=== PATIENT | male | born 1940 | race Caucasian/White ===

== ENCOUNTER 2018-11-29 15:19 | Emergency (ER) | payer MEDICARE, OTHER ==
--- NOTE | 2018-11-29 15:25 | EDM.PDOC ---
ED HPI GENERAL MEDICAL PROBLEM - General Chief Complaint: Upper Extremity Injury/Pain Stated Complaint: SICK Time Seen by Provider: 11/29/18 15:24 Source of Information: Reports: Patient History Limitations: Reports: No Limitations - History of Present Illness INITIAL COMMENTS - FREE TEXT/NARRATIVE: HISTORY AND PHYSICAL: History of present illness: Patient is a 78-year-old male presenting to the emergency room for left hand pain from [facility]. Patient states he got his left hand entangled in a horse yesterday. He does have a history of altered mental status. [facility] is not sure how he injured his hand. Patient states it is extremely painful and when asked to rate his pain on a scale of zero to ten, he states it is "ban-ass fast". Review of systems: As per history of present illness and below otherwise all systems reviewed and negative. Past medical history: As per history of present illness and as reviewed below otherwise noncontributory. Surgical history: As per history of present illness and as reviewed below otherwise noncontributory. Social history: See social history for further information Family history: As per history of present illness and as reviewed below otherwise noncontributory. Physical exam: General: Patient is a well-nourished and well-developed 78-year-old male. Alert and oriented to person and place, although he his pleasantly confused during conversation. Nontoxic in appearance and in no acute distress dressed. Vital signs have been reviewed by me. HEENT: Atraumatic, normocephalic, pupils equal and reactive bilaterally, negative for conjunctival pallor or scleral icterus, mucous membranes moist, TMs normal bilaterally, throat clear, neck supple, nontender, trachea midline. No drooling or trismus noted. No meningeal signs. No hot potato voice noted. Lungs: Clear to auscultation, breath sounds equal bilaterally, chest nontender. Heart: S1S2, regular rate and rhythm without overt murmur Abdomen: Soft, nondistended, nontender. Negative for masses or hepatosplenomegaly. Negative for costovertebral tenderness. Pelvis: Stable nontender. Skin: Bruising at the base of the fifth, fourth and third digit with slight warmth and erythema. Intact, warm, dry. No lesions or rashes noted. Extremities: Left wrist tender to palpation on the anterior and posterior sides , tender to palpation on the MIP joints and metatarsal bones of the 3rd, 4th and 5th digit. Otherwise moves all extremities per self without difficulty or deficits, negative for cords or calf pain. Neurovascular unremarkable. Neuro: Awake, alert, oriented. Cranial nerves II through XII unremarkable. Cerebellum unremarkable. Motor and sensory unremarkable throughout. Exam nonfocal. Notes: Lab work is unremarkable with the exception of an elevated uric acid. X-rays show soft tissue swelling but no acute bony abnormalities are noted. As he is very tender with palpation we will put him in a cockup wrist splint for comfort. Supportive care measures were reviewed and discussed. Voices understanding and is agreeable to plan of care. Denies any further questions or concerns at this time. Diagnostics: Left hand/wrist x ray, CBC, CMP, Lactic Acid, Uric Acid Therapeutics: Wrist Splint Prescription: Prednisone Colchicine Indomethacine Impression: Gout Left Hand Pain Plan: 1. Rest, ice and elevate the extremity. Wear the splint for comfort over the next 3-5 days. 2. Tylenol as needed for pain management. 3. Please follow up with your primary care provider as we discussed. Return to the ED as needed and as discussed. Definitive disposition and diagnosis as appropriate pending reevaluation and review of above. Left Hand Pain Score (Numeric/FACES): 8 - Related Data Allergies Allergy/AdvReac Type Severity Reaction Status Date / Time Penicillins Allergy Nausea Verified 11/29/18 15:33 Home Meds: Home Meds Acetaminophen [Acetaminophen ER] 650 mg PO TID 09/02/16 [History] Bisacodyl 10 mg RECTAL DAILY PRN 09/02/16 [History] Acetaminophen [Tylenol] 650 mg PO Q6H PRN 09/06/16 [History] Methyl Salicylate/Menthol [Icy Hot] 1 applic TOP Q8H PRN 09/06/16 [History] Cetirizine [ZyrTEC] 1 tab PO BID 09/01/18 [History] Loperamide [Imodium] 1 cap PO ASDIRECTED PRN 09/01/18 [History] Sulfamethoxazole/Trimethoprim [Bactrim Ds Tablet] 1 tab PO BID 09/01/18 [History ] Past Medical History HEENT History: Reports: None Cardiovascular History: Reports: High Cholesterol, Hypertension, Other (See Below) Other Cardiovascular History: Edema Respiratory History: Reports: Pneumonia, Recurrent Gastrointestinal History: Reports: None Genitourinary History: Reports: Acute Renal Failure, Chronic Renal Insuffiency, Retention, Urinary Other Genitourinary History: CKD, urinary retention Musculoskeletal History: Reports: Gout, Osteoarthritis, Other (See Below) Other Musculoskeletal History: Muscle weakness, traumatic ischemia of muscle, frequent falls, joint pain Neurological History: Reports: Other (See Below) Other Neuro History: altered mental status according to radha chart, syncope Psychiatric History: Reports: Dementia Endocrine/Metabolic History: Reports: Obesity/BMI 30+ Hematologic History: Reports: None Immunologic History: Reports: None Oncologic (Cancer) History: Reports: None Dermatologic History: Reports: Cellulitis - Infectious Disease History Infectious Disease History: Reports: None - Past Surgical History Head Surgeries/Procedures: Reports: None HEENT Surgical History: Reports: None Cardiovascular Surgical History: Reports: None Respiratory Surgical History: Reports: None GI Surgical History: Reports: Appendectomy Male Surgical History: Reports: None Endocrine Surgical History: Reports: None Neurological Surgical History: Reports: None Musculoskeletal Surgical History: Reports: None Oncologic Surgical History: Reports: None Social & Family History - Family History Family Medical History: Unobtainable Neurological: Reports: Dementia - Caffeine Use Caffeine Use: Reports: None Other Caffeine Use: Unknown Review of Systems - Review of Systems Review Of Systems: ROS reveals no pertinent complaints other than HPI. ED EXAM, GENERAL - Physical Exam Exam: See Below (See dictation) Course - Vital Signs Last Recorded V/S: Last Vital Signs Temp 98.1 F 11/29/18 15:35 Pulse 114 H 11/29/18 15:35 Resp 18 11/29/18 15:35 BP 130/94 H 11/29/18 15:35 Pulse Ox 97 11/29/18 15:35 - Orders/Labs/Meds Labs: Laboratory Tests 11/29/18 11/29/18 11/29/18 Range/Units 16:18 16:18 16:18 WBC 10.26 (4.0-11.0) K/uL RBC 4.42 L (4.50-5.90) M/uL Hgb 13.3 (13.0-17.0) g/dL Hct 41.2 (38.0-50.0) % MCV 93.2 (80.0-98.0) fL MCH 30.1 (27.0-32.0) pg MCHC 32.3 (31.0-37.0) g/dL RDW Std Deviation 47.8 (28.0-62.0) fl RDW Coeff of Joseph 14 (11.0-15.0) % Plt Count 237 (150-400) K/uL MPV 9.80 (7.40-12.00) fL Neut % (Auto) 73.0 (48.0-80.0) % Lymph % (Auto) 15.5 L (16.0-40.0) % Weld % (Auto) 9.2 (0.0-15.0) % Eos % (Auto) 2.0 (0.0-7.0) % Baso % (Auto) 0.3 (0.0-1.5) % Neut # (Auto) 7.5 H (1.4-5.7) K/uL Lymph # (Auto) 1.6 (0.6-2.4) K/uL Weld # (Auto) 0.9 H (0.0-0.8) K/uL Eos # (Auto) 0.2 (0.0-0.7) K/uL Baso # (Auto) 0.0 (0.0-0.1) K/uL Nucleated RBC % 0.0 /100WBC Nucleated RBCs # 0 K/uL Lactate 2.0 (0.20-2.00) mmol/L Sodium 139 (136-148) mmol/L Potassium 4.6 (3.5-5.1) mmol/L Chloride 100 (98-107) mmol/L Carbon Dioxide 27.4 (21.0-32.0) mmol/L BUN 20 H (7.0-18.0) mg/dL Creatinine 1.1 (0.8-1.3) mg/dL Est Cr Clr Drug Dosing 53.55 mL/min Estimated GFR (MDRD) > 60.0 ml/min Glucose 104 (74-106) mg/dL Uric Acid 8.3 H (2.6-7.2) mg/dL Calcium 9.1 (8.5-10.1) mg/dL Total Bilirubin 0.4 (0.2-1.0) mg/dL AST 30 (15-37) IU/L ALT 18 (14-63) IU/L Alkaline Phosphatase 59 (46-116) U/L Total Protein 7.8 (6.4-8.2) g/dL Albumin 3.1 L (3.4-5.0) g/dL Globulin 4.7 H (2.6-4.0) g/dL Albumin/Globulin Ratio 0.7 L (0.9-1.6) Departure - Departure Time of Disposition: 17:26 Disposition: Home, Self-Care 01 Clinical Impression: Left hand pain Gout Qualifiers: Gout site: hand Gout etiology: unspecified cause Chronicity: acute Laterality: left Qualified Code(s): M10.9 - Gout, unspecified - Discharge Information Instructions: Gout Referrals: Awais Goss MD [Primary Care Provider] - Forms: ED Department Discharge Additional Instructions: The following information is given to patients seen in the emergency department who are being discharged to home. This information is to outline your options for follow-up care. We provide all patients seen in our emergency department with a follow-up referral. The need for follow-up, as well as the timing and circumstances, are variable depending upon the specifics of your emergency department visit. If you don't have a primary care physician on staff, we will provide you with a referral. We always advise you to contact your personal physician following an emergency department visit to inform them of the circumstance of the visit and for follow-up with them and/or the need for any referrals to a consulting specialist. The emergency department will also refer you to a specialist when appropriate. This referral assures that you have the opportunity for follow-up care with a specialist. All of these measure are taken in an effort to provide you with optimal care, which includes your follow-up. Under all circumstances we always encourage you to contact your private physician who remains a resource for coordinating your care. When calling for follow-up care, please make the office aware that this follow-up is from your recent emergency room visit. If for any reason you are refused follow-up, please contact the [facility] Emergency Department at and asked to speak to the emergency department charge nurse. [facility] [address] [place] [id number] [facility] [address] [place] [address] 1. Rest, ice and elevate the extremity. Wear the splint for comfort over the next 3-5 days. 2. Tylenol as needed for pain management. Take the GOUT medications as directed 3. Please follow up with your primary care provider as we discussed. Return to the ED as needed and as discussed.
[2018-11-29 15:38] VITALS: BP 130/94; PULSE 114
[2018-11-29 16:51] LABS: BLOOD UREA NITROGEN,BUN 20 mg/dL (7.0-18.0); CARBON DIOXIDE,CO2 27.4 mmol/L (21.0-32.0); CHLORIDE,CL 100 mmol/L (98-107); GLUCOSE RANDOM 104 mg/dL (74-106); POTASSIUM,K 4.6 mmol/L (3.5-5.1); SODIUM,NA 139 mmol/L (136-148)
--- NOTE | 2018-11-29 16:56 | CR ---
Left hand: Three views of the left hand were obtained. Comparison: Prior left hand study of 06/07/16. Findings within the wrist are seen which are stable from previous exam and described on wrist exam. Joint spaces are fairly well-preserved within the hand. No acute fracture, dislocation or other bony abnormality is seen. Soft tissue swelling is identified. Impression: Soft tissue swelling. No acute bony abnormality is seen on left hand exam. Diagnostic code #2 MTDD
--- NOTE | 2018-11-29 16:56 | CR ---
Left wrist: Three views left wrist were obtained. Comparison: Prior left wrist exam of 06/07/16. Old fracture is noted within the proximal pole of the navicular bone. Joint space narrowing is noted between the distal radius and navicular bone. Navicular bone shows distal sclerosis. No additional fracture or other bony abnormality is seen. Impression: 1. Old proximal pole navicular fracture. Degenerative change between the radius and navicular bone. Sclerotic change within the distal navicular bone. 2. Nothing acute is appreciated. Diagnostic code #3 MTDD
== END 2018-11-29 17:45 | disposition home or self-care (01) ==
LOC: MW.ED 15:19
DX: M10.042 Idiopathic gout, left hand (principal); I12.9 Hypertensive chronic kidney disease with stage 1 through stage 4 chronic kidney disease, or unspecified chronic kidney disease; N18.9 Chronic kidney disease, unspecified; E66.9 Obesity, unspecified; Z68.41 Body mass index [BMI] 40.0-44.9, adult; Z88.0 Allergy status to penicillin
CPT/HCPCS: 36415; 73110-26-LT; 73110-LT; 73130-26-LT; 73130-LT; 80053; 83605; 84550; 85025; 99283-25

== ENCOUNTER 2020-09-16 10:10 | Inpatient (IN) | payer MEDICARE, OTHER ==
[2020-09-16] MEDS ORDERED: Sodium Chloride 0.9% 1,000 ML IV ONE ×3 (10:13→13:24)
[2020-09-16] MEDS ORDERED: Meropenem 1 GM in Sodium Chloride 0.9% 100 ML IV ONE (10:16)
--- NOTE | 2020-09-16 10:16 | PCM.EKG ---
#1 Interpretation EKG Date: 09/16/20 Time: 10:13 Rhythm: Other (sinus tachycardia) Rate (Beats/Min): 153 [place]: Normal P-Wave: Present QRS: Normal ST-T: Normal QT: Normal EKG Interpretation Comments: sinus tachycardia rate of 153; machine read as SVT; more likely hidden P-waves 2/2 rate. Patient is septic from likely UTI source so will treat sepsis and reassess rate and rhythm
[2020-09-16] MEDS ORDERED: Meropenem Premix 1 GM in Premix Bag 1 BAG IV SCH (11:00)
[2020-09-16 11:12] LABS: BLOOD UREA NITROGEN,BUN 112 mg/dL (7.0-18.0); CARBON DIOXIDE,CO2 26.5 mmol/L (21.0-32.0); CHLORIDE,CL 122 mmol/L (98-107); GLUCOSE RANDOM 139 mg/dL (74-106); LIPASE 71 U/L (73-393); POTASSIUM,K 3.9 mmol/L (3.5-5.1)
--- NOTE | 2020-09-16 11:20 | EDM.PDOC ---
ED HPI GENERAL MEDICAL PROBLEM - General Chief Complaint: Possible Sepsis Stated Complaint: LETHARGY Time Seen by Provider: 09/16/20 10:12 Source of Information: Reports: Patient History Limitations: Reports: No Limitations - History of Present Illness INITIAL COMMENTS - FREE TEXT/NARRATIVE: HISTORY AND PHYSICAL: History of present illness: Patient is an 80-year-old male who presents emergency room today via EMS from [facility] for concern of possible sepsis. Patient has a known urinary tract infection and has been on Bactrim over the past several weeks. However, was switched to Rocephin 2 days ago and states that he is continuing to decline despite this. Per report from nursing staff at [facility], he has been clammy with his most recent vital check at [facility] with a blood pressure of 100/60, heart rate of 153, respiratory rate of 20, 96% on room air and afebrile. Per nursing staff, he does have some increased swelling of his left wrist and they are concerned about fracture although unknown injury. Per nursing staff, 2 weeks ago patient was a pivot transfer with to assist but over the course of the past 2 weeks, he has been steadily declining and is now a José Miguel lift. Nursing staff states he does have chronic pain in his left knee with extension and does have dementia and is confused at baseline but alert and "tell stories "per baseline. Per nursing staff, patient is not able to explain much of his symptoms and this is due to his dementia. Patient is a DNR/DNI code 3. Nursing staff has noticed decreased oral intake over the past several weeks. Review of systems: As per history of present illness and below otherwise all systems reviewed and negative. Past medical history: As per history of present illness and as reviewed below otherwise noncontributory. Surgical history: As per history of present illness and as reviewed below otherwise noncontributory. Social history: See social history for further information Family history: As per history of present illness and as reviewed below otherwise noncontributory. Physical exam: General: Patient is alert, and in no acute distress. Patient does not answer questions appropriately but does have dementia per baseline. Patient laying comfortably on exam table. Patient is tachycardic 150 on exam, otherwise vitally stable and reviewed by me. HEENT: Atraumatic, normocephalic, pupils equal and reactive bilaterally, negative for conjunctival pallor or scleral icterus, mucous membranes dry, TMs normal bilaterally, throat clear, neck supple, nontender, trachea midline. No drooling or trismus noted. No meningeal signs. No hot potato voice noted. Lungs: Clear to auscultation, breath sounds equal bilaterally, chest nontender. Heart: S1S2, regular rate and rhythm without overt murmur Abdomen: Soft, nondistended, nontender. Negative for masses or hepatosplenomegaly. Negative for costovertebral tenderness. Pelvis: Stable nontender. Genitourinary: Deferred. Rectal: Deferred. Skin: Intact, warm, dry. No lesions or rashes noted. Extremities: There is some bruising noted over the left dorsal wrist with pain to palpation of the wrist. Radial pulses grossly intact of the left upper extremity with capillary refill less than 2 seconds. All compartments are soft in the left upper extremity. Patient does have pain with range of motion of the left knee and prefers it to be held in flexed position and does have pain with extension. Per nursing staff at [facility], this is chronic in nature. Otherwise, atraumatic, negative for cords or calf pain. Neurovascular unremarkable. Neuro: Awake, alert, unable to answer questions appropriately/limited due to dementia. Cranial nerves II through XII unremarkable. Cerebellum unremarkable. Motor and sensory unremarkable throughout. Exam nonfocal. Notes: Patient is an 80-year-old male who presents emergency room today via EMS from [facility] at the halfway for concern of possible sepsis due to known urinary tract infection. Upon arrival to the ED, patient is noted to be tachycardic 150s on exam, otherwise vitally stable. Patient does have some swelling noted to his left wrist and does have pain with extension of his left knee, and mucous membranes are dry. Otherwise, remainder of physical exam unremarkable. Will perform lab work, obtain blood cultures and lactate, provide a 20 cc/kg bolus and initiate antibiotics due to concern for sepsis. At this time, unable to get ahold of his family after multiple attempts by ourselves as well nursing staff at [facility]. See Dr. Douglas's dictation for specific EKG interpretation. However, sinus tachycardia with a rate of 153 without signs of STEMI or acute changes. CBC noted to have an elevation of white blood cell count of 14.3 with a left shift with absolute segs neutrophils at 9.3 and band at 1.7. Remainder of mild derangements of CBC unremarkable. CMP noted for a severe hypernatremia at 164, hyperchloremia at 122, acute kidney injury/failure with a creatinine of 3.6 and BUN of 112. Lactic acid elevated at 2.2. Troponin negative. Other mild derangements of CMP unremarkable. Urinalysis shows too numerous to count white blood cells with 4-8 red blood cells positive leukocyte Estrace with 2+ bacteria and 100 protein. Interpretation: Acute cystitis. Covid negative. Blood cultures pending. Head CT shows no acute findings or significant changes from prior exam. Left wrist x-ray shows no acute injury. No significant changes from prior. Chest x-ray shows no acute cardiopulmonary abnormality. (10L free water deficit with severe hypernatremia) Following 1 L saline bolus, patient's heart rate normalizes to 90 bpm. Repeat EKG obtained and unchanged from prior. Patient has now received a total of 3 L normal saline and throughout stay in ED has variability heart rate from 80-150 which is not consistent. Patient does have a drop in blood pressure to 125/85. I did call and speak to the hospitalist on-call, Dr. Kwok, who would like patient to have a central line for presumed septic shock given acute kidney failure with blood pressure drop and known source of infection/tachycardia. And excepting to admit patient to the ICU. There was a delay in being able to get a hold of patient's family from nursing staff at [facility] as well as nursing staff here. We were finally able to get a hold of patient's daughter Keke Carrasco who is patients medical POA and thoroughly discussed patient's care. Keke is unable to be here in the emergency room and any other family members are not able to be here as they are all down in [place] currently in live there. Keke would like us to do all life saving ability up to point of chest compressions / intubation and agreeable to central line / antibiotics / admission to ICU for septic shock. Patient discharged to the ICU to Dr. Kellogg in stable condition. Diagnostics: EKG, CBC, CMP, UA urinalysis with urine culture, chest x-ray, troponin, lactate, blood cultures x2, left wrist x-ray, COVID Therapeutics: Normal saline, meropenem, vancomycin Impression: Septic shock secondary to urinary tract infection Hypernatremia, severe Hyperchloremia Acute renal failure secondary to septic shock Dehydration Plan: Admit to ICU to Dr. Kwok Definitive disposition and diagnosis as appropriate pending reevaluation and review of above. - Related Data Allergies Allergy/AdvReac Type Severity Reaction Status Date / Time Penicillins Allergy Nausea Verified 11/29/18 15:33 Home Meds: Home Meds Acetaminophen [Tylenol] 650 mg PO Q6H PRN 09/06/16 [History] Methyl Salicylate/Menthol [Icy Hot] 1 applic TOP Q8H PRN 09/06/16 [History] Cetirizine [ZyrTEC] 1 tab PO BID 09/01/18 [History] Acetaminophen with Codeine [Acetaminophen-Cod #3] 1 each PO TID 09/16/20 [History] Carbamide Peroxide [Debrox] 15 ml OT ASDIRECTED 09/16/20 [History] Furosemide [Lasix] 80 mg PO DAILY 09/16/20 [History] cefTRIAXone Sodium [Ceftriaxone] 1 gram IM DAILY 09/16/20 [History] Past Medical History HEENT History: Reports: None Cardiovascular History: Reports: High Cholesterol, Hypertension, Other (See Below) Other Cardiovascular History: Edema Respiratory History: Reports: Pneumonia, Recurrent Gastrointestinal History: Reports: None Genitourinary History: Reports: Acute Renal Failure, Chronic Renal Insuffiency, Retention, Urinary Other Genitourinary History: CKD, urinary retention Musculoskeletal History: Reports: Gout, Osteoarthritis, Other (See Below) Other Musculoskeletal History: Muscle weakness, traumatic ischemia of muscle, frequent falls, joint pain Neurological History: Reports: Other (See Below) Other Neuro History: altered mental status according to radha chart, syncope Psychiatric History: Reports: Dementia Endocrine/Metabolic History: Reports: Obesity/BMI 30+ Hematologic History: Reports: None Immunologic History: Reports: None Oncologic (Cancer) History: Reports: None Dermatologic History: Reports: Cellulitis - Infectious Disease History Infectious Disease History: Reports: None - Past Surgical History Head Surgeries/Procedures: Reports: None HEENT Surgical History: Reports: None Cardiovascular Surgical History: Reports: None Respiratory Surgical History: Reports: None GI Surgical History: Reports: Appendectomy Male Surgical History: Reports: None Endocrine Surgical History: Reports: None Neurological Surgical History: Reports: None Musculoskeletal Surgical History: Reports: None Oncologic Surgical History: Reports: None Social & Family History - Family History Family Medical History: Unobtainable Neurological: Reports: Dementia - Caffeine Use Caffeine Use: Reports: None Other Caffeine Use: Unknown ED ROS GENERAL - Review of Systems Review Of Systems: Comprehensive ROS is negative, except as noted in HPI. ED EXAM, GENERAL - Physical Exam Exam: See Below (see dictation) ED CENTRAL LINE INSERTION - Central Line Insertion Central Line Indication: IV access, hemodynamic monitoring, medication administration Site: femoral (R) Prep: CDC/MBT Guidelines, Sterile Drapes, Chlorhexidine Lumen: triple Gauge: 7Fr Local Anesthesia - Lidocaine (Xylocaine): 1% Plain Local Anesthetic Volume: 5cc Ultrasound guided: Yes Guidewire and dilator removed intact: Yes Micropuncture kit used: No Complications: No Secured with suture: Yes Post placement confirmation: all ports aspirated, all ports flushed Dressing applied: by provider, chlorhexidine disc used Central line comment: Central line insertion by myself and directly observed and supervised directly by Dr. Brian Da Silva Course - Vital Signs Last Recorded V/S: Last Vital Signs Temp 99.7 F 09/16/20 15:21 Pulse 93 09/16/20 15:21 Resp 20 09/16/20 15:21 BP 136/55 L 09/16/20 15:21 Pulse Ox 97 09/16/20 15:21 - Orders/Labs/Meds Orders: Active Orders 24 hr Category Date Time Status Admission Status [Patient Status] [ADT] Stat ADT 09/16/20 13:32 Active BASIC METABOLIC PANEL,BMP [CHEM] Stat Lab 09/16/20 16:39 Received CULTURE BLOOD [BC] Stat Lab 09/16/20 10:25 Received CULTURE BLOOD [BC] Stat Lab 09/16/20 13:00 Received CULTURE URINE [MREF] Stat Lab 09/16/20 10:35 Received Blood Culture x2 Reflex Set [OM.PC] Stat Oth 09/16/20 10:15 Ordered Medication Orders Acetaminophen (Acetaminophen 650 Mg Supp) 650 mg RECTAL Q4H PRN PRN Reason: Pain (mild 1-3) Albuterol/Ipratropium (Albuterol/Ipratropium 3.0-0.5 Mg/3 Ml Neb Soln) 3 ml NEB Q4HRRT PRN PRN Reason: Shortness of Breath Pantoprazole Sodium 40 mg/ (Sodium Chloride) 10 mls @ 200 mls/hr IV Q24H NIMO Meropenem/Sodium Chloride 1 gm (/ Premix) 50 mls @ 100 mls/hr IV Q12H NIMO Sodium Chloride (Normal Saline) 1,000 mls @ 125 mls/hr IV Q8H NIMO Ondansetron HCl (Ondansetron 4 Mg/2 Ml Sdv) 4 mg IVPUSH Q4H PRN PRN Reason: Nausea Sodium Chloride (Sodium Chloride 0.9% 10 Ml Syringe) 10 ml FLUSH ASDIRECTED PRN PRN Reason: Keep Vein Open Sodium Chloride (Sodium Chloride 0.9% 2.5 Ml Syringe) 2.5 ml FLUSH ASDIRECTED PRN PRN Reason: Keep Vein Open Vancomycin HCl (Pharmacy To Dose - Vancomycin) 1 dose .XX ASDIRECTED NIMO Labs: Laboratory Tests 09/16/20 09/16/20 09/16/20 Range/Units 10:25 10:25 10:25 WBC 14.36 H (4.0-11.0) K/uL RBC 4.87 (4.50-5.90) M/uL Hgb 13.6 (13.0-17.0) g/dL Hct 44.2 (38.0-50.0) % MCV 90.8 (80.0-98.0) fL MCH 27.9 (27.0-32.0) pg MCHC 30.8 L (31.0-37.0) g/dL RDW Std Deviation 56.0 (28.0-62.0) fl RDW Coeff of Joseph 17 H (11.0-15.0) % Plt Count 415 H (150-400) K/uL MPV 10.20 (7.40-12.00) fL Add Manual Diff YES Neutrophils % (Manual) 65 (48.0-80.0) % Band Neutrophils % 5 % Lymphocytes % (Manual) 26 (16.0-40.0) % Monocytes % (Manual) 2 (0.0-15.0) % Eosinophils % (Manual) 1 (0.0-7.0) % Basophils % (Manual) 1 (0.0-1.5) % Nucleated RBC % 0.0 /100WBC Absolute Seg Neuts 9.3 H (1.4-5.7) Band Neutrophils # 0.7 Lymphocytes # (Manual) 3.7 H (0.6-2.4) Monocytes # (Manual) 0.3 (0.0-0.8) Eosinophils # (Manual) 0.1 (0.0-0.7) Basophils # (Manual) 0.1 (0.0-0.1) Nucleated RBCs # 0 K/uL Sodium 164 H* (136-148) mmol/L Potassium 3.9 (3.5-5.1) mmol/L Chloride 122 H (98-107) mmol/L Carbon Dioxide 26.5 (21.0-32.0) mmol/L BUN 112 H (7.0-18.0) mg/dL Creatinine 3.6 H (0.8-1.3) mg/dL Est Cr Clr Drug Dosing 16.90 mL/min Estimated GFR (MDRD) 16.4 ml/min Glucose 139 H (74-106) mg/dL Lactic Acid 2.2 H* (0.4-2.0) mmol/L Calcium 9.9 (8.5-10.1) mg/dL Total Bilirubin 0.3 (0.2-1.0) mg/dL AST 86 H (15-37) IU/L ALT 58 (14-63) IU/L Alkaline Phosphatase 64 (46-116) U/L Troponin I < 0.050 (0.000-0.056) ng/mL Total Protein 8.7 H (6.4-8.2) g/dL Albumin 2.4 L (3.4-5.0) g/dL Globulin 6.3 H (2.6-4.0) g/dL Albumin/Globulin Ratio 0.4 L (0.9-1.6) Lipase 71 L (73-393) U/L Urine Color Urine Appearance Urine pH (5.0-8.0) Ur Specific [place] (1.001-1.035) Urine Protein (NEGATIVE) mg/dL Urine Glucose (UA) (NEGATIVE) mg/dL Urine Ketones (NEGATIVE) mg/dL Urine Occult Blood (NEGATIVE) Urine Nitrite (NEGATIVE) Urine Bilirubin (NEGATIVE) Urine Urobilinogen (<2.0) EU/dL Ur Leukocyte Esterase (NEGATIVE) Urine RBC (0-2/HPF) Urine WBC (0-5/HPF) Ur Epithelial Cells (NONE-FEW) Amorphous Sediment (NEGATIVE) Urine Bacteria (NEGATIVE) Urine Mucus (NONE-MOD) SARS-CoV-2 RNA (SALAS) (NEGATIVE) 09/16/20 09/16/20 Range/Units 10:35 10:50 WBC (4.0-11.0) K/uL RBC (4.50-5.90) M/uL Hgb (13.0-17.0) g/dL Hct (38.0-50.0) % MCV (80.0-98.0) fL MCH (27.0-32.0) pg MCHC (31.0-37.0) g/dL RDW Std Deviation (28.0-62.0) fl RDW Coeff of Joseph (11.0-15.0) % Plt Count (150-400) K/uL MPV (7.40-12.00) fL Add Manual Diff Neutrophils % (Manual) (48.0-80.0) % Band Neutrophils % % Lymphocytes % (Manual) (16.0-40.0) % Monocytes % (Manual) (0.0-15.0) % Eosinophils % (Manual) (0.0-7.0) % Basophils % (Manual) (0.0-1.5) % Nucleated RBC % /100WBC Absolute Seg Neuts (1.4-5.7) Band Neutrophils # Lymphocytes # (Manual) (0.6-2.4) Monocytes # (Manual) (0.0-0.8) Eosinophils # (Manual) (0.0-0.7) Basophils # (Manual) (0.0-0.1) Nucleated RBCs # K/uL Sodium (136-148) mmol/L Potassium (3.5-5.1) mmol/L Chloride (98-107) mmol/L Carbon Dioxide (21.0-32.0) mmol/L BUN (7.0-18.0) mg/dL Creatinine (0.8-1.3) mg/dL Est Cr Clr Drug Dosing mL/min Estimated GFR (MDRD) ml/min Glucose (74-106) mg/dL Lactic Acid (0.4-2.0) mmol/L Calcium (8.5-10.1) mg/dL Total Bilirubin (0.2-1.0) mg/dL AST (15-37) IU/L ALT (14-63) IU/L Alkaline Phosphatase (46-116) U/L Troponin I (0.000-0.056) ng/mL Total Protein (6.4-8.2) g/dL Albumin (3.4-5.0) g/dL Globulin (2.6-4.0) g/dL Albumin/Globulin Ratio (0.9-1.6) Lipase (73-393) U/L Urine Color YELLOW Urine Appearance CLOUDY Urine pH 6.0 (5.0-8.0) Ur Specific [place] 1.025 (1.001-1.035) Urine Protein 100 H (NEGATIVE) mg/dL Urine Glucose (UA) NEGATIVE (NEGATIVE) mg/dL Urine Ketones NEGATIVE (NEGATIVE) mg/dL Urine Occult Blood LARGE H (NEGATIVE) Urine Nitrite NEGATIVE (NEGATIVE) Urine Bilirubin NEGATIVE (NEGATIVE) Urine Urobilinogen 0.2 (<2.0) EU/dL Ur Leukocyte Esterase LARGE H (NEGATIVE) Urine RBC 4-8 (0-2/HPF) Urine WBC TO NUMEROUS TO COUNT H (0-5/HPF) Ur Epithelial Cells NOT SEEN (NONE-FEW) Amorphous Sediment FEW (NEGATIVE) Urine Bacteria 2+ H (NEGATIVE) Urine Mucus FEW (NONE-MOD) SARS-CoV-2 RNA (SALAS) NEGATIVE (NEGATIVE) Meds: Medications Generic Name Dose Route Start Last Admin Trade Name Freq PRN Reason Stop Dose Admin Acetaminophen 650 mg 09/16/20 15:24 Acetaminophen 650 Mg Supp RECTAL Q4H PRN Pain (mild 1-3) Albuterol/Ipratropium 3 ml 09/16/20 17:09 Albuterol/Ipratropium 3.0-0.5 Mg/3 Ml Neb Soln NEB Q4HRRT PRN Shortness of Breath Pantoprazole Sodium 40 mg/ 10 mls @ 200 mls/hr 09/16/20 15:30 Sodium Chloride IV Q24H NIMO Meropenem/Sodium Chloride 1 gm 50 mls @ 100 mls/hr 09/16/20 22:00 / Premix IV Q12H NIMO Sodium Chloride 1,000 mls @ 125 mls/hr 09/16/20 16:30 Normal Saline IV Q8H NIMO Ondansetron HCl 4 mg 09/16/20 15:24 Ondansetron 4 Mg/2 Ml Sdv IVPUSH Q4H PRN Nausea Sodium Chloride 10 ml 07/22/21 15:24 Sodium Chloride 0.9% 10 Ml Syringe FLUSH ASDIRECTED PRN Keep Vein Open Sodium Chloride 2.5 ml 09/16/20 15:24 Sodium Chloride 0.9% 2.5 Ml Syringe FLUSH ASDIRECTED PRN Keep Vein Open Vancomycin HCl 1 dose 09/16/20 15:45 Pharmacy To Dose - Vancomycin .XX ASDIRECTED NIMO Discontinued Medications Generic Name Dose Route Start Last Admin Trade Name Leny PRN Reason Stop Dose Admin Acetaminophen/Codeine Phosphate 1 tab 09/16/20 15:21 Acetaminophen/Codeine 300-30 Mg Tab PO 09/16/20 15:22 ONETIME ONE Fentanyl 25 mcg 09/16/20 15:51 09/16/20 15:55 Fentanyl 50 Mcg/Ml Sdv IVPUSH 09/16/20 15:52 25 mcg ONETIME ONE Administration Sodium Chloride 1,000 mls @ 999 mls/hr 09/16/20 10:13 09/16/20 10:20 Normal Saline IV 09/16/20 11:13 999 mls/hr BOLUS ONE Administration Meropenem 1 gm/ Sodium 100 mls @ 200 mls/hr 09/16/20 10:16 09/16/20 11:09 Chloride IV 09/16/20 10:45 Not Given ONETIME ONE Meropenem/Sodium Chloride 1 gm 50 mls @ 100 mls/hr 09/16/20 11:00 09/16/20 11:09 / Premix IV 100 mls/hr ONETIME NIMO Administration Sodium Chloride 1,000 mls @ 999 mls/hr 09/16/20 10:55 09/16/20 11:09 Normal Saline IV 09/16/20 11:55 999 mls/hr STAT ONE Administration Vancomycin HCl 1.5 gm/ Premix 300 mls @ 199.188 mls/hr 09/16/20 11:30 09/16/20 11:33 IV 09/16/20 13:00 199.188 mls/hr ONETIME ONE Administration Sodium Chloride 1,000 mls @ 999 mls/hr 09/16/20 13:24 09/16/20 13:34 Normal Saline IV 09/16/20 14:24 999 mls/hr STAT ONE Administration Departure - Departure Time of Disposition: 17:42 Disposition: Admitted As Inpatient 66 Clinical Impression: Septic shock, Hypernatremia, Hyperchloremia, Dehydration Acute renal failure Qualifiers: Acute renal failure type: unspecified Qualified Code(s): N17.9 - Acute kidney failure, unspecified Urinary tract infection Qualifiers: Urinary tract infection type: acute cystitis Hematuria presence: with hematuria Qualified Code(s): N30.01 - Acute cystitis with hematuria - Discharge Information Sepsis Event Note (ED) - Evaluation Sepsis Screening Result: No Definite Risk - Focused Exam Vital Signs: Vital Signs Temp Pulse Resp BP Pulse Ox 09/16/20 13:48 88 125/85 96 09/16/20 13:32 143 H 133/85 97 09/16/20 13:17 91 159/93 H 91 L 09/16/20 13:11 88 141/89 H 09/16/20 12:56 89 139/73 09/16/20 12:41 153 H 131/93 H 97 09/16/20 12:25 142 H 130/97 H 94 L 09/16/20 11:57 145 H 159/92 H 96 09/16/20 11:41 147 H 145/84 H 98 09/16/20 11:22 148 H 20 145/98 H 98 09/16/20 11:15 156 H 98 09/16/20 10:51 146 H 20 101/75 96 09/16/20 10:36 151 H 20 111/79 94 L 09/16/20 10:18 154 H 20 137/78 93 L 09/16/20 10:16 155 H 93 L 09/16/20 10:13 98.8 F 154 H 18 98 09/16/20 10:11 98.8 F 153 H 20 137/78 96 - My Orders Last 24 Hours: My Active Orders 09/16/20 10:15 Blood Culture x2 Reflex Set [OM.PC] Stat 09/16/20 10:25 CULTURE BLOOD [BC] Stat 09/16/20 10:35 CULTURE URINE [MREF] Stat 09/16/20 13:00 CULTURE BLOOD [BC] Stat 09/16/20 13:32 Admission Status [Patient Status] [ADT] Stat - Assessment/Plan Last 24 Hours: My Active Orders 09/16/20 10:15 Blood Culture x2 Reflex Set [OM.PC] Stat 09/16/20 10:25 CULTURE BLOOD [BC] Stat 09/16/20 10:35 CULTURE URINE [MREF] Stat 09/16/20 13:00 CULTURE BLOOD [BC] Stat 09/16/20 13:32 Admission Status [Patient Status] [ADT] Stat
[2020-09-16 11:27] LABS: SODIUM,NA 164 mmol/L (136-148)
[2020-09-16] MEDS ORDERED: VANCOmycin 1.5 GM/300 ML 1.5 GM in Premix Bag 1 BAG IV ONE (11:30)
--- NOTE | 2020-09-16 11:39 | CR ---
HISTORY: Sepsis. TECHNIQUE: Portable frontal view the chest. COMPARISON: Chest x-ray 09/01/2018. FINDINGS: Patient`s head obscures small portions of the lung apices. No airspace consolidation. No pleural effusion or pneumothorax. Pulmonary vasculature and cardiomediastinal silhouette are within normal limits. Metallic surgical anchors in the left humeral head. IMPRESSION: No acute cardiopulmonary abnormality. Dictated by Agustin Bosch MD @ 09/16/2020 11:37:[address] Agustin Bosch @ Sep 16 2020 11:37AM
--- NOTE | 2020-09-16 11:49 | CR ---
Indication: Injury and pain Technique: Left wrist 3 views Comparison: November 29, 2018 Findings: Bones: Alignment within normal limits. No acute fracture or suspicious bone lesion. Chronic nonunited fracture of the scaphoid does not appear significantly changed. Joint spaces: Stable arthritic changes in the radiocarpal joint. Soft tissues: Unremarkable. Impression: No sign of acute injury. No significant changes from the prior exam. Dictated by Adeel Mccall MD @ 09/16/2020 11:47:[address] Adeel Mccall @ Sep 16 2020 11:47AM
--- NOTE | 2020-09-16 13:00 | PCM.EKG ---
#1 Interpretation EKG Date: 09/16/20 Time: 12:38 Rhythm: Other (sinus tach) Rate (Beats/Min): 153 Golden: Normal QRS: Normal ST-T: Normal QT: Normal EKG Interpretation Comments: sinus tach at 153
--- NOTE | 2020-09-16 13:09 | CT ---
INDICATION: Altered mental status TECHNIQUE: Head CT without contrast. COMPARISON: September 01, 2018 FINDINGS: CSF spaces: Within normal limits for age. Brain parenchyma and extra-axial spaces: There are nonspecific low attenuation white matter changes consistent with chronic microvascular disease. No sign of mass, hemorrhage, or midline shift. Skull base and calvarium: The visualized paranasal sinuses and mastoid air cells demonstrate no acute or significant findings. The visualized orbits are grossly unremarkable. No skull fractures. IMPRESSION: No acute findings and no significant changes from the prior exam. No specific finding to explain altered mental status. Please note that all CT scans at this facility use dose modulation, iterative reconstruction, and/or weight-based dosing when appropriate to reduce radiation dose to as low as reasonably achievable. Dictated by Adeel Mccall MD @ 09/16/2020 1:08:[address] Adeel Mccall @ Sep 16 2020 1:08PM
[2020-09-16] MEDS ORDERED: Acetaminophen/Codeine 300-30 MG Tab PO ONE (15:21)
[2020-09-16] MEDS ORDERED: Sodium Chloride 0.9% 10 ML Syringe FLUSH PRN (15:24)
[2020-09-16] MEDS ORDERED: Ondansetron 4 MG/2 ML SDV IVPUSH PRN (15:24)
[2020-09-16] MEDS ORDERED: Sodium Chloride 0.9% 2.5 ML Syringe FLUSH PRN (15:24)
[2020-09-16] MEDS ORDERED: Pantoprazole 40 MG Vial IV SCH (15:30)
[2020-09-16] MEDS ORDERED: fentaNYL 50 MCG/ML SDV IVPUSH ONE (15:51)
--- NOTE | 2020-09-16 16:18 | PCM.HP.2 ---
H&P History of Present Illness - General Date of Service: 09/16/20 Admit Problem/Dx: Admission Diagnosis/Problem Admission Diagnosis/Problem Sepsis Source of Information: Shelter Records History Limitations: Reports: Altered Mental Status - History of Present Illness Initial Comments - Free Text/Narative: This 80-year-old male with past medical history of HLD, HTN, urinary retention with chronic renal insufficiency CKD and dementia admitted to the ER today from [facility] for concerns of possible sepsis. Patient has a known UTI and has been on Bactrim over the past several weeks. He was switched to Rocephin 2 days ago and despite this he is continuing to have a decline. Patient is mildly alert in the ER but very poor historian. Much of report was obtained from [facility] staff. Staff reports that over 2 weeks ago he has had increasing lethargy where he was at once a pivot transfer and now he is steadily declining and needing a José Miguel lift. Patient is a DNR/DNI noted on [place] paperwork. Patient poor historian. Unable to gain information from interview. In the ER leukocytosis noted at 14,000 hemoglobin 13.6 hematocrit 44.2. Platelet count 415,000. Bandemia noted at 5. Sodium elevated at 164 potassium 3.9 chloride 122 BUN 112 creatinine 3.6. Glucose 139 lactic acid elevated at 2.2. Troponin negative UA significant for +2 bacteria WBC too numerous to count large leukocyte esterase negative nitrites Covid swab negative. Head CT obtained due to altered mental status reveals no acute findings or significant changes from previous exams. Wrist x-ray negative chest x-ray negative for any acute cardiopulmonary process. EKG sinus tachycardia heart rate 150s no ST-T wave changes. In the ER patient treated with broad-spectrum antibiotics of meropenem and vancomycin along with 3 L IV fluid. Blood cultures obtained as well as urine culture. Patient will be admitted with severe sepsis secondary to complicated UTI. - Related Data Allergies/Adverse Reactions: Allergies Allergy/AdvReac Type Severity Reaction Status Date / Time Penicillins Allergy Nausea Verified 11/29/18 15:33 Home Medications: Home Meds Acetaminophen [Tylenol] 650 mg PO Q6H PRN 09/06/16 [History] Methyl Salicylate/Menthol [Icy Hot] 1 applic TOP Q8H PRN 09/06/16 [History] Cetirizine [ZyrTEC] 1 tab PO BID 09/01/18 [History] Acetaminophen with Codeine [Acetaminophen-Cod #3] 1 each PO TID 09/16/20 [History] Carbamide Peroxide [Debrox] 15 ml OT ASDIRECTED 09/16/20 [History] Furosemide [Lasix] 80 mg PO DAILY 09/16/20 [History] cefTRIAXone Sodium [Ceftriaxone] 1 gram IM DAILY 09/16/20 [History] Past Medical History HEENT History: Reports: None Cardiovascular History: Reports: High Cholesterol, Hypertension, Other (See Below) Other Cardiovascular History: Edema Respiratory History: Reports: Pneumonia, Recurrent Gastrointestinal History: Reports: None Genitourinary History: Reports: Acute Renal Failure, Chronic Renal Insuffiency, Retention, Urinary Other Genitourinary History: CKD, urinary retention Musculoskeletal History: Reports: Gout, Osteoarthritis, Other (See Below) Other Musculoskeletal History: Muscle weakness, traumatic ischemia of muscle, frequent falls, joint pain Neurological History: Reports: Other (See Below) Other Neuro History: altered mental status according to radha chart, syncope Psychiatric History: Reports: Dementia Endocrine/Metabolic History: Reports: Obesity/BMI 30+ Hematologic History: Reports: None Immunologic History: Reports: None Oncologic (Cancer) History: Reports: None Dermatologic History: Reports: Cellulitis - Infectious Disease History Infectious Disease History: Reports: None - Past Surgical History Head Surgeries/Procedures: Reports: None HEENT Surgical History: Reports: None Cardiovascular Surgical History: Reports: None Respiratory Surgical History: Reports: None GI Surgical History: Reports: Appendectomy Male Surgical History: Reports: None Endocrine Surgical History: Reports: None Neurological Surgical History: Reports: None Musculoskeletal Surgical History: Reports: None Oncologic Surgical History: Reports: None Social & Family History - Family History Family Medical History: Unobtainable Neurological: Reports: Dementia - Tobacco Use Tobacco Use Status *Q: Unknown Ever Used Tobacco Second Hand Smoke Exposure: No - Caffeine Use Caffeine Use: Reports: None Other Caffeine Use: Unknown - Recreational Drug Use Recreational Drug Use: No H&P Review of Systems - Review of Systems: Review Of Systems: Unable To Obtain Reason Not Obtained: Alert but very minimal conversation or ability to provide history Exam - Exam Exam: See Below - Vital Signs Vital Signs: Last Vital Signs Temp 99.7 F 09/16/20 15:21 Pulse 93 09/16/20 15:21 Resp 20 09/16/20 15:21 BP 136/55 L 09/16/20 15:21 Pulse Ox 97 09/16/20 15:21 Weight: 99.4 kg - Exam Quality Assessment: Supplemental Oxygen General: Alert, Cooperative HEENT: Pupils Equal, Pupils Reactive. No: Mucosa Moist & [place] (Dry) Lungs: Normal Respiratory Effort, Decreased Breath Sounds (Bibasilar) Cardiovascular: Regular Rhythm, Tachycardia. No: Systolic Murmur GI/Abdominal Exam: Normal Bowel Sounds, Soft, No Distention, Tender (Right upper quadrant tenderness upon palpation) Extremities: Normal Inspection, Normal Range of Motion, Non-Tender, No Pedal Edema, Normal Capillary Refill Skin: Warm, Moist Neuro Extensive - Mental Status: Disorientation to Place, Disorientation to Time Neuro Extensive - Motor, Sensory, Reflexes: Other (Does not follow commands appropriately) - Patient Data Lab Results Last 24 hrs: Laboratory Results - last 24 hr 09/16/20 09/16/20 09/16/20 Range/Units 10:25 10:25 10:25 WBC 14.36 H (4.0-11.0) K/uL RBC 4.87 (4.50-5.90) M/uL Hgb 13.6 (13.0-17.0) g/dL Hct 44.2 (38.0-50.0) % MCV 90.8 (80.0-98.0) fL MCH 27.9 (27.0-32.0) pg MCHC 30.8 L (31.0-37.0) g/dL RDW Std Deviation 56.0 (28.0-62.0) fl RDW Coeff of Joseph 17 H (11.0-15.0) % Plt Count 415 H (150-400) K/uL MPV 10.20 (7.40-12.00) fL Add Manual Diff YES Neutrophils % (Manual) 65 (48.0-80.0) % Band Neutrophils % 5 % Lymphocytes % (Manual) 26 (16.0-40.0) % Monocytes % (Manual) 2 (0.0-15.0) % Eosinophils % (Manual) 1 (0.0-7.0) % Basophils % (Manual) 1 (0.0-1.5) % Nucleated RBC % 0.0 /100WBC Absolute Seg Neuts 9.3 H (1.4-5.7) Band Neutrophils # 0.7 Lymphocytes # (Manual) 3.7 H (0.6-2.4) Monocytes # (Manual) 0.3 (0.0-0.8) Eosinophils # (Manual) 0.1 (0.0-0.7) Basophils # (Manual) 0.1 (0.0-0.1) Nucleated RBCs # 0 K/uL Sodium 164 H* (136-148) mmol/L Potassium 3.9 (3.5-5.1) mmol/L Chloride 122 H (98-107) mmol/L Carbon Dioxide 26.5 (21.0-32.0) mmol/L BUN 112 H (7.0-18.0) mg/dL Creatinine 3.6 H (0.8-1.3) mg/dL Est Cr Clr Drug Dosing 16.90 mL/min Estimated GFR (MDRD) 16.4 ml/min Glucose 139 H (74-106) mg/dL Lactic Acid 2.2 H* (0.4-2.0) mmol/L Calcium 9.9 (8.5-10.1) mg/dL Total Bilirubin 0.3 (0.2-1.0) mg/dL AST 86 H (15-37) IU/L ALT 58 (14-63) IU/L Alkaline Phosphatase 64 (46-116) U/L Troponin I < 0.050 (0.000-0.056) ng/mL Total Protein 8.7 H (6.4-8.2) g/dL Albumin 2.4 L (3.4-5.0) g/dL Globulin 6.3 H (2.6-4.0) g/dL Albumin/Globulin Ratio 0.4 L (0.9-1.6) Lipase 71 L (73-393) U/L Urine Color Urine Appearance Urine pH (5.0-8.0) Ur Specific [place] (1.001-1.035) Urine Protein (NEGATIVE) mg/dL Urine Glucose (UA) (NEGATIVE) mg/dL Urine Ketones (NEGATIVE) mg/dL Urine Occult Blood (NEGATIVE) Urine Nitrite (NEGATIVE) Urine Bilirubin (NEGATIVE) Urine Urobilinogen (<2.0) EU/dL Ur Leukocyte Esterase (NEGATIVE) Urine RBC (0-2/HPF) Urine WBC (0-5/HPF) Ur Epithelial Cells (NONE-FEW) Amorphous Sediment (NEGATIVE) Urine Bacteria (NEGATIVE) Urine Mucus (NONE-MOD) SARS-CoV-2 RNA (SALAS) (NEGATIVE) 09/16/20 09/16/20 Range/Units 10:35 10:50 WBC (4.0-11.0) K/uL RBC (4.50-5.90) M/uL Hgb (13.0-17.0) g/dL Hct (38.0-50.0) % MCV (80.0-98.0) fL MCH (27.0-32.0) pg MCHC (31.0-37.0) g/dL RDW Std Deviation (28.0-62.0) fl RDW Coeff of Joseph (11.0-15.0) % Plt Count (150-400) K/uL MPV (7.40-12.00) fL Add Manual Diff Neutrophils % (Manual) (48.0-80.0) % Band Neutrophils % % Lymphocytes % (Manual) (16.0-40.0) % Monocytes % (Manual) (0.0-15.0) % Eosinophils % (Manual) (0.0-7.0) % Basophils % (Manual) (0.0-1.5) % Nucleated RBC % /100WBC Absolute Seg Neuts (1.4-5.7) Band Neutrophils # Lymphocytes # (Manual) (0.6-2.4) Monocytes # (Manual) (0.0-0.8) Eosinophils # (Manual) (0.0-0.7) Basophils # (Manual) (0.0-0.1) Nucleated RBCs # K/uL Sodium (136-148) mmol/L Potassium (3.5-5.1) mmol/L Chloride (98-107) mmol/L Carbon Dioxide (21.0-32.0) mmol/L BUN (7.0-18.0) mg/dL Creatinine (0.8-1.3) mg/dL Est Cr Clr Drug Dosing mL/min Estimated GFR (MDRD) ml/min Glucose (74-106) mg/dL Lactic Acid (0.4-2.0) mmol/L Calcium (8.5-10.1) mg/dL Total Bilirubin (0.2-1.0) mg/dL AST (15-37) IU/L ALT (14-63) IU/L Alkaline Phosphatase (46-116) U/L Troponin I (0.000-0.056) ng/mL Total Protein (6.4-8.2) g/dL Albumin (3.4-5.0) g/dL Globulin (2.6-4.0) g/dL Albumin/Globulin Ratio (0.9-1.6) Lipase (73-393) U/L Urine Color YELLOW Urine Appearance CLOUDY Urine pH 6.0 (5.0-8.0) Ur Specific [place] 1.025 (1.001-1.035) Urine Protein 100 H (NEGATIVE) mg/dL Urine Glucose (UA) NEGATIVE (NEGATIVE) mg/dL Urine Ketones NEGATIVE (NEGATIVE) mg/dL Urine Occult Blood LARGE H (NEGATIVE) Urine Nitrite NEGATIVE (NEGATIVE) Urine Bilirubin NEGATIVE (NEGATIVE) Urine Urobilinogen 0.2 (<2.0) EU/dL Ur Leukocyte Esterase LARGE H (NEGATIVE) Urine RBC 4-8 (0-2/HPF) Urine WBC TO NUMEROUS TO COUNT H (0-5/HPF) Ur Epithelial Cells NOT SEEN (NONE-FEW) Amorphous Sediment FEW (NEGATIVE) Urine Bacteria 2+ H (NEGATIVE) Urine Mucus FEW (NONE-MOD) SARS-CoV-2 RNA (SALAS) NEGATIVE (NEGATIVE) Result Diagrams: 09/16/20 10:25 09/16/20 10:25 Sepsis Event Note - Evaluation Sepsis Screening Result: No Definite Risk Current Stage of Sepsis: Severe Sepsis Possible Source of Sepsis: Genitourinary - Focused Exam Sepsis Event Note Statement: Focused Sepsis Exam Completed Vital Signs: Vital Signs Temp Pulse Resp BP Pulse Ox 09/16/20 15:21 99.7 F 93 20 136/55 L 97 09/16/20 11:22 148 H 20 145/98 H 98 09/16/20 11:15 156 H 98 09/16/20 10:51 146 H 20 101/75 96 09/16/20 10:36 151 H 20 111/79 94 L 09/16/20 10:18 154 H 20 137/78 93 L 09/16/20 10:16 155 H 93 L 09/16/20 10:13 98.8 F 154 H 18 98 09/16/20 10:11 98.8 F 153 H 20 137/78 96 Capillary Refill, Detail: Less than/Equal to (</=) 2 Seconds Pulse Description: 2+ Normal Skin Exam (Focused Sepsis): Pale, Diaphoretic - Problem List (1) Severe sepsis SNOMED Code(s): 84956527 ICD Code: A41.9 - SEPSIS, UNSPECIFIED ORGANISM; R65.20 - SEVERE SEPSIS WITHOUT SEPTIC SHOCK Status: Acute Current Visit: Yes (2) Complicated UTI (urinary tract infection) SNOMED Code(s): 33570829 ICD Code: N39.0 - URINARY TRACT INFECTION, SITE NOT SPECIFIED Status: Acute Current Visit: Yes (3) Acute kidney injury superimposed on CKD SNOMED Code(s): 08106260 ICD Code: N17.9 - ACUTE KIDNEY FAILURE, UNSPECIFIED; N18.9 - CHRONIC KIDNEY DISEASE, UNSPECIFIED Status: Acute Current Visit: Yes (4) Lactic acidosis SNOMED Code(s): 87091608 ICD Code: E87.2 - ACIDOSIS Status: Acute Current Visit: Yes (5) Dementia SNOMED Code(s): 52778435 ICD Code: F03.90 - UNSPECIFIED DEMENTIA WITHOUT BEHAVIORAL DISTURBANCE Status: Acute Current Visit: Yes (6) Hypertension SNOMED Code(s): 51216917 ICD Code: I10 - ESSENTIAL (PRIMARY) HYPERTENSION Status: Acute Current Visit: Yes (7) Hyperlipidemia SNOMED Code(s): 93865494 ICD Code: E78.5 - HYPERLIPIDEMIA, UNSPECIFIED Status: Acute Current Visit: Yes (8) Altered mental status SNOMED Code(s): 368416849 ICD Code: R41.82 - ALTERED MENTAL STATUS, UNSPECIFIED Status: Acute Current Visit: No (9) Leukocytosis SNOMED Code(s): 818905603, 577989089 ICD Code: D72.829 - ELEVATED WHITE BLOOD CELL COUNT, UNSPECIFIED Status: Acute Current Visit: No (10) Urinary retention SNOMED Code(s): 752587992 ICD Code: R33.9 - RETENTION OF URINE, UNSPECIFIED Status: Chronic Current Visit: Yes Problem List Initiated/Reviewed/Updated: Yes Orders Last 24hrs: Active Orders 24 hr Category Date Time Status Admission Status [Patient Status] [ADT] Stat ADT 09/16/20 13:32 Active Height and Weight [RC] DAILY Care 09/16/20 15:24 Active Intake and Output Strict [RC] Q12H Care 09/16/20 15:27 Active Oxygen Therapy [RC] PRN Care 09/16/20 15:24 Active VTE/DVT Education [RC] PER UNIT ROUTINE Care 09/16/20 15:24 Active Vital Signs [RC] Q1HR Care 09/16/20 15:24 Active BASIC METABOLIC PANEL,BMP [CHEM] Stat Lab 09/16/20 14:29 Ordered CBC WITH AUTO DIFF [HEME] AM Lab 09/17/20 05:11 Ordered CULTURE BLOOD [BC] Stat Lab 09/16/20 10:25 Received CULTURE BLOOD [BC] Stat Lab 09/16/20 13:00 Received CULTURE URINE [MREF] Stat Lab 09/16/20 10:35 Received LACTIC ACID [CHEM] Routine Lab 09/16/20 15:18 Ordered MAGNESIUM [CHEM] AM Lab 09/17/20 05:11 Ordered Acetaminophen [Tylenol] Med 09/16/20 15:24 Active 650 mg RECTAL Q4H PRN Meropenem Premix [Meropenem in NS 1 GM/50 ML] 1 gm Med 09/16/20 22:00 Active Premix Bag 1 bag IV Q12H Ondansetron [Zofran] Med 09/16/20 15:24 Active 4 mg IVPUSH Q4H PRN Pantoprazole [ProTONIX IV] 40 mg Med 09/16/20 15:30 Active Sodium Chloride 0.9% [Normal Saline] 10 ml IV Q24H Pharmacy to Dose - Vancomycin Med 09/16/20 15:45 Pending 1 dose .XX ASDIRECTED Sodium Chloride 0.9% [Saline Flush] Med 09/16/20 15:24 Active 10 ml FLUSH ASDIRECTED PRN Sodium Chloride 0.9% [Saline Flush] Med 09/16/20 15:24 Active 2.5 ml FLUSH ASDIRECTED PRN Blood Culture x2 Reflex Set [OM.PC] Stat Oth 09/16/20 10:15 Ordered Saline Lock Insert [OM.PC] Routine Oth 09/16/20 15:24 Ordered Resuscitation Status Routine Resus Stat 09/16/20 15:24 Ordered Medication Orders Acetaminophen (Acetaminophen 650 Mg Supp) 650 mg RECTAL Q4H PRN PRN Reason: Pain (mild 1-3) Pantoprazole Sodium 40 mg/ (Sodium Chloride) 10 mls @ 200 mls/hr IV Q24H NIMO Meropenem/Sodium Chloride 1 gm (/ Premix) 50 mls @ 100 mls/hr IV Q12H NIMO Ondansetron HCl (Ondansetron 4 Mg/2 Ml Sdv) 4 mg IVPUSH Q4H PRN PRN Reason: Nausea Sodium Chloride (Sodium Chloride 0.9% 10 Ml Syringe) 10 ml FLUSH ASDIRECTED PRN PRN Reason: Keep Vein Open Sodium Chloride (Sodium Chloride 0.9% 2.5 Ml Syringe) 2.5 ml FLUSH ASDIRECTED PRN PRN Reason: Keep Vein Open Vancomycin HCl (Pharmacy To Dose - Vancomycin) 1 dose .XX ASDIRECTED [facility] Assessment/Plan Comment:: This 80-year-old male admitted with severe sepsis secondary to complicated UTI with FRAN and hypernatremia 1. Severe sepsis and complicated UTI -Continue broad-spectrum antibiotics especially since recently on Rocephin and Bactrim. Consider possible MDR organism - Continue meropenem and vancomycin renally dosed -Blood cultures and urine culture pending Repeat lactic acid -Discussed prognosis at length with daughter Keke, at this time she is unsure aggressive treatment her and her brother would request. She would like to discuss this with her brother. She is unsure at this time if she would want pressors and/or transfer. She was again counseled on poor prognosis with severe sepsis and complicated UTI with significant electrolyte abnormalities. She will call back with any changes in requests or level of treatment. For now she agrees with treatment as laid out with fluids and IV antibiotics. She agrees that if his heart were to stop or he were to have trouble breathing and need intubation that these would not be performed due to his standing DNR/DNI. 2. Hypernatremia Water deficit 10 L, given 4 L in the ER - Repeat BMP every 4 hours -Normal saline 125 now until repeat BMP resulted. 3. FRAN on CKD -Unsure of baseline creatinine/BUN -Continue Gao catheter -Strict I's and O's -Avoid nephrotoxic medications -Continue IV fluids as above. 4. Abdominal pain -Noted on assessment will obtain CT abdomen pelvis VTE prophylaxis: SCDs, hematuria noted post Gao placement will monitor and start pharmacologic therapy. GI prophylaxis: Protonix CODE STATUS: DNR/DNI Dispo: pending improvement. treatment plan discussed at length with Dr Kwok, She will follow repeat pending BMP - Mortality Measure Prognosis:: Poor
[2020-09-16] MEDS ORDERED: Sodium Chloride 0.9% 1,000 ML IV SCH (16:30)
[2020-09-16] MEDS ORDERED: Albuterol/Ipratropium 3.0-0.5 MG/3 ML Neb Soln NEB PRN (17:09)
[2020-09-16 17:26] LABS: CARBON DIOXIDE,CO2 26.1 mmol/L (21.0-32.0); POTASSIUM,K 3.9 mmol/L (3.5-5.1)
[2020-09-16] MEDS: Pantoprazole 40 MG in Sodium Chloride 0.9% 10 ML IV SCH (17:55)
[2020-09-16] MEDS ORDERED: Dextrose 5% in Water 1,000 ML IV SCH (18:00)
[2020-09-16] MEDS ORDERED: Dextrose 5% in Water 1,000 ML IV ONE (18:05)
--- NOTE | 2020-09-16 18:10 | CT ---
INDICATION: Right upper quadrant pain. COMPARISON: None. TECHNIQUE: Noncontrast images. FINDINGS: Strandy atelectasis in the dependent lower lobes. Some ground-glass may be minor pulmonary edema. Mildly prominent paraesophageal inferior retroperitoneal and inferior right hilar lymph nodes. Coronary artery atherosclerosis. Circumferential fullness at the distal esophagus. There is some very subtle suggestion of mineralization at the right mucosal margin (image 36 series 201). A splenule ventral from normal spleen. No adrenal nodule. Contracted gallbladder has some subtly peripherally mineralized gallstones. Hydronephrosis in both kidneys with hydroureter extending to the urinary bladder which is decompressed with Gao catheter. No radiopaque filling defects in the bladder, ureters or the renal pelves bilaterally. Mild perinephric stranding bilaterally. No solid renal mass. No significant cysts. Atherosclerosis of the non aneurysmal aorta. Diverticula of the sigmoid colon without inflammation. No dilatation or inflammation of large or small bowel. Normal infra cecal appendix. No retroperitoneal or mesenteric and no pelvic or inguinal pathologic adenopathy. No blastic or lytic bone lesion and no fracture. Right groin central venous catheter tip external iliac upper margin. IMPRESSION: 1. Bilateral hydronephrosis and hydroureter extending urinary bladder likely related to high outlet obstruction or potentially cystitis. Correlate with laboratory and physical exam findings. 2. Circumferential thickening distal esophagus. This may be neoplasm more Farfan`s esophagitis. Endoscopy recommended for characterization. Posterior inferior retroperitoneal paraesophageal upper Rebecca normal-size lymph nodes. Please note that all CT scans at this facility use dose modulation, iterative reconstruction, and/or weight-based dosing when appropriate to reduce radiation dose to as low as reasonably achievable. Dictated by Johan Diaz MD @ 09/16/2020 6:09:[address] Johan Diaz @ Sep 16 2020 6:09PM
--- NOTE | 2020-09-16 19:20 | PN ---
CRISTOPHER Physician - Brief Progress [id number]/22/2021 19:06[facility] Viktoria Fournier, KANWAL - ALYCIAN (ALIA) - MWN KEESHA NOELGaryDate of Service 09/16/2020 19:06HPI/Events of Note HPI: 80 yo M with PMHx significant for urinary retention presents from his senior living with worsening lethargy and confusion. intermediate staff reports pt was being treated for UTI for a coup le weeks with Bactrim. He was switched to Rocephin a couple days ago. His condition worsened, so he w as sent to ER, where pt was found to have a WBC count of 14 and positive UA. Also noteworthy was a se rum Na of 164. Pt was bolused 3L of 0.9% NS, after which his serum Na red to 165. Hospitalist had st arted D5W gtt at 125 ml/hr, and after seeing Na increase, bolused 1L of D5W. Information was obtained from H&P and discussion with bedside RN, since pt is a very poor historian at present. Nurse states pt is very confused and combative, so it is unlikely they'll be able to convince him to drink water o r allow NG tube insertion for free water administration. I recommended to bedside RN that D5W gtt @ 5 0-100 ml/hr would be sufficient, as long as pt is having lytes checked q4-6 hours. Cultures were draw n in ER and Meropenem was started empirically.OBJECTIVE:VS: 36.6C, 104/56, 85, 20 95% (3L NC)Gen: Sle eping comfortably, appears well nourished, NADHeart: NSR with normal HR seen on bedside telemetry mon itorLungs: Breathing comfortably on NC with normal hvw4Tcuky: Sleeping comfortably at presentASSESSME NT:UTI - complicatedSevere sepsis without septic shockLactic acidosisAcute dehydrationHypernatremiaAK IMetabolic encephalopathyPLAN:Meropenem per bedside teamMonitor cultures, temps, WBCSerial lactate un til <2.0S/P total 4L bolused since admission (3L 0.9% NS, 1L D5W)Continue IV hydration. Ok to use D5W gtt at 50-100 ml/hr, as long as lytes are being checked q4-6 hours. Alternatively, pt may be given a fluid with more tonicity, such as D5W/LR or D5W/0.9% NS at similar rates, just to aid with intravasc ular volume depletion. Will defer choice of IV fluids and rate of administration to hospitalist at be dside but we are happy to provide input and guidance.Electrolytes q4-6 hoursDo not decrease serum Na by more than 8-10 within 24 hours. If this happens, stop D5W and any other hypotonic solutions and co nsider administering 0.9% NS.Avoid nephrotoxic agentsMonitor BUN, Cr, UOPCT head on presentation was negative for acute abnormalitiesSerial neuro checksInterventions [id number] disturbance - evalua tion and management, Acute renal failure - evaluation and management, Change in mental status - evalu ation and management, Electrolyte abnormality - evaluation and management, Infection - evaluation and management, Sepsis - evaluation and managementElectronically Signed by: Simon Garcia MD 09/16/2020 19:20
[2020-09-16 21:22] LABS: POTASSIUM,K 3.4 mmol/L (3.5-5.1)
[2020-09-16] MEDS: Meropenem Premix 1 GM in Premix Bag 1 BAG IV SCH (22:12)
[2020-09-16] MEDS ORDERED: Dextrose 5%-Lactated Ringers 1,000 ML IV SCH (22:30)
--- NOTE | 2020-09-16 23:24 | PCM.SN.2 ---
- Free Text/Narrative Note: Spoke to patient's daughter in great detail, updated patient's clinical status. She is okay with patient needing pressors if necessary and continuing broad- spectrum antibiotics and other measures that are being provided right now. Currently patient's blood pressure is holding up okay after fluid resuscitation and would not be requiring pressors. she is also aware and in agreement with patient's DNR/DNI status. Informed her that it will take next 24 to 48 hours to assess patient's clinical response and prognosis. If patient does not respond well than goals of care talk would be initiated. Family appreciated update and is in agreement with the current treatment plan and would like to be updated about patient's clinical status tomorrow.
[2020-09-17 01:26] LABS: CARBON DIOXIDE,CO2 25.3 mmol/L (21.0-32.0); POTASSIUM,K 3.5 mmol/L (3.5-5.1)
[2020-09-17 06:01] LABS: CARBON DIOXIDE,CO2 27.5 mmol/L (21.0-32.0); POTASSIUM,K 3.3 mmol/L (3.5-5.1)
--- NOTE | 2020-09-17 08:18 | PCM.PN ---
- General Info Date of Service: 09/17/20 Admission Dx/Problem (Free Text): Admission Diagnosis/Problem Admission Diagnosis/Problem Sepsis Subjective Update: Alert today, has shouting episodes and reports pain when touched all over. Functional Status: Reports: Pain Controlled, Tolerating Diet (tolerating water) - Review of Systems Pulmonary: Reports: No Symptoms. Denies: Shortness of Breath Cardiovascular: Reports: No Symptoms. Denies: Chest Pain Gastrointestinal: Reports: Abdominal Pain Neurological: Reports: No Symptoms Psychiatric: Reports: No Symptoms - Patient Data Vitals - Most Recent: Last Vital Signs Temp 97.4 F 09/17/20 04:00 Pulse 93 09/16/20 15:21 Resp 22 H 09/17/20 07:00 BP 109/55 L 09/17/20 07:00 Pulse Ox 92 L 09/17/20 07:00 Weight - Most Recent: 102.5 kg I&O - Last 24 Hours: Intake & Output 09/16/20 09/17/20 09/17/20 22:59 06:59 14:59 Intake Total 4612 2049 Output Total 1100 600 Balance 3512 1449 Lab Results Last 24 Hours: Laboratory Results - last 24 hr 09/16/20 09/16/20 09/16/20 Range/Units 10:25 10:25 10:25 WBC 14.36 H (4.0-11.0) K/uL RBC 4.87 (4.50-5.90) M/uL Hgb 13.6 (13.0-17.0) g/dL Hct 44.2 (38.0-50.0) % MCV 90.8 (80.0-98.0) fL MCH 27.9 (27.0-32.0) pg MCHC 30.8 L (31.0-37.0) g/dL RDW Std Deviation 56.0 (28.0-62.0) fl RDW Coeff of Joseph 17 H (11.0-15.0) % Plt Count 415 H (150-400) K/uL MPV 10.20 (7.40-12.00) fL Add Manual Diff YES Neutrophils % (Manual) 65 (48.0-80.0) % Band Neutrophils % 5 % Lymphocytes % (Manual) 26 (16.0-40.0) % Monocytes % (Manual) 2 (0.0-15.0) % Eosinophils % (Manual) 1 (0.0-7.0) % Basophils % (Manual) 1 (0.0-1.5) % Nucleated RBC % 0.0 /100WBC Absolute Seg Neuts 9.3 H (1.4-5.7) Band Neutrophils # 0.7 Lymphocytes # (Manual) 3.7 H (0.6-2.4) Monocytes # (Manual) 0.3 (0.0-0.8) Eosinophils # (Manual) 0.1 (0.0-0.7) Basophils # (Manual) 0.1 (0.0-0.1) Nucleated RBCs # 0 K/uL Sodium 164 H* (136-148) mmol/L Potassium 3.9 (3.5-5.1) mmol/L Chloride 122 H (98-107) mmol/L Carbon Dioxide 26.5 (21.0-32.0) mmol/L BUN 112 H (7.0-18.0) mg/dL Creatinine 3.6 H (0.8-1.3) mg/dL Est Cr Clr Drug Dosing 16.90 mL/min Estimated GFR (MDRD) 16.4 ml/min Glucose 139 H (74-106) mg/dL Lactic Acid 2.2 H* (0.4-2.0) mmol/L Calcium 9.9 (8.5-10.1) mg/dL Magnesium (1.8-2.4) mg/dL Total Bilirubin 0.3 (0.2-1.0) mg/dL AST 86 H (15-37) IU/L ALT 58 (14-63) IU/L Alkaline Phosphatase 64 (46-116) U/L Troponin I < 0.050 (0.000-0.056) ng/mL Total Protein 8.7 H (6.4-8.2) g/dL Albumin 2.4 L (3.4-5.0) g/dL Globulin 6.3 H (2.6-4.0) g/dL Albumin/Globulin Ratio 0.4 L (0.9-1.6) Lipase 71 L (73-393) U/L Urine Color Urine Appearance Urine pH (5.0-8.0) Ur Specific [place] (1.001-1.035) Urine Protein (NEGATIVE) mg/dL Urine Glucose (UA) (NEGATIVE) mg/dL Urine Ketones (NEGATIVE) mg/dL Urine Occult Blood (NEGATIVE) Urine Nitrite (NEGATIVE) Urine Bilirubin (NEGATIVE) Urine Urobilinogen (<2.0) EU/dL Ur Leukocyte Esterase (NEGATIVE) Urine RBC (0-2/HPF) Urine WBC (0-5/HPF) Ur Epithelial Cells (NONE-FEW) Amorphous Sediment (NEGATIVE) Urine Bacteria (NEGATIVE) Urine Mucus (NONE-MOD) Ur Random Creatinine mg/dL Ur Random Sodium (40.0-220.0) mmol/L Ur Random Potassium mmol/L Ur Random Chloride mmol/L SARS-CoV-2 RNA (SALAS) (NEGATIVE) 09/16/20 09/16/20 09/16/20 Range/Units 10:35 10:50 16:39 WBC (4.0-11.0) K/uL RBC (4.50-5.90) M/uL Hgb (13.0-17.0) g/dL Hct (38.0-50.0) % MCV (80.0-98.0) fL MCH (27.0-32.0) pg MCHC (31.0-37.0) g/dL RDW Std Deviation (28.0-62.0) fl RDW Coeff of Joseph (11.0-15.0) % Plt Count (150-400) K/uL MPV (7.40-12.00) fL Add Manual Diff Neutrophils % (Manual) (48.0-80.0) % Band Neutrophils % % Lymphocytes % (Manual) (16.0-40.0) % Monocytes % (Manual) (0.0-15.0) % Eosinophils % (Manual) (0.0-7.0) % Basophils % (Manual) (0.0-1.5) % Nucleated RBC % /100WBC Absolute Seg Neuts (1.4-5.7) Band Neutrophils # Lymphocytes # (Manual) (0.6-2.4) Monocytes # (Manual) (0.0-0.8) Eosinophils # (Manual) (0.0-0.7) Basophils # (Manual) (0.0-0.1) Nucleated RBCs # K/uL Sodium 165 H* (136-148) mmol/L Potassium 3.9 (3.5-5.1) mmol/L Chloride 125 H (98-107) mmol/L Carbon Dioxide 26.1 (21.0-32.0) mmol/L BUN 108 H (7.0-18.0) mg/dL Creatinine 3.5 H (0.8-1.3) mg/dL Est Cr Clr Drug Dosing 17.38 mL/min Estimated GFR (MDRD) 16.9 ml/min Glucose 134 H (74-106) mg/dL Lactic Acid (0.4-2.0) mmol/L Calcium 8.8 (8.5-10.1) mg/dL Magnesium (1.8-2.4) mg/dL Total Bilirubin (0.2-1.0) mg/dL AST (15-37) IU/L ALT (14-63) IU/L Alkaline Phosphatase (46-116) U/L Troponin I (0.000-0.056) ng/mL Total Protein (6.4-8.2) g/dL Albumin (3.4-5.0) g/dL Globulin (2.6-4.0) g/dL Albumin/Globulin Ratio (0.9-1.6) Lipase (73-393) U/L Urine Color YELLOW Urine Appearance CLOUDY Urine pH 6.0 (5.0-8.0) Ur Specific [place] 1.025 (1.001-1.035) Urine Protein 100 H (NEGATIVE) mg/dL Urine Glucose (UA) NEGATIVE (NEGATIVE) mg/dL Urine Ketones NEGATIVE (NEGATIVE) mg/dL Urine Occult Blood LARGE H (NEGATIVE) Urine Nitrite NEGATIVE (NEGATIVE) Urine Bilirubin NEGATIVE (NEGATIVE) Urine Urobilinogen 0.2 (<2.0) EU/dL Ur Leukocyte Esterase LARGE H (NEGATIVE) Urine RBC 4-8 (0-2/HPF) Urine WBC TO NUMEROUS TO COUNT H (0-5/HPF) Ur Epithelial Cells NOT SEEN (NONE-FEW) Amorphous Sediment FEW (NEGATIVE) Urine Bacteria 2+ H (NEGATIVE) Urine Mucus FEW (NONE-MOD) Ur Random Creatinine mg/dL Ur Random Sodium (40.0-220.0) mmol/L Ur Random Potassium mmol/L Ur Random Chloride mmol/L SARS-CoV-2 RNA (SALAS) NEGATIVE (NEGATIVE) 09/16/20 09/16/20 09/17/20 Range/Units 16:39 21:01 01:00 WBC (4.0-11.0) K/uL RBC (4.50-5.90) M/uL Hgb (13.0-17.0) g/dL Hct (38.0-50.0) % MCV (80.0-98.0) fL MCH (27.0-32.0) pg MCHC (31.0-37.0) g/dL RDW Std Deviation (28.0-62.0) fl RDW Coeff of Joseph (11.0-15.0) % Plt Count (150-400) K/uL MPV (7.40-12.00) fL Add Manual Diff Neutrophils % (Manual) (48.0-80.0) % Band Neutrophils % % Lymphocytes % (Manual) (16.0-40.0) % Monocytes % (Manual) (0.0-15.0) % Eosinophils % (Manual) (0.0-7.0) % Basophils % (Manual) (0.0-1.5) % Nucleated RBC % /100WBC Absolute Seg Neuts (1.4-5.7) Band Neutrophils # Lymphocytes # (Manual) (0.6-2.4) Monocytes # (Manual) (0.0-0.8) Eosinophils # (Manual) (0.0-0.7) Basophils # (Manual) (0.0-0.1) Nucleated RBCs # K/uL Sodium 159 H (136-148) mmol/L Potassium 3.4 L (3.5-5.1) mmol/L Chloride 121 H (98-107) mmol/L Carbon Dioxide 27.0 (21.0-32.0) mmol/L BUN 102 H (7.0-18.0) mg/dL Creatinine 3.5 H (0.8-1.3) mg/dL Est Cr Clr Drug Dosing 17.38 mL/min Estimated GFR (MDRD) 16.9 ml/min Glucose 202 H (74-106) mg/dL Lactic Acid 1.5 (0.4-2.0) mmol/L Calcium 8.4 L (8.5-10.1) mg/dL Magnesium (1.8-2.4) mg/dL Total Bilirubin (0.2-1.0) mg/dL AST (15-37) IU/L ALT (14-63) IU/L Alkaline Phosphatase (46-116) U/L Troponin I (0.000-0.056) ng/mL Total Protein (6.4-8.2) g/dL Albumin (3.4-5.0) g/dL Globulin (2.6-4.0) g/dL Albumin/Globulin Ratio (0.9-1.6) Lipase (73-393) U/L Urine Color Urine Appearance Urine pH (5.0-8.0) Ur Specific [place] (1.001-1.035) Urine Protein (NEGATIVE) mg/dL Urine Glucose (UA) (NEGATIVE) mg/dL Urine Ketones (NEGATIVE) mg/dL Urine Occult Blood (NEGATIVE) Urine Nitrite (NEGATIVE) Urine Bilirubin (NEGATIVE) Urine Urobilinogen (<2.0) EU/dL Ur Leukocyte Esterase (NEGATIVE) Urine RBC (0-2/HPF) Urine WBC (0-5/HPF) Ur Epithelial Cells (NONE-FEW) Amorphous Sediment (NEGATIVE) Urine Bacteria (NEGATIVE) Urine Mucus (NONE-MOD) Ur Random Creatinine 61.0 mg/dL Ur Random Sodium 35.0 L (40.0-220.0) mmol/L Ur Random Potassium 34.7 mmol/L Ur Random Chloride 47 mmol/L SARS-CoV-2 RNA ([facility]ALAS) (NEGATIVE) 09/17/20 09/17/20 09/17/20 Range/Units 01:05 04:50 04:50 WBC 12.73 H (4.0-11.0) K/uL RBC 3.83 L (4.50-5.90) M/uL Hgb 10.6 L (13.0-17.0) g/dL Hct 35.2 L (38.0-50.0) % MCV 91.9 (80.0-98.0) fL MCH 27.7 (27.0-32.0) pg MCHC 30.1 L (31.0-37.0) g/dL RDW Std Deviation 58.4 (28.0-62.0) fl RDW Coeff of Joseph 17 H (11.0-15.0) % Plt Count 316 (150-400) K/uL MPV 9.80 (7.40-12.00) fL Add Manual Diff YES Neutrophils % (Manual) 77 (48.0-80.0) % Band Neutrophils % % Lymphocytes % (Manual) 14 L (16.0-40.0) % Monocytes % (Manual) 5 (0.0-15.0) % Eosinophils % (Manual) 2 (0.0-7.0) % Basophils % (Manual) 2 H (0.0-1.5) % Nucleated RBC % 0.0 /100WBC Absolute Seg Neuts 9.8 H (1.4-5.7) Band Neutrophils # Lymphocytes # (Manual) 1.8 (0.6-2.4) Monocytes # (Manual) 0.6 (0.0-0.8) Eosinophils # (Manual) 0.3 (0.0-0.7) Basophils # (Manual) 0.3 H (0.0-0.1) Nucleated RBCs # 0 K/uL Sodium 158 H (136-148) mmol/L Potassium 3.5 (3.5-5.1) mmol/L Chloride 119 H (98-107) mmol/L Carbon Dioxide 25.3 (21.0-32.0) mmol/L BUN 95 H (7.0-18.0) mg/dL Creatinine 3.3 H (0.8-1.3) mg/dL Est Cr Clr Drug Dosing 18.43 mL/min Estimated GFR (MDRD) 18.1 ml/min Glucose 189 H (74-106) mg/dL Lactic Acid (0.4-2.0) mmol/L Calcium 8.5 (8.5-10.1) mg/dL Magnesium 2.2 (1.8-2.4) mg/dL Total Bilirubin (0.2-1.0) mg/dL AST (15-37) IU/L ALT (14-63) IU/L Alkaline Phosphatase (46-116) U/L Troponin I (0.000-0.056) ng/mL Total Protein (6.4-8.2) g/dL Albumin (3.4-5.0) g/dL Globulin (2.6-4.0) g/dL Albumin/Globulin Ratio (0.9-1.6) Lipase (73-393) U/L Urine Color Urine Appearance Urine pH (5.0-8.0) Ur Specific [place] (1.001-1.035) Urine Protein (NEGATIVE) mg/dL Urine Glucose (UA) (NEGATIVE) mg/dL Urine Ketones (NEGATIVE) mg/dL Urine Occult Blood (NEGATIVE) Urine Nitrite (NEGATIVE) Urine Bilirubin (NEGATIVE) Urine Urobilinogen (<2.0) EU/dL Ur Leukocyte Esterase (NEGATIVE) Urine RBC (0-2/HPF) Urine WBC (0-5/HPF) Ur Epithelial Cells (NONE-FEW) Amorphous Sediment (NEGATIVE) Urine Bacteria (NEGATIVE) Urine Mucus (NONE-MOD) Ur Random Creatinine mg/dL Ur Random Sodium (40.0-220.0) mmol/L Ur Random Potassium mmol/L Ur Random Chloride mmol/L SARS-CoV-2 RNA ([facility]ALAS) (NEGATIVE) 09/17/20 Range/Units 04:50 WBC (4.0-11.0) K/uL RBC (4.50-5.90) M/uL Hgb (13.0-17.0) g/dL Hct (38.0-50.0) % MCV (80.0-98.0) fL MCH (27.0-32.0) pg MCHC (31.0-37.0) g/dL RDW Std Deviation (28.0-62.0) fl RDW Coeff of Joseph (11.0-15.0) % Plt Count (150-400) K/uL MPV (7.40-12.00) fL Add Manual Diff Neutrophils % (Manual) (48.0-80.0) % Band Neutrophils % % Lymphocytes % (Manual) (16.0-40.0) % Monocytes % (Manual) (0.0-15.0) % Eosinophils % (Manual) (0.0-7.0) % Basophils % (Manual) (0.0-1.5) % Nucleated RBC % /100WBC Absolute Seg Neuts (1.4-5.7) Band Neutrophils # Lymphocytes # (Manual) (0.6-2.4) Monocytes # (Manual) (0.0-0.8) Eosinophils # (Manual) (0.0-0.7) Basophils # (Manual) (0.0-0.1) Nucleated RBCs # K/uL Sodium 156 H (136-148) mmol/L Potassium 3.3 L (3.5-5.1) mmol/L Chloride 118 H (98-107) mmol/L Carbon Dioxide 27.5 (21.0-32.0) mmol/L BUN 90 H (7.0-18.0) mg/dL Creatinine 3.4 H (0.8-1.3) mg/dL Est Cr Clr Drug Dosing 17.89 mL/min Estimated GFR (MDRD) 17.5 ml/min Glucose 115 H (74-106) mg/dL Lactic Acid (0.4-2.0) mmol/L Calcium 8.5 (8.5-10.1) mg/dL Magnesium (1.8-2.4) mg/dL Total Bilirubin (0.2-1.0) mg/dL AST (15-37) IU/L ALT (14-63) IU/L Alkaline Phosphatase (46-116) U/L Troponin I (0.000-0.056) ng/mL Total Protein (6.4-8.2) g/dL Albumin (3.4-5.0) g/dL Globulin (2.6-4.0) g/dL Albumin/Globulin Ratio (0.9-1.6) Lipase (73-393) U/L Urine Color Urine Appearance Urine pH (5.0-8.0) Ur Specific [place] (1.001-1.035) Urine Protein (NEGATIVE) mg/dL Urine Glucose (UA) (NEGATIVE) mg/dL Urine Ketones (NEGATIVE) mg/dL Urine Occult Blood (NEGATIVE) Urine Nitrite (NEGATIVE) Urine Bilirubin (NEGATIVE) Urine Urobilinogen (<2.0) EU/dL Ur Leukocyte Esterase (NEGATIVE) Urine RBC (0-2/HPF) Urine WBC (0-5/HPF) Ur Epithelial Cells (NONE-FEW) Amorphous Sediment (NEGATIVE) Urine Bacteria (NEGATIVE) Urine Mucus (NONE-MOD) Ur Random Creatinine mg/dL Ur Random Sodium (40.0-220.0) mmol/L Ur Random Potassium mmol/L Ur Random Chloride mmol/L SARS-CoV-2 RNA (SALAS) (NEGATIVE) Med Orders - Current: Current Medications Acetaminophen (Acetaminophen 650 Mg Supp) 650 mg RECTAL Q4H PRN PRN Reason: Pain (mild 1-3) Acetaminophen (Acetaminophen 325 Mg Tab) 650 mg PO Q6H PRN PRN Reason: Pain Albuterol/Ipratropium (Albuterol/Ipratropium 3.0-0.5 Mg/3 Ml Neb Soln) 3 ml NEB Q4HRRT PRN PRN Reason: Shortness of Breath Pantoprazole Sodium 40 mg/ (Sodium Chloride) 10 mls @ 200 mls/hr IV Q24H [facility] Last Admin: 09/16/20 17:55 Dose: 200 mls/hr Documented by: Meropenem/Sodium Chloride 1 gm (/ Premix) 50 mls @ 100 mls/hr IV Q12H [facility] Last Admin: 09/16/20 22:12 Dose: 100 mls/hr Documented by: Dextrose/Lactated Ringer's (Dextrose 5%-Lactated Ringers) 1,000 mls @ 50 mls/hr IV ASDIRECTED [facility] Last Admin: 09/16/20 22:19 Dose: 50 mls/hr Documented by: Ondansetron HCl (Ondansetron 4 Mg/2 Ml Sdv) 4 mg IVPUSH Q4H PRN PRN Reason: Nausea Sodium Chloride (Sodium Chloride 0.9% 10 Ml Syringe) 10 ml FLUSH ASDIRECTED PRN PRN Reason: Keep Vein Open Sodium Chloride (Sodium Chloride 0.9% 2.5 Ml Syringe) 2.5 ml FLUSH ASDIRECTED PRN PRN Reason: Keep Vein Open Vancomycin HCl (Pharmacy To Dose - Vancomycin) 1 dose .XX ASDIRECTED [facility] Discontinued Medications Acetaminophen/Codeine Phosphate (Acetaminophen/Codeine 300-30 Mg Tab) 1 tab PO ONETIME ONE Stop: 09/16/20 15:22 Last Admin: 09/16/20 15:22 Dose: Not Given Documented by: Fentanyl (Fentanyl 50 Mcg/Ml Sdv) 25 mcg IVPUSH ONETIME ONE Stop: 09/16/20 15:52 Last Admin: 09/16/20 15:55 Dose: 25 mcg Documented by: Sodium Chloride (Normal Saline) 1,000 mls @ 999 mls/hr IV BOLUS ONE Stop: 09/16/20 11:13 Last Admin: 09/16/20 10:20 Dose: 999 mls/hr Documented by: Meropenem 1 gm/ Sodium (Chloride) 100 mls @ 200 mls/hr IV ONETIME ONE Stop: 09/16/20 10:45 Last Admin: 09/16/20 11:09 Dose: Not Given Documented by: Meropenem/Sodium Chloride 1 gm (/ Premix) 50 mls @ 100 mls/hr IV ONETIME [facility] Last Admin: 09/16/20 11:09 Dose: 100 mls/hr Documented by: Sodium Chloride (Normal Saline) 1,000 mls @ 999 mls/hr IV STAT ONE Stop: 09/16/20 11:55 Last Admin: 09/16/20 11:09 Dose: 999 mls/hr Documented by: Vancomycin HCl 1.5 gm/ Premix 300 mls @ 199.188 mls/hr IV ONETIME ONE Stop: 09/16/20 13:00 Last Admin: 09/16/20 11:33 Dose: 199.188 mls/hr Documented by: Sodium Chloride (Normal Saline) 1,000 mls @ 999 mls/hr IV STAT ONE Stop: 09/16/20 14:24 Last Admin: 09/16/20 13:34 Dose: 999 mls/hr Documented by: Sodium Chloride (Normal Saline) 1,000 mls @ 125 mls/hr IV Q8H [facility] Last Admin: 09/16/20 18:43 Dose: Not Given Documented by: Dextrose/Water (Dextrose 5% In Water) 1,000 mls @ 200 mls/hr IV ASDIRECTED [facility] Last Infusion: 09/16/20 19:36 Dose: 75 mls/hr Documented by: Dextrose/Water (Dextrose 5% In Water) 1,000 mls @ 999 mls/hr IV ONETIME ONE Stop: 09/16/20 19:05 Last Admin: 09/16/20 19:17 Dose: 999 mls/hr Documented by: - Exam Quality Assessment: Supplemental Oxygen, Central Line/PICC (R femoral line), Urine Catheter (pink tinged urine) Central Line Total Time: 0Days 9Hours Urinary Catheter Total Time: 0Days 17Hours General: Alert, Oriented, Cooperative, No Acute Distress Lungs: Clear to Auscultation, Normal Respiratory Effort Cardiovascular: Regular Rate, Regular Rhythm GI/Abdominal Exam: Normal Bowel Sounds, Soft, No Distention, Tender Extremities: Normal Inspection, Normal Range of Motion, Non-Tender, No Pedal Edema Neurological: No New Focal Deficit Psy/Mental Status: Alert, Normal Affect, Normal Mood - Patient Data Lab Results Last 24 hrs: Laboratory Results - last 24 hr 09/16/20 09/16/20 09/16/20 Range/Units 10:25 10:25 10:25 WBC 14.36 H (4.0-11.0) K/uL RBC 4.87 (4.50-5.90) M/uL Hgb 13.6 (13.0-17.0) g/dL Hct 44.2 (38.0-50.0) % MCV 90.8 (80.0-98.0) fL MCH 27.9 (27.0-32.0) pg MCHC 30.8 L (31.0-37.0) g/dL RDW Std Deviation 56.0 (28.0-62.0) fl RDW Coeff of Joseph 17 H (11.0-15.0) % Plt Count 415 H (150-400) K/uL MPV 10.20 (7.40-12.00) fL Add Manual Diff YES Neutrophils % (Manual) 65 (48.0-80.0) % Band Neutrophils % 5 % Lymphocytes % (Manual) 26 (16.0-40.0) % Monocytes % (Manual) 2 (0.0-15.0) % Eosinophils % (Manual) 1 (0.0-7.0) % Basophils % (Manual) 1 (0.0-1.5) % Nucleated RBC % 0.0 /100WBC Absolute Seg Neuts 9.3 H (1.4-5.7) Band Neutrophils # 0.7 Lymphocytes # (Manual) 3.7 H (0.6-2.4) Monocytes # (Manual) 0.3 (0.0-0.8) Eosinophils # (Manual) 0.1 (0.0-0.7) Basophils # (Manual) 0.1 (0.0-0.1) Nucleated RBCs # 0 K/uL Sodium 164 H* (136-148) mmol/L Potassium 3.9 (3.5-5.1) mmol/L Chloride 122 H (98-107) mmol/L Carbon Dioxide 26.5 (21.0-32.0) mmol/L BUN 112 H (7.0-18.0) mg/dL Creatinine 3.6 H (0.8-1.3) mg/dL Est Cr Clr Drug Dosing 16.90 mL/min Estimated GFR (MDRD) 16.4 ml/min Glucose 139 H (74-106) mg/dL Lactic Acid 2.2 H* (0.4-2.0) mmol/L Calcium 9.9 (8.5-10.1) mg/dL Magnesium (1.8-2.4) mg/dL Total Bilirubin 0.3 (0.2-1.0) mg/dL AST 86 H (15-37) IU/L ALT 58 (14-63) IU/L Alkaline Phosphatase 64 (46-116) U/L Troponin I < 0.050 (0.000-0.056) ng/mL Total Protein 8.7 H (6.4-8.2) g/dL Albumin 2.4 L (3.4-5.0) g/dL Globulin 6.3 H (2.6-4.0) g/dL Albumin/Globulin Ratio 0.4 L (0.9-1.6) Lipase 71 L (73-393) U/L Urine Color Urine Appearance Urine pH (5.0-8.0) Ur Specific [place] (1.001-1.035) Urine Protein (NEGATIVE) mg/dL Urine Glucose (UA) (NEGATIVE) mg/dL Urine Ketones (NEGATIVE) mg/dL Urine Occult Blood (NEGATIVE) Urine Nitrite (NEGATIVE) Urine Bilirubin (NEGATIVE) Urine Urobilinogen (<2.0) EU/dL Ur Leukocyte Esterase (NEGATIVE) Urine RBC (0-2/HPF) Urine WBC (0-5/HPF) Ur Epithelial Cells (NONE-FEW) Amorphous Sediment (NEGATIVE) Urine Bacteria (NEGATIVE) Urine Mucus (NONE-MOD) Ur Random Creatinine mg/dL Ur Random Sodium (40.0-220.0) mmol/L Ur Random Potassium mmol/L Ur Random Chloride mmol/L SARS-CoV-2 RNA ([facility]) (NEGATIVE) 09/16/20 09/16/20 09/16/20 Range/Units 10:35 10:50 16:39 WBC (4.0-11.0) K/uL RBC (4.50-5.90) M/uL Hgb (13.0-17.0) g/dL Hct (38.0-50.0) % MCV (80.0-98.0) fL MCH (27.0-32.0) pg MCHC (31.0-37.0) g/dL RDW Std Deviation (28.0-62.0) fl RDW Coeff of Joseph (11.0-15.0) % Plt Count (150-400) K/uL MPV (7.40-12.00) fL Add Manual Diff Neutrophils % (Manual) (48.0-80.0) % Band Neutrophils % % Lymphocytes % (Manual) (16.0-40.0) % Monocytes % (Manual) (0.0-15.0) % Eosinophils % (Manual) (0.0-7.0) % Basophils % (Manual) (0.0-1.5) % Nucleated RBC % /100WBC Absolute Seg Neuts (1.4-5.7) Band Neutrophils # Lymphocytes # (Manual) (0.6-2.4) Monocytes # (Manual) (0.0-0.8) Eosinophils # (Manual) (0.0-0.7) Basophils # (Manual) (0.0-0.1) Nucleated RBCs # K/uL Sodium 165 H* (136-148) mmol/L Potassium 3.9 (3.5-5.1) mmol/L Chloride 125 H (98-107) mmol/L Carbon Dioxide 26.1 (21.0-32.0) mmol/L BUN 108 H (7.0-18.0) mg/dL Creatinine 3.5 H (0.8-1.3) mg/dL Est Cr Clr Drug Dosing 17.38 mL/min Estimated GFR (MDRD) 16.9 ml/min Glucose 134 H (74-106) mg/dL Lactic Acid (0.4-2.0) mmol/L Calcium 8.8 (8.5-10.1) mg/dL Magnesium (1.8-2.4) mg/dL Total Bilirubin (0.2-1.0) mg/dL AST (15-37) IU/L ALT (14-63) IU/L Alkaline Phosphatase (46-116) U/L Troponin I (0.000-0.056) ng/mL Total Protein (6.4-8.2) g/dL Albumin (3.4-5.0) g/dL Globulin (2.6-4.0) g/dL Albumin/Globulin Ratio (0.9-1.6) Lipase (73-393) U/L Urine Color YELLOW Urine Appearance CLOUDY Urine pH 6.0 (5.0-8.0) Ur Specific [place] 1.025 (1.001-1.035) Urine Protein 100 H (NEGATIVE) mg/dL Urine Glucose (UA) NEGATIVE (NEGATIVE) mg/dL Urine Ketones NEGATIVE (NEGATIVE) mg/dL Urine Occult Blood LARGE H (NEGATIVE) Urine Nitrite NEGATIVE (NEGATIVE) Urine Bilirubin NEGATIVE (NEGATIVE) Urine Urobilinogen 0.2 (<2.0) EU/dL Ur Leukocyte Esterase LARGE H (NEGATIVE) Urine RBC 4-8 (0-2/HPF) Urine WBC TO NUMEROUS TO COUNT H (0-5/HPF) Ur Epithelial Cells NOT SEEN (NONE-FEW) Amorphous Sediment FEW (NEGATIVE) Urine Bacteria 2+ H (NEGATIVE) Urine Mucus FEW (NONE-MOD) Ur Random Creatinine mg/dL Ur Random Sodium (40.0-220.0) mmol/L Ur Random Potassium mmol/L Ur Random Chloride mmol/L SARS-CoV-2 RNA ([facility]) NEGATIVE (NEGATIVE) 09/16/20 09/16/20 09/17/20 Range/Units 16:39 21:01 01:00 WBC (4.0-11.0) K/uL RBC (4.50-5.90) M/uL Hgb (13.0-17.0) g/dL Hct (38.0-50.0) % MCV (80.0-98.0) fL MCH (27.0-32.0) pg MCHC (31.0-37.0) g/dL RDW Std Deviation (28.0-62.0) fl RDW Coeff of Joseph (11.0-15.0) % Plt Count (150-400) K/uL MPV (7.40-12.00) fL Add Manual Diff Neutrophils % (Manual) (48.0-80.0) % Band Neutrophils % % Lymphocytes % (Manual) (16.0-40.0) % Monocytes % (Manual) (0.0-15.0) % Eosinophils % (Manual) (0.0-7.0) % Basophils % (Manual) (0.0-1.5) % Nucleated RBC % /100WBC Absolute Seg Neuts (1.4-5.7) Band Neutrophils # Lymphocytes # (Manual) (0.6-2.4) Monocytes # (Manual) (0.0-0.8) Eosinophils # (Manual) (0.0-0.7) Basophils # (Manual) (0.0-0.1) Nucleated RBCs # K/uL Sodium 159 H (136-148) mmol/L Potassium 3.4 L (3.5-5.1) mmol/L Chloride 121 H (98-107) mmol/L Carbon Dioxide 27.0 (21.0-32.0) mmol/L BUN 102 H (7.0-18.0) mg/dL Creatinine 3.5 H (0.8-1.3) mg/dL Est Cr Clr Drug Dosing 17.38 mL/min Estimated GFR (MDRD) 16.9 ml/min Glucose 202 H (74-106) mg/dL Lactic Acid 1.5 (0.4-2.0) mmol/L Calcium 8.4 L (8.5-10.1) mg/dL Magnesium (1.8-2.4) mg/dL Total Bilirubin (0.2-1.0) mg/dL AST (15-37) IU/L ALT (14-63) IU/L Alkaline Phosphatase (46-116) U/L Troponin I (0.000-0.056) ng/mL Total Protein (6.4-8.2) g/dL Albumin (3.4-5.0) g/dL Globulin (2.6-4.0) g/dL Albumin/Globulin Ratio (0.9-1.6) Lipase (73-393) U/L Urine Color Urine Appearance Urine pH (5.0-8.0) Ur Specific [place] (1.001-1.035) Urine Protein (NEGATIVE) mg/dL Urine Glucose (UA) (NEGATIVE) mg/dL Urine Ketones (NEGATIVE) mg/dL Urine Occult Blood (NEGATIVE) Urine Nitrite (NEGATIVE) Urine Bilirubin (NEGATIVE) Urine Urobilinogen (<2.0) EU/dL Ur Leukocyte Esterase (NEGATIVE) Urine RBC (0-2/HPF) Urine WBC (0-5/HPF) Ur Epithelial Cells (NONE-FEW) Amorphous Sediment (NEGATIVE) Urine Bacteria (NEGATIVE) Urine Mucus (NONE-MOD) Ur Random Creatinine 61.0 mg/dL Ur Random Sodium 35.0 L (40.0-220.0) mmol/L Ur Random Potassium 34.7 mmol/L Ur Random Chloride 47 mmol/L SARS-CoV-2 RNA ([facility]) (NEGATIVE) 09/17/20 09/17/20 09/17/20 Range/Units 01:05 04:50 04:50 WBC 12.73 H (4.0-11.0) K/uL RBC 3.83 L (4.50-5.90) M/uL Hgb 10.6 L (13.0-17.0) g/dL Hct 35.2 L (38.0-50.0) % MCV 91.9 (80.0-98.0) fL MCH 27.7 (27.0-32.0) pg MCHC 30.1 L (31.0-37.0) g/dL RDW Std Deviation 58.4 (28.0-62.0) fl RDW Coeff of Joseph 17 H (11.0-15.0) % Plt Count 316 (150-400) K/uL MPV 9.80 (7.40-12.00) fL Add Manual Diff YES Neutrophils % (Manual) 77 (48.0-80.0) % Band Neutrophils % % Lymphocytes % (Manual) 14 L (16.0-40.0) % Monocytes % (Manual) 5 (0.0-15.0) % Eosinophils % (Manual) 2 (0.0-7.0) % Basophils % (Manual) 2 H (0.0-1.5) % Nucleated RBC % 0.0 /100WBC Absolute Seg Neuts 9.8 H (1.4-5.7) Band Neutrophils # Lymphocytes # (Manual) 1.8 (0.6-2.4) Monocytes # (Manual) 0.6 (0.0-0.8) Eosinophils # (Manual) 0.3 (0.0-0.7) Basophils # (Manual) 0.3 H (0.0-0.1) Nucleated RBCs # 0 K/uL Sodium 158 H (136-148) mmol/L Potassium 3.5 (3.5-5.1) mmol/L Chloride 119 H (98-107) mmol/L Carbon Dioxide 25.3 (21.0-32.0) mmol/L BUN 95 H (7.0-18.0) mg/dL Creatinine 3.3 H (0.8-1.3) mg/dL Est Cr Clr Drug Dosing 18.43 mL/min Estimated GFR (MDRD) 18.1 ml/min Glucose 189 H (74-106) mg/dL Lactic Acid (0.4-2.0) mmol/L Calcium 8.5 (8.5-10.1) mg/dL Magnesium 2.2 (1.8-2.4) mg/dL Total Bilirubin (0.2-1.0) mg/dL AST (15-37) IU/L ALT (14-63) IU/L Alkaline Phosphatase (46-116) U/L Troponin I (0.000-0.056) ng/mL Total Protein (6.4-8.2) g/dL Albumin (3.4-5.0) g/dL Globulin (2.6-4.0) g/dL Albumin/Globulin Ratio (0.9-1.6) Lipase (73-393) U/L Urine Color Urine Appearance Urine pH (5.0-8.0) Ur Specific [place] (1.001-1.035) Urine Protein (NEGATIVE) mg/dL Urine Glucose (UA) (NEGATIVE) mg/dL Urine Ketones (NEGATIVE) mg/dL Urine Occult Blood (NEGATIVE) Urine Nitrite (NEGATIVE) Urine Bilirubin (NEGATIVE) Urine Urobilinogen (<2.0) EU/dL Ur Leukocyte Esterase (NEGATIVE) Urine RBC (0-2/HPF) Urine WBC (0-5/HPF) Ur Epithelial Cells (NONE-FEW) Amorphous Sediment (NEGATIVE) Urine Bacteria (NEGATIVE) Urine Mucus (NONE-MOD) Ur Random Creatinine mg/dL Ur Random Sodium (40.0-220.0) mmol/L Ur Random Potassium mmol/L Ur Random Chloride mmol/L SARS-CoV-2 RNA ([facility]AS) (NEGATIVE) 09/17/20 Range/Units 04:50 WBC (4.0-11.0) K/uL RBC (4.50-5.90) M/uL Hgb (13.0-17.0) g/dL Hct (38.0-50.0) % MCV (80.0-98.0) fL MCH (27.0-32.0) pg MCHC (31.0-37.0) g/dL RDW Std Deviation (28.0-62.0) fl RDW Coeff of Joseph (11.0-15.0) % Plt Count (150-400) K/uL MPV (7.40-12.00) fL Add Manual Diff Neutrophils % (Manual) (48.0-80.0) % Band Neutrophils % % Lymphocytes % (Manual) (16.0-40.0) % Monocytes % (Manual) (0.0-15.0) % Eosinophils % (Manual) (0.0-7.0) % Basophils % (Manual) (0.0-1.5) % Nucleated RBC % /100WBC Absolute Seg Neuts (1.4-5.7) Band Neutrophils # Lymphocytes # (Manual) (0.6-2.4) Monocytes # (Manual) (0.0-0.8) Eosinophils # (Manual) (0.0-0.7) Basophils # (Manual) (0.0-0.1) Nucleated RBCs # K/uL Sodium 156 H (136-148) mmol/L Potassium 3.3 L (3.5-5.1) mmol/L Chloride 118 H (98-107) mmol/L Carbon Dioxide 27.5 (21.0-32.0) mmol/L BUN 90 H (7.0-18.0) mg/dL Creatinine 3.4 H (0.8-1.3) mg/dL Est Cr Clr Drug Dosing 17.89 mL/min Estimated GFR (MDRD) 17.5 ml/min Glucose 115 H (74-106) mg/dL Lactic Acid (0.4-2.0) mmol/L Calcium 8.5 (8.5-10.1) mg/dL Magnesium (1.8-2.4) mg/dL Total Bilirubin (0.2-1.0) mg/dL AST (15-37) IU/L ALT (14-63) IU/L Alkaline Phosphatase (46-116) U/L Troponin I (0.000-0.056) ng/mL Total Protein (6.4-8.2) g/dL Albumin (3.4-5.0) g/dL Globulin (2.6-4.0) g/dL Albumin/Globulin Ratio (0.9-1.6) Lipase (73-393) U/L Urine Color Urine Appearance Urine pH (5.0-8.0) Ur Specific [place] (1.001-1.035) Urine Protein (NEGATIVE) mg/dL Urine Glucose (UA) (NEGATIVE) mg/dL Urine Ketones (NEGATIVE) mg/dL Urine Occult Blood (NEGATIVE) Urine Nitrite (NEGATIVE) Urine Bilirubin (NEGATIVE) Urine Urobilinogen (<2.0) EU/dL Ur Leukocyte Esterase (NEGATIVE) Urine RBC (0-2/HPF) Urine WBC (0-5/HPF) Ur Epithelial Cells (NONE-FEW) Amorphous Sediment (NEGATIVE) Urine Bacteria (NEGATIVE) Urine Mucus (NONE-MOD) Ur Random Creatinine mg/dL Ur Random Sodium (40.0-220.0) mmol/L Ur Random Potassium mmol/L Ur Random Chloride mmol/L SARS-CoV-2 RNA (SALAS) (NEGATIVE) Result Diagrams: 09/17/20 04:50 09/17/20 09:10 Sepsis Event Note - Evaluation Sepsis Screening Result: No Definite Risk - Focused Exam Vital Signs: Vital Signs Temp Resp BP Pulse Ox 09/17/20 07:00 22 H 109/55 L 92 L 09/17/20 06:00 18 116/61 93 L 09/17/20 05:00 16 112/57 L 95 09/17/20 04:00 97.4 F 21 H 112/61 93 L 09/17/20 03:00 19 94/57 L 94 L 09/17/20 02:00 20 100/53 L 93 L 09/17/20 01:00 20 98/57 L 93 L 09/17/20 00:00 97 F 20 98/68 94 L 09/16/20 23:00 20 97/56 L 98 09/16/20 22:00 19 99/53 L 95 09/16/20 21:00 20 103/55 L 95 - Problem List & Annotations (1) Severe sepsis SNOMED Code(s): 75159248 Code(s): A41.9 - SEPSIS, UNSPECIFIED ORGANISM; R65.20 - SEVERE SEPSIS WITHOUT SEPTIC SHOCK Status: Acute Current Visit: Yes (2) Complicated UTI (urinary tract infection) SNOMED Code(s): 77401895 Code(s): N39.0 - URINARY TRACT INFECTION, SITE NOT SPECIFIED Status: Acute Current Visit: Yes (3) Acute kidney injury superimposed on CKD SNOMED Code(s): 97542533 Code(s): N17.9 - ACUTE KIDNEY FAILURE, UNSPECIFIED; N18.9 - CHRONIC KIDNEY DISEASE, UNSPECIFIED Status: Acute Current Visit: Yes (4) Lactic acidosis SNOMED Code(s): 04332990 Code(s): E87.2 - ACIDOSIS Status: Acute Current Visit: Yes (5) Dementia SNOMED Code(s): 00368436 Code(s): F03.90 - UNSPECIFIED DEMENTIA WITHOUT BEHAVIORAL DISTURBANCE Status: Acute Current Visit: Yes (6) Hypertension SNOMED Code(s): 12002679 Code(s): I10 - ESSENTIAL (PRIMARY) HYPERTENSION Status: Acute Current Visit: Yes (7) Hyperlipidemia SNOMED Code(s): 14288834 Code(s): E78.5 - HYPERLIPIDEMIA, UNSPECIFIED Status: Acute Current Visit: Yes (8) Altered mental status SNOMED Code(s): 194990975 Code(s): R41.82 - ALTERED MENTAL STATUS, UNSPECIFIED Status: Acute Current Visit: No (9) Leukocytosis SNOMED Code(s): 768420202, 388084157 Code(s): D72.829 - ELEVATED WHITE BLOOD CELL COUNT, UNSPECIFIED Status: Acute Current Visit: No (10) Urinary retention SNOMED Code(s): 469078058 Code(s): R33.9 - RETENTION OF URINE, UNSPECIFIED Status: Chronic Current Visit: Yes (11) Obstructive uropathy SNOMED Code(s): 9890712 Code(s): N13.9 - OBSTRUCTIVE AND REFLUX UROPATHY, UNSPECIFIED Status: Acute Current Visit: Yes - Problem List Review Problem List Initiated/Reviewed/Updated: Yes - My Orders Last 24 Hours: My Active Orders 09/16/20 15:24 Oxygen Therapy [RC] PRN VTE/DVT Education [RC] PER UNIT ROUTINE Vital Signs [RC] Q1HR Acetaminophen [Tylenol] 650 mg RECTAL Q4H PRN Ondansetron [Zofran] 4 mg IVPUSH Q4H PRN Sodium Chloride 0.9% [Saline Flush] 10 ml FLUSH ASDIRECTED PRN Sodium Chloride 0.9% [Saline Flush] 2.5 ml FLUSH ASDIRECTED PRN Saline Lock Insert [OM.PC] Routine Resuscitation Status Routine 09/16/20 15:27 Intake and Output Strict [RC] Q12H 09/16/20 15:30 Pantoprazole [ProTONIX IV] 40 mg Sodium Chloride 0.9% [Normal Saline] 10 ml IV Q24H 09/16/20 15:45 Pharmacy to Dose - Vancomycin 1 dose .XX ASDIRECTED 09/16/20 16:35 Urinary Catheter Assessment [RC] Q4H 09/16/20 17:11 Central Line Assessment [RC] Q4H Central Venous Pressure Monitoring [Monitor Central Venous Pressure] [OM.PC] Routine 09/16/20 22:00 Meropenem Premix [Meropenem in NS 1 GM/50 ML] 1 gm Premix Bag 1 bag IV Q12H 09/17/20 09:00 BASIC METABOLIC PANEL,BMP [CHEM] Q4H 09/17/20 13:00 BASIC METABOLIC PANEL,BMP [CHEM] Q4H - Plan Plan:: This 80-year-old male admitted with severe sepsis secondary to complicated UTI with FRAN and hypernatremia 1. Severe sepsis and complicated UTI with pyelonephritis and obstructive uro karen - Continue meropenem and vancomycin renally dosed -Blood cultures and urine culture pending Repeat lactic acid improved with IV fluid resuscitation. - Hemodynamically stable. 2. Hypernatremia Improved slowly. - Continue D5LR at 50 ml/hr - Repeat BMP every 4 hours 3. FRAN on CKD -Slowly improved. -Continue Nunez catheter, will need urology follow up and to be discharged with nunez in place -Strict I's and O's -Avoid nephrotoxic medications -Continue IV fluids as above. 4. Abdominal pain -Obstructive uropathy with bilateral hydronephrosis and pyelonephritis. VTE prophylaxis: SCDs, hematuria noted post Nunez placement will monitor and start pharmacologic therapy. GI prophylaxis: Protonix CODE STATUS: DNR/DNI Dispo: pending improvement. Keke, daughter [phone]
[2020-09-17 09:38] LABS: CARBON DIOXIDE,CO2 27.3 mmol/L (21.0-32.0); POTASSIUM,K 3.4 mmol/L (3.5-5.1)
[2020-09-17] MEDS: Meropenem Premix 1 GM in Premix Bag 1 BAG IV SCH ×2 (10:30→21:40)
[2020-09-17 14:01] LABS: CARBON DIOXIDE,CO2 25.4 mmol/L (21.0-32.0); POTASSIUM,K 3.4 mmol/L (3.5-5.1)
[2020-09-17] MEDS: Pantoprazole 40 MG in Sodium Chloride 0.9% 10 ML IV SCH (15:10)
[2020-09-17 16:08] VITALS: PULSE 81
[2020-09-17] MEDS ORDERED: VANCOmycin 1.5 GM/300 ML 1.5 GM in Premix Bag 1 BAG IV ONE (17:00)
[2020-09-17 18:10] LABS: CARBON DIOXIDE,CO2 26.2 mmol/L (21.0-32.0); POTASSIUM,K 3.5 mmol/L (3.5-5.1)
[2020-09-17 21:16] LABS: CARBON DIOXIDE,CO2 25.3 mmol/L (21.0-32.0); POTASSIUM,K 3.8 mmol/L (3.5-5.1)
[2020-09-18 01:28] LABS: CARBON DIOXIDE,CO2 25.9 mmol/L (21.0-32.0); POTASSIUM,K 3.7 mmol/L (3.5-5.1)
[2020-09-18] MEDS: Dextrose 5% in Water 1,000 ML IV SCH ×2 (01:49→12:21)
[2020-09-18] MEDS ORDERED: Sodium Chloride 0.9% 500 ML IV ONE (03:52)
[2020-09-18] MEDS: Acetaminophen 650 MG Supp RECTAL PRN ×2 (04:12→22:38)
[2020-09-18 05:30] LABS: CARBON DIOXIDE,CO2 23.3 mmol/L (21.0-32.0); POTASSIUM,K 3.4 mmol/L (3.5-5.1)
[2020-09-18] MEDS: Meropenem Premix 1 GM in Premix Bag 1 BAG IV SCH ×2 (09:12→21:24)
[2020-09-18] MEDS: Acetaminophen 325 MG Tab PO PRN ×2 (09:54→23:00)
[2020-09-18] MEDS: Heparin Sodium 5,000 Units/ML Vial SUBCUT SCH ×2 (10:45→17:31)
--- NOTE | 2020-09-18 12:38 | PCM.PN ---
- General Info Date of Service: 09/18/20 Admission Dx/Problem (Free Text): Admission Diagnosis/Problem Admission Diagnosis/Problem Sepsis Subjective Update: Alert today, resting comfortably, no acute distress, no meaningful conversation which reportedly is his baseline, patient overnight had an episode of tachycardia received IV normal saline, patient was started on D5 water overnight. D5 water LR has been held Functional Status: Reports: Pain Controlled, Tolerating Diet, Urinating. Denies: Ambulating - Review of Systems Systems Review Comment:: Unable to obtain due to patient's baseline mental status, - Patient Data Vitals - Most Recent: Last Vital Signs Temp 36.3 C 09/18/20 08:00 Pulse 81 09/17/20 16:00 Resp 21 H 09/18/20 11:00 BP 102/46 L 09/18/20 11:00 Pulse Ox 93 L 09/18/20 11:00 Weight - Most Recent: 102.7 kg I&O - Last 24 Hours: Intake & Output 09/17/20 09/18/20 09/18/20 22:59 06:59 14:59 Intake Total 1110 410 Output Total 700 900 Balance 410 -490 Lab Results Last 24 Hours: Laboratory Results - last 24 hr 09/17/20 09/17/20 09/17/20 Range/Units 13:23 14:55 17:20 WBC (4.0-11.0) K/uL RBC (4.50-5.90) M/uL Hgb (13.0-17.0) g/dL Hct (38.0-50.0) % MCV (80.0-98.0) fL MCH (27.0-32.0) pg MCHC (31.0-37.0) g/dL RDW Std Deviation (28.0-62.0) fl RDW Coeff of Joseph (11.0-15.0) % Plt Count (150-400) K/uL MPV (7.40-12.00) fL Neut % (Auto) (48.0-80.0) % Lymph % (Auto) (16.0-40.0) % Boyle % (Auto) (0.0-15.0) % Eos % (Auto) (0.0-7.0) % Baso % (Auto) (0.0-1.5) % Neut # (Auto) (1.4-5.7) K/uL Lymph # (Auto) (0.6-2.4) K/uL Boyle # (Auto) (0.0-0.8) K/uL Eos # (Auto) (0.0-0.7) K/uL Baso # (Auto) (0.0-0.1) K/uL Nucleated RBC % /100WBC Nucleated RBCs # K/uL ABG pH (7.35-7.45) ABG pCO2 (35-45) mmHG ABG pO2 (80-105) mmHG ABG HCO3 (22-26) mEq/L ABG Total CO2 (23-27) mmol/L ABG Base Excess (-2.0-3.0) Sodium 157 H 158 H (136-148) mmol/L Potassium 3.4 L 3.5 (3.5-5.1) mmol/L Chloride 119 H 120 H (98-107) mmol/L Carbon Dioxide 25.4 26.2 (21.0-32.0) mmol/L BUN 94 H 97 H (7.0-18.0) mg/dL Creatinine 3.4 H 3.6 H (0.8-1.3) mg/dL Est Cr Clr Drug Dosing 17.89 16.90 mL/min Estimated GFR (MDRD) 17.5 16.4 ml/min Glucose 129 H 130 H (74-106) mg/dL Lactic Acid (0.4-2.0) mmol/L Calcium 8.4 L 8.4 L (8.5-10.1) mg/dL Vancomycin Trough 14.8 H (5.0-10.0) ug/mL 09/17/20 09/18/20 09/18/20 Range/Units 21:04 01:10 04:10 WBC (4.0-11.0) K/uL RBC (4.50-5.90) M/uL Hgb (13.0-17.0) g/dL Hct (38.0-50.0) % MCV (80.0-98.0) fL MCH (27.0-32.0) pg MCHC (31.0-37.0) g/dL RDW Std Deviation (28.0-62.0) fl RDW Coeff of Joseph (11.0-15.0) % Plt Count (150-400) K/uL MPV (7.40-12.00) fL Neut % (Auto) (48.0-80.0) % Lymph % (Auto) (16.0-40.0) % Boyle % (Auto) (0.0-15.0) % Eos % (Auto) (0.0-7.0) % Baso % (Auto) (0.0-1.5) % Neut # (Auto) (1.4-5.7) K/uL Lymph # (Auto) (0.6-2.4) K/uL Boyle # (Auto) (0.0-0.8) K/uL Eos # (Auto) (0.0-0.7) K/uL Baso # (Auto) (0.0-0.1) K/uL Nucleated RBC % /100WBC Nucleated RBCs # K/uL ABG pH 7.47 H (7.35-7.45) ABG pCO2 31 L (35-45) mmHG ABG pO2 66 L (80-105) mmHG ABG HCO3 22 (22-26) mEq/L ABG Total CO2 20.8 L (23-27) mmol/L ABG Base Excess -0.8 (-2.0-3.0) Sodium 157 H 159 H (136-148) mmol/L Potassium 3.8 3.7 (3.5-5.1) mmol/L Chloride 120 H 121 H (98-107) mmol/L Carbon Dioxide 25.3 25.9 (21.0-32.0) mmol/L BUN 95 H 94 H (7.0-18.0) mg/dL Creatinine 3.5 H 3.5 H (0.8-1.3) mg/dL Est Cr Clr Drug Dosing 17.38 17.38 mL/min Estimated GFR (MDRD) 16.9 16.9 ml/min Glucose 126 H 128 H (74-106) mg/dL Lactic Acid (0.4-2.0) mmol/L Calcium 8.6 8.5 (8.5-10.1) mg/dL Vancomycin Trough (5.0-10.0) ug/mL 09/18/20 09/18/20 09/18/20 Range/Units 04:10 05:15 05:15 WBC 12.09 H (4.0-11.0) K/uL RBC 3.75 L (4.50-5.90) M/uL Hgb 10.4 L (13.0-17.0) g/dL Hct 34.1 L (38.0-50.0) % MCV 90.9 (80.0-98.0) fL MCH 27.7 (27.0-32.0) pg MCHC 30.5 L (31.0-37.0) g/dL RDW Std Deviation 56.9 (28.0-62.0) fl RDW Coeff of Joseph 17 H (11.0-15.0) % Plt Count 261 (150-400) K/uL MPV 9.80 (7.40-12.00) fL Neut % (Auto) 76.3 (48.0-80.0) % Lymph % (Auto) 14.8 L (16.0-40.0) % Boyle % (Auto) 5.7 (0.0-15.0) % Eos % (Auto) 2.9 (0.0-7.0) % Baso % (Auto) 0.3 (0.0-1.5) % Neut # (Auto) 9.2 H (1.4-5.7) K/uL Lymph # (Auto) 1.8 (0.6-2.4) K/uL Boyle # (Auto) 0.7 (0.0-0.8) K/uL Eos # (Auto) 0.4 (0.0-0.7) K/uL Baso # (Auto) 0.0 (0.0-0.1) K/uL Nucleated RBC % 0.0 /100WBC Nucleated RBCs # 0 K/uL ABG pH (7.35-7.45) ABG pCO2 (35-45) mmHG ABG pO2 (80-105) mmHG ABG HCO3 (22-26) mEq/L ABG Total CO2 (23-27) mmol/L ABG Base Excess (-2.0-3.0) Sodium 159 H (136-148) mmol/L Potassium 3.4 L (3.5-5.1) mmol/L Chloride 120 H (98-107) mmol/L Carbon Dioxide 23.3 (21.0-32.0) mmol/L BUN 86 H (7.0-18.0) mg/dL Creatinine 3.2 H (0.8-1.3) mg/dL Est Cr Clr Drug Dosing 19.01 mL/min Estimated GFR (MDRD) 18.8 ml/min Glucose 143 H (74-106) mg/dL Lactic Acid 1.3 (0.4-2.0) mmol/L Calcium 8.2 L (8.5-10.1) mg/dL Vancomycin Trough (5.0-10.0) ug/mL Eduardo Results Last 24 Hours: Microbiology 09/16/20 10:25 Aerobic Blood Culture - Preliminary Blood - Venous - Iv Start NO GROWTH AFTER 2 DAYS Anaerobic Blood Culture - Preliminary NO GROWTH AFTER 2 DAYS 09/16/20 10:35 Urine Culture - Preliminary Urine Gram Negative Rods Enterococcus Species 09/16/20 13:00 Aerobic Blood Culture - Preliminary Blood - Venous - Lab Draw NO GROWTH AFTER 1 DAY Anaerobic Blood Culture - Preliminary NO GROWTH AFTER 1 DAY Med Orders - Current: Current Medications Acetaminophen (Acetaminophen 650 Mg Supp) 650 mg RECTAL Q4H PRN PRN Reason: Pain (mild 1-3) Last Admin: 09/18/20 04:12 Dose: 650 mg Documented by: Acetaminophen (Acetaminophen 325 Mg Tab) 650 mg PO Q6H PRN PRN Reason: Pain Last Admin: 09/18/20 09:54 Dose: 650 mg Documented by: Albuterol/Ipratropium (Albuterol/Ipratropium 3.0-0.5 Mg/3 Ml Neb Soln) 3 ml NEB Q4HRRT PRN PRN Reason: Shortness of Breath Heparin Sodium (Porcine) (Heparin Sodium 5,000 Units/Ml Vial) 5,000 units SUBCUT Q8H NIMO Last Admin: 09/18/20 10:45 Dose: 5,000 units Documented by: Pantoprazole Sodium 40 mg/ (Sodium Chloride) 10 mls @ 200 mls/hr IV Q24H [facility] Last Admin: 09/17/20 15:10 Dose: 200 mls/hr Documented by: Meropenem/Sodium Chloride 1 gm (/ Premix) 50 mls @ 100 mls/hr IV Q12H [facility] Last Admin: 09/18/20 09:12 Dose: 100 mls/hr Documented by: Dextrose/Lactated Ringer's (Dextrose 5%-Lactated Ringers) 1,000 mls @ 50 mls/hr IV ASDIRECTED [facility] Last Admin: 09/16/20 22:19 Dose: 50 mls/hr Documented by: Dextrose/Water (Dextrose 5% In Water) 1,000 mls @ 100 mls/hr IV ASDIRECTED [facility] Last Admin: 09/18/20 12:21 Dose: 100 mls/hr Documented by: Ondansetron HCl (Ondansetron 4 Mg/2 Ml Sdv) 4 mg IVPUSH Q4H PRN PRN Reason: Nausea Sodium Chloride (Sodium Chloride 0.9% 10 Ml Syringe) 10 ml FLUSH ASDIRECTED PRN PRN Reason: Keep Vein Open Sodium Chloride (Sodium Chloride 0.9% 2.5 Ml Syringe) 2.5 ml FLUSH ASDIRECTED PRN PRN Reason: Keep Vein Open Vancomycin HCl (Pharmacy To Dose - Vancomycin) 1 dose .XX ASDIRECTED [facility] Discontinued Medications Acetaminophen/Codeine Phosphate (Acetaminophen/Codeine 300-30 Mg Tab) 1 tab PO ONETIME ONE Stop: 09/16/20 15:22 Last Admin: 09/16/20 15:22 Dose: Not Given Documented by: Fentanyl (Fentanyl 50 Mcg/Ml Sdv) 25 mcg IVPUSH ONETIME ONE Stop: 09/16/20 15:52 Last Admin: 09/16/20 15:55 Dose: 25 mcg Documented by: Sodium Chloride (Normal Saline) 1,000 mls @ 999 mls/hr IV BOLUS ONE Stop: 09/16/20 11:13 Last Admin: 09/16/20 10:20 Dose: 999 mls/hr Documented by: Meropenem 1 gm/ Sodium (Chloride) 100 mls @ 200 mls/hr IV ONETIME ONE Stop: 09/16/20 10:45 Last Admin: 09/16/20 11:09 Dose: Not Given Documented by: Meropenem/Sodium Chloride 1 gm (/ Premix) 50 mls @ 100 mls/hr IV ONETIME [facility] Last Admin: 09/16/20 11:09 Dose: 100 mls/hr Documented by: Sodium Chloride (Normal Saline) 1,000 mls @ 999 mls/hr IV STAT ONE Stop: 09/16/20 11:55 Last Admin: 09/16/20 11:09 Dose: 999 mls/hr Documented by: Vancomycin HCl 1.5 gm/ Premix 300 mls @ 199.188 mls/hr IV ONETIME ONE Stop: 09/16/20 13:00 Last Admin: 09/16/20 11:33 Dose: 199.188 mls/hr Documented by: Sodium Chloride (Normal Saline) 1,000 mls @ 999 mls/hr IV STAT ONE Stop: 09/16/20 14:24 Last Admin: 09/16/20 13:34 Dose: 999 mls/hr Documented by: Sodium Chloride (Normal Saline) 1,000 mls @ 125 mls/hr IV Q8H [facility] Last Admin: 09/16/20 18:43 Dose: Not Given Documented by: Dextrose/Water (Dextrose 5% In Water) 1,000 mls @ 200 mls/hr IV ASDIRECTED [facility] Last Infusion: 09/16/20 19:36 Dose: 75 mls/hr Documented by: Dextrose/Water (Dextrose 5% In Water) 1,000 mls @ 999 mls/hr IV ONETIME ONE Stop: 09/16/20 19:05 Last Admin: 09/16/20 19:17 Dose: 999 mls/hr Documented by: Vancomycin HCl 1.5 gm/ Premix 300 mls @ 199.188 mls/hr IV ONETIME ONE Stop: 09/17/20 18:30 Last Admin: 09/17/20 17:20 Dose: 199.188 mls/hr Documented by: Sodium Chloride (Normal Saline) 500 mls @ 999 mls/hr IV .Bolus ONE Stop: 09/18/20 04:22 Last Admin: 09/18/20 04:00 Dose: 999 mls/hr Documented by: - Exam Quality Assessment: Supplemental Oxygen Central Line Total Time: 1Days 20Hours Urinary Catheter Total Time: 0Days 10Hours General: Alert, No Acute Distress. No: Oriented Neck: Supple Lungs: Clear to Auscultation, Normal Respiratory Effort Cardiovascular: Regular Rate, Regular Rhythm GI/Abdominal Exam: Normal Bowel Sounds, Soft, Non-Tender. No: Hepatomegaly, Splenomegaly Extremities: Normal Inspection, Normal Range of Motion Skin: Rash, Ecchymosis Neurological: No New Focal Deficit - Patient Data Lab Results Last 24 hrs: Laboratory Results - last 24 hr 09/17/20 09/17/20 09/17/20 Range/Units 13:23 14:55 17:20 WBC (4.0-11.0) K/uL RBC (4.50-5.90) M/uL Hgb (13.0-17.0) g/dL Hct (38.0-50.0) % MCV (80.0-98.0) fL MCH (27.0-32.0) pg MCHC (31.0-37.0) g/dL RDW Std Deviation (28.0-62.0) fl RDW Coeff of Joseph (11.0-15.0) % Plt Count (150-400) K/uL MPV (7.40-12.00) fL Neut % (Auto) (48.0-80.0) % Lymph % (Auto) (16.0-40.0) % Boyle % (Auto) (0.0-15.0) % Eos % (Auto) (0.0-7.0) % Baso % (Auto) (0.0-1.5) % Neut # (Auto) (1.4-5.7) K/uL Lymph # (Auto) (0.6-2.4) K/uL Boyle # (Auto) (0.0-0.8) K/uL Eos # (Auto) (0.0-0.7) K/uL Baso # (Auto) (0.0-0.1) K/uL Nucleated RBC % /100WBC Nucleated RBCs # K/uL ABG pH (7.35-7.45) ABG pCO2 (35-45) mmHG ABG pO2 (80-105) mmHG ABG HCO3 (22-26) mEq/L ABG Total CO2 (23-27) mmol/L ABG Base Excess (-2.0-3.0) Sodium 157 H 158 H (136-148) mmol/L Potassium 3.4 L 3.5 (3.5-5.1) mmol/L Chloride 119 H 120 H (98-107) mmol/L Carbon Dioxide 25.4 26.2 (21.0-32.0) mmol/L BUN 94 H 97 H (7.0-18.0) mg/dL Creatinine 3.4 H 3.6 H (0.8-1.3) mg/dL Est Cr Clr Drug Dosing 17.89 16.90 mL/min Estimated GFR (MDRD) 17.5 16.4 ml/min Glucose 129 H 130 H (74-106) mg/dL Lactic Acid (0.4-2.0) mmol/L Calcium 8.4 L 8.4 L (8.5-10.1) mg/dL Vancomycin Trough 14.8 H (5.0-10.0) ug/mL 09/17/20 09/18/20 09/18/20 Range/Units 21:04 01:10 04:10 WBC (4.0-11.0) K/uL RBC (4.50-5.90) M/uL Hgb (13.0-17.0) g/dL Hct (38.0-50.0) % MCV (80.0-98.0) fL MCH (27.0-32.0) pg MCHC (31.0-37.0) g/dL RDW Std Deviation (28.0-62.0) fl RDW Coeff of Joseph (11.0-15.0) % Plt Count (150-400) K/uL MPV (7.40-12.00) fL Neut % (Auto) (48.0-80.0) % Lymph % (Auto) (16.0-40.0) % Boyle % (Auto) (0.0-15.0) % Eos % (Auto) (0.0-7.0) % Baso % (Auto) (0.0-1.5) % Neut # (Auto) (1.4-5.7) K/uL Lymph # (Auto) (0.6-2.4) K/uL Boyle # (Auto) (0.0-0.8) K/uL Eos # (Auto) (0.0-0.7) K/uL Baso # (Auto) (0.0-0.1) K/uL Nucleated RBC % /100WBC Nucleated RBCs # K/uL ABG pH 7.47 H (7.35-7.45) ABG pCO2 31 L (35-45) mmHG ABG pO2 66 L (80-105) mmHG ABG HCO3 22 (22-26) mEq/L ABG Total CO2 20.8 L (23-27) mmol/L ABG Base Excess -0.8 (-2.0-3.0) Sodium 157 H 159 H (136-148) mmol/L Potassium 3.8 3.7 (3.5-5.1) mmol/L Chloride 120 H 121 H (98-107) mmol/L Carbon Dioxide 25.3 25.9 (21.0-32.0) mmol/L BUN 95 H 94 H (7.0-18.0) mg/dL Creatinine 3.5 H 3.5 H (0.8-1.3) mg/dL Est Cr Clr Drug Dosing 17.38 17.38 mL/min Estimated GFR (MDRD) 16.9 16.9 ml/min Glucose 126 H 128 H (74-106) mg/dL Lactic Acid (0.4-2.0) mmol/L Calcium 8.6 8.5 (8.5-10.1) mg/dL Vancomycin Trough (5.0-10.0) ug/mL 09/18/20 09/18/20 09/18/20 Range/Units 04:10 05:15 05:15 WBC 12.09 H (4.0-11.0) K/uL RBC 3.75 L (4.50-5.90) M/uL Hgb 10.4 L (13.0-17.0) g/dL Hct 34.1 L (38.0-50.0) % MCV 90.9 (80.0-98.0) fL MCH 27.7 (27.0-32.0) pg MCHC 30.5 L (31.0-37.0) g/dL RDW Std Deviation 56.9 (28.0-62.0) fl RDW Coeff of Joseph 17 H (11.0-15.0) % Plt Count 261 (150-400) K/uL MPV 9.80 (7.40-12.00) fL Neut % (Auto) 76.3 (48.0-80.0) % Lymph % (Auto) 14.8 L (16.0-40.0) % Boyle % (Auto) 5.7 (0.0-15.0) % Eos % (Auto) 2.9 (0.0-7.0) % Baso % (Auto) 0.3 (0.0-1.5) % Neut # (Auto) 9.2 H (1.4-5.7) K/uL Lymph # (Auto) 1.8 (0.6-2.4) K/uL Boyle # (Auto) 0.7 (0.0-0.8) K/uL Eos # (Auto) 0.4 (0.0-0.7) K/uL Baso # (Auto) 0.0 (0.0-0.1) K/uL Nucleated RBC % 0.0 /100WBC Nucleated RBCs # 0 K/uL ABG pH (7.35-7.45) ABG pCO2 (35-45) mmHG ABG pO2 (80-105) mmHG ABG HCO3 (22-26) mEq/L ABG Total CO2 (23-27) mmol/L ABG Base Excess (-2.0-3.0) Sodium 159 H (136-148) mmol/L Potassium 3.4 L (3.5-5.1) mmol/L Chloride 120 H (98-107) mmol/L Carbon Dioxide 23.3 (21.0-32.0) mmol/L BUN 86 H (7.0-18.0) mg/dL Creatinine 3.2 H (0.8-1.3) mg/dL Est Cr Clr Drug Dosing 19.01 mL/min Estimated GFR (MDRD) 18.8 ml/min Glucose 143 H (74-106) mg/dL Lactic Acid 1.3 (0.4-2.0) mmol/L Calcium 8.2 L (8.5-10.1) mg/dL Vancomycin Trough (5.0-10.0) ug/mL Result Diagrams: 09/18/20 05:15 09/18/20 05:15 Eduardo Results Last 24 hrs: Microbiology 09/16/20 10:25 Aerobic Blood Culture - Preliminary Blood - Venous - Iv Start NO GROWTH AFTER 2 DAYS Anaerobic Blood Culture - Preliminary NO GROWTH AFTER 2 DAYS 09/16/20 10:35 Urine Culture - Preliminary Urine Gram Negative Rods Enterococcus Species 09/16/20 13:00 Aerobic Blood Culture - Preliminary Blood - Venous - Lab Draw NO GROWTH AFTER 1 DAY Anaerobic Blood Culture - Preliminary NO GROWTH AFTER 1 DAY Sepsis Event Note - Evaluation Sepsis Screening Result: Severe Sepsis Risk - Focused Exam Vital Signs: Vital Signs Temp Temp Temp Resp BP BP Pulse Ox 07/24/21 11:00 21 H 102/46 L 93 L 09/18/20 10:00 15 126/54 L 94 L 09/18/20 09:00 27 H 123/54 L 91 L 09/18/20 08:00 36.3 C 36.3 C 21 H 113/52 L 113/52 L 92 L 09/18/20 07:00 37.1 C 19 99/41 L 92 L 09/18/20 06:00 19 105/47 L 94 L 09/18/20 05:00 25 H 100/43 L 92 L 09/18/20 04:00 38.0 C 37.3 C 28 H 108/45 L 94 L 09/18/20 03:00 19 105/46 L 92 L 09/18/20 02:00 28 H 108/52 L 94 L 09/18/20 01:00 15 109/55 L 97 Pulse Ox 09/18/20 11:00 09/18/20 10:00 09/18/20 09:00 92 L 09/18/20 08:00 09/18/20 07:00 09/18/20 06:00 09/18/20 05:00 09/18/20 04:00 09/18/20 03:00 09/18/20 02:00 09/18/20 01:00 - Problem List & Annotations (1) Acute kidney injury superimposed on CKD SNOMED Code(s): 53301344 Code(s): N17.9 - ACUTE KIDNEY FAILURE, UNSPECIFIED; N18.9 - CHRONIC KIDNEY DISEASE, UNSPECIFIED Status: Acute Current Visit: Yes (2) Complicated UTI (urinary tract infection) SNOMED Code(s): 90456174 Code(s): N39.0 - URINARY TRACT INFECTION, SITE NOT SPECIFIED Status: Acute Current Visit: Yes (3) Hyperlipidemia SNOMED Code(s): 53482366 Code(s): E78.5 - HYPERLIPIDEMIA, UNSPECIFIED Status: Acute Current Visit: Yes (4) Hypernatremia SNOMED Code(s): 435057000 Code(s): E87.0 - HYPEROSMOLALITY AND HYPERNATREMIA Status: Acute Current Visit: Yes (5) Hypertension SNOMED Code(s): 09674546 Code(s): I10 - ESSENTIAL (PRIMARY) HYPERTENSION Status: Acute Current Visit: Yes (6) Obstructive uropathy SNOMED Code(s): 9786162 Code(s): N13.9 - OBSTRUCTIVE AND REFLUX UROPATHY, UNSPECIFIED Status: Acute Current Visit: Yes (7) Severe sepsis SNOMED Code(s): 93290440 Code(s): A41.9 - SEPSIS, UNSPECIFIED ORGANISM; R65.20 - SEVERE SEPSIS WITHOUT SEPTIC SHOCK Status: Acute Current Visit: Yes (8) Urinary tract infection SNOMED Code(s): 15294955 Code(s): N39.0 - URINARY TRACT INFECTION, SITE NOT SPECIFIED Status: Acute Current Visit: Yes Qualifiers: Urinary tract infection type: acute cystitis Hematuria presence: with hematuria Qualified Code(s): N30.01 - Acute cystitis with hematuria (9) Altered mental status SNOMED Code(s): 264404053 Code(s): R41.82 - ALTERED MENTAL STATUS, UNSPECIFIED Status: Acute Curr ent Visit: No - Problem List Review Problem List Initiated/Reviewed/Updated: Yes - My Orders Last 24 Hours: My Active Orders 09/18/20 09:45 Heparin Sodium 5,000 units SUBCUT Q8H 09/18/20 Lunch Soft Diet [DIET] 09/18/20 13:00 BASIC METABOLIC PANEL,BMP [CHEM] Routine - Plan Plan:: This 80-year-old male admitted with severe sepsis secondary to complicated UTI with FRAN and hypernatremia 1. Severe sepsis and complicated UTI with pyelonephritis and obstructive uropathy - Continue meropenem and vancomycin renally dosed -Blood cultures pending no growth so far and urine culture is growing and final results pending Repeat lactic acid improved with IV fluid resuscitation. - Hemodynamically stable. 2. Hypernatremia Improved slowly. - Continue D5 water at 50 cc/h, recheck BMP at 1 PM -Encourage oral free water intake, advance diet to soft diet as patient is able to tolerate clear diet 3. FRAN on CKD -Slowly improved. -Continue Nunez catheter, will need urology follow up and to be discharged with nunez in place -Strict I's and O's -Avoid nephrotoxic medications -Continue IV fluids as above. 4. Abdominal pain -Obstructive uropathy with bilateral hydronephrosis and pyelonephritis. VTE prophylaxis: Patient refusing SCDs due to pain, will start heparin for DVT prophylaxis, watch for hematuria GI prophylaxis: Protonix CODE STATUS: DNR/DNI Patient has a femoral line, will likely DC tomorrow if patient continues to improve hemodynamically Dispo: pending improvement. Keke, daughter [phone]
--- NOTE | 2020-09-18 13:26 | PN ---
THC Physician - Brief Progress LdviEOERMWWDG16/24/2021 13:09[facility] Viktoria Fournier, KANWAL - JAYE (ALIA) - JAYE GARCIAKEESHA BILLY ReneaDate of Service 09/18/2020 13:09HPI/Events of Note eICU Progress NotePt is a 80 yo M who presented on 09/16 with UTI, dehydration and Hypernatre bhargavi. He was started on treatment for sepsis and D5W for his Na. This am he is down to 159 from 164. H e remains on Vanco and Meropenem with improvement of his WBC's to 12.09. He is currently resting comf ortably in NAD on RA with stable VS. Case was discussed with his bedside nurse. eICU Recommendations: 1) Continue gentle FW replacment with D5W as tolerated - currently at 100 cc/hr2) Encourage po water intake3) Complete course of antibiotics per final cultures4) PT/OT5) Goal SpO2 > 94%6) GI/DVT prophyl axis per protocolThank you for allowing us to participate in the care of your patient.Interventions M ajor-Electrolyte abnormality - evaluation and apcpftpodbCzkduyrftkwu-Jtjf-nedpevaq therapies (e.g. VT E, beta norberto, etc.), Communication with other healthcare providers and/or family, Infection - eval uation and management
[2020-09-18 13:33] LABS: CARBON DIOXIDE,CO2 25.5 mmol/L (21.0-32.0); POTASSIUM,K 3.2 mmol/L (3.5-5.1)
[2020-09-18] MEDS: Pantoprazole 40 MG in Sodium Chloride 0.9% 10 ML IV SCH (15:29)
[2020-09-18 20:29] LABS: CARBON DIOXIDE,CO2 24.4 mmol/L (21.0-32.0); POTASSIUM,K 3.1 mmol/L (3.5-5.1)
[2020-09-18] MEDS ORDERED: Potassium Chloride Riders 20 MEQ in Premix Bag 1 BAG IV ONE (20:39)
[2020-09-18] MEDS ORDERED: Lactated Ringers 500 ML IV ONE (20:39)
[2020-09-18] MEDS ORDERED: Dextrose 5%-Lactated Ringers 1,000 ML IV SCH (20:45)
[2020-09-19] MEDS: Heparin Sodium 5,000 Units/ML Vial SUBCUT SCH ×3 (00:54→17:41)
[2020-09-19 04:29] LABS: CARBON DIOXIDE,CO2 24.7 mmol/L (21.0-32.0); POTASSIUM,K 3.2 mmol/L (3.5-5.1)
[2020-09-19] MEDS: Acetaminophen 325 MG Tab PO PRN ×2 (05:02→14:25)
[2020-09-19] MEDS ORDERED: Potassium Chloride Riders 20 MEQ in Premix Bag 1 BAG IV ONE ×2 (08:53→20:38)
[2020-09-19] MEDS: Meropenem Premix 1 GM in Premix Bag 1 BAG IV SCH ×2 (10:09→21:33)
--- NOTE | 2020-09-19 11:18 | PN ---
THC Physician - Brief Progress ZtloIBMEHVWIM38/25/2021 11:01[facility] Viktoria Fournier, KANWAL - JAYE (ALIA) - KEESHA CHAVEZDate of Service 09/19/2020 11:01HPI/Events of Note eICU Progress NotePt is a 80 yo M who presented on 09/16 with UTI, dehydration and Hypernatre bhargavi. He is being treated with antibiotics and remains on D5 for his elevated Na. This am his Na is do wn to 153. He continues to tolerate po intake and is resting comfortably with stable VS. Case was dis cussed with his nurse Sada.eICU Recommendations:1) Continue gentle FW replacment with D5LR as tolera nelson - currently at 75 cc/hr2) Encourage po water intake3) Complete course of antibiotics per final cu ltures4) PT/OT5) Goal SpO2 > 94%6) GI/DVT prophylaxis per protocolThank you for allowing us to partic ipate in the care of your patient.Interventions Lyvauuxlwkdd-Vqtb-vmrzllng therapies (e.g. VTE, beta norberto, etc.), Communication with other healthcare providers and/or family, Electrolyte abnormality - evaluation and management
--- NOTE | 2020-09-19 12:33 | CR ---
Indication: Generalized knee pain. Unable to bend knee. Technique: Left knee 4 views. Comparison: Left knee radiographs 09/03/2016. Findings: Suboptimal positioning of the knee on all the views. No obvious dislocation. The patella appears normally aligned. No acute fracture identified. Marked medial compartment narrowing. Tricompartmental spurring. Partially visualized old fracture deformity of the proximal femur. Small knee joint effusion. Soft tissues are unremarkable. Impression: 1. No definite acute findings, however exam is suboptimal. 2. Degenerative changes of the knee greatest in the medial compartment. 3. Small knee joint effusion. Dictated by Elli Salgado MD @ 09/19/2020 12:32:[address] Elli Salgado @ Sep 19 2020 12:32PM
--- NOTE | 2020-09-19 13:01 | PCM.PN ---
- General Info Date of Service: 09/19/20 Admission Dx/Problem (Free Text): Admission Diagnosis/Problem Admission Diagnosis/Problem Sepsis Subjective Update: Alert today, currently being down in the bed causing some pain in his knee and his buttock area. Otherwise patient is comfortable, asking for more water. Functional Status: Reports: Tolerating Diet, Urinating. Denies: Ambulating - Review of Systems General: Denies: Weakness, Fatigue Cardiovascular: Denies: Chest Pain, Palpitations Gastrointestinal: Denies: Abdominal Pain, Constipation Genitourinary: Denies: Dysuria, Frequency, Burning Musculoskeletal: Denies: Neck Pain, Shoulder Pain, Arm Pain Skin: Denies: Cyanosis, Jaundice, Mottled - Patient Data Vitals - Most Recent: Last Vital Signs Temp 36.9 C 09/19/20 12:00 Pulse 81 09/17/20 16:00 Resp 18 09/19/20 12:00 BP 109/48 L 09/19/20 12:00 Pulse Ox 94 L 09/19/20 12:00 Weight - Most Recent: 106 kg I&O - Last 24 Hours: Intake & Output 09/18/20 09/19/20 09/19/20 22:59 06:59 14:59 Intake Total 1860 1996 Output Total 1000 1200 Balance 860 797 Lab Results Last 24 Hours: Laboratory Results - last 24 hr 09/18/20 09/18/20 09/18/20 Range/Units 12:58 16:10 20:12 WBC (4.0-11.0) K/uL RBC (4.50-5.90) M/uL Hgb (13.0-17.0) g/dL Hct (38.0-50.0) % MCV (80.0-98.0) fL MCH (27.0-32.0) pg MCHC (31.0-37.0) g/dL RDW Std Deviation (28.0-62.0) fl RDW Coeff of Joseph (11.0-15.0) % Plt Count (150-400) K/uL MPV (7.40-12.00) fL Neut % (Auto) (48.0-80.0) % Lymph % (Auto) (16.0-40.0) % [place] % (Auto) (0.0-15.0) % Eos % (Auto) (0.0-7.0) % Baso % (Auto) (0.0-1.5) % Neut # (Auto) (1.4-5.7) K/uL Lymph # (Auto) (0.6-2.4) K/uL [place] # (Auto) (0.0-0.8) K/uL Eos # (Auto) (0.0-0.7) K/uL Baso # (Auto) (0.0-0.1) K/uL Nucleated RBC % /100WBC Nucleated RBCs # K/uL Sodium 158 H 155 H (136-148) mmol/L Potassium 3.2 L 3.1 L (3.5-5.1) mmol/L Chloride 121 H 118 H (98-107) mmol/L Carbon Dioxide 25.5 24.4 (21.0-32.0) mmol/L BUN 82 H 77 H (7.0-18.0) mg/dL Creatinine 3.2 H 3.1 H (0.8-1.3) mg/dL Est Cr Clr Drug Dosing 19.01 19.62 mL/min Estimated GFR (MDRD) 18.8 19.5 ml/min Glucose 125 H 153 H (74-106) mg/dL Calcium 8.3 L 8.4 L (8.5-10.1) mg/dL Phosphorus (2.6-4.7) mg/dL Magnesium (1.8-2.4) mg/dL Vancomycin Trough 21.3 H (5.0-10.0) ug/mL Random Vancomycin ug/mL 09/19/20 09/19/20 09/19/20 Range/Units 04:00 04:00 09:16 WBC 12.00 H (4.0-11.0) K/uL RBC 3.50 L (4.50-5.90) M/uL Hgb 9.7 L (13.0-17.0) g/dL Hct 31.4 L (38.0-50.0) % MCV 89.7 (80.0-98.0) fL MCH 27.7 (27.0-32.0) pg MCHC 30.9 L (31.0-37.0) g/dL RDW Std Deviation 56.2 (28.0-62.0) fl RDW Coeff of Joseph 17 H (11.0-15.0) % Plt Count 253 (150-400) K/uL MPV 9.40 (7.40-12.00) fL Neut % (Auto) 73.0 (48.0-80.0) % Lymph % (Auto) 18.3 (16.0-40.0) % [place] % (Auto) 5.1 (0.0-15.0) % Eos % (Auto) 3.3 (0.0-7.0) % Baso % (Auto) 0.3 (0.0-1.5) % Neut # (Auto) 8.8 H (1.4-5.7) K/uL Lymph # (Auto) 2.2 (0.6-2.4) K/uL [place] # (Auto) 0.6 (0.0-0.8) K/uL Eos # (Auto) 0.4 (0.0-0.7) K/uL Baso # (Auto) 0.0 (0.0-0.1) K/uL Nucleated RBC % 0.0 /100WBC Nucleated RBCs # 0 K/uL Sodium 153 H (136-148) mmol/L Potassium 3.2 L (3.5-5.1) mmol/L Chloride 118 H (98-107) mmol/L Carbon Dioxide 24.7 (21.0-32.0) mmol/L BUN 71 H (7.0-18.0) mg/dL Creatinine 2.7 H (0.8-1.3) mg/dL Est Cr Clr Drug Dosing 22.53 mL/min Estimated GFR (MDRD) 22.9 ml/min Glucose 120 H (74-106) mg/dL Calcium 8.2 L (8.5-10.1) mg/dL Phosphorus 3.0 (2.6-4.7) mg/dL Magnesium 2.0 (1.8-2.4) mg/dL Vancomycin Trough (5.0-10.0) ug/mL Random Vancomycin 17.6 ug/mL Eduardo Results Last 24 Hours: Microbiology 09/16/20 10:35 Urine Culture - Preliminary Urine Escherichia Coli Enterococcus Species 09/16/20 10:25 Aerobic Blood Culture - Preliminary Blood - Venous - Iv Start NO GROWTH AFTER 3 DAYS Anaerobic Blood Culture - Preliminary NO GROWTH AFTER 3 DAYS 09/16/20 13:00 Aerobic Blood Culture - Preliminary Blood - Venous - Lab Draw NO GROWTH AFTER 2 DAYS Anaerobic Blood Culture - Preliminary NO GROWTH AFTER 2 DAYS Med Orders - Current: Current Medications Acetaminophen (Acetaminophen 650 Mg Supp) 650 mg RECTAL Q4H PRN PRN Reason: Pain (mild 1-3) Last Admin: 09/18/20 04:12 Dose: 650 mg Documented by: Acetaminophen (Acetaminophen 325 Mg Tab) 650 mg PO Q6H PRN PRN Reason: Pain Last Admin: 09/19/20 05:02 Dose: 650 mg Documented by: Albuterol/Ipratropium (Albuterol/Ipratropium 3.0-0.5 Mg/3 Ml Neb Soln) 3 ml NEB Q4HRRT PRN PRN Reason: Shortness of Breath Heparin Sodium (Porcine) (Heparin Sodium 5,000 Units/Ml Vial) 5,000 units SUBCUT Q8H NIMO Last Admin: 09/19/20 09:29 Dose: 5,000 units Documented by: Pantoprazole Sodium 40 mg/ (Sodium Chloride) 10 mls @ 200 mls/hr IV Q24H [facility] Last Admin: 09/18/20 15:29 Dose: 200 mls/hr Documented by: Meropenem/Sodium Chloride 1 gm (/ Premix) 50 mls @ 100 mls/hr IV Q12H [facility] Last Admin: 09/19/20 10:09 Dose: 100 mls/hr Documented by: Dextrose/Lactated Ringer's (Dextrose 5%-Lactated Ringers) 1,000 mls @ 75 mls/hr IV ASDIRECTED [facility] Vancomycin HCl 1.25 gm/ Sodium (Chloride) 250 mls @ 166.667 mls/hr IV ONETIME ONE Stop: 09/19/20 14:14 Last Admin: 09/19/20 12:40 Dose: 166.667 mls/hr Documented by: Ondansetron HCl (Ondansetron 4 Mg/2 Ml Sdv) 4 mg IVPUSH Q4H PRN PRN Reason: Nausea Sodium Chloride (Sodium Chloride 0.9% 10 Ml Syringe) 10 ml FLUSH ASDIRECTED PRN PRN Reason: Keep Vein Open Sodium Chloride (Sodium Chloride 0.9% 2.5 Ml Syringe) 2.5 ml FLUSH ASDIRECTED PRN PRN Reason: Keep Vein Open Vancomycin HCl (Pharmacy To Dose - Vancomycin) 1 dose .XX ASDIRECTED NIMO Discontinued Medications Acetaminophen/Codeine Phosphate (Acetaminophen/Codeine 300-30 Mg Tab) 1 tab PO ONETIME ONE Stop: 09/16/20 15:22 Last Admin: 09/16/20 15:22 Dose: Not Given Documented by: Fentanyl (Fentanyl 50 Mcg/Ml Sdv) 25 mcg IVPUSH ONETIME ONE Stop: 09/16/20 15:52 Last Admin: 09/16/20 15:55 Dose: 25 mcg Documented by: Sodium Chloride (Normal Saline) 1,000 mls @ 999 mls/hr IV BOLUS ONE Stop: 09/16/20 11:13 Last Admin: 09/16/20 10:20 Dose: 999 mls/hr Documented by: Meropenem 1 gm/ Sodium (Chloride) 100 mls @ 200 mls/hr IV ONETIME ONE Stop: 09/16/20 10:45 Last Admin: 09/16/20 11:09 Dose: Not Given Documented by: Meropenem/Sodium Chloride 1 gm (/ Premix) 50 mls @ 100 mls/hr IV ONETIME NIMO Last Admin: 09/16/20 11:09 Dose: 100 mls/hr Documented by: Sodium Chloride (Normal Saline) 1,000 mls @ 999 mls/hr IV STAT ONE Stop: 09/16/20 11:55 Last Admin: 09/16/20 11:09 Dose: 999 mls/hr Documented by: Vancomycin HCl 1.5 gm/ Premix 300 mls @ 199.188 mls/hr IV ONETIME ONE Stop: 09/16/20 13:00 Last Admin: 09/16/20 11:33 Dose: 199.188 mls/hr Documented by: Sodium Chloride (Normal Saline) 1,000 mls @ 999 mls/hr IV STAT ONE Stop: 09/16/20 14:24 Last Admin: 09/16/20 13:34 Dose: 999 mls/hr Documented by: Sodium Chloride (Normal Saline) 1,000 mls @ 125 mls/hr IV Q8H [facility]IMO Last Admin: 09/16/20 18:43 Dose: Not Given Documented by: Dextrose/Water (Dextrose 5% In Water) 1,000 mls @ 200 mls/hr IV ASDIRECTED NIMO Last Infusion: 09/16/20 19:36 Dose: 75 mls/hr Documented by: Dextrose/Water (Dextrose 5% In Water) 1,000 mls @ 999 mls/hr IV ONETIME ONE Stop: 09/16/20 19:05 Last Admin: 09/16/20 19:17 Dose: 999 mls/hr Documented by: Dextrose/Lactated Ringer's (Dextrose 5%-Lactated Ringers) 1,000 mls @ 75 mls/hr IV ASDIRECTED [facility] Last Admin: 09/16/20 22:19 Dose: 50 mls/hr Documented by: Vancomycin HCl 1.5 gm/ Premix 300 mls @ 199.188 mls/hr IV ONETIME ONE Stop: 09/17/20 18:30 Last Admin: 09/17/20 17:20 Dose: 199.188 mls/hr Documented by: Dextrose/Water (Dextrose 5% In Water) 1,000 mls @ 100 mls/hr IV ASDIRECTED [facility] Last Admin: 09/18/20 12:21 Dose: 100 mls/hr Documented by: Sodium Chloride (Normal Saline) 500 mls @ 999 mls/hr IV .Bolus ONE Stop: 09/18/20 04:22 Last Admin: 09/18/20 04:00 Dose: 999 mls/hr Documented by: Lactated Ringer's (Ringers, Lactated) 500 mls @ 999 mls/hr IV ONETIME ONE Stop: 09/18/20 21:09 Last Admin: 09/18/20 20:47 Dose: 999 mls/hr Documented by: Potassium Chloride 20 meq/ (Premix) 50 mls @ 25 mls/hr IV ONETIME ONE Stop: 09/18/20 22:38 Last Admin: 09/18/20 21:23 Dose: 25 mls/hr Documented by: Dextrose/Lactated Ringer's (Dextrose 5%-Lactated Ringers) 1,000 mls @ 50 mls/hr IV ASDIRECTED [facility] Last Infusion: 09/19/20 09:08 Dose: 75 mls/hr Documented by: Potassium Chloride 20 meq/ (Premix) 50 mls @ 25 mls/hr IV ONETIME ONE Stop: 09/19/20 10:52 Last Admin: 09/19/20 09:26 Dose: 25 mls/hr Documented by: - Exam Central Line Total Time: 2Days 19Hours Urinary Catheter Total Time: 1Days 11Hours General: Alert, Cooperative, Mild Distress Neck: Supple Lungs: Clear to Auscultation, Normal Respiratory Effort Cardiovascular: Regular Rate, Regular Rhythm GI/Abdominal Exam: Normal Bowel Sounds, Soft, Non-Tender Extremities: Leg Pain, Limited Range of Motion, Other (Right knee pain which is chronic in nature). No: Joint Swelling, Increased Warmth, Pallor, Redness - Patient Data Lab Results Last 24 hrs: Laboratory Results - last 24 hr 09/18/20 09/18/20 09/18/20 Range/Units 12:58 16:10 20:12 WBC (4.0-11.0) K/uL RBC (4.50-5.90) M/uL Hgb (13.0-17.0) g/dL Hct (38.0-50.0) % MCV (80.0-98.0) fL MCH (27.0-32.0) pg MCHC (31.0-37.0) g/dL RDW Std Deviation (28.0-62.0) fl RDW Coeff of Joseph (11.0-15.0) % Plt Count (150-400) K/uL MPV (7.40-12.00) fL Neut % (Auto) (48.0-80.0) % Lymph % (Auto) (16.0-40.0) % [place] % (Auto) (0.0-15.0) % Eos % (Auto) (0.0-7.0) % Baso % (Auto) (0.0-1.5) % Neut # (Auto) (1.4-5.7) K/uL Lymph # (Auto) (0.6-2.4) K/uL [place] # (Auto) (0.0-0.8) K/uL Eos # (Auto) (0.0-0.7) K/uL Baso # (Auto) (0.0-0.1) K/uL Nucleated RBC % /100WBC Nucleated RBCs # K/uL Sodium 158 H 155 H (136-148) mmol/L Potassium 3.2 L 3.1 L (3.5-5.1) mmol/L Chloride 121 H 118 H (98-107) mmol/L Carbon Dioxide 25.5 24.4 (21.0-32.0) mmol/L BUN 82 H 77 H (7.0-18.0) mg/dL Creatinine 3.2 H 3.1 H (0.8-1.3) mg/dL Est Cr Clr Drug Dosing 19.01 19.62 mL/min Estimated GFR (MDRD) 18.8 19.5 ml/min Glucose 125 H 153 H (74-106) mg/dL Calcium 8.3 L 8.4 L (8.5-10.1) mg/dL Phosphorus (2.6-4.7) mg/dL Magnesium (1.8-2.4) mg/dL Vancomycin Trough 21.3 H (5.0-10.0) ug/mL Random Vancomycin ug/mL 09/19/20 09/19/20 09/19/20 Range/Units 04:00 04:00 09:16 WBC 12.00 H (4.0-11.0) K/uL RBC 3.50 L (4.50-5.90) M/uL Hgb 9.7 L (13.0-17.0) g/dL Hct 31.4 L (38.0-50.0) % MCV 89.7 (80.0-98.0) fL MCH 27.7 (27.0-32.0) pg MCHC 30.9 L (31.0-37.0) g/dL RDW Std Deviation 56.2 (28.0-62.0) fl RDW Coeff of Joseph 17 H (11.0-15.0) % Plt Count 253 (150-400) K/uL MPV 9.40 (7.40-12.00) fL Neut % (Auto) 73.0 (48.0-80.0) % Lymph % (Auto) 18.3 (16.0-40.0) % [place] % (Auto) 5.1 (0.0-15.0) % Eos % (Auto) 3.3 (0.0-7.0) % Baso % (Auto) 0.3 (0.0-1.5) % Neut # (Auto) 8.8 H (1.4-5.7) K/uL Lymph # (Auto) 2.2 (0.6-2.4) K/uL [place] # (Auto) 0.6 (0.0-0.8) K/uL Eos # (Auto) 0.4 (0.0-0.7) K/uL Baso # (Auto) 0.0 (0.0-0.1) K/uL Nucleated RBC % 0.0 /100WBC Nucleated RBCs # 0 K/uL Sodium 153 H (136-148) mmol/L Potassium 3.2 L (3.5-5.1) mmol/L Chloride 118 H (98-107) mmol/L Carbon Dioxide 24.7 (21.0-32.0) mmol/L BUN 71 H (7.0-18.0) mg/dL Creatinine 2.7 H (0.8-1.3) mg/dL Est Cr Clr Drug Dosing 22.53 mL/min Estimated GFR (MDRD) 22.9 ml/min Glucose 120 H (74-106) mg/dL Calcium 8.2 L (8.5-10.1) mg/dL Phosphorus 3.0 (2.6-4.7) mg/dL Magnesium 2.0 (1.8-2.4) mg/dL Vancomycin Trough (5.0-10.0) ug/mL Random Vancomycin 17.6 ug/mL Result Diagrams: 09/19/20 04:00 09/19/20 04:00 Eduardo Results Last 24 hrs: Microbiology 09/16/20 10:35 Urine Culture - Preliminary Urine Escherichia Coli Enterococcus Species 09/16/20 10:25 Aerobic Blood Culture - Preliminary Blood - Venous - Iv Start NO GROWTH AFTER 3 DAYS Anaerobic Blood Culture - Preliminary NO GROWTH AFTER 3 DAYS 09/16/20 13:00 Aerobic Blood Culture - Preliminary Blood - Venous - Lab Draw NO GROWTH AFTER 2 DAYS Anaerobic Blood Culture - Preliminary NO GROWTH AFTER 2 DAYS Sepsis Event Note - Evaluation Sepsis Screening Result: No Definite Risk - Focused Exam Vital Signs: Vital Signs Temp Resp BP Pulse Ox Pulse Ox 09/19/20 12:00 36.9 C 18 109/48 L 94 L 09/19/20 11:00 19 105/48 L 93 L 09/19/20 10:00 17 115/51 L 92 L 09/19/20 09:00 21 H 107/47 L 93 L 93 L 09/19/20 08:00 37.0 C 24 H 101/48 L 93 L 09/19/20 07:00 24 H 114/45 L 93 L 09/19/20 06:00 21 H 114/44 L 92 L 09/19/20 05:00 25 H 101/44 L 91 L 09/19/20 04:00 36.5 C 20 112/58 L 96 09/19/20 03:00 21 H 113/55 L 95 09/19/20 02:02 91 L 09/19/20 02:00 22 H 112/49 L 88 L 09/19/20 01:00 18 121/46 L 94 L - Problem List & Annotations (1) Acute kidney injury superimposed on CKD SNOMED Code(s): 19820181 Code(s): N17.9 - ACUTE KIDNEY FAILURE, UNSPECIFIED; N18.9 - CHRONIC KIDNEY D ISEASE, UNSPECIFIED Status: Acute Current Visit: Yes (2) Complicated UTI (urinary tract infection) SNOMED Code(s): 84500481 Code(s): N39.0 - URINARY TRACT INFECTION, SITE NOT SPECIFIED Status: Acute Current Visit: Yes (3) Hyperlipidemia SNOMED Code(s): 11971439 Code(s): E78.5 - HYPERLIPIDEMIA, UNSPECIFIED Status: Acute Current Visit: Yes (4) Hypernatremia SNOMED Code(s): 756448224 Code(s): E87.0 - HYPEROSMOLALITY AND HYPERNATREMIA Status: Acute Current Visit: Yes (5) Hypertension SNOMED Code(s): 44347804 Code(s): I10 - ESSENTIAL (PRIMARY) HYPERTENSION Status: Acute Current Visit: Yes (6) Obstructive uropathy SNOMED Code(s): 7344089 Code(s): N13.9 - OBSTRUCTIVE AND REFLUX UROPATHY, UNSPECIFIED Status: Acute Current Visit: Yes (7) Severe sepsis SNOMED Code(s): 31135859 Code(s): A41.9 - SEPSIS, UNSPECIFIED ORGANISM; R65.20 - SEVERE SEPSIS WITHOUT SEPTIC SHOCK Status: Acute Current Visit: Yes (8) Urinary tract infection SNOMED Code(s): 33778215 Code(s): N39.0 - URINARY TRACT INFECTION, SITE NOT SPECIFIED Status: Acute Current Visit: Yes Qualifiers: Urinary tract infection type: acute cystitis Hematuria presence: with hematuria Qualified Code(s): N30.01 - Acute cystitis with hematuria (9) Altered mental status SNOMED Code(s): 824224616 Code(s): R41.82 - ALTERED MENTAL STATUS, UNSPECIFIED Status: Acute Current Visit: No - Problem List Review Problem List Initiated/Reviewed/Updated: Yes - My Orders Last 24 Hours: My Active Orders 09/18/20 12:39 Encourage Fluids [OM.PC] Routine 09/19/20 10:17 Central Venous Line Discontinue [OM.PC] Routine 09/19/20 12:45 Vancomycin 1.25 gm Sodium Chloride 0.9% [Normal Saline (AdvBag)] 250 ml IV ONETIME 09/19/20 12:52 BMP [BASIC METABOLIC PANEL,BMP] [CHEM] Routine 09/19/20 22:30 Dextrose 5%-Lactated Ringers 1,000 ml IV ASDIRECTED 09/20/20 12:00 VANCOMYCIN RANDOM [CHEM] Routine - Plan Plan:: This 80-year-old male admitted with severe sepsis secondary to complicated UTI with FRAN and hypernatremia 1. Severe sepsis and complicated UTI with pyelonephritis and obstructive uropathy -Sepsis is resolving, meropenem, urine cultures noted, blood cultures have been negative. Will DC vancomycin -Blood cultures pending no growth so far and urine culture is growing and final results pending - Hemodynamically stable. 2. Hypernatremia Improved slowly. - Continue D5 water LR at 75 cc/h , check BMP every 8 hours -Encourage oral free water intake, continue soft diet, patient tolerating it well 3. FRAN on CKD -Improving -Continue Nunez catheter, will need urology follow up and to be discharged with nunez in place -Strict I's and O's -Avoid nephrotoxic medications -Continue IV fluids as above. 4. Abdominal pain -Obstructive uropathy with bilateral hydronephrosis and pyelonephritis. VTE prophylaxis: Patient refusing SCDs due to pain, will start heparin for DVT prophylaxis, watch for hematuria GI prophylaxis: Protonix CODE STATUS: DNR/DNI Patient has a femoral line, will likely DC tomorrow if patient continues to improve hemodynamically Dispo: pending improvement. Keke, daughter [phone]
[2020-09-19 13:26] LABS: POTASSIUM,K 3.5 mmol/L (3.5-5.1)
[2020-09-19] MEDS: Dextrose 5% in Water 1,000 ML IV SCH (14:52)
[2020-09-19] MEDS: Pantoprazole 40 MG in Sodium Chloride 0.9% 10 ML IV SCH (14:57)
[2020-09-19] MEDS: Dextrose 5%-Lactated Ringers 1,000 ML IV SCH (15:00)
[2020-09-19 20:24] LABS: POTASSIUM,K 3.1 mmol/L (3.5-5.1)
[2020-09-19] MEDS ORDERED: Dextrose 5%-Lactated Ringers 1,000 ML IV SCH (22:30)
[2020-09-20] MEDS: Heparin Sodium 5,000 Units/ML Vial SUBCUT SCH ×3 (01:27→17:30)
[2020-09-20] MEDS: Dextrose 5%-Lactated Ringers 1,000 ML IV SCH ×2 (03:57→10:00)
[2020-09-20 05:51] LABS: POTASSIUM,K 3.1 mmol/L (3.5-5.1)
--- NOTE | 2020-09-20 08:15 | PCM.PN ---
- General Info Date of Service: 09/20/20 Admission Dx/Problem (Free Text): Admission Diagnosis/Problem Admission Diagnosis/Problem Sepsis Subjective Update: More alert today. Denies any chest pain or shortness of breath. Reports "I am feeling fine". Having bowel movements. He is eating and drinking appropriately. Nunez remains intact with clear yellow urine Functional Status: Reports: Pain Controlled, Tolerating Diet - Review of Systems General: Reports: Weakness, Malaise HEENT: Reports: No Symptoms. Denies: Headaches, Sore Throat Pulmonary: Reports: No Symptoms. Denies: Shortness of Breath Cardiovascular: Reports: No Symptoms. Denies: Chest Pain Gastrointestinal: Reports: No Symptoms. Denies: Abdominal Pain, Nausea, Vomiting Genitourinary: Reports: No Symptoms Musculoskeletal: Reports: Joint Pain (Left knee pain, chronic) Skin: Reports: No Symptoms Neurological: Reports: No Symptoms Psychiatric: Reports: No Symptoms - Patient Data Vitals - Most Recent: Last Vital Signs Temp 97.1 F 09/20/20 04:00 Pulse 81 09/17/20 16:00 Resp 14 09/20/20 07:00 BP 118/43 L 09/20/20 07:00 Pulse Ox 94 L 09/20/20 07:00 Weight - Most Recent: 106.4 kg I&O - Last 24 Hours: Intake & Output 09/19/20 09/20/20 09/20/20 22:59 06:59 14:59 Intake Total 1950 2452 Output Total 1250 1150 Balance 700 1302 Lab Results Last 24 Hours: Laboratory Results - last 24 hr 09/19/20 09/19/20 09/19/20 Range/Units 09:16 12:52 20:00 WBC (4.0-11.0) K/uL RBC (4.50-5.90) M/uL Hgb (13.0-17.0) g/dL Hct (38.0-50.0) % MCV (80.0-98.0) fL MCH (27.0-32.0) pg MCHC (31.0-37.0) g/dL RDW Std Deviation (28.0-62.0) fl RDW Coeff of Joseph (11.0-15.0) % Plt Count (150-400) K/uL MPV (7.40-12.00) fL Neut % (Auto) (48.0-80.0) % Lymph % (Auto) (16.0-40.0) % Jasper % (Auto) (0.0-15.0) % Eos % (Auto) (0.0-7.0) % Baso % (Auto) (0.0-1.5) % Neut # (Auto) (1.4-5.7) K/uL Lymph # (Auto) (0.6-2.4) K/uL Jasper # (Auto) (0.0-0.8) K/uL Eos # (Auto) (0.0-0.7) K/uL Baso # (Auto) (0.0-0.1) K/uL Nucleated RBC % /100WBC Nucleated RBCs # K/uL Sodium 156 H 154 H (136-148) mmol/L Potassium 3.5 3.1 L (3.5-5.1) mmol/L Chloride 121 H 118 H (98-107) mmol/L Carbon Dioxide 27.0 24.0 (21.0-32.0) mmol/L BUN 61 H 52 H (7.0-18.0) mg/dL Creatinine 2.4 H 2.3 H (0.8-1.3) mg/dL Est Cr Clr Drug Dosing 25.35 26.45 mL/min Estimated GFR (MDRD) 26.2 27.5 ml/min Glucose 113 H 136 H (74-106) mg/dL Calcium 8.6 8.2 L (8.5-10.1) mg/dL Phosphorus (2.6-4.7) mg/dL Magnesium (1.8-2.4) mg/dL Random Vancomycin 17.6 ug/mL 09/20/20 09/20/20 Range/Units 05:21 05:21 WBC 9.80 (4.0-11.0) K/uL RBC 3.29 L (4.50-5.90) M/uL Hgb 9.0 L (13.0-17.0) g/dL Hct 29.1 L (38.0-50.0) % MCV 88.4 (80.0-98.0) fL MCH 27.4 (27.0-32.0) pg MCHC 30.9 L (31.0-37.0) g/dL RDW Std Deviation 55.0 (28.0-62.0) fl RDW Coeff of Joseph 17 H (11.0-15.0) % Plt Count 275 (150-400) K/uL MPV 9.60 (7.40-12.00) fL Neut % (Auto) 72.5 (48.0-80.0) % Lymph % (Auto) 20.0 (16.0-40.0) % Jasper % (Auto) 4.5 (0.0-15.0) % Eos % (Auto) 2.8 (0.0-7.0) % Baso % (Auto) 0.2 (0.0-1.5) % Neut # (Auto) 7.1 H (1.4-5.7) K/uL Lymph # (Auto) 2.0 (0.6-2.4) K/uL Jasper # (Auto) 0.4 (0.0-0.8) K/uL Eos # (Auto) 0.3 (0.0-0.7) K/uL Baso # (Auto) 0.0 (0.0-0.1) K/uL Nucleated RBC % 0.0 /100WBC Nucleated RBCs # 0 K/uL Sodium 152 H (136-148) mmol/L Potassium 3.1 L (3.5-5.1) mmol/L Chloride 116 H (98-107) mmol/L Carbon Dioxide 26.0 (21.0-32.0) mmol/L BUN 43 H (7.0-18.0) mg/dL Creatinine 1.9 H (0.8-1.3) mg/dL Est Cr Clr Drug Dosing 32.02 mL/min Estimated GFR (MDRD) 34.3 ml/min Glucose 113 H (74-106) mg/dL Calcium 8.1 L (8.5-10.1) mg/dL Phosphorus 2.8 (2.6-4.7) mg/dL Magnesium 1.8 (1.8-2.4) mg/dL Random Vancomycin ug/mL Eduardo Results Last 24 Hours: Microbiology 09/16/20 13:00 Aerobic Blood Culture - Preliminary Blood - Venous - Lab Draw NO GROWTH AFTER 3 DAYS Anaerobic Blood Culture - Preliminary NO GROWTH AFTER 3 DAYS 09/16/20 10:35 Urine Culture - Preliminary Urine Escherichia Coli Enterococcus Species 09/16/20 10:25 Aerobic Blood Culture - Preliminary Blood - Venous - Iv Start NO GROWTH AFTER 3 DAYS Anaerobic Blood Culture - Preliminary NO GROWTH AFTER 3 DAYS Med Orders - Current: Current Medications Acetaminophen (Acetaminophen 650 Mg Supp) 650 mg RECTAL Q4H PRN PRN Reason: Pain (mild 1-3) Last Admin: 09/18/20 04:12 Dose: 650 mg Documented by: Acetaminophen (Acetaminophen 325 Mg Tab) 650 mg PO Q6H PRN PRN Reason: Pain Last Admin: 09/19/20 14:25 Dose: 650 mg Documented by: Albuterol/Ipratropium (Albuterol/Ipratropium 3.0-0.5 Mg/3 Ml Neb Soln) 3 ml NEB Q4HRRT PRN PRN Reason: Shortness of Breath Heparin Sodium (Porcine) (Heparin Sodium 5,000 Units/Ml Vial) 5,000 units SUBCUT Q8H [facility] Last Admin: 09/20/20 01:27 Dose: 5,000 units Documented by: Pantoprazole Sodium 40 mg/ (Sodium Chloride) 10 mls @ 200 mls/hr IV Q24H [facility] Last Admin: 09/19/20 14:57 Dose: 200 mls/hr Documented by: Meropenem/Sodium Chloride 1 gm (/ Premix) 50 mls @ 100 mls/hr IV Q12H [facility] Last Admin: 09/19/20 21:33 Dose: 100 mls/hr Documented by: Dextrose/Water (Dextrose 5% In Water) 1,000 mls @ 50 mls/hr IV ASDIRECTED [facility] Last Admin: 09/19/20 14:52 Dose: 50 mls/hr Documented by: Dextrose/Lactated Ringer's (Dextrose 5%-Lactated Ringers) 1,000 mls @ 75 mls/hr IV ASDIRECTED [facility] Last Admin: 09/20/20 03:57 Dose: 75 mls/hr Documented by: Ondansetron HCl (Ondansetron 4 Mg/2 Ml Sdv) 4 mg IVPUSH Q4H PRN PRN Reason: Nausea Sodium Chloride (Sodium Chloride 0.9% 10 Ml Syringe) 10 ml FLUSH ASDIRECTED PRN PRN Reason: Keep Vein Open Sodium Chloride (Sodium Chloride 0.9% 2.5 Ml Syringe) 2.5 ml FLUSH ASDIRECTED PRN PRN Reason: Keep Vein Open Discontinued Medications Acetaminophen/Codeine Phosphate (Acetaminophen/Codeine 300-30 Mg Tab) 1 tab PO ONETIME ONE Stop: 09/16/20 15:22 Last Admin: 09/16/20 15:22 Dose: Not Given Documented by: Fentanyl (Fentanyl 50 Mcg/Ml Sdv) 25 mcg IVPUSH ONETIME ONE Stop: 09/16/20 15:52 Last Admin: 09/16/20 15:55 Dose: 25 mcg Documented by: Sodium Chloride (Normal Saline) 1,000 mls @ 999 mls/hr IV BOLUS ONE Stop: 09/16/20 11:13 Last Admin: 09/16/20 10:20 Dose: 999 mls/hr Documented by: Meropenem 1 gm/ Sodium (Chloride) 100 mls @ 200 mls/hr IV ONETIME ONE Stop: 09/16/20 10:45 Last Admin: 09/16/20 11:09 Dose: Not Given Documented by: Meropenem/Sodium Chloride 1 gm (/ Premix) 50 mls @ 100 mls/hr IV ONETIME [facility] Last Admin: 09/16/20 11:09 Dose: 100 mls/hr Documented by: Sodium Chloride (Normal Saline) 1,000 mls @ 999 mls/hr IV STAT ONE Stop: 09/16/20 11:55 Last Admin: 09/16/20 11:09 Dose: 999 mls/hr Documented by: Vancomycin HCl 1.5 gm/ Premix 300 mls @ 199.188 mls/hr IV ONETIME ONE Stop: 09/16/20 13:00 Last Admin: 09/16/20 11:33 Dose: 199.188 mls/hr Documented by: Sodium Chloride (Normal Saline) 1,000 mls @ 999 mls/hr IV STAT ONE Stop: 09/16/20 14:24 Last Admin: 09/16/20 13:34 Dose: 999 mls/hr Documented by: Sodium Chloride (Normal Saline) 1,000 mls @ 125 mls/hr IV Q8H [facility] Last Admin: 09/16/20 18:43 Dose: Not Given Documented by: Dextrose/Water (Dextrose 5% In Water) 1,000 mls @ 200 mls/hr IV ASDIRECTED [facility] Last Infusion: 09/16/20 19:36 Dose: 75 mls/hr Documented by: Dextrose/Water (Dextrose 5% In Water) 1,000 mls @ 999 mls/hr IV ONETIME ONE Stop: 09/16/20 19:05 Last Admin: 09/16/20 19:17 Dose: 999 mls/hr Documented by: Dextrose/Lactated Ringer's (Dextrose 5%-Lactated Ringers) 1,000 mls @ 75 [facility] Last Admin: 09/16/20 22:19 Dose: 50 mls/hr Documented by: Vancomycin HCl 1.5 gm/ Premix 300 mls @ 199.188 mls/hr IV ONETIME ONE Stop: 09/17/20 18:30 Last Admin: 09/17/20 17:20 Dose: 199.188 mls/hr Documented by: Dextrose/Water (Dextrose 5% In Water) 1,000 mls [facility] Admin: 09/18/20 12:21 Dose: 100 mls/hr Documented by: Sodium Chloride (Normal Saline) 500 mls @ 999 mls/hr IV .Bolus ONE Stop: 09/18/20 04:22 Last Admin: 09/18/20 04:00 Dose: 999 mls/hr Documented by: Lactated Ringer's (Ringers, Lactated) 500 mls @ 999 mls/hr IV ONETIME ONE Stop: 09/18/20 21:09 Last Admin: 09/18/20 20:47 Dose: 999 mls/hr Documented by: Potassium Chloride 20 meq/ (Premix) 50 mls @ 25 mls/hr IV ONETIME ONE Stop: 09/18/20 22:38 Last Admin: 09/18/20 21:23 Dose: 25 mls/hr Documented by: Dextrose/Lactated Ringer's (Dextrose 5%-Lactated Ringers) 1,000 mls @ 50 [facility]ls[facility] Last Infusion: 09/19/20 09:08 Dose: 75 mls/hr Documented by: Potassium Chloride 20 meq/ (Premix) 50 mls @ 25 mls/hr IV ONETIME ONE Stop: 09/19/20 10:52 Last Admin: 09/19/20 09:26 Dose: 25 mls/hr Documented by: Dextrose/Lactated Ringer's (Dextrose 5%-Lactated Ringers) 1,000 mls @ 75 mls/hr IV ASDIRECTED [facility] Vancomycin HCl 1.25 gm/ Sodium (Chloride) 250 mls @ 166.667 mls/hr IV ONETIME ONE Stop: 09/19/20 14:14 Last Admin: 09/19/20 12:40 Dose: 166.667 mls/hr Documented by: Potassium Chloride 20 meq/ (Premix) 50 mls @ 25 mls/hr IV ONETIME ONE Stop: 09/19/20 22:37 Last Admin: 09/19/20 21:32 Dose: 25 mls/hr Documented by: Vancomycin HCl (Pharmacy To Dose - Vancomycin) 1 dose .XX ASDIRECTED [facility] - Exam Quality Assessment: Urine Catheter Central Line Total Time: 3Days 1Hours Urinary Catheter Total Time: 2Days 6Hours General: Alert, Cooperative, No Acute Distress. No: Oriented (To self only) Lungs: Clear to Auscultation, Normal Respiratory Effort Cardiovascular: Regular Rate, Regular Rhythm GI/Abdominal Exam: Normal Bowel Sounds, Soft, Non-Tender Extremities: Normal Inspection, Normal Range of Motion, Non-Tender, Pedal Edema (Scant pedal edema) Skin: Warm, Dry Wound/Incisions: Decubitis (Stage I pressure ulcer noted to coccyx. Continue repositioning frequently) Neurological: No New Focal Deficit Psy/Mental Status: Alert, Normal Affect, Normal Mood - Patient Data Lab Results Last 24 hrs: Laboratory Results - last 24 hr 09/19/20 09/19/20 09/19/20 Range/Units 09:16 12:52 20:00 WBC (4.0-11.0) K/uL RBC (4.50-5.90) M/uL Hgb (13.0-17.0) g/dL Hct (38.0-50.0) % MCV (80.0-98.0) fL MCH (27.0-32.0) pg MCHC (31.0-37.0) g/dL RDW Std Deviation (28.0-62.0) fl RDW Coeff of Joseph (11.0-15.0) % Plt Count (150-400) K/uL MPV (7.40-12.00) fL Neut % (Auto) (48.0-80.0) % Lymph % (Auto) (16.0-40.0) % Jasper % (Auto) (0.0-15.0) % Eos % (Auto) (0.0-7.0) % Baso % (Auto) (0.0-1.5) % Neut # (Auto) (1.4-5.7) K/uL Lymph # (Auto) (0.6-2.4) K/uL Jasper # (Auto) (0.0-0.8) K/uL Eos # (Auto) (0.0-0.7) K/uL Baso # (Auto) (0.0-0.1) K/uL Nucleated RBC % /100WBC Nucleated RBCs # K/uL Sodium 156 H 154 H (136-148) mmol/L Potassium 3.5 3.1 L (3.5-5.1) mmol/L Chloride 121 H 118 H (98-107) mmol/L Carbon Dioxide 27.0 24.0 (21.0-32.0) mmol/L BUN 61 H 52 H (7.0-18.0) mg/dL Creatinine 2.4 H 2.3 H (0.8-1.3) mg/dL Est Cr Clr Drug Dosing 25.35 26.45 mL/min Estimated GFR (MDRD) 26.2 27.5 ml/min Glucose 113 H 136 H (74-106) mg/dL Calcium 8.6 8.2 L (8.5-10.1) mg/dL Phosphorus (2.6-4.7) mg/dL Magnesium (1.8-2.4) mg/dL Random Vancomycin 17.6 ug/mL 09/20/20 09/20/20 Range/Units 05:21 05:21 WBC 9.80 (4.0-11.0) K/uL RBC 3.29 L (4.50-5.90) M/uL Hgb 9.0 L (13.0-17.0) g/dL Hct 29.1 L (38.0-50.0) % MCV 88.4 (80.0-98.0) fL MCH 27.4 (27.0-32.0) pg MCHC 30.9 L (31.0-37.0) g/dL RDW Std Deviation 55.0 (28.0-62.0) fl RDW Coeff of Joseph 17 H (11.0-15.0) % Plt Count 275 (150-400) K/uL MPV 9.60 (7.40-12.00) fL Neut % (Auto) 72.5 (48.0-80.0) % Lymph % (Auto) 20.0 (16.0-40.0) % Jasper % (Auto) 4.5 (0.0-15.0) % Eos % (Auto) 2.8 (0.0-7.0) % Baso % (Auto) 0.2 (0.0-1.5) % Neut # (Auto) 7.1 H (1.4-5.7) K/uL Lymph # (Auto) 2.0 (0.6-2.4) K/uL Jasper # (Auto) 0.4 (0.0-0.8) K/uL Eos # (Auto) 0.3 (0.0-0.7) K/uL Baso # (Auto) 0.0 (0.0-0.1) K/uL Nucleated RBC % 0.0 /100WBC Nucleated RBCs # 0 K/uL Sodium 152 H (136-148) mmol/L Potassium 3.1 L (3.5-5.1) mmol/L Chloride 116 H (98-107) mmol/L Carbon Dioxide 26.0 (21.0-32.0) mmol/L BUN 43 H (7.0-18.0) mg/dL Creatinine 1.9 H (0.8-1.3) mg/dL Est Cr Clr Drug Dosing 32.02 mL/min Estimated GFR (MDRD) 34.3 ml/min Glucose 113 H (74-106) mg/dL Calcium 8.1 L (8.5-10.1) mg/dL Phosphorus 2.8 (2.6-4.7) mg/dL Magnesium 1.8 (1.8-2.4) mg/dL Random Vancomycin ug/mL Result Diagrams: 09/20/20 05:21 09/20/20 05:21 Eduardo Results Last 24 hrs: Microbiology 09/16/20 13:00 Aerobic Blood Culture - Preliminary Blood - Venous - Lab Draw NO GROWTH AFTER 3 DAYS Anaerobic Blood Culture - Preliminary NO GROWTH AFTER 3 DAYS 09/16/20 10:35 Urine Culture - Preliminary Urine Escherichia Coli Enterococcus Species 09/16/20 10:25 Aerobic Blood Culture - Preliminary Blood - Venous - Iv Start NO GROWTH AFTER 3 DAYS Anaerobic Blood Culture - Preliminary NO GROWTH AFTER 3 DAYS Sepsis Event Note - Evaluation Sepsis Screening Result: No Definite Risk - Focused Exam Vital Signs: Vital Signs Temp Resp BP Pulse Ox 09/20/20 07:00 14 118/43 L 94 L 09/20/20 06:00 18 129/76 91 L 09/20/20 05:00 23 H 104/64 91 L 09/20/20 04:00 97.1 F 25 H 120/61 92 L 09/20/20 03:00 21 H 114/61 93 L 09/20/20 02:00 22 H 106/53 L 93 L 09/20/20 01:00 21 H 112/52 L 91 L 09/20/20 00:00 96.8 F L 23 H 112/52 L 91 L 09/19/20 23:00 20 97/48 L 93 L 09/19/20 22:00 19 108/56 L 90 L 09/19/20 21:00 19 105/34 L 94 L - Problem List & Annotations (1) Pyelonephritis SNOMED Code(s): 72281420 Code(s): N12 - TUBULO-INTERSTITIAL NEPHRITIS, NOT SPCF ACUTE OR CHRONIC Status: Acute Current Visit: Yes (2) Severe sepsis SNOMED Code(s): 60081353 Code(s): A41.9 - SEPSIS, UNSPECIFIED ORGANISM; R65.20 - SEVERE SEPSIS WITHOUT SEPTIC SHOCK Status: Resolved Current Visit: Yes (3) Complicated UTI (urinary tract infection) SNOMED Code(s): 06068164 Code(s): N39.0 - URINARY TRACT INFECTION, SITE NOT SPECIFIED Status: Acute Current Visit: Yes (4) Acute kidney injury superimposed on CKD SNOMED Code(s): 92969057 Code(s): N17.9 - ACUTE KIDNEY FAILURE, UNSPECIFIED; N18.9 - CHRONIC KIDNEY DISEASE, UNSPECIFIED Status: Acute Current Visit: Yes (5) Lactic acidosis SNOMED Code(s): 57188257 Code(s): E87.2 - ACIDOSIS Status: Resolved Current Visit: Yes (6) Dementia SNOMED Code(s): 41770681 Code(s): F03.90 - UNSPECIFIED DEMENTIA WITHOUT BEHAVIORAL DISTURBANCE Status: Acute Current Visit: Yes (7) Hypertension SNOMED Code(s): 82223551 Code(s): I10 - ESSENTIAL (PRIMARY) HYPERTENSION Status: Acute Current Visit: Yes (8) Hyperlipidemia SNOMED Code(s): 59485240 Code(s): E78.5 - HYPERLIPIDEMIA, UNSPECIFIED Status: Acute Current Visit: Yes (9) Altered mental status SNOMED Code(s): 322668370 Code(s): R41.82 - ALTERED MENTAL STATUS, UNSPECIFIED Status: Resolved Current Visit: No (10) Leukocytosis SNOMED Code(s): 682574963, 550710339 Code(s): D72.829 - ELEVATED WHITE BLOOD CELL COUNT, UNSPECIFIED Status: Resolved Current Visit: No (11) Urinary retention SNOMED Code(s): 813094907 Code(s): R33.9 - RETENTION OF URINE, UNSPECIFIED Status: Chronic Current Visit: Yes (12) Obstructive uropathy SNOMED Code(s): 7506718 Code(s): N13.9 - OBSTRUCTIVE AND REFLUX UROPATHY, UNSPECIFIED Status: Acute Current Visit: Yes - Problem List Review Problem List Initiated/Reviewed/Updated: Yes - Plan Plan:: This 80-year-old male admitted with severe sepsis secondary to complicated UTI with FRAN and hypernatremia 1. Severe sepsis and complicated E. coli and Enterococcus UTI with pyelonephritis and obstructive uropathy -Sepsis is resolved - EDUARDO returned from will discontinue meropenem, start Rocephin 1 g daily -Blood cultures show no growth - Hemodynamically stable. 2. Hypernatremia Improved slowly. - Continue D5 water and D5 LR LR at 75 cc/h , will check BMP this afternoon if continuing to improve we will discontinue D5W -Encourage oral free water intake, continue soft diet, patient tolerating it well 3. FRAN on CKD -Improving -Continue Nunez catheter, will need urology follow up and to be discharged with nunez in place -Strict I's and O's -Avoid nephrotoxic medications -Continue IV fluids as above. 4. Deconditioning. -Secondary to acute illness and sepsis -Start PT will definitely need PT at [place] when he returns. 5. Left knee pain -Chronic -We will restart topical pain relief as well as Tylenol 3 for pain relief VTE prophylaxis: Continue heparin GI prophylaxis: Protonix CODE STATUS: DNR/DNI Dispo: 2 to 4 days pending continued improvement Keke, daughter [phone]
[2020-09-20] MEDS: Dextrose 5% in Water 1,000 ML IV SCH (08:47)
[2020-09-20] MEDS ORDERED: METHYL SALICYLATE TOP PRN (09:20)
[2020-09-20] MEDS ORDERED: MENTHOL TOP PRN (09:20)
[2020-09-20] MEDS ORDERED: Potassium Chloride 20 MEQ Tab.ER PO ONE (10:09)
[2020-09-20] MEDS: Meropenem Premix 1 GM in Premix Bag 1 BAG IV SCH (10:15)
[2020-09-20] MEDS: Acetaminophen/Codeine 300-30 MG Tab PO PRN (10:50)
[2020-09-20] MEDS: cefTRIAXone 1 GM in Premix Bag 1 BAG IV SCH (12:45)
--- NOTE | 2020-09-20 13:06 | PN ---
THC Physician - Brief Progress [id number]/26/2021 13:05[facility] Viktoria Fournier, KANWAL - MWN (ALIA) - MWN JOSEMARIAJOSE KEESHA RenaeDate of Service 09/20/2020 13:05HPI/Events of Note eICU Progress Arxt14A admitted for hypernatremia, FRAN and UTI. History obtained primarily fr om review of EMR.Camera exam: Laying in bed. Vitals monitor reviewed.eICU Recommendations:Free water deficit calculated as 5.5L, if unable to supplement with free water intake suggest increasing D5W to 150cc/hr, continue to trend sodiumComplete course of antibioticsContinue to trend urine output and cr eatinineOtherwise no new recommendationsat this timeDVT and GI prophylaxis as appropriate.Thank you f or allowing us to participate in the care of this patient.The above note transcribed with the assista nce of dictation software. Please excuse any errors.Interventions Major-Acute renal failure - evaluat ion and management, Electrolyte abnormality - evaluation and management, Infection - evaluation and m anagement
[2020-09-20 13:34] LABS: CARBON DIOXIDE,CO2 24.4 mmol/L (21.0-32.0); POTASSIUM,K 3.4 mmol/L (3.5-5.1)
[2020-09-20] MEDS: Pantoprazole 40 MG in Sodium Chloride 0.9% 10 ML IV SCH (15:10)
[2020-09-20] MEDS: Cetirizine 10 MG Tab PO SCH (20:15)
[2020-09-21] MEDS: Heparin Sodium 5,000 Units/ML Vial SUBCUT SCH ×3 (00:47→17:07)
[2020-09-21] MEDS: Dextrose 5%-Lactated Ringers 1,000 ML IV SCH ×2 (02:41→05:19)
[2020-09-21] MEDS ORDERED: Hydrocolloid Dressing 4x4 Bandage ONE (03:44)
[2020-09-21] MEDS: Dextrose 5% in Water 1,000 ML IV SCH (05:19)
[2020-09-21 05:37] LABS: CARBON DIOXIDE,CO2 23.9 mmol/L (21.0-32.0)
[2020-09-21] MEDS ORDERED: Potassium Chloride 10% 20 MEQ/15 ML Soln 30 ML UD Cup PO ONE (06:14)
[2020-09-21] MEDS ORDERED: Potassium Chloride 20 MEQ Tab.ER PO ONE ×2 (06:38→15:29)
--- NOTE | 2020-09-21 07:47 | PCM.PN ---
- General Info Date of Service: 09/21/20 Admission Dx/Problem (Free Text): Admission Diagnosis/Problem Admission Diagnosis/Problem Sepsis Subjective Update: COntinues to do well. More alert today. No chest pain. No shortness of breath. No other complaints. Functional Status: Reports: Tolerating Diet - Review of Systems General: Reports: No Symptoms. Denies: Malaise Pulmonary: Reports: No Symptoms. Denies: Shortness of Breath Cardiovascular: Reports: No Symptoms. Denies: Chest Pain Gastrointestinal: Reports: No Symptoms. Denies: Abdominal Pain, Nausea, Vomiting Genitourinary: Reports: No Symptoms Musculoskeletal: Reports: No Symptoms Skin: Reports: No Symptoms Neurological: Reports: No Symptoms Psychiatric: Reports: No Symptoms - Patient Data Vitals - Most Recent: Last Vital Signs Temp 96.8 F L 09/21/20 05:00 Pulse 81 09/17/20 16:00 Resp 22 H 09/21/20 07:00 BP 97/52 L 09/21/20 07:00 Pulse Ox 96 09/21/20 07:00 Weight - Most Recent: 108.9 kg I&O - Last 24 Hours: Intake & Output 09/20/20 09/21/20 09/21/20 22:59 06:59 14:59 Intake Total 2010 750 Output Total 1500 1300 Balance 510 -550 Lab Results Last 24 Hours: Laboratory Results - last 24 hr 09/20/20 09/21/20 09/21/20 Range/Units 13:05 04:35 04:35 WBC 8.84 (4.0-11.0) K/uL RBC 3.35 L (4.50-5.90) M/uL Hgb 9.3 L (13.0-17.0) g/dL Hct 29.6 L (38.0-50.0) % MCV 88.4 (80.0-98.0) fL MCH 27.8 (27.0-32.0) pg MCHC 31.4 (31.0-37.0) g/dL RDW Std Deviation 54.1 (28.0-62.0) fl RDW Coeff of Joseph 17 H (11.0-15.0) % Plt Count 271 (150-400) K/uL MPV 9.80 (7.40-12.00) fL Neut % (Auto) 72.2 (48.0-80.0) % Lymph % (Auto) 21.3 (16.0-40.0) % [place] % (Auto) 4.0 (0.0-15.0) % Eos % (Auto) 2.3 (0.0-7.0) % Baso % (Auto) 0.2 (0.0-1.5) % Neut # (Auto) 6.4 H (1.4-5.7) K/uL Lymph # (Auto) 1.9 (0.6-2.4) K/uL [place] # (Auto) 0.4 (0.0-0.8) K/uL Eos # (Auto) 0.2 (0.0-0.7) K/uL Baso # (Auto) 0.0 (0.0-0.1) K/uL Nucleated RBC % 0.0 /100WBC Nucleated RBCs # 0 K/uL Sodium 151 H 150 H (136-148) mmol/L Potassium 3.4 L 3.0 L (3.5-5.1) mmol/L Chloride 117 H 116 H (98-107) mmol/L Carbon Dioxide 24.4 23.9 (21.0-32.0) mmol/L BUN 35 H 26 H (7.0-18.0) mg/dL Creatinine 1.8 H 1.5 H (0.8-1.3) mg/dL Est Cr Clr Drug Dosing 33.80 40.56 mL/min Estimated GFR (MDRD) 36.5 45.0 ml/min Glucose 132 H 104 (74-106) mg/dL Calcium 8.3 L 8.2 L (8.5-10.1) mg/dL Magnesium 1.7 L (1.8-2.4) mg/dL Eduardo Results Last 24 Hours: Microbiology 09/16/20 13:00 Aerobic Blood Culture - Preliminary Blood - Venous - Lab Draw NO GROWTH AFTER 4 DAYS Anaerobic Blood Culture - Preliminary NO GROWTH AFTER 4 DAYS 09/16/20 10:35 Urine Culture - Final Urine Escherichia Coli Enterococcus Species 09/16/20 10:25 Aerobic Blood Culture - Preliminary Blood - Venous - Iv Start NO GROWTH AFTER 4 DAYS Anaerobic Blood Culture - Preliminary NO GROWTH AFTER 4 DAYS Med Orders - Current: Current Medications Acetaminophen (Acetaminophen 325 Mg Tab) 650 mg PO Q6H PRN PRN Reason: Pain Last Admin: 09/19/20 14:25 Dose: 650 mg Documented by: Acetaminophen/Codeine Phosphate (Acetaminophen/Codeine 300-30 Mg Tab) 1 tab PO TID PRN PRN Reason: KNEE PAIN Last Admin: 09/20/20 10:50 Dose: 1 tab Documented by: Albuterol/Ipratropium (Albuterol/Ipratropium 3.0-0.5 Mg/3 Ml Neb Soln) 3 ml NEB Q4HRRT PRN PRN Reason: Shortness of Breath Cetirizine HCl (Cetirizine 10 Mg Tab) 10 mg PO BID [facility] Last Admin: 09/20/20 20:15 Dose: 10 mg Documented by: Heparin Sodium (Porcine) (Heparin Sodium 5,000 Units/Ml Vial) 5,000 units SUBCUT Q8H [facility] Last Admin: 09/21/20 00:47 Dose: 5,000 units Documented by: Pantoprazole Sodium 40 mg/ (Sodium Chloride) 10 mls @ 200 mls/hr IV Q24H [facility] Last Admin: 09/20/20 15:10 Dose: 200 mls/hr Documented by: Dextrose/Water (Dextrose 5% In Water) 1,000 mls @ 50 mls/hr IV ASDIRECTED [facility] Last Admin: 09/21/20 05:19 Dose: 50 mls/hr Documented by: Dextrose/Lactated Ringer's (Dextrose 5%-Lactated Ringers) 1,000 mls @ 75 mls/hr IV Q13H [facility] Last Admin: 09/21/20 05:19 Dose: 75 mls/hr Documented by: Ceftriaxone Sodium/Dextrose 1 (gm/ Premix) 50 mls @ 100 mls/hr IV Q24H [facility] Last Admin: 09/20/20 12:45 Dose: 100 mls/hr Documented by: Ondansetron HCl (Ondansetron 4 Mg/2 Ml Sdv) 4 mg IVPUSH Q4H PRN PRN Reason: Nausea Methyl Salicylate/Menthol 35.4 Gm Cream..G. 1 each TOP Q8H PRN PRN Reason: left knee pain Sodium Chloride (Sodium Chloride 0.9% 10 Ml Syringe) 10 ml FLUSH ASDIRECTED PRN PRN Reason: Keep Vein Open Sodium Chloride (Sodium Chloride 0.9% 2.5 Ml Syringe) 2.5 ml FLUSH ASDIRECTED PRN PRN Reason: Keep Vein Open Discontinued Medications Acetaminophen (Acetaminophen 650 Mg Supp) 650 mg RECTAL Q4H PRN PRN Reason: Pain (mild 1-3) Last Admin: 09/18/20 04:12 Dose: 650 mg Documented by: Acetaminophen/Codeine Phosphate (Acetaminophen/Codeine 300-30 Mg Tab) 1 tab PO ONETIME ONE Stop: 09/16/20 15:22 Last Admin: 09/16/20 15:22 Dose: Not Given Documented by: Fentanyl (Fentanyl 50 Mcg/Ml Sdv) 25 mcg IVPUSH ONETIME ONE Stop: 09/16/20 15:52 Last Admin: 09/16/20 15:55 Dose: 25 mcg Documented by: Sodium Chloride (Normal Saline) 1,000 mls @ 999 mls/hr IV BOLUS ONE Stop: 09/16/20 11:13 Last Admin: 09/16/20 10:20 Dose: 999 mls/hr Documented by: Meropenem 1 gm/ Sodium (Chloride) 100 mls @ 200 mls/hr IV ONETIME ONE Stop: 09/16/20 10:45 Last Admin: 09/16/20 11:09 Dose: Not Given Documented by: Meropenem/Sodium Chloride 1 gm (/ Premix) 50 mls @ 100 mls/hr IV ONETIME [facility] Last Admin: 09/16/20 11:09 Dose: 100 mls/hr Documented by: Sodium Chloride (Normal Saline) 1,000 mls @ 999 mls/hr IV STAT ONE Stop: 09/16/20 11:55 Last Admin: 09/16/20 11:09 Dose: 999 mls/hr Documented by: Vancomycin HCl 1.5 gm/ Premix 300 mls @ 199.188 mls/hr IV ONETIME ONE Stop: 09/16/20 13:00 Last Admin: 09/16/20 11:33 Dose: 199.188 mls/hr Documented by: Sodium Chloride (Normal Saline) 1,000 mls @ 999 mls/hr IV STAT ONE Stop: 09/16/20 14:24 Last Admin: 09/16/20 13:34 Dose: 999 mls/hr Documented by: Meropenem/Sodium Chloride 1 gm (/ Premix) 50 mls @ 100 mls/hr IV Q12H [facility] Last Admin: 09/20/20 10:15 Dose: 100 mls/hr Documented by: Sodium Chloride (Normal Saline) 1,000 mls @ 125 mls/hr IV Q8H [facility] Last Admin: 09/16/20 18:43 Dose: Not Given Documented by: Dextrose/Water (Dextrose 5% In Water) 1,000 mls @ 200 mls/hr IV ASDIRECTED [facility] Last Infusion: 09/16/20 19:36 Dose: 75 mls/hr Documented by: Dextrose/Water (Dextrose 5% In Water) 1,000 mls @ 999 mls/hr IV ONETIME ONE Stop: 09/16/20 19:05 Last Admin: 09/16/20 19:17 Dose: 999 mls/hr Documented by: Dextrose/Lactated Ringer's (Dextrose 5%-Lactated Ringers) 1,000 mls @ 75 mls/hr IV ASDIRECTED [facility] Last Admin: 09/16/20 22:19 Dose: 50 mls/hr Documented by: Vancomycin HCl 1.5 gm/ Premix 300 mls @ 199.188 mls/hr IV ONETIME ONE Stop: 09/17/20 18:30 Last Admin: 09/17/20 17:20 Dose: 199.188 mls/hr Documented by: Dextrose/Water (Dextrose 5% In Water) 1,000 mls @ 100 mls/hr IV ASDIRECTED [facility] Last Admin: 09/18/20 12:21 Dose: 100 mls/hr Documented by: Sodium Chloride (Normal Saline) 500 mls @ 999 mls/hr IV .Bolus ONE Stop: 09/18/20 04:22 Last Admin: 09/18/20 04:00 Dose: 999 mls/hr Documented by: Lactated Ringer's (Ringers, Lactated) 500 mls @ 999 mls/hr IV ONETIME ONE Stop: 09/18/20 21:09 Last Admin: 09/18/20 20:47 Dose: 999 mls/hr Documented by: Potassium Chloride 20 meq/ (Premix) 50 mls @ 25 mls/hr IV ONETIME ONE Stop: 09/18/20 22:38 Last Admin: 09/18/20 21:23 Dose: 25 mls/hr Documented by: Dextrose/Lactated Ringer's (Dextrose 5%-Lactated Ringers) 1,000 mls @ 50 mls/hr IV ASDIRECTED [facility] Last Infusion: 09/19/20 09:08 Dose: 75 mls/hr Documented by: Potassium Chloride 20 meq/ (Premix) 50 mls @ 25 mls/hr IV ONETIME ONE Stop: 09/19/20 10:52 Last Admin: 09/19/20 09:26 Dose: 25 mls/hr Documented by: Dextrose/Lactated Ringer's (Dextrose 5%-Lactated Ringers) 1,000 mls @ 75 mls/hr IV ASDIRECTED [facility] Vancomycin HCl 1.25 gm/ Sodium (Chloride) 250 mls @ 166.667 mls/hr IV ONETIME ONE Stop: 09/19/20 14:14 Last Admin: 09/19/20 12:40 Dose: 166.667 mls/hr Documented by: Dextrose/Lactated Ringer's (Dextrose 5%-Lactated Ringers) 1,000 mls @ 75 mls/hr IV ASDIRECTED [facility] Last Admin: 09/20/20 03:57 Dose: 75 mls/hr Documented by: Potassium Chloride 20 meq/ (Premix) 50 mls @ 25 mls/hr IV ONETIME ONE Stop: 09/19/20 22:37 Last Admin: 09/19/20 21:32 Dose: 25 mls/hr Documented by: Potassium Chloride (Potassium Chloride 20 Meq Tab.Er) 40 meq PO ONETIME ONE Stop: 09/20/20 10:10 Last Admin: 09/20/20 10:15 Dose: 40 meq Documented by: Potassium Chloride (Potassium Chloride 10% 20 Meq/15 Ml Soln 30 Ml Ud Cup) 40 meq PO ONETIME ONE Stop: 09/21/20 06:15 Last Admin: 09/21/20 06:45 Dose: Not Given Documented by: Potassium Chloride (Potassium Chloride 20 Meq Tab.Er) 40 meq PO ONETIME ONE Stop: 09/21/20 06:39 Last Admin: 09/21/20 06:50 Dose: 40 meq Documented by: Vancomycin HCl (Pharmacy To Dose - Vancomycin) 1 dose .XX ASDIRECTED [facility] Wound Care/Dressing Products (Hydrocolloid Dressing 4x4 Bandage) Confirm Administered Dose 1 each .ROUTE .STK-MED ONE Stop: 09/21/20 03:45 Last Admin: 09/21/20 03:58 Dose: 1 each Documented by: - Exam Central Line Total Time: 3Days 1Hours Urinary Catheter Total Time: 3Days 7Hours General: Alert, Oriented Lungs: Clear to Auscultation, Normal Respiratory Effort Cardiovascular: Regular Rate, Regular Rhythm GI/Abdominal Exam: Normal Bowel Sounds, Soft, Non-Tender Extremities: Normal Inspection, Normal Range of Motion, Non-Tender, No Pedal Edema Wound/Incisions: Decubitis (coccyx stage 1, allevyn in place) Neurological: No New Focal Deficit Psy/Mental Status: Alert, Normal Affect, Normal Mood - Patient Data Lab Results Last 24 hrs: Laboratory Results - last 24 hr 09/20/20 09/21/20 09/21/20 Range/Units 13:05 04:35 04:35 WBC 8.84 (4.0-11.0) K/uL RBC 3.35 L (4.50-5.90) M/uL Hgb 9.3 L (13.0-17.0) g/dL Hct 29.6 L (38.0-50.0) % MCV 88.4 (80.0-98.0) fL MCH 27.8 (27.0-32.0) pg MCHC 31.4 (31.0-37.0) g/dL RDW Std Deviation 54.1 (28.0-62.0) fl RDW Coeff of Joseph 17 H (11.0-15.0) % Plt Count 271 (150-400) K/uL MPV 9.80 (7.40-12.00) fL Neut % (Auto) 72.2 (48.0-80.0) % Lymph % (Auto) 21.3 (16.0-40.0) % [place] % (Auto) 4.0 (0.0-15.0) % Eos % (Auto) 2.3 (0.0-7.0) % Baso % (Auto) 0.2 (0.0-1.5) % Neut # (Auto) 6.4 H (1.4-5.7) K/uL Lymph # (Auto) 1.9 (0.6-2.4) K/uL [place] # (Auto) 0.4 (0.0-0.8) K/uL Eos # (Auto) 0.2 (0.0-0.7) K/uL Baso # (Auto) 0.0 (0.0-0.1) K/uL Nucleated RBC % 0.0 /100WBC Nucleated RBCs # 0 K/uL Sodium 151 H 150 H (136-148) mmol/L Potassium 3.4 L 3.0 L (3.5-5.1) mmol/L Chloride 117 H 116 H (98-107) mmol/L Carbon Dioxide 24.4 23.9 (21.0-32.0) mmol/L BUN 35 H 26 H (7.0-18.0) mg/dL Creatinine 1.8 H 1.5 H (0.8-1.3) mg/dL Est Cr Clr Drug Dosing 33.80 40.56 mL/min Estimated GFR (MDRD) 36.5 45.0 ml/min Glucose 132 H 104 (74-106) mg/dL Calcium 8.3 L 8.2 L (8.5-10.1) mg/dL Magnesium 1.7 L (1.8-2.4) mg/dL Result Diagrams: 09/21/20 04:35 09/21/20 04:35 Eduardo Results Last 24 hrs: Microbiology 09/16/20 13:00 Aerobic Blood Culture - Preliminary Blood - Venous - Lab Draw NO GROWTH AFTER 4 DAYS Anaerobic Blood Culture - Preliminary NO GROWTH AFTER 4 DAYS 09/16/20 10:35 Urine Culture - Final Urine Escherichia Coli Enterococcus Species 09/16/20 10:25 Aerobic Blood Culture - Preliminary Blood - Venous - Iv Start NO GROWTH AFTER 4 DAYS Anaerobic Blood Culture - Preliminary NO GROWTH AFTER 4 DAYS Sepsis Event Note - Evaluation Sepsis Screening Result: No Definite Risk - Focused Exam Vital Signs: Vital Signs Temp Resp BP Pulse Ox 09/21/20 07:00 22 H 97/52 L 96 09/21/20 06:00 17 100/56 L 96 09/21/20 05:00 96.8 F L 17 116/53 L 93 L 09/21/20 04:00 12 102/57 L 96 09/21/20 03:00 25 H 109/48 L 93 L 09/21/20 02:00 24 H 100/46 L 95 09/21/20 01:00 25 H 108/37 L 90 L 09/21/20 00:00 97.5 F 24 H 106/64 98 09/20/20 23:00 22 H 107/68 96 09/20/20 22:00 25 H 113/80 94 L 09/20/20 21:00 24 H 107/72 95 09/20/20 20:00 20 108/85 97 - Problem List & Annotations (1) Pyelonephritis SNOMED Code(s): 53261693 Code(s): N12 - TUBULO-INTERSTITIAL NEPHRITIS, NOT SPCF ACUTE OR CHRONIC Status: Acute Current Visit: Yes (2) Severe sepsis SNOMED Code(s): 82688640 Code(s): A41.9 - SEPSIS, UNSPECIFIED ORGANISM; R65.20 - SEVERE SEPSIS WITHOUT SEPTIC SHOCK Status: Resolved Current Visit: Yes (3) Complicated UTI (urinary tract infection) SNOMED Code(s): 98836174 Code(s): N39.0 - URINARY TRACT INFECTION, SITE NOT SPECIFIED Status: Acute Current Visit: Yes (4) Acute kidney injury superimposed on CKD SNOMED Code(s): 98459891 Code(s): N17.9 - ACUTE KIDNEY FAILURE, UNSPECIFIED; N18.9 - CHRONIC KIDNEY DISEASE, UNSPECIFIED Status: Acute Current Visit: Yes (5) Lactic acidosis SNOMED Code(s): 79617522 Code(s): E87.2 - ACIDOSIS Status: Resolved Current Visit: Yes (6) Dementia SNOMED Code(s): 09107743 Code(s): F03.90 - UNSPECIFIED DEMENTIA WITHOUT BEHAVIORAL DISTURBANCE Status: Acute Current Visit: Yes (7) Hypertension SNOMED Code(s): 04365887 Code(s): I10 - ESSENTIAL (PRIMARY) HYPERTENSION Status: Acute Current Visit: Yes (8) Hyperlipidemia SNOMED Code(s): 99063757 Code(s): E78.5 - HYPERLIPIDEMIA, UNSPECIFIED Status: Acute Current Visit: Yes (9) Altered mental status SNOMED Code(s): 830202035 Code(s): R41.82 - ALTERED MENTAL STATUS, UNSPECIFIED Status: Resolved Current Visit: No (10) Leukocytosis SNOMED Code(s): 660162682, 626739271 Code(s): D72.829 - ELEVATED WHITE BLOOD CELL COUNT, UNSPECIFIED Status: Resolved Current Visit: No (11) Urinary retention SNOMED Code(s): 092370852 Code(s): R33.9 - RETENTION OF URINE, UNSPECIFIED Status: Chronic Current Visit: Yes (12) Obstructive uropathy SNOMED Code(s): 6806811 Code(s): N13.9 - OBSTRUCTIVE AND REFLUX UROPATHY, UNSPECIFIED Status: Acute Current Visit: Yes - Problem List Review Problem List Initiated/Reviewed/Updated: Yes - My Orders Last 24 Hours: My Active Orders 09/20/20 09:20 Patient's Own Medication [Ptom] 1 each TOP Q8H PRN 09/20/20 10:05 Acetaminophen/Codeine [Tylenol with Codeine No.3 300MG/30MG] 1 tab PO TID PRN 09/20/20 10:09 PT Evaluation and Treatment [CONS] Routine 09/20/20 10:15 Dextrose 5%-Lactated Ringers 1,000 ml IV Q13H 09/20/20 12:30 cefTRIAXone [Rocephin in Dextrose,Iso-Osm 1 GM/50 ML] 1 gm Premix Bag 1 bag IV Q24H 09/20/20 21:00 Cetirizine [ZyrTEC] 10 mg PO BID 09/22/20 05:11 BMP [BASIC METABOLIC PANEL,BMP] [CHEM] AM CBC WITH AUTO DIFF [HEME] AM MAGNESIUM [CHEM] AM 09/23/20 05:11 BMP [BASIC METABOLIC PANEL,BMP] [CHEM] AM CBC WITH AUTO DIFF [HEME] AM MAGNESIUM [CHEM] AM 09/24/20 05:11 BMP [BASIC METABOLIC PANEL,BMP] [CHEM] AM CBC WITH AUTO DIFF [HEME] AM - Plan Plan:: This 80-year-old male admitted with severe sepsis secondary to complicated UTI with FRAN and hypernatremia 1. Severe sepsis and complicated E. coli and Enterococcus UTI with pyelonephritis and obstructive uropathy -Sepsis is resolved - Continue Rocephin 1 g daily -Blood cultures show no growth - Hemodynamically stable. 2. Hypernatremia Improved slowly. - Water deficit 4.5 L approximately, drinking but will increase D5W today and recheck Na in afternoon. -Encourage oral free water intake, continue soft diet, patient tolerating it well 3. FRAN on CKD secondary to obstructive uropathy -FRAN resolved -Continue Nunez catheter, will need urology follow up and to be discharged with nunez in place -Strict I's and O's -Avoid nephrotoxic medications 4. Deconditioning. -Secondary to acute illness and sepsis -Continue PT will definitely need PT at [place] when he returns. 5. Left knee pain -Chronic -Improved today VTE prophylaxis: Continue heparin GI prophylaxis: Protonix CODE STATUS: DNR/DNI Dispo: 2 to 4 days pending continued improvement, transition to Med/Surg status today, on telemetry Keke daughter [phone]
[2020-09-21] MEDS: Acetaminophen/Codeine 300-30 MG Tab PO PRN ×2 (08:27→23:57)
[2020-09-21] MEDS: Cetirizine 10 MG Tab PO SCH ×2 (09:03→20:04)
[2020-09-21] MEDS ORDERED: Magnesium Sulfate/Water 2 GM in Premix Bag 1 BAG IV ONE (09:06)
[2020-09-21] MEDS ORDERED: Dextrose 5% in Water 1,000 ML IV SCH (09:15)
--- NOTE | 2020-09-21 10:01 | PN ---
THC Physician - Brief Progress [id number]/27/2021 09:52[facility] Viktoria Fournier, KANWAL - ALYCIAN [facility] - ALYCIAN JOSEKEESHA BILLY ReneaDate of Service 09/21/2020 09:52HPI/Events of Note 80 yo M admitted for UTI with sepsis without shock, dehydration, hypernatremia, FRAN, and con fusion. Pt's urine cx grew E coli and Enterococcus spp. Pt is being treated with Rocephin, based on s ensitivities. WBC has normalized, pt is afebrile. Serum Na has improved to 150, down from a peak of 1 64 on admission. This was accomplished primarily with D5W gtt, which is currently running at 100 ml/h r.VS: 36.3C, 93, 116/66, 20, 98% (RA)Gen: Resting comfortably in bed, NADHeart: NSR with normal HR se en on telemetryLungs: Breathing comfortably on RANeuro: Awakens to vocal stimuli and able to interact appropriately with MD and RN at bedsideASSESSMENT:UTIS/P Severe sepsis without septic shockHypernatr emiaHypokalemia, hypomagnesemiaAKIMetabolic encephalopathy - improvingPLAN:Rocephin per bedside noel RINCON ased on sensitivitiesMonitor cutlures, temps, WBCNa has improved to 150 from peak of 164 on admission Continue D5W gtt @ 100 ml/hrReplacement electrolytes have already been ordered by bedside MD. Monitor and correct lytes as warranted.Avoid nephrotoxic agentsMonitor BUN, Cr, UOPNeuro checks as warranted Interventions Major-Acute renal failure - evaluation and management, Infection - evaluation and manag ement, Sepsis - evaluation and managementIntermediate-Electrolyte abnormality - evaluation and manage ment
[2020-09-21] MEDS: cefTRIAXone 1 GM in Premix Bag 1 BAG IV SCH (12:25)
[2020-09-21] MEDS: Pantoprazole 40 MG in Sodium Chloride 0.9% 10 ML IV SCH (14:59)
[2020-09-21 15:24] LABS: CARBON DIOXIDE,CO2 22.9 mmol/L (21.0-32.0); POTASSIUM,K 3.2 mmol/L (3.5-5.1)
[2020-09-22] MEDS: Heparin Sodium 5,000 Units/ML Vial SUBCUT SCH ×2 (00:45→09:41)
[2020-09-22 06:43] LABS: CARBON DIOXIDE,CO2 26.1 mmol/L (21.0-32.0); POTASSIUM,K 3.4 mmol/L (3.5-5.1)
[2020-09-22] MEDS ORDERED: Potassium Chloride 20 MEQ Tab.ER PO ONE (07:56)
--- NOTE | 2020-09-22 07:57 | PCM.PN ---
- General Info Date of Service: 09/22/20 Admission Dx/Problem (Free Text): Admission Diagnosis/Problem Admission Diagnosis/Problem Sepsis - Patient Data Vitals - Most Recent: Last Vital Signs Temp 97.4 F 09/22/20 03:56 Pulse 81 09/17/20 16:00 Resp 17 09/22/20 03:56 BP 110/61 09/22/20 03:56 Pulse Ox 92 L 09/22/20 03:56 Weight - Most Recent: 109.5 kg I&O - Last 24 Hours: Intake & Output 09/21/20 09/22/20 09/22/20 22:59 06:59 14:59 Intake Total 2360 950 Output Total 1000 1200 Balance 1360 -250 Lab Results Last 24 Hours: Laboratory Results - last 24 hr 09/21/20 09/22/20 09/22/20 Range/Units 14:49 05:18 05:18 WBC 8.81 (4.0-11.0) K/uL RBC 3.49 L (4.50-5.90) M/uL Hgb 9.5 L (13.0-17.0) g/dL Hct 30.6 L (38.0-50.0) % MCV 87.7 (80.0-98.0) fL MCH 27.2 (27.0-32.0) pg MCHC 31.0 (31.0-37.0) g/dL RDW Std Deviation 53.4 (28.0-62.0) fl RDW Coeff of Joseph 17 H (11.0-15.0) % Plt Count 273 (150-400) K/uL MPV 10.20 (7.40-12.00) fL Neut % (Auto) 70.5 (48.0-80.0) % Lymph % (Auto) 21.6 (16.0-40.0) % Williamson % (Auto) 5.6 (0.0-15.0) % Eos % (Auto) 2.0 (0.0-7.0) % Baso % (Auto) 0.3 (0.0-1.5) % Neut # (Auto) 6.2 H (1.4-5.7) K/uL Lymph # (Auto) 1.9 (0.6-2.4) K/uL Williamson # (Auto) 0.5 (0.0-0.8) K/uL Eos # (Auto) 0.2 (0.0-0.7) K/uL Baso # (Auto) 0.0 (0.0-0.1) K/uL Nucleated RBC % 0.0 /100WBC Nucleated RBCs # 0 K/uL Sodium 144 145 (136-148) mmol/L Potassium 3.2 L 3.4 L (3.5-5.1) mmol/L Chloride 111 H 112 H (98-107) mmol/L Carbon Dioxide 22.9 26.1 (21.0-32.0) mmol/L BUN 24 H 21 H (7.0-18.0) mg/dL Creatinine 1.3 1.3 (0.8-1.3) mg/dL Est Cr Clr Drug Dosing 46.79 46.79 mL/min Estimated GFR (MDRD) 53.1 53.1 ml/min Glucose 137 H 81 (74-106) mg/dL Calcium 8.1 L 8.1 L (8.5-10.1) mg/dL Magnesium 1.8 (1.8-2.4) mg/dL Eduardo Results Last 24 Hours: Microbiology 09/16/20 13:00 Aerobic Blood Culture - Final Blood - Venous - Lab Draw NO GROWTH AFTER 5 DAYS Anaerobic Blood Culture - Final NO GROWTH AFTER 5 DAYS 09/16/20 10:25 Aerobic Blood Culture - Final Blood - Venous - Iv Start NO GROWTH AFTER 5 DAYS Anaerobic Blood Culture - Final NO GROWTH AFTER 5 DAYS Med Orders - Current: Current Medications Acetaminophen (Acetaminophen 325 Mg Tab) 650 mg PO Q6H PRN PRN Reason: Pain Last Admin: 09/19/20 14:25 Dose: 650 mg Documented by: Acetaminophen/Codeine Phosphate (Acetaminophen/Codeine 300-30 Mg Tab) 1 tab PO TID PRN PRN Reason: KNEE PAIN Last Admin: 09/21/20 23:57 Dose: 1 tab Documented by: Albuterol/Ipratropium (Albuterol/Ipratropium 3.0-0.5 Mg/3 Ml Neb Soln) 3 ml NEB Q4HRRT PRN PRN Reason: Shortness of Breath Cetirizine HCl (Cetirizine 10 Mg Tab) 10 mg PO BID NIMO Last Admin: 09/21/20 20:04 Dose: 10 mg Documented by: Heparin Sodium (Porcine) (Heparin Sodium 5,000 Units/Ml Vial) 5,000 units SUBCUT Q8H [facility] Last Admin: 09/22/20 00:45 Dose: 5,000 units Documented by: Pantoprazole Sodium 40 mg/ (Sodium Chloride) 10 mls @ 200 mls/hr IV Q24H [facility] Last Admin: 09/21/20 14:59 Dose: 200 mls/hr Documented by: Ceftriaxone Sodium/Dextrose 1 (gm/ Premix) 50 mls @ 100 mls/hr IV Q24H [facility] Last Admin: 09/21/20 12:25 Dose: 100 mls/hr Documented by: Ondansetron HCl (Ondansetron 4 Mg/2 Ml Sdv) 4 mg IVPUSH Q4H PRN PRN Reason: Nausea Methyl Salicylate/Menthol 35.4 Gm Cream..G. 1 each TOP Q8H PRN PRN Reason: left knee pain Potassium Chloride (Potassium Chloride 20 Meq Tab.Er) 40 meq PO ONETIME ONE Stop: 09/22/20 07:57 Sodium Chloride (Sodium Chloride 0.9% 10 Ml Syringe) 10 ml FLUSH ASDIRECTED PRN PRN Reason: Keep Vein Open Sodium Chloride (Sodium Chloride 0.9% 2.5 Ml Syringe) 2.5 ml FLUSH ASDIRECTED PRN PRN Reason: Keep Vein Open Discontinued Medications Acetaminophen (Acetaminophen 650 Mg Supp) 650 mg RECTAL Q4H PRN PRN Reason: Pain (mild 1-3) Last Admin: 09/18/20 04:12 Dose: 650 mg Documented by: Acetaminophen/Codeine Phosphate (Acetaminophen/Codeine 300-30 Mg Tab) 1 tab PO ONETIME ONE Stop: 09/16/20 15:22 Last Admin: 09/16/20 15:22 Dose: Not Given Documented by: Fentanyl (Fentanyl 50 Mcg/Ml Sdv) 25 mcg IVPUSH ONETIME ONE Stop: 09/16/20 15:52 Last Admin: 09/16/20 15:55 Dose: 25 mcg Documented by: Sodium Chloride (Normal Saline) 1,000 mls @ 999 mls/hr IV BOLUS ONE Stop: 09/16/20 11:13 Last Admin: 09/16/20 10:20 Dose: 999 mls/hr Documented by: Meropenem 1 gm/ Sodium (Chloride) 100 mls @ 200 mls/hr IV ONETIME ONE Stop: 09/16/20 10:45 Last Admin: 09/16/20 11:09 Dose: Not Given Documented by: Meropenem/Sodium Chloride 1 gm (/ Premix) 50 mls @ 100 mls/hr IV ONETIME [facility] Last Admin: 09/16/20 11:09 Dose: 100 mls/hr Documented by: Sodium Chloride (Normal Saline) 1,000 mls @ 999 mls/hr IV STAT ONE Stop: 09/16/20 11:55 Last Admin: 09/16/20 11:09 Dose: 999 mls/hr Documented by: Vancomycin HCl 1.5 gm/ Premix 300 mls @ 199.188 mls/hr IV ONETIME ONE Stop: 09/16/20 13:00 Last Admin: 09/16/20 11:33 Dose: 199.188 mls/hr Documented by: Sodium Chloride (Normal Saline) 1,000 mls @ 999 mls/hr IV STAT ONE Stop: 09/16/20 14:24 Last Admin: 09/16/20 13:34 Dose: 999 mls/hr Documented by: Meropenem/Sodium Chloride 1 gm (/ Premix) 50 mls @ 100 mls/hr IV Q12H [facility] Last Admin: 09/20/20 10:15 Dose: 100 mls/hr Documented by: Sodium Chloride (Normal Saline) 1,000 mls @ 125 mls/hr IV Q8H [facility] Last Admin: 09/16/20 18:43 Dose: Not Given Documented by: Dextrose/Water (Dextrose 5% In Water) 1,000 mls @ 200 mls/hr IV ASDIRECTED [facility] Last Infusion: 09/16/20 19:36 Dose: 75 mls/hr Documented by: Dextrose/Water (Dextrose 5% In Water) 1,000 mls @ 999 mls/hr IV ONETIME ONE Stop: 09/16/20 19:05 Last Admin: 09/16/20 19:17 Dose: 999 mls/hr Documented by: Dextrose/Lactated Ringer's (Dextrose 5%-Lactated Ringers) 1,000 mls @ 75 mls/hr IV ASDIRECTED [facility] Last Admin: 09/16/20 22:19 Dose: 50 mls/hr Documented by: Vancomycin HCl 1.5 gm/ Premix 300 mls @ 199.188 mls/hr IV ONETIME ONE Stop: 09/17/20 18:30 Last Admin: 09/17/20 17:20 Dose: 199.188 mls/hr Documented by: Dextrose/Water (Dextrose 5% In Water) 1,000 mls @ 100 mls/hr IV ASDIRECTED NIMO Last Admin: 09/18/20 12:21 Dose: 100 mls/hr Documented by: Sodium Chloride (Normal Saline) 500 mls @ 999 mls/hr IV .Bolus ONE Stop: 09/18/20 04:22 Last Admin: 09/18/20 04:00 Dose: 999 mls/hr Documented by: Lactated Ringer's (Ringers, Lactated) 500 mls @ 999 mls/hr IV ONETIME ONE Stop: 09/18/20 21:09 Last Admin: 09/18/20 20:47 Dose: 999 mls/hr Documented by: Potassium Chloride 20 meq/ (Premix) 50 mls @ 25 mls/hr IV ONETIME ONE Stop: 09/18/20 22:38 Last Admin: 09/18/20 21:23 Dose: 25 mls/hr Documented by: Dextrose/Lactated Ringer's (Dextrose 5%-Lactated Ringers) 1,000 mls @ 50 mls/hr IV ASDIRECTED NIMO Last Infusion: 09/19/20 09:08 Dose: 75 mls/hr Documented by: Potassium Chloride 20 meq/ (Premix) 50 mls @ 25 mls/hr IV ONETIME ONE Stop: 09/19/20 10:52 Last Admin: 09/19/20 09:26 Dose: 25 mls/hr Documented by: Dextrose/Lactated Ringer's (Dextrose 5%-Lactated Ringers) 1,000 mls @ 75 mls/hr IV ASDIRECTED NIMO Vancomycin HCl 1.25 gm/ Sodium (Chloride) 250 mls @ 166.667 mls/hr IV ONETIME ONE Stop: 09/19/20 14:14 Last Admin: 09/19/20 12:40 Dose: 166.667 mls/hr Documented by: Dextrose/Water (Dextrose 5% In Water) 1,000 mls @ 50 mls/hr IV ASDIRECTED NIMO Last Infusion: 09/21/20 09:15 Dose: 100 mls/hr Documented by: Dextrose/Lactated Ringer's (Dextrose 5%-Lactated Ringers) 1,000 mls @ 75 mls/hr IV ASDIRECTED [facility] Last Admin: 09/20/20 03:57 Dose: 75 mls/hr Documented by: Potassium Chloride 20 meq/ (Premix) 50 mls @ 25 mls/hr IV ONETIME ONE Stop: 09/19/20 22:37 Last Admin: 09/19/20 21:32 Dose: 25 mls/hr Documented by: Dextrose/Lactated Ringer's (Dextrose 5%-Lactated Ringers) 1,000 mls @ 75 mls/hr IV Q13H [facility] Last Admin: 09/21/20 05:19 Dose: 75 mls/hr Documented by: Dextrose/Water (Dextrose 5% In Water) 1,000 mls @ 100 mls/hr IV Q10H [facility] Last Admin: 09/21/20 16:28 Dose: Not Given Documented by: Magnesium Sulfate 2 gm/ Premix 50 mls @ 25 mls/hr IV ONETIME ONE Stop: 09/21/20 11:05 Last Admin: 09/21/20 10:07 Dose: 25 mls/hr Documented by: Potassium Chloride (Potassium Chloride 20 Meq Tab.Er) 40 meq PO ONETIME ONE Stop: 09/20/20 10:10 Last Admin: 09/20/20 10:15 Dose: 40 meq Documented by: Potassium Chloride (Potassium Chloride 10% 20 Meq/15 Ml Soln 30 Ml Ud Cup) 40 meq PO ONETIME ONE Stop: 09/21/20 06:15 Last Admin: 09/21/20 06:45 Dose: Not Given Documented by: Potassium Chloride (Potassium Chloride 20 Meq Tab.Er) 40 meq PO ONETIME ONE Stop: 09/21/20 06:39 Last Admin: 09/21/20 06:50 Dose: 40 meq Documented by: Potassium Chloride (Potassium Chloride 20 Meq Tab.Er) 40 meq PO ONETIME ONE Stop: 09/21/20 15:30 Last Admin: 09/21/20 15:42 Dose: 40 meq Documented by: Vancomycin HCl (Pharmacy To Dose - Vancomycin) 1 dose .XX ASDIRECTED [facility] Wound Care/Dressing Products (Hydrocolloid Dressing 4x4 Bandage) Confirm Administered Dose 1 each .ROUTE .STK-MED ONE Stop: 09/21/20 03:45 Last Admin: 09/21/20 03:58 Dose: 1 each Documented by: - Exam Central Line Total Time: 3Days 1Hours Urinary Catheter Total Time: 4Days 8Hours - Patient Data Lab Results Last 24 hrs: Laboratory Results - last 24 hr 09/21/20 09/22/20 09/22/20 Range/Units 14:49 05:18 05:18 WBC 8.81 (4.0-11.0) K/uL RBC 3.49 L (4.50-5.90) M/uL Hgb 9.5 L (13.0-17.0) g/dL Hct 30.6 L (38.0-50.0) % MCV 87.7 (80.0-98.0) fL MCH 27.2 (27.0-32.0) pg MCHC 31.0 (31.0-37.0) g/dL RDW Std Deviation 53.4 (28.0-62.0) fl RDW Coeff of Joseph 17 H (11.0-15.0) % Plt Count 273 (150-400) K/uL MPV 10.20 (7.40-12.00) fL Neut % (Auto) 70.5 (48.0-80.0) % Lymph % (Auto) 21.6 (16.0-40.0) % Williamson % (Auto) 5.6 (0.0-15.0) % Eos % (Auto) 2.0 (0.0-7.0) % Baso % (Auto) 0.3 (0.0-1.5) % Neut # (Auto) 6.2 H (1.4-5.7) K/uL Lymph # (Auto) 1.9 (0.6-2.4) K/uL Williamson # (Auto) 0.5 (0.0-0.8) K/uL Eos # (Auto) 0.2 (0.0-0.7) K/uL Baso # (Auto) 0.0 (0.0-0.1) K/uL Nucleated RBC % 0.0 /100WBC Nucleated RBCs # 0 K/uL Sodium 144 145 (136-148) mmol/L Potassium 3.2 L 3.4 L (3.5-5.1) mmol/L Chloride 111 H 112 H (98-107) mmol/L Carbon Dioxide 22.9 26.1 (21.0-32.0) mmol/L BUN 24 H 21 H (7.0-18.0) mg/dL Creatinine 1.3 1.3 (0.8-1.3) mg/dL Est Cr Clr Drug Dosing 46.79 46.79 mL/min Estimated GFR (MDRD) 53.1 53.1 ml/min Glucose 137 H 81 (74-106) mg/dL Calcium 8.1 L 8.1 L (8.5-10.1) mg/dL Magnesium 1.8 (1.8-2.4) mg/dL Result Diagrams: 09/22/20 05:18 09/22/20 05:18 Eduardo Results Last 24 hrs: Microbiology 09/16/20 13:00 Aerobic Blood Culture - Final Blood - Venous - Lab Draw NO GROWTH AFTER 5 DAYS Anaerobic Blood Culture - Final NO GROWTH AFTER 5 DAYS 09/16/20 10:25 Aerobic Blood Culture - Final Blood - Venous - Iv Start NO GROWTH AFTER 5 DAYS Anaerobic Blood Culture - Final NO GROWTH AFTER 5 DAYS Sepsis Event Note - Evaluation Sepsis Screening Result: No Definite Risk - Focused Exam Vital Signs: Vital Signs Temp Resp BP Pulse Ox 09/22/20 03:56 97.4 F 17 110/61 92 L 09/21/20 23:44 96.9 F 18 102/35 L 91 L 09/21/20 20:26 97.7 F 18 122/59 L 95 - Problem List & Annotations (1) Pyelonephritis SNOMED Code(s): 59170653 Code(s): N12 - TUBULO-INTERSTITIAL NEPHRITIS, NOT SPCF ACUTE OR CHRONIC Status: Acute Current Visit: Yes (2) Severe sepsis SNOMED Code(s): 91109482 Code(s): A41.9 - SEPSIS, UNSPECIFIED ORGANISM; R65.20 - SEVERE SEPSIS WITHOUT SEPTIC SHOCK Status: Resolved Current Visit: Yes (3) Complicated UTI (urinary tract infection) SNOMED Code(s): 15287875 Code(s): N39.0 - URINARY TRACT INFECTION, SITE NOT SPECIFIED Status: Acute Current Visit: Yes (4) Acute kidney injury superimposed on CKD SNOMED Code(s): 26178793 Code(s): N17.9 - ACUTE KIDNEY FAILURE, UNSPECIFIED; N18.9 - CHRONIC KIDNEY DISEASE, UNSPECIFIED Status: Acute Current Visit: Yes (5) Lactic acidosis SNOMED Code(s): 09172857 Code(s): E87.2 - ACIDOSIS Status: Resolved Current Visit: Yes (6) Dementia SNOMED Code(s): 86855392 Code(s): F03.90 - UNSPECIFIED DEMENTIA WITHOUT BEHAVIORAL DISTURBANCE Status: Acute Current Visit: Yes (7) Hypertension SNOMED Code(s): 30609508 Code(s): I10 - ESSENTIAL (PRIMARY) HYPERTENSION Status: Acute Current Visit: Yes (8) Hyperlipidemia SNOMED Code(s): 72973375 Code(s): E78.5 - HYPERLIPIDEMIA, UNSPECIFIED Status: Acute Current Visit: Yes (9) Altered mental status SNOMED Code(s): 492428874 Code(s): R41.82 - ALTERED MENTAL STATUS, UNSPECIFIED Status: Resolved Current Visit: No (10) Leukocytosis SNOMED Code(s): 367644896, 095633129 Code(s): D72.829 - ELEVATED WHITE BLOOD CELL COUNT, UNSPECIFIED Status: Resolved Current Visit: No (11) Urinary retention SNOMED Code(s): 238853995 Code(s): R33.9 - RETENTION OF URINE, UNSPECIFIED Status: Chronic Current Visit: Yes (12) Obstructive uropathy SNOMED Code(s): 7204914 Code(s): N13.9 - OBSTRUCTIVE AND REFLUX UROPATHY, UNSPECIFIED Status: Acute Current Visit: Yes - My Orders Last 24 Hours: My Active Orders 09/21/20 09:38 Transfer Patient (Change bed) [ADT] Routine 09/21/20 09:40 Telemetry Monitoring [Cardiac Monitoring] [RC] Q8H 09/22/20 07:56 Potassium Chloride [Klor-Con M20] 40 meq PO ONETIME ONE 09/23/20 05:11 BMP [BASIC METABOLIC PANEL,BMP] [CHEM] AM CBC WITH AUTO DIFF [HEME] AM MAGNESIUM [CHEM] AM 09/24/20 05:11 BMP [BASIC METABOLIC PANEL,BMP] [CHEM] AM CBC WITH AUTO DIFF [HEME] AM - Plan Plan:: This 80-year-old male admitted with severe sepsis secondary to complicated UTI with FRAN and hypernatremia 1. Severe sepsis and complicated E. coli and Enterococcus UTI with pyelonephritis and obstructive uropathy -Sepsis is resolved - Continue Rocephin 1 g daily -Blood cultures show no growth - Hemodynamically stable. 2. Hypernatremia Improved slowly. - Water deficit 4.5 L approximately, drinking but will increase D5W today and recheck Na in afternoon. -Encourage oral free water intake, continue soft diet, patient tolerating it well 3. FRAN on CKD secondary to obstructive uropathy -FRAN resolved -Continue Nunez catheter, will need urology follow up and to be discharged with nunez in place -Strict I's and O's -Avoid nephrotoxic medications 4. Deconditioning. -Secondary to acute illness and sepsis -Continue PT will definitely need PT at [facility] when he returns. 5. Left knee pain -Chronic -Improved today VTE prophylaxis: Continue heparin GI prophylaxis: Protonix CODE STATUS: DNR/DNI Dispo: 2 to 4 days pending continued improvement, transition to Med/Surg status today, on telemetry Keke daughter [phone]
[2020-09-22] MEDS: Cetirizine 10 MG Tab PO SCH (08:36)
--- NOTE | 2020-09-22 09:55 | PCM.DCSUM1 ---
Discharge Summary - Hospital Course Brief History: This 80-year-old male with past medical history of HLD, HTN, urinary retention with chronic renal insufficiency CKD and dementia admitted to the ER today from [facility] for concerns of possible sepsis. Patient has a known UTI and has been on Bactrim over the past several weeks. He was switched to Rocephin 2 days ago and despite this he is continuing to have a decline. Patient is mildly alert in the ER but very poor historian. Much of report was obtained from long term staff. Staff reports that over 2 weeks ago he has had increasing lethargy where he was at once a pivot transfer and now he is steadily declining and needing a José Miguel lift. Patient is a DNR/DNI noted on [facility] paperwork. Patient poor historian. Unable to gain information from interview. In the ER leukocytosis noted at 14,000 hemoglobin 13.6 hematocrit 44.2. Platelet count 415,000. Bandemia noted at 5. Sodium elevated at 164 potassium 3.9 chloride 122 BUN 112 creatinine 3.6. Glucose 139 lactic acid elevated at 2.2. Troponin negative UA significant for +2 bacteria WBC too numerous to count large leukocyte esterase negative nitrites Covid swab negative. Head CT obtained due to altered mental status reveals no acute findings or significant changes from previous exams. Wrist x-ray negative chest x-ray negative for any acute cardiopulmonary process. EKG sinus tachycardia heart rate 150s no ST-T wave changes. In the ER patient treated with broad-spec trum antibiotics of meropenem and vancomycin along with 3 L IV fluid. Blood cultures obtained as well as urine culture. Patient will be admitted with severe sepsis secondary to complicated UTI. Diagnosis: Stroke: No - Discharge Data Discharge Date: 09/22/20 Discharge Disposition: DC/Tfer to [facility] 03 Condition: Stable - Referral to Home Health Primary Care Physician: Awais Goss MD - Discharge Diagnosis/Problem(s) (1) Pyelonephritis SNOMED Code(s): 97424149 ICD Code: N12 - TUBULO-INTERSTITIAL NEPHRITIS, NOT SPCF ACUTE OR CHRONIC Status: Acute Current Visit: Yes (2) Severe sepsis SNOMED Code(s): 86429235 ICD Code: A41.9 - SEPSIS, UNSPECIFIED ORGANISM; R65.20 - SEVERE SEPSIS WITHOUT SEPTIC SHOCK Status: Resolved Current Visit: Yes (3) Complicated UTI (urinary tract infection) SNOMED Code(s): 49506010 ICD Code: N39.0 - URINARY TRACT INFECTION, SITE NOT SPECIFIED Status: Acute Current Visit: Yes (4) Acute kidney injury superimposed on CKD SNOMED Code(s): 82695876 ICD Code: N17.9 - ACUTE KIDNEY FAILURE, UNSPECIFIED; N18.9 - CHRONIC KIDNEY DISEASE, UNSPECIFIED Status: Acute Current Visit: Yes (5) Lactic acidosis SNOMED Code(s): 66634835 ICD Code: E87.2 - ACIDOSIS Status: Resolved Current Visit: Yes (6) Dementia SNOMED Code(s): 51251321 ICD Code: F03.90 - UNSPECIFIED DEMENTIA WITHOUT BEHAVIORAL DISTURBANCE Status: Acute Current Visit: Yes (7) Hypertension SNOMED Code(s): 85415339 ICD Code: I10 - ESSENTIAL (PRIMARY) HYPERTENSION Status: Acute Current Visit: Yes (8) Hyperlipidemia SNOMED Code(s): 33897609 ICD Code: E78.5 - HYPERLIPIDEMIA, UNSPECIFIED Status: Acute Current Visit: Yes (9) Urinary retention SNOMED Code(s): 027764695 ICD Code: R33.9 - RETENTION OF URINE, UNSPECIFIED Status: Chronic Current Visit: Yes (10) Obstructive uropathy SNOMED Code(s): 0412803 ICD Code: N13.9 - OBSTRUCTIVE AND REFLUX UROPATHY, UNSPECIFIED Status: Acute Current Visit: Yes - Patient Summary/Data Consults: Consultations 09/20/20 10:09 PT Evaluation and Treatment [CONS] Routine Hospital Course: Admission diagnoses Severe sepsis Complicated UTI FRAN on CKD Lactic acidosis Hypernatremia Discharge diagnoses E. coli and Enterococcus complicated UTI/pyelonephritis Obstructive uropathy Severe sepsis resolved FRAN resolved Other PMH Dementia HTN HLD Urinary retention Patient was admitted secondary to severe sepsis noted to be significantly ill on arrival from long term. Patient had been treated as an outpatient for UTI with Bactrim and had been switched 2 days prior to admission to Rocephin but continued to decline. On admission patient was noted to be septic secondary to complicated UTI and noted to have urinary retention. Gao catheter was placed help relieve retention as well as improve FRAN due to hydronephrosis and urinary retention. Patient was treated with broad-spectrum antibiotics including meropenem and vancomycin due to risk of multidrug-resistant organisms from failure of Bactrim and living within the long term. Initially patient had no line and required central line as risk for hypotension and need for pressors was highly suspected. Line was kept in to right femoral region for 2 days and removed as patient steadily improved and was not needing a central line. Patient noted also to be significantly hyponatremic with a 10 L water deficit. Patient was treated with D5W along with D5 LR with slow correction of sodium. Blood cultures remain negative urine cultures returned with E. coli resistant to fluoroquinolones along with an Enterococcus species. Patient was transitioned from meropenem and vancomycin to Rocephin. Patient has continued to do well after this transition. Patient sodium improved today 145. FRAN has significantly improved back to baseline with BUN 21 creatinine 1.3. Patient will need to keep Gao catheter in place secondary to urinary obstruction and uropathy. Patient will have follow-up with outpatient urology. Patient is eating and drinking appropriately and able to maintain blood pressure without IV fluids along with maintaining sodium. During his stay he did develop stage I pressure ulcer likely secondary to prolonged illness prior to arrival as well as acute illness and ICU stay currently. Stage I pressure ulcer noted to bo. We will continue Allevyn dressing to be changed daily and as needed as needed for soiling. Patient discharged home today with cefdinir 300 mg twice daily for another 7 days to complete 14-day course. Patient will restart home medications holding off on Lasix for the next day or 2. Patient alert and oriented x1 which is near his baseline. During his hospital stay family has been kept updated regarding status as they are in [place]. Keke, daughter was notified today of transition back to [facility]. I also spoke with Dr. Goss regarding admission and treatment. Patient will be transferred back to [facility] today return to the ER clinic if concerns should arise sooner. - Patient Instructions Diet: Low Sodium Activity: As Tolerated Driving: Do Not Drive Showering/Bathing: May Shower Notify Provider of: Fever, Increased Pain, Swelling and Redness, Drainage, Nausea and/or Vomiting Other/Special Instructions: PT/OT to evaluate and treat. Gao catheter cares per institution policy, change every 30 days. Diagnosis: obstructive uropathy. Wound care nurse consult for coccyx ulcer - Discharge Plan *PRESCRIPTION DRUG MONITORING PROGRAM REVIEWED*: Not Applicable *COPY OF PRESCRIPTION DRUG MONITORING REPORT IN PATIENT VINNY: Not Applicable Prescriptions/Med Rec: Acetaminophen with Codeine [Acetaminophen-Cod #3] 1 each PO TID #20 Cefdinir 300 mg PO BID #14 capsule Home Medications: Home Meds Acetaminophen [Tylenol] 650 mg PO Q8H PRN 09/06/16 [History] Methyl Salicylate/Menthol [Icy Hot] 1 applic TOP Q8H PRN 09/06/16 [History] Cetirizine [ZyrTEC] 1 tab PO BID 09/01/18 [History] Carbamide Peroxide [Debrox] 3 applic OT ASDIRECTED 09/16/20 [History] Magnesium Hydroxide [Milk of Magnesia] 30 ml PO DAILY PRN 09/16/20 [History] Acetaminophen with Codeine [Acetaminophen-Cod #3] 1 each PO TID #20 09/22/20 [Rx] Cefdinir 300 mg PO BID #14 capsule 09/22/20 [Rx] Furosemide [Lasix] 80 mg PO DAILY #0 09/22/20 [Rx] Oxygen Therapy Mode: Room Air Patient Handouts: Acute Kidney Injury, Adult, Indwelling Urinary Catheter Care, Adult, Cefdinir Capsules, Sepsis, Diagnosis, Adult, Urosepsis, Adult, Acetaminophen; Codeine tablets, Sepsis, Self Care, Adult Referrals: Awais Goss MD [Primary Care Provider] - (Next [facility] Rounds) Donald Solitario MD [Ordering Only Provider] - 12/13/20 9:30 am - Discharge Summary/Plan Comment DC Time >30 min.: No - Patient Data Vitals - Most Recent: Last Vital Signs Temp 97.2 F 09/22/20 08:00 Pulse 81 09/17/20 16:00 Resp 16 09/22/20 08:00 BP 145/54 H 09/22/20 08:00 Pulse Ox 92 L 09/22/20 08:00 Weight - Most Recent: 109.5 kg I&O - Last 24 hours: Intake & Output 09/21/20 09/22/20 09/22/20 22:59 06:59 14:59 Intake Total 2360 950 Output Total 1000 1200 Balance 1360 -250 Lab Results - Last 24 hrs: Laboratory Results - last 24 hr 09/21/20 09/22/20 09/22/20 Range/Units 14:49 05:18 05:18 WBC 8.81 (4.0-11.0) K/uL RBC 3.49 L (4.50-5.90) M/uL Hgb 9.5 L (13.0-17.0) g/dL Hct 30.6 L (38.0-50.0) % MCV 87.7 (80.0-98.0) fL MCH 27.2 (27.0-32.0) pg MCHC 31.0 (31.0-37.0) g/dL RDW Std Deviation 53.4 (28.0-62.0) fl RDW Coeff of Joseph 17 H (11.0-15.0) % Plt Count 273 (150-400) K/uL MPV 10.20 (7.40-12.00) fL Neut % (Auto) 70.5 (48.0-80.0) % Lymph % (Auto) 21.6 (16.0-40.0) % Holmes % (Auto) 5.6 (0.0-15.0) % Eos % (Auto) 2.0 (0.0-7.0) % Baso % (Auto) 0.3 (0.0-1.5) % Neut # (Auto) 6.2 H (1.4-5.7) K/uL Lymph # (Auto) 1.9 (0.6-2.4) K/uL Holmes # (Auto) 0.5 (0.0-0.8) K/uL Eos # (Auto) 0.2 (0.0-0.7) K/uL Baso # (Auto) 0.0 (0.0-0.1) K/uL Nucleated RBC % 0.0 /100WBC Nucleated RBCs # 0 K/uL Sodium 144 145 (136-148) mmol/L Potassium 3.2 L 3.4 L (3.5-5.1) mmol/L Chloride 111 H 112 H (98-107) mmol/L Carbon Dioxide 22.9 26.1 (21.0-32.0) mmol/L BUN 24 H 21 H (7.0-18.0) mg/dL Creatinine 1.3 1.3 (0.8-1.3) mg/dL Est Cr Clr Drug Dosing 46.79 46.79 mL/min Estimated GFR (MDRD) 53.1 53.1 ml/min Glucose 137 H 81 (74-106) mg/dL POC Glucose (70-99) mg/dL Calcium 8.1 L 8.1 L (8.5-10.1) mg/dL Magnesium 1.8 (1.8-2.4) mg/dL 09/22/20 Range/Units 08:17 WBC (4.0-11.0) K/uL RBC (4.50-5.90) M/uL Hgb (13.0-17.0) g/dL Hct (38.0-50.0) % MCV (80.0-98.0) fL MCH (27.0-32.0) pg MCHC (31.0-37.0) g/dL RDW Std Deviation (28.0-62.0) fl RDW Coeff of Joseph (11.0-15.0) % Plt Count (150-400) K/uL MPV (7.40-12.00) fL Neut % (Auto) (48.0-80.0) % Lymph % (Auto) (16.0-40.0) % Holmes % (Auto) (0.0-15.0) % Eos % (Auto) (0.0-7.0) % Baso % (Auto) (0.0-1.5) % Neut # (Auto) (1.4-5.7) K/uL Lymph # (Auto) (0.6-2.4) K/uL Holmes # (Auto) (0.0-0.8) K/uL Eos # (Auto) (0.0-0.7) K/uL Baso # (Auto) (0.0-0.1) K/uL Nucleated RBC % /100WBC Nucleated RBCs # K/uL Sodium (136-148) mmol/L Potassium (3.5-5.1) mmol/L Chloride (98-107) mmol/L Carbon Dioxide (21.0-32.0) mmol/L BUN (7.0-18.0) mg/dL Creatinine (0.8-1.3) mg/dL Est Cr Clr Drug Dosing mL/min Estimated GFR (MDRD) ml/min Glucose (74-106) mg/dL POC Glucose 235 H (70-99) mg/dL Calcium (8.5-10.1) mg/dL Magnesium (1.8-2.4) mg/dL SANDRA Results - Last 24 hrs: Microbiology 09/16/20 13:00 Aerobic Blood Culture - Final Blood - Venous - Lab Draw NO GROWTH AFTER 5 DAYS Anaerobic Blood Culture - Final NO GROWTH AFTER 5 DAYS 09/16/20 10:25 Aerobic Blood Culture - Final Blood - Venous - Iv Start NO GROWTH AFTER 5 DAYS Anaerobic Blood Culture - Final NO GROWTH AFTER 5 DAYS Med Orders - Current: Current Medications Acetaminophen (Acetaminophen 325 Mg Tab) 650 mg PO Q6H PRN PRN Reason: Pain Last Admin: 09/19/20 14:25 Dose: 650 mg Documented by: Acetaminophen/Codeine Phosphate (Acetaminophen/Codeine 300-30 Mg Tab) 1 tab PO TID PRN PRN Reason: KNEE PAIN Last Admin: 09/21/20 23:57 Dose: 1 tab Documented by: Albuterol/Ipratropium (Albuterol/Ipratropium 3.0-0.5 Mg/3 Ml Neb Soln) 3 ml NEB Q4HRRT PRN PRN Reason: Shortness of Breath Cetirizine HCl (Cetirizine 10 Mg Tab) 10 mg PO BID [facility] Last Admin: 09/22/20 08:36 Dose: 10 mg Documented by: Heparin Sodium (Porcine) (Heparin Sodium 5,000 Units/Ml Vial) 5,000 units SUBCUT Q8H [facility] Last Admin: 09/22/20 09:41 Dose: 5,000 units Documented by: Pantoprazole Sodium 40 mg/ (Sodium Chloride) 10 mls @ 200 mls/hr IV Q24H [facility] Last Admin: 09/21/20 14:59 Dose: 200 mls/hr Documented by: Ceftriaxone Sodium/Dextrose 1 (gm/ Premix) 50 mls @ 100 mls/hr IV Q24H [facility] Last Admin: 09/21/20 12:25 Dose: 100 mls/hr Documented by: Ondansetron HCl (Ondansetron 4 Mg/2 Ml Sdv) 4 mg IVPUSH Q4H PRN PRN Reason: Nausea Methyl Salicylate/Menthol 35.4 Gm Cream..G. 1 each TOP Q8H PRN PRN Reason: left knee pain Sodium Chloride (Sodium Chloride 0.9% 10 Ml Syringe) 10 ml FLUSH ASDIRECTED PRN PRN Reason: Keep Vein Open Sodium Chloride (Sodium Chloride 0.9% 2.5 Ml Syringe) 2.5 ml FLUSH ASDIRECTED PRN PRN Reason: Keep Vein Open Discontinued Medications Acetaminophen (Acetaminophen 650 Mg Supp) 650 mg RECTAL Q4H PRN PRN Reason: Pain (mild 1-3) Last Admin: 09/18/20 04:12 Dose: 650 mg Documented by: Acetaminophen/Codeine Phosphate (Acetaminophen/Codeine 300-30 Mg Tab) 1 tab PO ONETIME ONE Stop: 09/16/20 15:22 Last Admin: 09/16/20 15:22 Dose: Not Given Documented by: Fentanyl (Fentanyl 50 Mcg/Ml Sdv) 25 mcg IVPUSH ONETIME ONE Stop: 09/16/20 15:52 Last Admin: 09/16/20 15:55 Dose: 25 mcg Documented by: Sodium Chloride (Normal Saline) 1,000 mls @ 999 mls/hr IV BOLUS ONE Stop: 09/16/20 11:13 Last Admin: 09/16/20 10:20 Dose: 999 mls/hr Documented by: Meropenem 1 gm/ Sodium (Chloride) 100 mls @ 200 mls/hr IV ONETIME ONE Stop: 09/16/20 10:45 Last Admin: 09/16/20 11:09 Dose: Not Given Documented by: Meropenem/Sodium Chloride 1 gm (/ Premix) 50 mls @ 100 mls/hr IV ONETIME NIMO Last Admin: 09/16/20 11:09 Dose: 100 mls/hr Documented by: Sodium Chloride (Normal Saline) 1,000 mls @ 999 mls/hr IV STAT ONE Stop: 09/16/20 11:55 Last Admin: 09/16/20 11:09 Dose: 999 mls/hr Documented by: Vancomycin HCl 1.5 gm/ Premix 300 mls @ 199.188 mls/hr IV ONETIME ONE Stop: 09/16/20 13:00 Last Admin: 09/16/20 11:33 Dose: 199.188 mls/hr Documented by: Sodium Chloride (Normal Saline) 1,000 mls @ 999 mls/hr IV STAT ONE Stop: 09/16/20 14:24 Last Admin: 09/16/20 13:34 Dose: 999 mls/hr Documented by: Meropenem/Sodium Chloride 1 gm (/ Premix) 50 mls @ 100 mls/hr IV Q12H [facility] Last Admin: 09/20/20 10:15 Dose: 100 mls/hr Documented by: Sodium Chloride (Normal Saline) 1,000 mls @ 125 mls/hr IV Q8H [facility] Last Admin: 09/16/20 18:43 Dose: Not Given Documented by: Dextrose/Water (Dextrose 5% In Water) 1,000 mls @ 200 mls/hr IV ASDIRECTED [facility] Last Infusion: 09/16/20 19:36 Dose: 75 mls/hr Documented by: Dextrose/Water (Dextrose 5% In Water) 1,000 mls @ 999 mls/hr IV ONETIME ONE Stop: 09/16/20 19:05 Last Admin: 09/16/20 19:17 Dose: 999 mls/hr Documented by: Dextrose/Lactated Ringer's (Dextrose 5%-Lactated Ringers) 1,000 mls @ 75 mls/hr IV ASDIRECTED [facility] Last Admin: 09/16/20 22:19 Dose: 50 mls/hr Documented by: Vancomycin HCl 1.5 gm/ Premix 300 mls @ 199.188 mls/hr IV ONETIME ONE Stop: 09/17/20 18:30 Last Admin: 09/17/20 17:20 Dose: 199.188 mls/hr Documented by: Dextrose/Water (Dextrose 5% In Water) 1,000 mls @ 100 mls/hr IV ASDIRECTED [facility] Last Admin: 09/18/20 12:21 Dose: 100 mls/hr Documented by: Sodium Chloride (Normal Saline) 500 mls @ 999 mls/hr IV .Bolus ONE Stop: 09/18/20 04:22 Last Admin: 09/18/20 04:00 Dose: 999 mls/hr Documented by: Lactated Ringer's (Ringers, Lactated) 500 mls @ 999 mls/hr IV ONETIME ONE Stop: 09/18/20 21:09 Last Admin: 09/18/20 20:47 Dose: 999 mls/hr Documented by: Potassium Chloride 20 meq/ (Premix) 50 mls @ 25 mls/hr IV ONETIME ONE Stop: 09/18/20 22:38 Last Admin: 09/18/20 21:23 Dose: 25 mls/hr Documented by: Dextrose/Lactated Ringer's (Dextrose 5%-Lactated Ringers) 1,000 mls @ 50 mls/hr IV ASDIRECTED [facility] Last Infusion: 09/19/20 09:08 Dose: 75 mls/hr Documented by: Potassium Chloride 20 meq/ (Premix) 50 mls @ 25 mls/hr IV ONETIME ONE Stop: 09/19/20 10:52 Last Admin: 09/19/20 09:26 Dose: 25 mls/hr Documented by: Dextrose/Lactated Ringer's (Dextrose 5%-Lactated Ringers) 1,000 mls @ 75 mls/hr IV ASDIRECTED [facility] Vancomycin HCl 1.25 gm/ Sodium (Chloride) 250 mls @ 166.667 mls/hr IV ONETIME ONE Stop: 09/19/20 14:14 Last Admin: 09/19/20 12:40 Dose: 166.667 mls/hr Documented by: Dextrose/Water (Dextrose 5% In Water) 1,000 mls @ 50 mls/hr IV ASDIRECTED [facility] Last Infusion: 09/21/20 09:15 Dose: 100 mls/hr Documented by: Dextrose/Lactated Ringer's (Dextrose 5%-Lactated Ringers) 1,000 mls @ 75 mls/hr IV ASDIRECTED [facility] Last Admin: 09/20/20 03:57 Dose: 75 mls/hr Documented by: Potassium Chloride 20 meq/ (Premix) 50 mls @ 25 mls/hr IV ONETIME ONE Stop: 09/19/20 22:37 Last Admin: 09/19/20 21:32 Dose: 25 mls/hr Documented by: Dextrose/Lactated Ringer's (Dextrose 5%-Lactated Ringers) 1,000 mls @ 75 mls/hr IV Q13H [facility] Last Admin: 09/21/20 05:19 Dose: 75 mls/hr Documented by: Dextrose/Water (Dextrose 5% In Water) 1,000 mls @ 100 mls/hr IV Q10H [facility] Last Admin: 09/21/20 16:28 Dose: Not Given Documented by: Magnesium Sulfate 2 gm/ Premix 50 mls @ 25 mls/hr IV ONETIME ONE Stop: 09/21/20 11:05 Last Admin: 09/21/20 10:07 Dose: 25 mls/hr Documented by: Potassium Chloride (Potassium Chloride 20 Meq Tab.Er) 40 meq PO ONETIME ONE Stop: 09/20/20 10:10 Last Admin: 09/20/20 10:15 Dose: 40 meq Documented by: Potassium Chloride (Potassium Chloride 10% 20 Meq/15 Ml Soln 30 Ml Ud Cup) 40 meq PO ONETIME ONE Stop: 09/21/20 06:15 Last Admin: 09/21/20 06:45 Dose: Not Given Documented by: Potassium Chloride (Potassium Chloride 20 Meq Tab.Er) 40 meq PO ONETIME ONE Stop: 09/21/20 06:39 Last Admin: 09/21/20 06:50 Dose: 40 meq Documented by: Potassium Chloride (Potassium Chloride 20 Meq Tab.Er) 40 meq PO ONETIME ONE Stop: 09/21/20 15:30 Last Admin: 09/21/20 15:42 Dose: 40 meq Documented by: Potassium Chloride (Potassium Chloride 20 Meq Tab.Er) 40 meq PO ONETIME ONE Stop: 09/22/20 07:57 Last Admin: 09/22/20 08:36 Dose: 40 meq Documented by: Vancomycin HCl (Pharmacy To Dose - Vancomycin) 1 dose .XX ASDIRECTED [facility] Wound Care/Dressing Products (Hydrocolloid Dressing 4x4 Bandage) Confirm Administered Dose 1 each .ROUTE .STK-MED ONE Stop: 09/21/20 03:45 Last Admin: 09/21/20 03:58 Dose: 1 each Documented by: Discharge Operative/Procedures - Procedures Performed CL Indication: IV access, hemodynamic monitoring, medication administration
[2020-09-22] MEDS: cefTRIAXone 1 GM in Premix Bag 1 BAG IV SCH (12:15)
[2020-09-22 13:09] VITALS: BP 124/62
== END 2020-09-22 13:00 | DRG 871 ==
LOC: MW.ED 10:10 → MW.ICU 15:01
PROVIDERS: ADMIT Student in an Organized Health Care Education/Training Program; ATTEND Student in an Organized Health Care Education/Training Program
PROC: XW033N5 Introduction of Meropenem-vaborbactam Anti-infective into Peripheral Vein, Percutaneous Approach, New Technology Group 5 (ICD-10-PCS; principal; 2020-09-16)
DX: A41.9 Sepsis, unspecified organism (principal); R65.21 Severe sepsis with septic shock; N30.01 Acute cystitis with hematuria; A41.51 Sepsis due to Escherichia coli [E. coli]; E87.1 Hypo-osmolality and hyponatremia; G93.41 Metabolic encephalopathy; N17.9 Acute kidney failure, unspecified; E87.0 Hyperosmolality and hypernatremia; N13.6 Pyonephrosis; E87.2 Acidosis; A41.81 Sepsis due to Enterococcus; R65.20 Severe sepsis without septic shock; M19.90 Unspecified osteoarthritis, unspecified site; R29.6 Repeated falls; E87.6 Hypokalemia; E83.42 Hypomagnesemia; Z79.84 Long term (current) use of oral hypoglycemic drugs; Z66 Do not resuscitate; Z20.822 Contact with and (suspected) exposure to COVID-19; I12.9 Hypertensive chronic kidney disease with stage 1 through stage 4 chronic kidney disease, or unspecified chronic kidney disease; N18.9 Chronic kidney disease, unspecified; F03.90 Unspecified dementia, unspecified severity, without behavioral disturbance, psychotic disturbance, mood disturbance, and anxiety; E78.5 Hyperlipidemia, unspecified; R33.9 Retention of urine, unspecified; E78.00 Pure hypercholesterolemia, unspecified; M10.9 Gout, unspecified; E87.8 Other disorders of electrolyte and fluid balance, not elsewhere classified; E86.0 Dehydration; N13.9 Obstructive and reflux uropathy, unspecified; M25.562 Pain in left knee; Z87.01 Personal history of pneumonia (recurrent); Z79.899 Other long term (current) drug therapy; Z88.0 Allergy status to penicillin
CPT/HCPCS: 36415; 36556; 51702; 70450; 71045; 73110; 80053; 81001; 83605; 83690; 84484; 85025; 87040 ×2; 87086; 87088 ×2; 87186 ×2; 93005 ×2; 96365; 96366; 96367; 99285; J2185; J3370; J7030 ×3; U0002; 36600; 73562-26-LT; 73562-LT; 74176; 74176-26; 80048; 80202; 82436; 82570; 82803; 82947; 83735; 84100; 84133; 84300; 93010; 97110-GP; 97163-GP; A9270-GY; C9113; J0696; J1644; J3010; J3475; J3480; J7050; J7060; J7120; J7121

== ENCOUNTER 2020-11-26 20:07 | Inpatient (IN) | payer MEDICARE, OTHER ==
[2020-11-26] MEDS ORDERED: Sodium Chloride 0.9% 2.5 ML Syringe FLUSH PRN (20:10)
[2020-11-26] MEDS ORDERED: Sodium Chloride 0.9% 10 ML Syringe FLUSH PRN (20:10)
--- NOTE | 2020-11-26 21:02 | CR ---
INDICATION: Altered mental status TECHNIQUE: Portable upright AP view of the chest COMPARISON: AP chest radiograph 09/16/2020 FINDINGS: The lungs are clear. There is no sizable pleural effusion or pneumothorax. The cardiomediastinal silhouette is normal. The visualized osseous structures are unremarkable. IMPRESSION: No acute intrathoracic process. Dictated by Kasia Heart MD @ 11/26/2020 9:00:52 PM (Electronically Signed)
--- NOTE | 2020-11-26 21:03 | PCM.EKG ---
#1 Interpretation EKG Date: 11/26/20 Time: 20:19 Rhythm: NSR Rate (Beats/Min): 132 [place]: LAD-Left [place] Deviation P-Wave: Present QRS: Normal ST-T: Normal QT: Normal Comparison: No Change (09/18/20) EKG Interpretation Comments: Sinus Tachycardia
[2020-11-26] MEDS ORDERED: Cefepime 1 GM in Premix Bag 1 BAG IV ONE (21:04)
[2020-11-26 21:17] LABS: BLOOD UREA NITROGEN,BUN 44 mg/dL (7.0-18.0); CARBON DIOXIDE,CO2 30.4 mmol/L (21.0-32.0); CHLORIDE,CL 101 mmol/L (98-107); GLUCOSE RANDOM 156 mg/dL (74-106); POTASSIUM,K 3.8 mmol/L (3.5-5.1); SODIUM,NA 141 mmol/L (136-148)
--- NOTE | 2020-11-26 21:20 | EDM.PDOC ---
ED HPI GENERAL MEDICAL PROBLEM - General Chief Complaint: Neurological Problem Stated Complaint: ALTERED MENTAL STATUS Time Seen by Provider: 11/26/20 20:11 Source of Information: Reports: Patient History Limitations: Reports: No Limitations - History of Present Illness INITIAL COMMENTS - FREE TEXT/NARRATIVE: HISTORY AND PHYSICAL: History of present illness: Patient is an 80-year-old male who presents to the emergency room today from [facility] with complaints of increased confusion. Has a past medical history of HDL, hypertension, urinary retention with chronic renal insufficiency, CKD and dementia. [facility] staff felt that he was more confused than normal. He recently was diagnosed with a urinary tract infection, they are concerned the antibiotics are not working and may require admission. Patient was admitted for urosepsis on 09/16/2020. Review of systems: As per history of present illness and below otherwise all systems reviewed and negative. Past medical history: As per history of present illness and as reviewed below otherwise noncontributory. Surgical history: As per history of present illness and as reviewed below otherwise noncontr ibutory. Social history: See social history for further information Family history: As per history of present illness and as reviewed below otherwise noncontributory. Physical exam: General: Well developed and well nourished 80 year old male. Alert with dementia. Answers questions appropriately. Nontoxic in appearance and in no acute distress. Vital signs have been reviewed by me. Nursing notes were reviewed. HEENT: Atraumatic, normocephalic, pupils equal and reactive bilaterally, negative for conjunctival pallor or scleral icterus, mucous membranes moist, neck supple, nontender, trachea midline. No drooling or trismus noted. No meningeal signs. No hot potato voice noted. Lungs: Clear to auscultation bilaterally. No wheezes, rales, or rhonchi. Chest nontender. Normal work of breathing, no accessory muscles used. Heart: S1S2, regular rate and rhythm without overt murmur, gallops, or rubs. No JVD. No peripheral edema Abdomen: Soft, nondistended, nontender. Normoactive bowel sounds. Negative for masses or costovertebral tenderness. Genitourinary/Rectal: Gao catheter draining appropriately. Skin: Intact, warm, dry. No lesions or rashes noted. Hematologic: No petechiae or purpra. Mucosa appropriate color and normal nail bed color and refill. Extremities: Atraumatic, moves all extremities per self without difficulty or deficits, negative for cords or calf pain. Neurovascular unremarkable. Neuro: Awake, alert, oriented. Cranial nerves II through XII unremarkable. Cerebellum unremarkable. Motor and sensory unremarkable throughout. Exam nonfocal. Psychiatric: Mood and affect are appropriate. Normal thought process. Answering questions appropriately. Please note that the patient was seen and evaluated during the 2019 SARS-CoV-2 novel coronavirus pandemic period. Community viral transmission is ongoing at time of this encounter and the emergency department is operating under pandemic response procedures. Medical Decision Making: Patient is an 80-year-old male who presents to the emergency room from the [facility] with complaints of increased confusion. Patient does have confusion and dementia at baseline but staff felt he was more confused than normal. Recently was diagnosed with a urinary tract infection and they are concerned he may be septic. Patient was admitted on 09/16/2020 for urosepsis. Patient is tachycardic, will do blood cultures and lactate. Gao catheter has been changed out due to positive UTI. Positive nitrates, 20- 25 WBCs, +1 bacteria. Patient's white count is 16.96 and BUN and creatinine is 44/1.4, is chronically elevated but not this high. Did talk with Dr. Kellogg who is agreeable to keeping this patient for further care and management. 2230: Dr Olivera will watch patient until he is transferred to the Med/Surg floor. Diagnostics: CBC, CMP, Lactate, BC x 2, EKG, Troponin, CXR Therapeutics: Cefepime, Vancomycin, IV fluids Impression: Sespis secondary to UTI Definitive disposition and diagnosis as appropriate pending reevaluation and review of above. - Related Data Allergies Allergy/AdvReac Type Severity Reaction Status Date / Time bupropion [From Wellbutrin] Allergy Other Verified 11/29/20 10:51 Penicillins Allergy Nausea Verified 11/29/20 10:51 sulfamethoxazole Allergy Other Verified 11/29/20 10:51 [From Bactrim] trimethoprim [From Bactrim] Allergy Other Verified 11/29/20 10:51 Home Meds: Home Meds Acetaminophen [Tylenol] 650 mg PO Q8H PRN 09/06/16 [History] Methyl Salicylate/Menthol [Icy Hot] 1 applic TOP Q8H PRN 09/06/16 [History] Cetirizine [ZyrTEC] 1 tab PO BID 09/01/18 [History] Carbamide Peroxide [Debrox] 3 applic OT ASDIRECTED 09/16/20 [History] Magnesium Hydroxide [Milk of Magnesia] 30 ml PO DAILY PRN 09/16/20 [History] Cefdinir 300 mg PO BID #14 capsule 09/22/20 [Rx] Furosemide [Lasix] 80 mg PO DAILY #0 09/22/20 [Rx] Acetaminophen with Codeine [Acetaminophen-Cod #3] 1 each PO QID PRN 11/27/20 [History] Gabapentin [Neurontin] 100 mg PO BID 11/27/20 [History] Past Medical History HEENT History: Reports: None Cardiovascular History: Reports: High Cholesterol, Hypertension, Other (See Below) Other Cardiovascular History: Edema Respiratory History: Reports: Pneumonia, Recurrent Gastrointestinal History: Reports: None Genitourinary History: Reports: Acute Renal Failure, Chronic Renal Insuffiency, Retention, Urinary Other Genitourinary History: CKD, urinary retention Musculoskeletal History: Reports: Gout, Osteoarthritis, Other (See Below) Other Musculoskeletal History: Muscle weakness, traumatic ischemia of muscle, frequent falls, joint pain Neurological History: Reports: Other (See Below) Other Neuro History: altered mental status according to dolph chart, syncope Psychiatric History: Reports: Dementia Endocrine/Metabolic History: Reports: Obesity/BMI 30+ Hematologic History: Reports: None Immunologic History: Reports: None Oncologic (Cancer) History: Reports: None Dermatologic History: Reports: Cellulitis - Infectious Disease History Infectious Disease History: Reports: None - Past Surgical History Head Surgeries/Procedures: Reports: None HEENT Surgical History: Reports: None Cardiovascular Surgical History: Reports: None Respiratory Surgical History: Reports: None GI Surgical History: Reports: Appendectomy Male Surgical History: Reports: None Endocrine Surgical History: Reports: None Neurological Surgical History: Reports: None Musculoskeletal Surgical History: Reports: None Oncologic Surgical History: Reports: None Social & Family History - Family History Family Medical History: Unobtainable Neurological: Reports: Dementia - Caffeine Use Caffeine Use: Reports: None Other Caffeine Use: Unknown ED ROS GENERAL - Review of Systems Review Of Systems: Comprehensive ROS is negative, except as noted in HPI. ED EXAM, GENERAL - Physical Exam Exam: See Below (See dictation) Course - Vital Signs Last Recorded V/S: Last Vital Signs Temp 97.8 F 11/29/20 07:00 Pulse 64 11/29/20 07:00 Resp 14 11/29/20 07:00 BP 107/60 11/29/20 07:00 Pulse Ox 94 L 11/29/20 07:00 - Orders/Labs/Meds Orders: Medication Orders Acetaminophen (Acetaminophen 325 Mg Tab) 650 mg PO Q4H PRN PRN Reason: Pain (Mild 1-3)/fever Last Admin: 11/27/20 04:18 Dose: 650 mg Documented by: MIKHAIL Acetaminophen/Codeine Phosphate (Acetaminophen/Codeine 300-30 Mg Tab) 1 tab PO QID PRN PRN Reason: Pain Last Admin: 11/29/20 02:17 Dose: 1 tab Documented by: Admin: 11/28/20 16:23 Dose: 1 tab Documented by: Admin: 11/28/20 10:16 Dose: 1 tab Documented by: Admin: 11/27/20 21:57 Dose: 1 tab Documented by: Admin: 11/27/20 14:33 Dose: 1 tab Documented by: GALO Albuterol/Ipratropium (Albuterol/Ipratropium 3.0-0.5 Mg/3 Ml Neb Soln) 3 ml NEB Q4HRRT PRN PRN Reason: Shortness Of Breath/wheezing Gabapentin (Gabapentin 100 Mg Cap) 100 mg PO BID [facility] Last Admin: 11/29/20 09:37 Dose: Not Given Documented by: Admin: 11/28/20 20:37 Dose: 100 mg Documented by: Admin: 11/28/20 10:13 Dose: 100 mg Documented by: Admin: 11/27/20 21:53 Dose: 100 mg Documented by: ADARSH Cefepime HCl 1 gm/ Premix 50 mls @ 100 mls/hr IV Q8H [facility] Last Admin: 11/29/20 04:36 Dose: 100 mls/hr Documented by: Infusion: 11/28/20 21:05 Dose: 100 mls/hr Documented by: Admin: 11/28/20 20:35 Dose: 100 mls/hr Documented by: Infusion: 11/28/20 12:36 Dose: 100 mls/hr Documented by: Admin: 11/28/20 12:06 Dose: 100 mls/hr Documented by: Infusion: 11/28/20 06:02 Dose: 100 mls/hr Documented by: Admin: 11/28/20 05:32 Dose: 100 mls/hr Documented by: Infusion: 11/27/20 22:16 Dose: 100 mls/hr Documented by: Admin: 11/27/20 21:46 Dose: 100 mls/hr Documented by: Infusion: 11/27/20 15:01 Dose: 100 mls/hr Documented by: Admin: 11/27/20 14:31 Dose: 100 mls/hr Documented by: Infusion: 11/27/20 04:51 Dose: 100 mls/hr Documented by: Admin: 11/27/20 04:21 Dose: 100 mls/hr Documented by: MIKHAIL Pantoprazole Sodium 40 mg/ (Sodium Chloride) 10 mls @ 200 mls/hr IV DAILY NIMO Last Infusion: 11/29/20 09:28 Dose: 200 mls/hr Documented by: Admin: 11/29/20 09:25 Dose: 200 mls/hr Documented by: Infusion: 11/28/20 10:13 Dose: 200 mls/hr Documented by: Admin: 11/28/20 10:10 Dose: 200 mls/hr Documented by: Infusion: 11/27/20 10:13 Dose: 200 mls/hr Documented by: Admin: 11/27/20 10:10 Dose: 200 mls/hr Documented by: TWYLA Magnesium Hydroxide (Magnesium Hydroxide 400 Mg/5 Ml Susp 30 Ml Cup) 30 ml PO DAILY PRN PRN Reason: Constipation Ondansetron HCl (Ondansetron 4 Mg/2 Ml Sdv) 4 mg IVPUSH Q4H PRN PRN Reason: Nausea/Vomiting Methyl Salicylate/Menthol [Icy Hot] 35 .4 Gm Cream 1 each TOP Q8H PRN PRN Reason: left knee pain Sodium Chloride (Sodium Chloride 0.9% 10 Ml Syringe) 10 ml FLUSH ASDIRECTED PRN PRN Reason: Keep Vein Open Last Admin: 11/26/20 21:35 Dose: 10 ml Documented by: CARROLL Sodium Chloride (Sodium Chloride 0.9% 2.5 Ml Syringe) 2.5 ml FLUSH ASDIRECTED PRN PRN Reason: Keep Vein Open Last Admin: 11/26/20 21:35 Dose: 2.5 ml Documented by: CARROLL Vancomycin HCl (Pharmacy To Dose - Vancomycin) 1 dose .XX ASDIRECTED [facility] Labs: Laboratory Tests 11/26/20 11/26/20 11/26/20 Range/Units 20:40 20:40 20:40 WBC 16.96 H (4.0-11.0) K/uL RBC 4.73 (4.50-5.90) M/uL Hgb 14.2 (13.0-17.0) g/dL Hct 42.1 (38.0-50.0) % MCV 89.0 (80.0-98.0) fL MCH 30.0 (27.0-32.0) pg MCHC 33.7 (31.0-37.0) g/dL RDW Std Deviation 51.7 (28.0-62.0) fl RDW Coeff of Joseph 16 H (11.0-15.0) % Plt Count 306 (150-400) K/uL MPV 9.30 (7.40-12.00) fL Neut % (Auto) 79.7 (48.0-80.0) % Lymph % (Auto) 13.3 L (16.0-40.0) % Walton % (Auto) 5.7 (0.0-15.0) % Eos % (Auto) 1.1 (0.0-7.0) % Baso % (Auto) 0.2 (0.0-1.5) % Neut # (Auto) 13.5 H (1.4-5.7) K/uL Lymph # (Auto) 2.3 (0.6-2.4) K/uL Walton # (Auto) 1.0 H (0.0-0.8) K/uL Eos # (Auto) 0.2 (0.0-0.7) K/uL Baso # (Auto) 0.0 (0.0-0.1) K/uL Nucleated RBC % 0.0 /100WBC Nucleated RBCs # 0 K/uL Sodium 141 (136-148) mmol/L Potassium 3.8 (3.5-5.1) mmol/L Chloride 101 (98-107) mmol/L Carbon Dioxide 30.4 (21.0-32.0) mmol/L BUN 44 H (7.0-18.0) mg/dL Creatinine 1.4 H (0.8-1.3) mg/dL Est Cr Clr Drug Dosing TNP Estimated GFR (MDRD) 48.8 ml/min Glucose 156 H (74-106) mg/dL Lactic Acid 1.6 (0.4-2.0) mmol/L Calcium 9.4 (8.5-10.1) mg/dL Total Bilirubin 0.4 (0.2-1.0) mg/dL AST 13 L (15-37) IU/L ALT 13 L (14-63) IU/L Alkaline Phosphatase 75 (46-116) U/L Troponin I < 0.050 (0.000-0.056) ng/mL Total Protein 8.7 H (6.4-8.2) g/dL Albumin 3.0 L (3.4-5.0) g/dL Globulin 5.7 H (2.6-4.0) g/dL Albumin/Globulin Ratio 0.5 L (0.9-1.6) Urine Color Urine Appearance Urine pH (5.0-8.0) Ur Specific Hale (1.001-1.035) Urine Protein (NEGATIVE) mg/dL Urine Glucose (UA) (NEGATIVE) mg/dL Urine Ketones (NEGATIVE) mg/dL Urine Occult Blood (NEGATIVE) Urine Nitrite (NEGATIVE) Urine Bilirubin (NEGATIVE) Urine Urobilinogen (<2.0) EU/dL Ur Leukocyte Esterase (NEGATIVE) Urine RBC (0-2/HPF) Urine WBC (0-5/HPF) Ur Epithelial Cells (NONE-FEW) Urine Bacteria (NEGATIVE) SARS-CoV-2 RNA (SALAS) (NEGATIVE) 11/26/20 11/26/20 Range/Units 20:50 21:30 WBC (4.0-11.0) K/uL RBC (4.50-5.90) M/uL Hgb (13.0-17.0) g/dL Hct (38.0-50.0) % MCV (80.0-98.0) fL MCH (27.0-32.0) pg MCHC (31.0-37.0) g/dL RDW Std Deviation (28.0-62.0) fl RDW Coeff of Joseph (11.0-15.0) % Plt Count (150-400) K/uL MPV (7.40-12.00) fL Neut % (Auto) (48.0-80.0) % Lymph % (Auto) (16.0-40.0) % Walton % (Auto) (0.0-15.0) % Eos % (Auto) (0.0-7.0) % Baso % (Auto) (0.0-1.5) % Neut # (Auto) (1.4-5.7) K/uL Lymph # (Auto) (0.6-2.4) K/uL Walton # (Auto) (0.0-0.8) K/uL Eos # (Auto) (0.0-0.7) K/uL Baso # (Auto) (0.0-0.1) K/uL Nucleated RBC % /100WBC Nucleated RBCs # K/uL Sodium (136-148) mmol/L Potassium (3.5-5.1) mmol/L Chloride (98-107) mmol/L Carbon Dioxide (21.0-32.0) mmol/L BUN (7.0-18.0) mg/dL Creatinine (0.8-1.3) mg/dL Est Cr Clr Drug Dosing Estimated GFR (MDRD) ml/min Glucose (74-106) mg/dL Lactic Acid (0.4-2.0) mmol/L Calcium (8.5-10.1) mg/dL Total Bilirubin (0.2-1.0) mg/dL AST (15-37) IU/L ALT (14-63) IU/L Alkaline Phosphatase (46-116) U/L Troponin I (0.000-0.056) ng/mL Total Protein (6.4-8.2) g/dL Albumin (3.4-5.0) g/dL Globulin (2.6-4.0) g/dL Albumin/Globulin Ratio (0.9-1.6) Urine Color YELLOW Urine Appearance SLT CLOUDY Urine pH 6.0 (5.0-8.0) Ur Specific Hale 1.015 (1.001-1.035) Urine Protein NEGATIVE (NEGATIVE) mg/dL Urine Glucose (UA) NEGATIVE (NEGATIVE) mg/dL Urine Ketones NEGATIVE (NEGATIVE) mg/dL Urine Occult Blood MODERATE H (NEGATIVE) Urine Nitrite POSITIVE H (NEGATIVE) Urine Bilirubin NEGATIVE (NEGATIVE) Urine Urobilinogen 0.2 (<2.0) EU/dL Ur Leukocyte Esterase MODERATE H (NEGATIVE) Urine RBC 2-4 (0-2/HPF) Urine WBC 20-25 (0-5/HPF) Ur Epithelial Cells RARE (NONE-FEW) Urine Bacteria 1+ H (NEGATIVE) SARS-CoV-2 RNA (SALAS) NEGATIVE (NEGATIVE) Meds: Medications Generic Name Dose Route Start Last Admin Trade Name Freq PRN Reason Stop Dose Admin Acetaminophen 650 mg 11/27/20 00:16 11/27/20 04:18 Acetaminophen 325 Mg Tab PO 650 mg Q4H PRN Administration Pain (Mild 1-3)/fever Acetaminophen/Codeine Phosphate 1 tab 11/27/20 12:00 11/29/20 02:17 Acetaminophen/Codeine 300-30 Mg Tab PO 1 tab QID PRN Administration Pain Albuterol/Ipratropium 3 ml 11/27/20 00:16 Albuterol/Ipratropium 3.0-0.5 Mg/3 Ml Neb Soln NEB Q4HRRT PRN Shortness Of Breath/wheezing Gabapentin 100 mg 11/27/20 21:00 11/29/20 09:37 Gabapentin 100 Mg Cap PO Not Given BID NIMO Cefepime HCl 1 gm/ Premix 50 mls @ 100 mls/hr 11/27/20 05:00 11/29/20 04:36 IV 100 mls/hr Q8H NIMO Administration Pantoprazole Sodium 40 mg/ 10 mls @ 200 mls/hr 11/27/20 09:00 11/29/20 09:28 Sodium Chloride IV Infused DAILY NIMO Infusion Magnesium Hydroxide 30 ml 11/27/20 11:00 Magnesium Hydroxide 400 Mg/5 Ml Susp 30 Ml Cup PO DAILY PRN Constipation Ondansetron HCl 4 mg 11/27/20 00:16 Ondansetron 4 Mg/2 Ml Sdv IVPUSH Q4H PRN Nausea/Vomiting Methyl Salicylate/ 1 each 11/27/20 11:00 Menthol [Icy Hot] 35 TOP .4 Gm Cream Q8H PRN left knee pain Sodium Chloride 10 ml 11/26/20 20:10 11/26/20 21:35 Sodium Chloride 0.9% 10 Ml Syringe FLUSH 10 ml ASDIRECTED PRN Administration Keep Vein Open Sodium Chloride 2.5 ml 11/26/20 20:10 11/26/20 21:35 Sodium Chloride 0.9% 2.5 Ml Syringe FLUSH 2.5 ml ASDIRECTED PRN Administration Keep Vein Open Vancomycin HCl 1 dose 11/27/20 00:30 Pharmacy To Dose - Vancomycin .XX ASDIRECTED NIMO Discontinued Medications Generic Name Dose Route Start Last Admin Trade Name Freq PRN Reason Stop Dose Admin Vancomycin HCl 1 gm/ Sodium 250 mls @ 166 mls/hr 11/26/20 21:03 11/26/20 21:35 Chloride IV 11/26/20 22:33 166 mls/hr ONETIME ONE Administration Cefepime HCl 1 gm/ Premix 50 mls @ 100 mls/hr 11/26/20 21:04 11/26/20 21:32 IV 11/26/20 21:33 100 mls/hr ONETIME ONE Administration Sodium Chloride 1,000 mls @ 999 mls/hr 11/26/20 21:40 11/26/20 22:41 Normal Saline IV 11/26/20 22:40 999 mls/hr STAT ONE Administration Lactated Ringer's 1,000 mls @ 125 mls/hr 11/27/20 00:30 11/27/20 10:37 Ringers, Lactated IV 150 mls/hr ASDIRECTED NIMO Administration Vancomycin HCl 1.5 gm/ Premix 300 mls @ 200 mls/hr 11/27/20 09:00 11/28/20 10:14 IV 200 mls/hr Q12H NIMO Administration Departure - Departure Time of Disposition: 12:08 Disposition: Admitted As Inpatient 66 Clinical Impression: Sepsis UTI (urinary tract infection) Qualifiers: Urinary tract infection type: acute cystitis Hematuria presence: with hematuria Qualified Code(s): N30.01 - Acute cystitis with hematuria - Discharge Information
[2020-11-26] MEDS ORDERED: Sodium Chloride 0.9% 1,000 ML IV ONE (21:40)
[2020-11-27] MEDS ORDERED: Acetaminophen 325 MG Tab PO PRN (00:16)
[2020-11-27] MEDS ORDERED: Albuterol/Ipratropium 3.0-0.5 MG/3 ML Neb Soln NEB PRN (00:16)
[2020-11-27] MEDS ORDERED: Ondansetron 4 MG/2 ML SDV IVPUSH PRN (00:16)
[2020-11-27] MEDS ORDERED: Lactated Ringers 1,000 ML IV SCH (00:30)
[2020-11-27] MEDS: Cefepime 1 GM in Premix Bag 1 BAG IV SCH ×3 (04:21→21:46)
--- NOTE | 2020-11-27 07:18 | PCM.HP.2 ---
H&P History of Present Illness - General Date of Service: 11/27/20 Admit Problem/Dx: Admission Diagnosis/Problem Admission Diagnosis/Problem Sepsis - History of Present Illness Initial Comments - Free Text/Narative: 80-year-old male presents to the emergency department from [facility] with complaints of confusion. Patient's past medical history includes hyperlipidemia, hypertension, CKD, dementia. Per documentation detention staff felt the patient was more confused. Of note patient was admitted to the hospital on 09-16-20 for urosepsis, discharged on antibiotics. Patient is a poor historian, information obtained from documentation. Upon questioning patient does not understand why he has been admitted to the hospital. Denied chest pain, shortness of breath, abdominal pain, vomiting. States left lower leg and left heel pain. Laboratory admission includes white blood cell count 14.8, hemoglobin 12.9, platelet 24, sodium 143, potassium 4.0, BUN 40, creatinine 1.4,. Urinalysis positive for nitrite, positive for leukocyte Esterase. Chest x-ray impression- lungs are clear, no sizable pleural effusion or pneumothorax. Cardiomediastinal silhouette is normal. Patient to be admitted for treatment of urosepsis, FRAN. - Related Data Allergies/Adverse Reactions: Allergies Allergy/AdvReac Type Severity Reaction Status Date / Time bupropion [From Wellbutrin] Allergy Other Verified 11/27/20 02:52 Penicillins Allergy Nausea Verified 11/27/20 02:52 sulfamethoxazole Allergy Other Verified 11/27/20 02:52 [From Bactrim] trimethoprim [From Bactrim] Allergy Other Verified 11/27/20 02:52 Home Medications: Home Meds Acetaminophen [Tylenol] 650 mg PO Q8H PRN 09/06/16 [History] Methyl Salicylate/Menthol [Icy Hot] 1 applic TOP Q8H PRN 09/06/16 [History] Cetirizine [ZyrTEC] 1 tab PO BID 09/01/18 [History] Carbamide Peroxide [Debrox] 3 applic OT ASDIRECTED 09/16/20 [History] Magnesium Hydroxide [Milk of Magnesia] 30 ml PO DAILY PRN 09/16/20 [History] Cefdinir 300 mg PO BID #14 capsule 09/22/20 [Rx] Furosemide [Lasix] 80 mg PO DAILY #0 09/22/20 [Rx] Acetaminophen with Codeine [Acetaminophen-Cod #3] 1 each PO QID PRN 11/27/20 [History] Gabapentin [Neurontin] 100 mg PO BID 11/27/20 [History] Past Medical History HEENT History: Reports: None Cardiovascular History: Reports: High Cholesterol, Hypertension, Other (See Below) Other Cardiovascular History: Edema Respiratory History: Reports: Pneumonia, Recurrent Gastrointestinal History: Reports: None Genitourinary History: Reports: Acute Renal Failure, Chronic Renal Insuffiency, Retention, Urinary Other Genitourinary History: CKD, urinary retention Musculoskeletal History: Reports: Gout, Osteoarthritis, Other (See Below) Other Musculoskeletal History: Muscle weakness, traumatic ischemia of muscle, frequent falls, joint pain Neurological History: Reports: Other (See Below) Other Neuro History: altered mental status according to [facility] chart, syncope Psychiatric History: Reports: Dementia Endocrine/Metabolic History: Reports: Obesity/BMI 30+ Hematologic History: Reports: None Immunologic History: Reports: None Oncologic (Cancer) History: Reports: None Dermatologic History: Reports: Cellulitis - Infectious Disease History Infectious Disease History: Reports: None - Past Surgical History Head Surgeries/Procedures: Reports: None HEENT Surgical History: Reports: None Cardiovascular Surgical History: Reports: None Respiratory Surgical History: Reports: None GI Surgical History: Reports: Appendectomy Male Surgical History: Reports: None Endocrine Surgical History: Reports: None Neurological Surgical History: Reports: None Musculoskeletal Surgical History: Reports: None Oncologic Surgical History: Reports: None Social & Family History - Family History Family Medical History: Unobtainable Neurological: Reports: Dementia - Tobacco Use Tobacco Use Status *Q: Current Status Unknown Second Hand Smoke Exposure: No - Caffeine Use Caffeine Use: Reports: Other Other Caffeine Use: UNKNOWN - Recreational Drug Use Recreational Drug Use: No H&P Review of Systems - Review of Systems: Review Of Systems: See Below General: Denies: Fever, Chills Pulmonary: Denies: Shortness of Breath, Cough Cardiovascular: Denies: Chest Pain Gastrointestinal: Denies: Abdominal Pain, Diarrhea Psychiatric: Reports: Confusion Neurological: Reports: Confusion Exam - Exam Exam: See Below - Vital Signs Vital Signs: Last Vital Signs Temp 97.3 F 11/26/20 22:43 Pulse 126 H 11/26/20 22:43 Resp 19 11/26/20 22:43 BP 113/66 11/26/20 22:43 Pulse Ox 96 11/27/20 00:16 Weight: 221 lb 8 oz - Exam General: Alert Lungs: Clear to Auscultation, Normal Respiratory Effort Cardiovascular: Regular Rate, Regular Rhythm GI/Abdominal Exam: Soft, Non-Tender, No Distention (Male) Exam: Other (nunez) Extremities: No Pedal Edema, Other (non draning, tender, erythematous sore on left heel. pt wearing a pressure boot on left foot) - Patient Data Lab Results Last 24 hrs: Laboratory Results - last 24 hr 11/26/20 11/26/20 11/26/20 Range/Units 20:40 20:40 20:40 WBC 16.96 H (4.0-11.0) K/uL RBC 4.73 (4.50-5.90) M/uL Hgb 14.2 (13.0-17.0) g/dL Hct 42.1 (38.0-50.0) % MCV 89.0 (80.0-98.0) fL MCH 30.0 (27.0-32.0) pg MCHC 33.7 (31.0-37.0) g/dL RDW Std Deviation 51.7 (28.0-62.0) fl RDW Coeff of Joseph 16 H (11.0-15.0) % Plt Count 306 (150-400) K/uL MPV 9.30 (7.40-12.00) fL Neut % (Auto) 79.7 (48.0-80.0) % Lymph % (Auto) 13.3 L (16.0-40.0) % [place] % (Auto) 5.7 (0.0-15.0) % Eos % (Auto) 1.1 (0.0-7.0) % Baso % (Auto) 0.2 (0.0-1.5) % Neut # (Auto) 13.5 H (1.4-5.7) K/uL Lymph # (Auto) 2.3 (0.6-2.4) K/uL [place] # (Auto) 1.0 H (0.0-0.8) K/uL Eos # (Auto) 0.2 (0.0-0.7) K/uL Baso # (Auto) 0.0 (0.0-0.1) K/uL Nucleated RBC % 0.0 /100WBC Nucleated RBCs # 0 K/uL Sodium 141 (136-148) mmol/L Potassium 3.8 (3.5-5.1) mmol/L Chloride 101 (98-107) mmol/L Carbon Dioxide 30.4 (21.0-32.0) mmol/L BUN 44 H (7.0-18.0) mg/dL Creatinine 1.4 H (0.8-1.3) mg/dL Est Cr Clr Drug Dosing TNP Estimated GFR (MDRD) 48.8 ml/min Glucose 156 H (74-106) mg/dL Lactic Acid 1.6 (0.4-2.0) mmol/L Calcium 9.4 (8.5-10.1) mg/dL Phosphorus (2.6-4.7) mg/dL Magnesium (1.8-2.4) mg/dL Total Bilirubin 0.4 (0.2-1.0) mg/dL AST 13 L (15-37) IU/L ALT 13 L (14-63) IU/L Alkaline Phosphatase 75 (46-116) U/L Troponin I < 0.050 (0.000-0.056) ng/mL Total Protein 8.7 H (6.4-8.2) g/dL Albumin 3.0 L (3.4-5.0) g/dL Globulin 5.7 H (2.6-4.0) g/dL Albumin/Globulin Ratio 0.5 L (0.9-1.6) Urine Color Urine Appearance Urine pH (5.0-8.0) Ur Specific [place] (1.001-1.035) Urine Protein (NEGATIVE) mg/dL Urine Glucose (UA) (NEGATIVE) mg/dL Urine Ketones (NEGATIVE) mg/dL Urine Occult Blood (NEGATIVE) Urine Nitrite (NEGATIVE) Urine Bilirubin (NEGATIVE) Urine Urobilinogen (<2.0) EU/dL Ur Leukocyte Esterase (NEGATIVE) Urine RBC (0-2/HPF) Urine WBC (0-5/HPF) Ur Epithelial Cells (NONE-FEW) Urine Bacteria (NEGATIVE) SARS-CoV-2 RNA (SALAS) (NEGATIVE) 11/26/20 11/26/20 11/27/20 Range/Units 20:50 21:30 06:00 WBC 14.89 H (4.0-11.0) K/uL RBC 4.48 L (4.50-5.90) M/uL Hgb 12.9 L (13.0-17.0) g/dL Hct 40.7 (38.0-50.0) % MCV 90.8 (80.0-98.0) fL MCH 28.8 (27.0-32.0) pg MCHC 31.7 (31.0-37.0) g/dL RDW Std Deviation 53.8 (28.0-62.0) fl RDW Coeff of Joseph 16 H (11.0-15.0) % Plt Count 284 (150-400) K/uL MPV 9.40 (7.40-12.00) fL Neut % (Auto) 78.6 (48.0-80.0) % Lymph % (Auto) 13.2 L (16.0-40.0) % [place] % (Auto) 6.6 (0.0-15.0) % Eos % (Auto) 1.3 (0.0-7.0) % Baso % (Auto) 0.3 (0.0-1.5) % Neut # (Auto) 11.7 H (1.4-5.7) K/uL Lymph # (Auto) 2.0 (0.6-2.4) K/uL [place] # (Auto) 1.0 H (0.0-0.8) K/uL Eos # (Auto) 0.2 (0.0-0.7) K/uL Baso # (Auto) 0.0 (0.0-0.1) K/uL Nucleated RBC % 0.0 /100WBC Nucleated RBCs # 0 K/uL Sodium (136-148) mmol/L Potassium (3.5-5.1) mmol/L Chloride (98-107) mmol/L Carbon Dioxide (21.0-32.0) mmol/L BUN (7.0-18.0) mg/dL Creatinine (0.8-1.3) mg/dL Est Cr Clr Drug Dosing Estimated GFR (MDRD) ml/min Glucose (74-106) mg/dL Lactic Acid (0.4-2.0) mmol/L Calcium (8.5-10.1) mg/dL Phosphorus (2.6-4.7) mg/dL Magnesium (1.8-2.4) mg/dL Total Bilirubin (0.2-1.0) mg/dL AST (15-37) IU/L ALT (14-63) IU/L Alkaline Phosphatase (46-116) U/L Troponin I (0.000-0.056) ng/mL Total Protein (6.4-8.2) g/dL Albumin (3.4-5.0) g/dL Globulin (2.6-4.0) g/dL Albumin/Globulin Ratio (0.9-1.6) Urine Color YELLOW Urine Appearance SLT CLOUDY Urine pH 6.0 (5.0-8.0) Ur Specific [place] 1.015 (1.001-1.035) Urine Protein NEGATIVE (NEGATIVE) mg/dL Urine Glucose (UA) NEGATIVE (NEGATIVE) mg/dL Urine Ketones NEGATIVE (NEGATIVE) mg/dL Urine Occult Blood MODERATE H (NEGATIVE) Urine Nitrite POSITIVE H (NEGATIVE) Urine Bilirubin NEGATIVE (NEGATIVE) Urine Urobilinogen 0.2 (<2.0) EU/dL Ur Leukocyte Esterase MODERATE H (NEGATIVE) Urine RBC 2-4 (0-2/HPF) Urine WBC 20-25 (0-5/HPF) Ur Epithelial Cells RARE (NONE-FEW) Urine Bacteria 1+ H (NEGATIVE) SARS-CoV-2 RNA (SALAS) NEGATIVE (NEGATIVE) 11/27/20 Range/Units 06:00 WBC (4.0-11.0) K/uL RBC (4.50-5.90) M/uL Hgb (13.0-17.0) g/dL Hct (38.0-50.0) % MCV (80.0-98.0) fL MCH (27.0-32.0) pg MCHC (31.0-37.0) g/dL RDW Std Deviation (28.0-62.0) fl RDW Coeff of Joseph (11.0-15.0) % Plt Count (150-400) K/uL MPV (7.40-12.00) fL Neut % (Auto) (48.0-80.0) % Lymph % (Auto) (16.0-40.0) % [place] % (Auto) (0.0-15.0) % Eos % (Auto) (0.0-7.0) % Baso % (Auto) (0.0-1.5) % Neut # (Auto) (1.4-5.7) K/uL Lymph # (Auto) (0.6-2.4) K/uL [place] # (Auto) (0.0-0.8) K/uL Eos # (Auto) (0.0-0.7) K/uL Baso # (Auto) (0.0-0.1) K/uL Nucleated RBC % /100WBC Nucleated RBCs # K/uL Sodium 143 (136-148) mmol/L Potassium 4.0 (3.5-5.1) mmol/L Chloride 104 (98-107) mmol/L Carbon Dioxide 32.0 (21.0-32.0) mmol/L BUN 40 H (7.0-18.0) mg/dL Creatinine 1.4 H (0.8-1.3) mg/dL Est Cr Clr Drug Dosing 46.19 Estimated GFR (MDRD) 48.8 ml/min Glucose 126 H (74-106) mg/dL Lactic Acid (0.4-2.0) mmol/L Calcium 8.6 (8.5-10.1) mg/dL Phosphorus 3.6 (2.6-4.7) mg/dL Magnesium 2.2 (1.8-2.4) mg/dL Total Bilirubin (0.2-1.0) mg/dL AST (15-37) IU/L ALT (14-63) IU/L Alkaline Phosphatase (46-116) U/L Troponin I (0.000-0.056) ng/mL Total Protein (6.4-8.2) g/dL Albumin (3.4-5.0) g/dL Globulin (2.6-4.0) g/dL Albumin/Globulin Ratio (0.9-1.6) Urine Color Urine Appearance Urine pH (5.0-8.0) Ur Specific [place] (1.001-1.035) Urine Protein (NEGATIVE) mg/dL Urine Glucose (UA) (NEGATIVE) mg/dL Urine Ketones (NEGATIVE) mg/dL Urine Occult Blood (NEGATIVE) Urine Nitrite (NEGATIVE) Urine Bilirubin (NEGATIVE) Urine Urobilinogen (<2.0) EU/dL Ur Leukocyte Esterase (NEGATIVE) Urine RBC (0-2/HPF) Urine WBC (0-5/HPF) Ur Epithelial Cells (NONE-FEW) Urine Bacteria (NEGATIVE) SARS-CoV-2 RNA (SALAS) (NEGATIVE) Result Diagrams: 11/27/20 06:00 11/27/20 06:00 Sepsis Event Note - Evaluation Sepsis Screening Result: No Definite Risk - Focused Exam Vital Signs: Vital Signs Temp Pulse Resp BP Pulse Ox Pulse Ox 11/27/20 00:16 96 96 11/26/20 22:43 97.3 F 126 H 19 113/66 96 11/26/20 21:50 135 H 18 159/92 H 94 L 11/26/20 21:00 97.4 F 132 H 18 112/73 95 - Problem List (1) Acute kidney injury superimposed on CKD SNOMED Code(s): 69158894 ICD Code: N17.9 - ACUTE KIDNEY FAILURE, UNSPECIFIED; N18.9 - CHRONIC KIDNEY DISEASE, UNSPECIFIED Status: Acute Current Visit: No (2) Acute renal failure SNOMED Code(s): 38562127 ICD Code: N17.9 - ACUTE KIDNEY FAILURE, UNSPECIFIED Status: Acute Current Visit: No Qualifiers: Acute renal failure type: unspecified Qualified Code(s): N17.9 - Acute kidney failure, unspecified (3) Altered mental status SNOMED Code(s): 008376283 ICD Code: R41.82 - ALTERED MENTAL STATUS, UNSPECIFIED Status: Acute Current Visit: No (4) Complicated UTI (urinary tract infection) SNOMED Code(s): 43791849 ICD Code: N39.0 - URINARY TRACT INFECTION, SITE NOT SPECIFIED Status: Acute Current Visit: No (5) Dehydration SNOMED Code(s): 73981323 ICD Code: E86.0 - DEHYDRATION Status: Acute Current Visit: No (6) Generalized pain SNOMED Code(s): 07331534 ICD Code: R52 - PAIN, UNSPECIFIED Status: Acute Current Visit: No (7) History of UTI SNOMED Code(s): 7881949849361, 8679523550791 ICD Code: Z87.440 - PERSONAL HISTORY OF URINARY (TRACT) INFECTIONS Status: Acute Current Visit: No Problem List Initiated/Reviewed/Updated: Yes Orders Last 24hrs: Active Orders 24 hr Category Date Time Status Admission Status [Patient Status] [ADT] Stat ADT 11/26/20 22:23 Active Ambulate [RC] ASDIRECTED Care 11/27/20 00:16 Active Antiembolic Devices [RC] PER UNIT ROUTINE Care 11/27/20 00:17 Active Oxygen Therapy [RC] PRN Care 11/27/20 00:16 Active Pulse Oximetry [RC] PRN Care 11/27/20 00:16 Active RT Aerosol Therapy [RC] ASDIRECTED Care 11/27/20 00:18 Active Telemetry Monitoring [Cardiac Monitoring] [RC] Q8H Care 11/26/20 22:30 Active VTE/DVT Education [RC] PER UNIT ROUTINE Care 11/27/20 00:16 Active Vital Signs [RC] Q4H Care 11/27/20 00:16 Active Clear Liquid Diet [DIET] Diet 11/27/20 Breakfast Active CULTURE BLOOD [BC] Stat Lab 11/26/20 20:40 Received CULTURE BLOOD [BC] Stat Lab 11/26/20 21:05 Received CULTURE URINE [MREF] Stat Lab 11/26/20 21:30 Received VANCOMYCIN TROUGH [CHEM] Timed Lab 11/28/20 20:00 Ordered Acetaminophen [TylenoL] Med 11/27/20 00:16 Active 650 mg PO Q4H PRN Albuterol/Ipratropium [DuoNeb 3.0-0.5 MG/3 ML] Med 11/27/20 00:16 Active 3 ml NEB Q4HRRT PRN Cefepime [Maxipime in D5W 1 GM/50 ML] 1 gm Med 11/27/20 05:00 Active Premix Bag 1 bag IV Q8H Lactated Ringers [Ringers, Lactated] 1,000 ml Med 11/27/20 00:30 Active IV ASDIRECTED Ondansetron [Zofran] Med 11/27/20 00:16 Active 4 mg IVPUSH Q4H PRN Pantoprazole [ProTONIX IV] 40 mg Med 11/27/20 09:00 Active Sodium Chloride 0.9% [Normal Saline] 10 ml IV DAILY Pharmacy to Dose - Vancomycin Med 11/27/20 00:30 Pending 1 dose .XX ASDIRECTED Sodium Chloride 0.9% [Saline Flush] Med 11/26/20 20:10 Active 10 ml FLUSH ASDIRECTED PRN Sodium Chloride 0.9% [Saline Flush] Med 11/26/20 20:10 Active 2.5 ml FLUSH ASDIRECTED PRN VANCOmycin 1.5 GM/300 ML 1.5 gm Med 11/27/20 09:00 Active Premix Bag 1 bag IV Q12H Blood Culture x2 Reflex Set [OM.PC] Stat Oth 11/26/20 20:10 Ordered Saline Lock Insert [OM.PC] Stat Oth 11/26/20 20:10 Ordered Sequential Compression Device [OM.PC] Per Unit Routine Oth 11/27/20 00:16 Ordered Medication Orders Acetaminophen (Acetaminophen 325 Mg Tab) 650 mg PO Q4H PRN PRN Reason: Pain (Mild 1-3)/fever Last Admin: 11/27/20 04:18 Dose: 650 mg Documented by: MIKHAIL Albuterol/Ipratropium (Albuterol/Ipratropium 3.0-0.5 Mg/3 Ml Neb Soln) 3 ml NEB Q4HRRT PRN PRN Reason: Shortness Of Breath/wheezing Cefepime HCl 1 gm/ Premix 50 mls @ 100 mls/hr IV Q8H NIMO Last Admin: 11/27/20 04:21 Dose: 100 mls/hr Documented by: MIKHAIL Lactated Ringer's (Ringers, Lactated) 1,000 mls @ 150 mls/hr IV ASDIRECTED NIMO Pantoprazole Sodium 40 mg/ (Sodium Chloride) 10 mls @ 200 mls/hr IV DAILY NIMO Vancomycin HCl 1.5 gm/ Premix 300 mls @ 200 mls/hr IV Q12H [facility] Ondansetron HCl (Ondansetron 4 Mg/2 Ml Sdv) 4 mg IVPUSH Q4H PRN PRN Reason: Nausea/Vomiting Sodium Chloride (Sodium Chloride 0.9% 10 Ml Syringe) 10 ml FLUSH ASDIRECTED PRN PRN Reason: Keep Vein Open Last Admin: 11/26/20 21:35 Dose: 10 ml Documented by: CARROLL Sodium Chloride (Sodium Chloride 0.9% 2.5 Ml Syringe) 2.5 ml FLUSH ASDIRECTED PRN PRN Reason: Keep Vein Open Last Admin: 11/26/20 21:35 Dose: 2.5 ml Documented by: CARROLL Vancomycin HCl (Pharmacy To Dose - Vancomycin) 1 dose .XX ASDIRECTED [facility] Assessment/Plan Comment:: Urosepsis -Cefepime Q8HR, Vancomycin. Urine culture on prior admission dated 09-16-20 grew E. coli, Enterococcus species. FRAN- LR fluids. Patient has a history of heart failure, will monitor IV fluids carefully and transition to oral fluids based hemodynamic stability, urine output. We will consult physical therapy for ambulation assessment SCDs, Protonix 40 every 24 hours, Zofran 4 mg every 4 as needed Heart healthy diet
[2020-11-27] MEDS ORDERED: Pantoprazole 40 MG Vial IV SCH (09:00)
[2020-11-27] MEDS: VANCOmycin 1.5 GM/300 ML 1.5 GM in Premix Bag 1 BAG IV SCH ×2 (10:07→22:35)
[2020-11-27] MEDS: Pantoprazole 40 MG in Sodium Chloride 0.9% 10 ML IV SCH (10:10)
[2020-11-27] MEDS ORDERED: Carbamide Peroxide 6.5% Otic Soln 15 ML Bottle EARBOTH SCH (11:00)
[2020-11-27] MEDS ORDERED: MENTHOL TOP PRN (11:00)
[2020-11-27] MEDS ORDERED: METHYL SALICYLATE TOP PRN (11:00)
[2020-11-27] MEDS ORDERED: Magnesium Hydroxide 400 MG/5 ML Susp 30 ML Cup PO PRN (11:00)
[2020-11-27] MEDS: Acetaminophen/Codeine 300-30 MG Tab PO PRN ×2 (14:33→21:57)
[2020-11-27] MEDS: Gabapentin 100 MG Cap PO SCH (21:53)
[2020-11-28] MEDS: Cefepime 1 GM in Premix Bag 1 BAG IV SCH ×3 (05:32→20:35)
[2020-11-28 07:02] LABS: CARBON DIOXIDE,CO2 27.2 mmol/L (21.0-32.0); POTASSIUM,K 3.5 mmol/L (3.5-5.1)
[2020-11-28] MEDS: Pantoprazole 40 MG in Sodium Chloride 0.9% 10 ML IV SCH (10:10)
[2020-11-28] MEDS: Gabapentin 100 MG Cap PO SCH ×2 (10:13→20:37)
[2020-11-28] MEDS: VANCOmycin 1.5 GM/300 ML 1.5 GM in Premix Bag 1 BAG IV SCH (10:14)
[2020-11-28] MEDS: Acetaminophen/Codeine 300-30 MG Tab PO PRN ×2 (10:16→16:23)
--- NOTE | 2020-11-28 15:15 | PCM.PN ---
- General Info Date of Service: 11/28/20 - Review of Systems Systems Review Comment:: no new complaints, denies fevers, no shortness of breath - Patient Data Vitals - Most Recent: Last Vital Signs Temp 36.0 C L 11/28/20 12:10 Pulse 87 11/28/20 12:10 Resp 16 11/28/20 12:10 BP 94/56 L 11/28/20 12:10 Pulse Ox 93 L 11/28/20 12:10 Weight - Most Recent: 101.605 kg I&O - Last 24 Hours: Intake & Output 11/28/20 11/28/20 11/28/20 06:59 14:59 22:59 Intake Total 750 Output Total 900 Balance -150 Lab Results Last 24 Hours: Laboratory Results - last 24 hr 11/28/20 11/28/20 Range/Units 06:05 06:05 WBC 8.70 (4.0-11.0) K/uL RBC 4.29 L (4.50-5.90) M/uL Hgb 12.2 L (13.0-17.0) g/dL Hct 38.7 (38.0-50.0) % MCV 90.2 (80.0-98.0) fL MCH 28.4 (27.0-32.0) pg MCHC 31.5 (31.0-37.0) g/dL RDW Std Deviation 52.2 (28.0-62.0) fl RDW Coeff of Joseph 16 H (11.0-15.0) % Plt Count 264 (150-400) K/uL MPV 9.50 (7.40-12.00) fL Neut % (Auto) 67.9 (48.0-80.0) % Lymph % (Auto) 19.1 (16.0-40.0) % [place] % (Auto) 7.4 (0.0-15.0) % Eos % (Auto) 5.1 (0.0-7.0) % Baso % (Auto) 0.5 (0.0-1.5) % Neut # (Auto) 5.9 H (1.4-5.7) K/uL Lymph # (Auto) 1.7 (0.6-2.4) K/uL [place] # (Auto) 0.6 (0.0-0.8) K/uL Eos # (Auto) 0.4 (0.0-0.7) K/uL Baso # (Auto) 0.0 (0.0-0.1) K/uL Nucleated RBC % 0.0 /100WBC Nucleated RBCs # 0 K/uL Sodium 142 (136-148) mmol/L Potassium 3.5 (3.5-5.1) mmol/L Chloride 105 (98-107) mmol/L Carbon Dioxide 27.2 (21.0-32.0) mmol/L BUN 34 H (7.0-18.0) mg/dL Creatinine 1.3 (0.8-1.3) mg/dL Est Cr Clr Drug Dosing 49.74 mL/min Estimated GFR (MDRD) 53.1 ml/min Glucose 100 (74-106) mg/dL Calcium 8.6 (8.5-10.1) mg/dL Eduardo Results Last 24 Hours: Microbiology 11/26/20 21:05 Aerobic Blood Culture - Preliminary Blood - Venous - Lab Draw NO GROWTH AFTER 1 DAY Anaerobic Blood Culture - Preliminary NO GROWTH AFTER 1 DAY 11/26/20 20:40 Aerobic Blood Culture - Preliminary Blood - Venous NO GROWTH AFTER 1 DAY Anaerobic Blood Culture - Preliminary NO GROWTH AFTER 1 DAY Med Orders - Current: Current Medications Acetaminophen (Acetaminophen 325 Mg Tab) 650 mg PO Q4H PRN PRN Reason: Pain (Mild 1-3)/fever Last Admin: 11/27/20 04:18 Dose: 650 mg Documented by: Acetaminophen/Codeine Phosphate (Acetaminophen/Codeine 300-30 Mg Tab) 1 tab PO QID PRN PRN Reason: Pain Last Admin: 11/28/20 10:16 Dose: 1 tab Documented by: Albuterol/Ipratropium (Albuterol/Ipratropium 3.0-0.5 Mg/3 Ml Neb Soln) 3 ml NEB Q4HRRT PRN PRN Reason: Shortness Of Breath/wheezing Gabapentin (Gabapentin 100 Mg Cap) 100 mg PO BID NIMO Last Admin: 11/28/20 10:13 Dose: 100 mg Documented by: Cefepime HCl 1 gm/ Premix 50 mls @ 100 mls/hr IV Q8H NIMO Last Admin: 11/28/20 12:06 Dose: 100 mls/hr Documented by: Pantoprazole Sodium 40 mg/ (Sodium Chloride) 10 mls @ 200 mls/hr IV DAILY NIMO Last Admin: 11/28/20 10:10 Dose: 200 mls/hr Documented by: Vancomycin HCl 1.5 gm/ Premix 300 mls @ 200 mls/hr IV Q12H [facility] Last Admin: 11/28/20 10:14 Dose: 200 mls/hr Documented by: Magnesium Hydroxide (Magnesium Hydroxide 400 Mg/5 Ml Susp 30 Ml Cup) 30 ml PO DAILY PRN PRN Reason: Constipation Ondansetron HCl (Ondansetron 4 Mg/2 Ml Sdv) 4 mg IVPUSH Q4H PRN PRN Reason: Nausea/Vomiting Methyl Salicylate/Menthol [Icy Hot] 35 .4 Gm Cream 1 each TOP Q8H PRN PRN Reason: left knee pain Sodium Chloride (Sodium Chloride 0.9% 10 Ml Syringe) 10 ml FLUSH ASDIRECTED PRN PRN Reason: Keep Vein Open Last Admin: 11/26/20 21:35 Dose: 10 ml Documented by: Sodium Chloride (Sodium Chloride 0.9% 2.5 Ml Syringe) 2.5 ml FLUSH ASDIRECTED PRN PRN Reason: Keep Vein Open Last Admin: 11/26/20 21:35 Dose: 2.5 ml Documented by: Vancomycin HCl (Pharmacy To Dose - Vancomycin) 1 dose .XX ASDIRECTED [facility] Discontinued Medications Vancomycin HCl 1 gm/ Sodium (Chloride) 250 mls @ 166 mls/hr IV ONETIME ONE Stop: 11/26/20 22:33 Last Admin: 11/26/20 21:35 Dose: 166 mls/hr Documented by: Cefepime HCl 1 gm/ Premix 50 mls @ 100 mls/hr IV ONETIME ONE Stop: 11/26/20 21:33 Last Admin: 11/26/20 21:32 Dose: 100 mls/hr Documented by: Sodium Chloride (Normal Saline) 1,000 mls @ 999 mls/hr IV STAT ONE Stop: 11/26/20 22:40 Last Admin: 11/26/20 22:41 Dose: 999 mls/hr Documented by: Lactated Ringer's (Ringers, Lactated) 1,000 mls @ 125 mls/hr IV ASDIRECTED [facility] Last Admin: 11/27/20 10:37 Dose: 150 mls/hr Documented by: - Exam General: Cooperative, No Acute Distress Lungs: Clear to Auscultation, Normal Respiratory Effort Cardiovascular: Regular Rate, Regular Rhythm GI/Abdominal Exam: Normal Bowel Sounds, Soft, Non-Tender Extremities: Non-Tender, No Pedal Edema Skin: Warm, Dry, Intact Neurological: No New Focal Deficit - Patient Data Lab Results Last 24 hrs: Laboratory Results - last 24 hr 11/28/20 11/28/20 Range/Units 06:05 06:05 WBC 8.70 (4.0-11.0) K/uL RBC 4.29 L (4.50-5.90) M/uL Hgb 12.2 L (13.0-17.0) g/dL Hct 38.7 (38.0-50.0) % MCV 90.2 (80.0-98.0) fL MCH 28.4 (27.0-32.0) pg MCHC 31.5 (31.0-37.0) g/dL RDW Std Deviation 52.2 (28.0-62.0) fl RDW Coeff of Joseph 16 H (11.0-15.0) % Plt Count 264 (150-400) K/uL MPV 9.50 (7.40-12.00) fL Neut % (Auto) 67.9 (48.0-80.0) % Lymph % (Auto) 19.1 (16.0-40.0) % [place] % (Auto) 7.4 (0.0-15.0) % Eos % (Auto) 5.1 (0.0-7.0) % Baso % (Auto) 0.5 (0.0-1.5) % Neut # (Auto) 5.9 H (1.4-5.7) K/uL Lymph # (Auto) 1.7 (0.6-2.4) K/uL [place] # (Auto) 0.6 (0.0-0.8) K/uL Eos # (Auto) 0.4 (0.0-0.7) K/uL Baso # (Auto) 0.0 (0.0-0.1) K/uL Nucleated RBC % 0.0 /100WBC Nucleated RBCs # 0 K/uL Sodium 142 (136-148) mmol/L Potassium 3.5 (3.5-5.1) mmol/L Chloride 105 (98-107) mmol/L Carbon Dioxide 27.2 (21.0-32.0) mmol/L BUN 34 H (7.0-18.0) mg/dL Creatinine 1.3 (0.8-1.3) mg/dL Est Cr Clr Drug Dosing 49.74 mL/min Estimated GFR (MDRD) 53.1 ml/min Glucose 100 (74-106) mg/dL Calcium 8.6 (8.5-10.1) mg/dL Result Diagrams: 11/28/20 06:05 11/28/20 06:05 Eduardo Results Last 24 hrs: Microbiology 11/26/20 21:05 Aerobic Blood Culture - Preliminary Blood - Venous - Lab Draw NO GROWTH AFTER 1 DAY Anaerobic Blood Culture - Preliminary NO GROWTH AFTER 1 DAY 11/26/20 20:40 Aerobic Blood Culture - Preliminary Blood - Venous NO GROWTH AFTER 1 DAY Anaerobic Blood Culture - Preliminary NO GROWTH AFTER 1 DAY Sepsis Event Note - Evaluation Sepsis Screening Result: No Definite Risk - Focused Exam Vital Signs: Vital Signs Temp Temp Pulse Resp BP Pulse Ox 11/28/20 12:10 36.0 C L 87 16 94/56 L 93 L 11/28/20 08:53 36.2 C 64 16 96/50 L 96 11/28/20 05:29 36.6 C 85 16 121/64 95 - Problem List Review Problem List Initiated/Reviewed/Updated: Yes - My Orders Last 24 Hours: My Active Orders 11/29/20 05:11 BASIC METABOLIC PANEL,BMP [CHEM] AM CBC WITH AUTO DIFF [HEME] AM - Plan Plan:: UTI -Cefepime Q8HR, Vancomycin. Urine culture on prior admission dated 09-16-20 grew E. coli, Enterococcus species. FRAN- resolving We will consult physical therapy for ambulation assessment SCDs, Protonix 40 every 24 hours, Zofran 4 mg every 4 as needed Heart healthy diet
[2020-11-29] MEDS: Acetaminophen/Codeine 300-30 MG Tab PO PRN (02:17)
[2020-11-29] MEDS: Cefepime 1 GM in Premix Bag 1 BAG IV SCH ×3 (04:36→20:07)
[2020-11-29 06:54] LABS: CARBON DIOXIDE,CO2 24.1 mmol/L (21.0-32.0); POTASSIUM,K 3.5 mmol/L (3.5-5.1)
[2020-11-29] MEDS: Pantoprazole 40 MG in Sodium Chloride 0.9% 10 ML IV SCH (09:25)
[2020-11-29] MEDS: Gabapentin 100 MG Cap PO SCH ×2 (09:37→20:05)
--- NOTE | 2020-11-29 11:52 | PCM.PN ---
- General Info Date of Service: 11/29/20 Subjective Update: Patient states no concerns overnight, patient states slept well eating well. Patient appears to be somewhat agitated and aggressive upon questioning this morning. Patient denied chest pain, shortness of breath, bowel pain, fever, chills. - Review of Systems General: Denies: Fever, Chills Pulmonary: Denies: Shortness of Breath, Cough Cardiovascular: Denies: Chest Pain, Palpitations, Orthopnea, Edema Gastrointestinal: Denies: Abdominal Pain, Decreased Appetite, Diarrhea, Nausea, Vomiting Neurological: Denies: Confusion, Dizziness, Headache - Patient Data Vitals - Most Recent: Last Vital Signs Temp 97.8 F 11/29/20 07:00 Pulse 64 11/29/20 07:00 Resp 14 11/29/20 07:00 BP 107/60 11/29/20 07:00 Pulse Ox 94 L 11/29/20 07:00 Weight - Most Recent: 221 lb 8 oz I&O - Last 24 Hours: Intake & Output 11/28/20 11/29/20 11/29/20 22:59 06:59 14:59 Intake Total 1602 600 Output Total 700 850 Balance 902 -250 Lab Results Last 24 Hours: Laboratory Results - last 24 hr 11/28/20 11/29/20 11/29/20 Range/Units 20:10 06:10 06:10 WBC 8.47 (4.0-11.0) K/uL RBC 3.88 L (4.50-5.90) M/uL Hgb 11.1 L (13.0-17.0) g/dL Hct 34.5 L (38.0-50.0) % MCV 88.9 (80.0-98.0) fL MCH 28.6 (27.0-32.0) pg MCHC 32.2 (31.0-37.0) g/dL RDW Std Deviation 50.1 (28.0-62.0) fl RDW Coeff of Joseph 16 H (11.0-15.0) % Plt Count 274 (150-400) K/uL MPV 9.20 (7.40-12.00) fL Neut % (Auto) 67.0 (48.0-80.0) % Lymph % (Auto) 22.8 (16.0-40.0) % [place] % (Auto) 5.2 (0.0-15.0) % Eos % (Auto) 4.5 (0.0-7.0) % Baso % (Auto) 0.5 (0.0-1.5) % Neut # (Auto) 5.7 (1.4-5.7) K/uL Lymph # (Auto) 1.9 (0.6-2.4) K/uL [place] # (Auto) 0.4 (0.0-0.8) K/uL Eos # (Auto) 0.4 (0.0-0.7) K/uL Baso # (Auto) 0.0 (0.0-0.1) K/uL Nucleated RBC % 0.0 /100WBC Nucleated RBCs # 0 K/uL Sodium 140 (136-148) mmol/L Potassium 3.5 (3.5-5.1) mmol/L Chloride 105 (98-107) mmol/L Carbon Dioxide 24.1 (21.0-32.0) mmol/L BUN 38 H (7.0-18.0) mg/dL Creatinine 1.3 (0.8-1.3) mg/dL Est Cr Clr Drug Dosing 49.74 mL/min Estimated GFR (MDRD) 53.1 ml/min Glucose 97 (74-106) mg/dL Calcium 8.6 (8.5-10.1) mg/dL Vancomycin Trough 34.1 H (5.0-10.0) ug/mL Eduardo Results Last 24 Hours: Microbiology 11/26/20 21:05 Aerobic Blood Culture - Preliminary Blood - Venous - Lab Draw NO GROWTH AFTER 2 DAYS Anaerobic Blood Culture - Preliminary NO GROWTH AFTER 2 DAYS 11/26/20 20:40 Aerobic Blood Culture - Preliminary Blood - Venous NO GROWTH AFTER 2 DAYS Anaerobic Blood Culture - Preliminary NO GROWTH AFTER 2 DAYS Med Orders - Current: Current Medications Acetaminophen (Acetaminophen 325 Mg Tab) 650 mg PO Q4H PRN PRN Reason: Pain (Mild 1-3)/fever Last Admin: 11/27/20 04:18 Dose: 650 mg Documented by: Acetaminophen/Codeine Phosphate (Acetaminophen/Codeine 300-30 Mg Tab) 1 tab PO QID PRN PRN Reason: Pain Last Admin: 11/29/20 02:17 Dose: 1 tab Documented by: Albuterol/Ipratropium (Albuterol/Ipratropium 3.0-0.5 Mg/3 Ml Neb Soln) 3 ml NEB Q4HRRT PRN PRN Reason: Shortness Of Breath/wheezing Gabapentin (Gabapentin 100 Mg Cap) 100 mg PO BID [facility] Last Admin: 11/29/20 09:37 Dose: Not Given Documented by: Cefepime HCl 1 gm/ Premix 50 mls @ 100 mls/hr IV Q8H [facility] Last Admin: 11/29/20 04:36 Dose: 100 mls/hr Documented by: Pantoprazole Sodium 40 mg/ (Sodium Chloride) 10 mls @ 200 mls/hr IV DAILY [facility] Last Infusion: 11/29/20 09:28 Dose: Infused Documented by: Magnesium Hydroxide (Magnesium Hydroxide 400 Mg/5 Ml Susp 30 Ml Cup) 30 ml PO DAILY PRN PRN Reason: Constipation Ondansetron HCl (Ondansetron 4 Mg/2 Ml Sdv) 4 mg IVPUSH Q4H PRN PRN Reason: Nausea/Vomiting Methyl Salicylate/Menthol [Icy Hot] 35 .4 Gm Cream 1 each TOP Q8H PRN PRN Reason: left knee pain Sodium Chloride (Sodium Chloride 0.9% 10 Ml Syringe) 10 ml FLUSH ASDIRECTED PRN PRN Reason: Keep Vein Open Last Admin: 11/26/20 21:35 Dose: 10 ml Documented by: Sodium Chloride (Sodium Chloride 0.9% 2.5 Ml Syringe) 2.5 ml FLUSH ASDIRECTED PRN PRN Reason: Keep Vein Open Last Admin: 11/26/20 21:35 Dose: 2.5 ml Documented by: Vancomycin HCl (Pharmacy To Dose - Vancomycin) 1 dose .XX ASDIRECTED [facility] Discontinued Medications Vancomycin HCl 1 gm/ Sodium (Chloride) 250 mls @ 166 mls/hr IV ONETIME ONE Stop: 11/26/20 22:33 Last Admin: 11/26/20 21:35 Dose: 166 mls/hr Documented by: Cefepime HCl 1 gm/ Premix 50 mls @ 100 mls/hr IV ONETIME ONE Stop: 11/26/20 21:33 Last Admin: 11/26/20 21:32 Dose: 100 mls/hr Documented by: Sodium Chloride (Normal Saline) 1,000 mls @ 999 mls/hr IV STAT ONE Stop: 11/26/20 22:40 Last Admin: 11/26/20 22:41 Dose: 999 mls/hr Documented by: Lactated Ringer's (Ringers, Lactated) 1,000 mls @ 125 mls/hr IV ASDIRECTED [facility] Last Admin: 11/27/20 10:37 Dose: 150 mls/hr Documented by: Vancomycin HCl 1.5 gm/ Premix 300 mls @ 200 mls/hr IV Q12H [facility] Last Admin: 11/28/20 10:14 Dose: 200 mls/hr Documented by: - Exam General: Alert, Oriented Lungs: Clear to Auscultation, Normal Respiratory Effort Cardiovascular: Regular Rate, Regular Rhythm GI/Abdominal Exam: Soft, Non-Tender Extremities: No Pedal Edema - Patient Data Lab Results Last 24 hrs: Laboratory Results - last 24 hr 11/28/20 11/29/20 11/29/20 Range/Units 20:10 06:10 06:10 WBC 8.47 (4.0-11.0) K/uL RBC 3.88 L (4.50-5.90) M/uL Hgb 11.1 L (13.0-17.0) g/dL Hct 34.5 L (38.0-50.0) % MCV 88.9 (80.0-98.0) fL MCH 28.6 (27.0-32.0) pg MCHC 32.2 (31.0-37.0) g/dL RDW Std Deviation 50.1 (28.0-62.0) fl RDW Coeff of Joseph 16 H (11.0-15.0) % Plt Count 274 (150-400) K/uL MPV 9.20 (7.40-12.00) fL Neut % (Auto) 67.0 (48.0-80.0) % Lymph % (Auto) 22.8 (16.0-40.0) % [place] % (Auto) 5.2 (0.0-15.0) % Eos % (Auto) 4.5 (0.0-7.0) % Baso % (Auto) 0.5 (0.0-1.5) % Neut # (Auto) 5.7 (1.4-5.7) K/uL Lymph # (Auto) 1.9 (0.6-2.4) K/uL [place] # (Auto) 0.4 (0.0-0.8) K/uL Eos # (Auto) 0.4 (0.0-0.7) K/uL Baso # (Auto) 0.0 (0.0-0.1) K/uL Nucleated RBC % 0.0 /100WBC Nucleated RBCs # 0 K/uL Sodium 140 (136-148) mmol/L Potassium 3.5 (3.5-5.1) mmol/L Chloride 105 (98-107) mmol/L Carbon Dioxide 24.1 (21.0-32.0) mmol/L BUN 38 H (7.0-18.0) mg/dL Creatinine 1.3 (0.8-1.3) mg/dL Est Cr Clr Drug Dosing 49.74 mL/min Estimated GFR (MDRD) 53.1 ml/min Glucose 97 (74-106) mg/dL Calcium 8.6 (8.5-10.1) mg/dL Vancomycin Trough 34.1 H (5.0-10.0) ug/mL Result Diagrams: 11/29/20 06:10 11/29/20 06:10 Eduardo Results Last 24 hrs: Microbiology 11/26/20 21:05 Aerobic Blood Culture - Preliminary Blood - Venous - Lab Draw NO GROWTH AFTER 2 DAYS Anaerobic Blood Culture - Preliminary NO GROWTH AFTER 2 DAYS 11/26/20 20:40 Aerobic Blood Culture - Preliminary Blood - Venous NO GROWTH AFTER 2 DAYS Anaerobic Blood Culture - Preliminary NO GROWTH AFTER 2 DAYS Sepsis Event Note - Evaluation Sepsis Screening Result: No Definite Risk - Focused Exam Vital Signs: Vital Signs Temp Pulse Resp BP Pulse Ox 11/29/20 07:00 97.8 F 64 14 107/60 94 L 11/29/20 03:21 97.7 F 72 17 136/71 92 L - Problem List & Annotations (1) Acute kidney injury superimposed on CKD SNOMED Code(s): 13216397 Code(s): N17.9 - ACUTE KIDNEY FAILURE, UNSPECIFIED; N18.9 - CHRONIC KIDNEY DISEASE, UNSPECIFIED Status: Acute Current Visit: No (2) Acute renal failure SNOMED Code(s): 89607471 Code(s): N17.9 - ACUTE KIDNEY FAILURE, UNSPECIFIED Status: Acute Current Visit: No Qualifiers: Qualified Code(s): N17.9 - Acute kidney failure, unspecified (3) Altered mental status SNOMED Code(s): 759373023 Code(s): R41.82 - ALTERED MENTAL STATUS, UNSPECIFIED Status: Acute Current Visit: No (4) Complicated UTI (urinary tract infection) SNOMED Code(s): 03833956 Code(s): N39.0 - URINARY TRACT INFECTION, SITE NOT SPECIFIED Status: Acute Current Visit: No (5) Dehydration SNOMED Code(s): 66463859 Code(s): E86.0 - DEHYDRATION Status: Acute Current Visit: No (6) Generalized pain SNOMED Code(s): 65035589 Code(s): R52 - PAIN, UNSPECIFIED Status: Acute Current Visit: No (7) History of UTI SNOMED Code(s): 3814471630323, 1091464543399 Code(s): Z87.440 - PERSONAL HISTORY OF URINARY (TRACT) INFECTIONS Status: Acute Current Visit: No - Problem List Review Problem List Initiated/Reviewed/Updated: Yes - Plan Plan:: UTI -Cefepime Q8HR, Vancomycin. Urine culture on prior admission dated 09-16-20 grew E. coli, Enterococcus species. Patient will remain on IV antibiotics until urine culture results are received. Per physical therapy, patient baseline at [facility] is pivot transfer and wheelchair bound. We will continue exercise in bed. SCDs, Protonix 40 every 24 hours, Zofran 4 mg every 4 as needed Heart healthy diet Discharge pending on urine culture results.
[2020-11-29] MEDS: Enoxaparin 40 MG/0.4 ML Syringe SUBCUT SCH (17:23)
[2020-11-30] MEDS: Cefepime 1 GM in Premix Bag 1 BAG IV SCH ×3 (04:34→20:57)
[2020-11-30 07:15] LABS: CARBON DIOXIDE,CO2 28.6 mmol/L (21.0-32.0); POTASSIUM,K 3.7 mmol/L (3.5-5.1)
[2020-11-30] MEDS: Gabapentin 100 MG Cap PO SCH ×2 (09:46→21:00)
[2020-11-30] MEDS: Pantoprazole 40 MG in Sodium Chloride 0.9% 10 ML IV SCH (09:47)
--- NOTE | 2020-11-30 13:22 | PCM.PN ---
- General Info Date of Service: 11/30/20 Subjective Update: Patient appeared confused on questioning this morning stated he was in the drive home today. Patient denies chest pain, shortness of breath, abdominal pain. - Review of Systems General: Denies: Fever, Chills Cardiovascular: Denies: Chest Pain, Dyspnea on Exertion, Edema Gastrointestinal: Denies: Abdominal Pain, Nausea, Vomiting - Patient Data Vitals - Most Recent: Last Vital Signs Temp 97.2 F 11/30/20 11:00 Pulse 70 11/30/20 11:00 Resp 14 11/30/20 11:00 BP 118/70 11/30/20 11:00 Pulse Ox 100 11/30/20 11:00 Weight - Most Recent: 224 lb I&O - Last 24 Hours: Intake & Output 11/29/20 11/30/20 11/30/20 22:59 06:59 14:59 Intake Total 650 1000 860 Output Total 600 850 500 Balance 50 150 360 Lab Results Last 24 Hours: Laboratory Results - last 24 hr 11/30/20 11/30/20 Range/Units 05:26 05:26 WBC 6.80 (4.0-11.0) K/uL RBC 4.09 L (4.50-5.90) M/uL Hgb 11.6 L (13.0-17.0) g/dL Hct 36.5 L (38.0-50.0) % MCV 89.2 (80.0-98.0) fL MCH 28.4 (27.0-32.0) pg MCHC 31.8 (31.0-37.0) g/dL RDW Std Deviation 50.0 (28.0-62.0) fl RDW Coeff of Joseph 16 H (11.0-15.0) % Plt Count 306 (150-400) K/uL MPV 9.90 (7.40-12.00) fL Neut % (Auto) 55.9 (48.0-80.0) % Lymph % (Auto) 26.5 (16.0-40.0) % [place] % (Auto) 10.6 (0.0-15.0) % Eos % (Auto) 6.6 (0.0-7.0) % Baso % (Auto) 0.4 (0.0-1.5) % Neut # (Auto) 3.8 (1.4-5.7) K/uL Lymph # (Auto) 1.8 (0.6-2.4) K/uL [place] # (Auto) 0.7 (0.0-0.8) K/uL Eos # (Auto) 0.5 (0.0-0.7) K/uL Baso # (Auto) 0.0 (0.0-0.1) K/uL Nucleated RBC % 0.0 /100WBC Nucleated RBCs # 0 K/uL Sodium 142 (136-148) mmol/L Potassium 3.7 (3.5-5.1) mmol/L Chloride 105 (98-107) mmol/L Carbon Dioxide 28.6 (21.0-32.0) mmol/L BUN 34 H (7.0-18.0) mg/dL Creatinine 1.3 (0.8-1.3) mg/dL Est Cr Clr Drug Dosing 49.74 mL/min Estimated GFR (MDRD) 53.1 ml/min Glucose 95 (74-106) mg/dL Calcium 8.7 (8.5-10.1) mg/dL Eduardo Results Last 24 Hours: Microbiology 11/26/20 21:30 Urine Culture - Preliminary Urine Pseudomonas Aeruginosa Escherichia Coli Gram Negative Rods 11/26/20 21:05 Aerobic Blood Culture - Preliminary Blood - Venous - Lab Draw NO GROWTH AFTER 3 DAYS Anaerobic Blood Culture - Preliminary NO GROWTH AFTER 3 DAYS 11/26/20 20:40 Aerobic Blood Culture - Preliminary Blood - Venous NO GROWTH AFTER 3 DAYS Anaerobic Blood Culture - Preliminary NO GROWTH AFTER 3 DAYS Med Orders - Current: Current Medications Acetaminophen (Acetaminophen 325 Mg Tab) 650 mg PO Q4H PRN PRN Reason: Pain (Mild 1-3)/fever Last Admin: 11/27/20 04:18 Dose: 650 mg Documented by: Acetaminophen/Codeine Phosphate (Acetaminophen/Codeine 300-30 Mg Tab) 1 tab PO QID PRN PRN Reason: Pain Last Admin: 11/29/20 02:17 Dose: 1 tab Documented by: Albuterol/Ipratropium (Albuterol/Ipratropium 3.0-0.5 Mg/3 Ml Neb Soln) 3 ml NEB Q4HRRT PRN PRN Reason: Shortness Of Breath/wheezing Enoxaparin Sodium (Enoxaparin 40 Mg/0.4 Ml Syringe) 40 mg SUBCUT Q24H [facility] Last Admin: 11/29/20 17:23 Dose: 40 mg Documented by: Gabapentin (Gabapentin 100 Mg Cap) 100 mg PO BID [facility] Last Admin: 11/30/20 09:46 Dose: 100 mg Documented by: Cefepime HCl 1 gm/ Premix 50 mls @ 100 mls/hr IV Q8H [facility] Last Admin: 11/30/20 12:44 Dose: 100 mls/hr Documented by: Pantoprazole Sodium 40 mg/ (Sodium Chloride) 10 mls @ 200 mls/hr IV DAILY [facility] Last Admin: 11/30/20 09:47 Dose: 200 mls/hr Documented by: Vancomycin HCl 1.25 gm/ Sodium (Chloride) 250 mls @ 166.667 mls/hr IV Q24H [facility] Last Admin: 11/29/20 21:03 Dose: 166.667 mls/hr Documented by: Magnesium Hydroxide (Magnesium Hydroxide 400 Mg/5 Ml Susp 30 Ml Cup) 30 ml PO DAILY PRN PRN Reason: Constipation Ondansetron HCl (Ondansetron 4 Mg/2 Ml Sdv) 4 mg IVPUSH Q4H PRN PRN Reason: Nausea/Vomiting Methyl Salicylate/Menthol [Icy Hot] 35 .4 Gm Cream 1 each TOP Q8H PRN PRN Reason: left knee pain Sodium Chloride (Sodium Chloride 0.9% 10 Ml Syringe) 10 ml FLUSH ASDIRECTED PRN PRN Reason: Keep Vein Open Last Admin: 11/26/20 21:35 Dose: 10 ml Documented by: Sodium Chloride (Sodium Chloride 0.9% 2.5 Ml Syringe) 2.5 ml FLUSH ASDIRECTED PRN PRN Reason: Keep Vein Open Last Admin: 11/26/20 21:35 Dose: 2.5 ml Documented by: Vancomycin HCl (Pharmacy To Dose - Vancomycin) 1 dose .XX ASDIRECTED [facility] Discontinued Medications Vancomycin HCl 1 gm/ Sodium (Chloride) 250 mls @ 166 mls/hr IV ONETIME ONE Stop: 11/26/20 22:33 Last Admin: 11/26/20 21:35 Dose: 166 mls/hr Documented by: Cefepime HCl 1 gm/ Premix 50 mls @ 100 mls/hr IV ONETIME ONE Stop: 11/26/20 21:33 Last Admin: 11/26/20 21:32 Dose: 100 mls/hr Documented by: Sodium Chloride (Normal Saline) 1,000 mls @ 999 mls/hr IV STAT ONE Stop: 11/26/20 22:40 Last Admin: 11/26/20 22:41 Dose: 999 mls/hr Documented by: Lactated Ringer's (Ringers, Lactated) 1,000 mls @ 125 mls/hr IV ASDIRECTED [facility] Last Admin: 11/27/20 10:37 Dose: 150 mls/hr Documented by: Vancomycin HCl 1.5 gm/ Premix 300 mls @ 200 mls/hr IV Q12H [facility] Last Admin: 11/28/20 10:14 Dose: 200 mls/hr Documented by: - Exam General: Alert, Oriented Lungs: Clear to Auscultation, Normal Respiratory Effort Cardiovascular: Regular Rate, Regular Rhythm GI/Abdominal Exam: Soft, Non-Tender, No Distention Psy/Mental Status: Alert - Patient Data Lab Results Last 24 hrs: Laboratory Results - last 24 hr 11/30/20 11/30/20 Range/Units 05:26 05:26 WBC 6.80 (4.0-11.0) K/uL RBC 4.09 L (4.50-5.90) M/uL Hgb 11.6 L (13.0-17.0) g/dL Hct 36.5 L (38.0-50.0) % MCV 89.2 (80.0-98.0) fL MCH 28.4 (27.0-32.0) pg MCHC 31.8 (31.0-37.0) g/dL RDW Std Deviation 50.0 (28.0-62.0) fl RDW Coeff of Joseph 16 H (11.0-15.0) % Plt Count 306 (150-400) K/uL MPV 9.90 (7.40-12.00) fL Neut % (Auto) 55.9 (48.0-80.0) % Lymph % (Auto) 26.5 (16.0-40.0) % [place] % (Auto) 10.6 (0.0-15.0) % Eos % (Auto) 6.6 (0.0-7.0) % Baso % (Auto) 0.4 (0.0-1.5) % Neut # (Auto) 3.8 (1.4-5.7) K/uL Lymph # (Auto) 1.8 (0.6-2.4) K/uL [place] # (Auto) 0.7 (0.0-0.8) K/uL Eos # (Auto) 0.5 (0.0-0.7) K/uL Baso # (Auto) 0.0 (0.0-0.1) K/uL Nucleated RBC % 0.0 /100WBC Nucleated RBCs # 0 K/uL Sodium 142 (136-148) mmol/L Potassium 3.7 (3.5-5.1) mmol/L Chloride 105 (98-107) mmol/L Carbon Dioxide 28.6 (21.0-32.0) mmol/L BUN 34 H (7.0-18.0) mg/dL Creatinine 1.3 (0.8-1.3) mg/dL Est Cr Clr Drug Dosing 49.74 mL/min Estimated GFR (MDRD) 53.1 ml/min Glucose 95 (74-106) mg/dL Calcium 8.7 (8.5-10.1) mg/dL Result Diagrams: 11/30/20 05:26 11/30/20 05:26 Eduardo Results Last 24 hrs: Microbiology 11/26/20 21:30 Urine Culture - Preliminary Urine Pseudomonas Aeruginosa Escherichia Coli Gram Negative Rods 11/26/20 21:05 Aerobic Blood Culture - Preliminary Blood - Venous - Lab Draw NO GROWTH AFTER 3 DAYS Anaerobic Blood Culture - Preliminary NO GROWTH AFTER 3 DAYS 11/26/20 20:40 Aerobic Blood Culture - Preliminary Blood - Venous NO GROWTH AFTER 3 DAYS Anaerobic Blood Culture - Preliminary NO GROWTH AFTER 3 DAYS Sepsis Event Note - Evaluation Sepsis Screening Result: No Definite Risk - Focused Exam Vital Signs: Vital Signs Temp Temp Pulse Resp BP Pulse Ox 11/30/20 11:00 97.2 F 70 14 118/70 100 11/30/20 08:00 97.9 F 64 14 130/64 92 L 11/30/20 04:37 97 F 72 17 121/62 94 L - Problem List & Annotations (1) Acute kidney injury superimposed on CKD SNOMED Code(s): 45830476 Code(s): N17.9 - ACUTE KIDNEY FAILURE, UNSPECIFIED; N18.9 - CHRONIC KIDNEY DISEASE, UNSPECIFIED Status: Acute Current Visit: No (2) Acute renal failure SNOMED Code(s): 05348041 Code(s): N17.9 - ACUTE KIDNEY FAILURE, UNSPECIFIED Status: Acute Current Visit: No Qualifiers: Acute renal failure type: unspecified Qualified Code(s): N17.9 - Acute kidney failure, unspecified (3) Altered mental status SNOMED Code(s): 339223549 Code(s): R41.82 - ALTERED MENTAL STATUS, UNSPECIFIED Status: Acute Current Visit: No (4) Complicated UTI (urinary tract infection) SNOMED Code(s): 73054916 Code(s): N39.0 - URINARY TRACT INFECTION, SITE NOT SPECIFIED Status: Acute Current Visit: No (5) Dehydration SNOMED Code(s): 06599964 Code(s): E86.0 - DEHYDRATION Status: Acute Current Visit: No (6) Generalized pain SNOMED Code(s): 59322458 Code(s): R52 - PAIN, UNSPECIFIED Status: Acute Current Visit: No (7) History of UTI SNOMED Code(s): 7967135695840, 9153571407310 Code(s): Z87.440 - PERSONAL HISTORY OF URINARY (TRACT) INFECTIONS Status: Acute Current Visit: No - Problem List Review Problem List Initiated/Reviewed/Updated: Yes - My Orders Last 24 Hours: My Active Orders 11/29/20 16:00 Enoxaparin [Lovenox] 40 mg SUBCUT Q24H - Plan Plan:: UTI -Cefepime Q8HR, Vancomycin. Urine culture grew E. coli, Pseudomonas Aeruginosa Per physical therapy, patient baseline at [facility] is pivot transfer and wheelchair bound. We will continue exercise in bed. SCDs, Protonix 40 every 24 hours, Zofran 4 mg every 4 as needed Heart healthy diet Patient to be discharged pending bacterial susceptibilities as patient has a history of recurrent UTI's
[2020-11-30] MEDS: Enoxaparin 40 MG/0.4 ML Syringe SUBCUT SCH (16:21)
[2020-12-01 07:28] LABS: CARBON DIOXIDE,CO2 24.1 mmol/L (21.0-32.0); POTASSIUM,K 3.9 mmol/L (3.5-5.1)
[2020-12-01] MEDS: Pantoprazole 40 MG in Sodium Chloride 0.9% 10 ML IV SCH (09:16)
[2020-12-01] MEDS: Gabapentin 100 MG Cap PO SCH (09:18)
--- NOTE | 2020-12-01 10:04 | PCM.DCSUM1 ---
Discharge Summary - Hospital Course Free Text/Narrative:: 80-year-old male presents to the emergency department from [facility] with complaints of confusion. Patient's past medical history includes hyperlipidemia, hypertension, CKD, dementia. Per documentation detention staff felt the patient was more confused. Of note patient was admitted to the hospital on 09-16-20 for urosepsis, discharged on antibiotics. Patient is a poor historian, information obtained from documentation. Upon questioning patient does not understand why he has been admitted to the hospital. Denied chest pain, shortness of breath, abdominal pain, vomiting. States left lower leg and left heel pain. Laboratory admission includes white blood cell count 14.8, hemoglobin 12.9, platelet 24, sodium 143, potassium 4.0, BUN 40, creatinine 1.4,. Urinalysis positive for nitrite, positive for leukocyte Esterase. Chest x-ray impression- lungs are clear, no sizable pleural effusion or pneumothorax. Cardiomediastinal silhouette is normal. Patient was admitted for treatment of sepsis secondary to UTI, FRAN. Patient trated with IV vancomycin and cefepime. Patient remained in the hospital until urine culture sensitivities returned. Patient's urine culture grew Pseudomonas aeruginosa, E. coli, Serratia Marcescens. Patient was discharged to [facility] in stable condition on ciprofloxacin antibiotic which was an appropriate choice based on culture sensitivities. Diagnosis: Stroke: No - Discharge Data Discharge Date: 12/01/20 Discharge Disposition: DC/Tfer to [facility] 03 Condition: Good - Referral to Home Health Primary Care Physician: PCP None - Discharge Diagnosis/Problem(s) (1) Acute kidney injury superimposed on CKD SNOMED Code(s): 05986456 ICD Code: N17.9 - ACUTE KIDNEY FAILURE, UNSPECIFIED; N18.9 - CHRONIC KIDNEY DISEASE, UNSPECIFIED Status: Acute (2) Acute renal failure SNOMED Code(s): 53963022 ICD Code: N17.9 - ACUTE KIDNEY FAILURE, UNSPECIFIED Status: Acute Qualifiers: Acute renal failure type: unspecified Qualified Code(s): N17.9 - Acute kidney failure, unspecified (3) Altered mental status SNOMED Code(s): 598847482 ICD Code: R41.82 - ALTERED MENTAL STATUS, UNSPECIFIED Status: Acute (4) Complicated UTI (urinary tract infection) SNOMED Code(s): 40333603 ICD Code: N39.0 - URINARY TRACT INFECTION, SITE NOT SPECIFIED Status: Acute (5) Dehydration SNOMED Code(s): 76834275 ICD Code: E86.0 - DEHYDRATION Status: Acute (6) Generalized pain SNOMED Code(s): 59504055 ICD Code: R52 - PAIN, UNSPECIFIED Status: Acute (7) History of UTI SNOMED Code(s): 9707972096490, 8448895019213 ICD Code: Z87.440 - PERSONAL HISTORY OF URINARY (TRACT) INFECTIONS Status: Acute - Patient Summary/Data Consults: Consultations 11/27/20 09:45 Consult to Physical Therapy [PT Evaluation and Treatment] [CONS] Routine - Patient Instructions Other/Special Instructions: PT/OT/SPEECH - Discharge Plan *PRESCRIPTION DRUG MONITORING PROGRAM REVIEWED*: No *COPY OF PRESCRIPTION DRUG MONITORING REPORT IN PATIENT VINNY: No Prescriptions/Med Rec: Ciprofloxacin [Ciprofloxacin HCl] 500 mg PO BID #6 tab Home Medications: Home Meds Acetaminophen [Tylenol] 650 mg PO Q8H PRN 09/06/16 [History] Methyl Salicylate/Menthol [Icy Hot] 1 applic TOP Q8H PRN 09/06/16 [History] Cetirizine [ZyrTEC] 1 tab PO BID 09/01/18 [History] Carbamide Peroxide [Debrox] 3 applic OT ASDIRECTED 09/16/20 [History] Magnesium Hydroxide [Milk of Magnesia] 30 ml PO DAILY PRN 09/16/20 [History] Furosemide [Lasix] 80 mg PO DAILY #0 09/22/20 [Rx] Acetaminophen with Codeine [Acetaminophen-Cod #3] 1 each PO QID PRN 11/27/20 [History] Gabapentin [Neurontin] 100 mg PO BID 11/27/20 [History] Ciprofloxacin [Ciprofloxacin HCl] 500 mg PO BID #6 tab 12/01/20 [Rx] Patient Handouts: Urinary Tract Infection, Adult, [id number], Sepsis, Diagnosis, Adult, Ciprofloxacin tablets Referrals: PCP,None [Primary Care Provider] - - Discharge Summary/Plan Comment DC Time >30 min.: Yes Total # of Minutes for Discharge Time: 35 - General Info Date of Service: 12/01/20 Subjective Update: Patient states he felt fine, no complaints. - Review of Systems General: Denies: Fever Pulmonary: Denies: Shortness of Breath, Cough Cardiovascular: Denies: Chest Pain, Dyspnea on Exertion, Edema Gastrointestinal: Denies: Abdominal Pain, Decreased Appetite, Diarrhea, Nausea, Vomiting Neurological: Reports: Confusion Psychiatric: Reports: Confusion - Patient Data Vitals - Most Recent: Last Vital Signs Temp 97.6 F 12/01/20 00:00 Pulse 90 12/01/20 00:00 Resp 18 12/01/20 00:00 BP 116/65 12/01/20 00:00 Pulse Ox 96 12/01/20 00:00 Weight - Most Recent: 225 lb 3.2 oz I&O - Last 24 hours: Intake & Output 11/30/20 12/01/20 12/01/20 22:59 06:59 14:59 Intake Total 210 300 Output Total 300 Balance -90 300 Lab Results - Last 24 hrs: Laboratory Results - last 24 hr 12/01/20 12/01/20 Range/Units 05:25 05:25 WBC 6.89 (4.0-11.0) K/uL RBC 4.07 L (4.50-5.90) M/uL Hgb 11.7 L (13.0-17.0) g/dL Hct 36.1 L (38.0-50.0) % MCV 88.7 (80.0-98.0) fL MCH 28.7 (27.0-32.0) pg MCHC 32.4 (31.0-37.0) g/dL RDW Std Deviation 49.5 (28.0-62.0) fl RDW Coeff of Joseph 15 (11.0-15.0) % Plt Count 300 (150-400) K/uL MPV 9.80 (7.40-12.00) fL Neut % (Auto) 57.6 (48.0-80.0) % Lymph % (Auto) 27.6 (16.0-40.0) % [place] % (Auto) 9.4 (0.0-15.0) % Eos % (Auto) 4.8 (0.0-7.0) % Baso % (Auto) 0.6 (0.0-1.5) % Neut # (Auto) 4.0 (1.4-5.7) K/uL Lymph # (Auto) 1.9 (0.6-2.4) K/uL [place] # (Auto) 0.7 (0.0-0.8) K/uL Eos # (Auto) 0.3 (0.0-0.7) K/uL Baso # (Auto) 0.0 (0.0-0.1) K/uL Nucleated RBC % 0.0 /100WBC Nucleated RBCs # 0 K/uL Sodium 142 (136-148) mmol/L Potassium 3.9 (3.5-5.1) mmol/L Chloride 107 (98-107) mmol/L Carbon Dioxide 24.1 (21.0-32.0) mmol/L BUN 28 H (7.0-18.0) mg/dL Creatinine 1.2 (0.8-1.3) mg/dL Est Cr Clr Drug Dosing 53.89 mL/min Estimated GFR (MDRD) 58.3 ml/min Glucose 90 (74-106) mg/dL Calcium 8.4 L (8.5-10.1) mg/dL SANDRA Results - Last 24 hrs: Microbiology 11/26/20 21:30 Urine Culture - Preliminary Urine Pseudomonas Aeruginosa Escherichia Coli Serratia Marcescens 11/26/20 21:05 Aerobic Blood Culture - Preliminary Blood - Venous - Lab Draw NO GROWTH AFTER 4 DAYS Anaerobic Blood Culture - Preliminary NO GROWTH AFTER 4 DAYS 11/26/20 20:40 Aerobic Blood Culture - Preliminary Blood - Venous NO GROWTH AFTER 4 DAYS Anaerobic Blood Culture - Preliminary NO GROWTH AFTER 4 DAYS Med Orders - Current: Current Medications Acetaminophen (Acetaminophen 325 Mg Tab) 650 mg PO Q4H PRN PRN Reason: Pain (Mild 1-3)/fever Last Admin: 11/27/20 04:18 Dose: 650 mg Documented by: Acetaminophen/Codeine Phosphate (Acetaminophen/Codeine 300-30 Mg Tab) 1 tab PO QID PRN PRN Reason: Pain Last Admin: 11/29/20 02:17 Dose: 1 tab Documented by: Albuterol/Ipratropium (Albuterol/Ipratropium 3.0-0.5 Mg/3 Ml Neb Soln) 3 ml NEB Q4HRRT PRN PRN Reason: Shortness Of Breath/wheezing Enoxaparin Sodium (Enoxaparin 40 Mg/0.4 Ml Syringe) 40 mg SUBCUT Q24H NIMO Last Admin: 11/30/20 16:21 Dose: 40 mg Documented by: Gabapentin (Gabapentin 100 Mg Cap) 100 mg PO BID [facility] Last Admin: 12/01/20 09:18 Dose: 100 mg Documented by: Cefepime HCl 1 gm/ Premix 50 mls @ 100 mls/hr IV Q8H [facility] Last Admin: 11/30/20 20:57 Dose: 100 mls/hr Documented by: Pantoprazole Sodium 40 mg/ (Sodium Chloride) 10 mls @ 200 mls/hr IV DAILY [facility] Last Admin: 12/01/20 09:16 Dose: 200 mls/hr Documented by: Vancomycin HCl 1.25 gm/ Sodium (Chloride) 250 mls @ 166.667 mls/hr IV Q24H [facility] Last Admin: 11/30/20 21:39 Dose: 166.667 mls/hr Documented by: Magnesium Hydroxide (Magnesium Hydroxide 400 Mg/5 Ml Susp 30 Ml Cup) 30 ml PO DAILY PRN PRN Reason: Constipation Ondansetron HCl (Ondansetron 4 Mg/2 Ml Sdv) 4 mg IVPUSH Q4H PRN PRN Reason: Nausea/Vomiting Methyl Salicylate/Menthol [Icy Hot] 35 .4 Gm Cream 1 each TOP Q8H PRN PRN Reason: left knee pain Sodium Chloride (Sodium Chloride 0.9% 10 Ml Syringe) 10 ml FLUSH ASDIRECTED PRN PRN Reason: Keep Vein Open Last Admin: 11/26/20 21:35 Dose: 10 ml Documented by: Sodium Chloride (Sodium Chloride 0.9% 2.5 Ml Syringe) 2.5 ml FLUSH ASDIRECTED PRN PRN Reason: Keep Vein Open Last Admin: 11/26/20 21:35 Dose: 2.5 ml Documented by: Vancomycin HCl (Pharmacy To Dose - Vancomycin) 1 dose .XX ASDIRECTED [facility] Discontinued Medications Vancomycin HCl 1 gm/ Sodium (Chloride) 250 mls @ 166 mls/hr IV ONETIME ONE Stop: 11/26/20 22:33 Last Admin: 11/26/20 21:35 Dose: 166 mls/hr Documented by: Cefepime HCl 1 gm/ Premix 50 mls @ 100 mls/hr IV ONETIME ONE Stop: 11/26/20 21:33 Last Admin: 11/26/20 21:32 Dose: 100 mls/hr Documented by: Sodium Chloride (Normal Saline) 1,000 mls @ 999 mls/hr IV STAT ONE Stop: 11/26/20 22:40 Last Admin: 11/26/20 22:41 Dose: 999 mls/hr Documented by: Lactated Ringer's (Ringers, Lactated) 1,000 mls @ 125 mls/hr IV ASDIRECTED [facility] Last Admin: 11/27/20 10:37 Dose: 150 mls/hr Documented by: Vancomycin HCl 1.5 gm/ Premix 300 mls @ 200 mls/hr IV Q12H [facility] Last Admin: 11/28/20 10:14 Dose: 200 mls/hr Documented by: - Exam General: Reports: Alert. Denies: Oriented Lungs: Reports: Clear to Auscultation Cardiovascular: Reports: Regular Rate, Regular Rhythm GI/Abdominal Exam: Soft, Non-Tender
[2020-12-01 10:19] VITALS: BP 107/68; PULSE 78
[2020-12-01] MEDS ORDERED: Magnesium Oxide 400 MG Tab PO ONE (10:24)
== END 2020-12-01 12:30 | DRG 872 ==
LOC: MW.ED 20:07 → MW.MS 22:23
PROVIDERS: ADMIT Student in an Organized Health Care Education/Training Program; ATTEND Student in an Organized Health Care Education/Training Program
DX: A41.51 Sepsis due to Escherichia coli [E. coli] (principal); Z41.9 Encounter for procedure for purposes other than remedying health state, unspecified; N30.01 Acute cystitis with hematuria; I10 Essential (primary) hypertension; N39.0 Urinary tract infection, site not specified; N17.9 Acute kidney failure, unspecified; A41.52 Sepsis due to Pseudomonas; A41.53 Sepsis due to Serratia; N18.9 Chronic kidney disease, unspecified; E86.0 Dehydration; F33.9 Major depressive disorder, recurrent, unspecified; Z87.440 Personal history of urinary (tract) infections; Z79.899 Other long term (current) drug therapy; Z88.0 Allergy status to penicillin; Z88.8 Allergy status to other drugs, medicaments and biological substances; I12.9 Hypertensive chronic kidney disease with stage 1 through stage 4 chronic kidney disease, or unspecified chronic kidney disease; F03.90 Unspecified dementia, unspecified severity, without behavioral disturbance, psychotic disturbance, mood disturbance, and anxiety; Z88.2 Allergy status to sulfonamides; Z88.1 Allergy status to other antibiotic agents; E78.00 Pure hypercholesterolemia, unspecified; Z87.01 Personal history of pneumonia (recurrent); R33.9 Retention of urine, unspecified; M10.9 Gout, unspecified; M19.90 Unspecified osteoarthritis, unspecified site; E66.9 Obesity, unspecified; Z90.49 Acquired absence of other specified parts of digestive tract; Z20.822 Contact with and (suspected) exposure to COVID-19; Z68.35 Body mass index [BMI] 35.0-35.9, adult
CPT/HCPCS: 36415; 71045; 80053; 81001; 83605; 84484; 85025; 87040 ×2; 87086; 87088 ×3; 87186 ×3; 93005; 96365; 96368; 99285; J0692; J3370; J7050; U0002; 80048; 80202; 83735; 84100; 97110-GP; 97162-GP; 99284; A9270-GY; C9113; J1650; J7030; J7120

== ENCOUNTER 2021-02-04 06:21 | Inpatient (IN) | payer MEDICARE, OTHER ==
[2021-02-04] MEDS ORDERED: Sodium Chloride 0.9% 1,000 ML IV ONE ×2 (06:24→06:39)
[2021-02-04] MEDS ORDERED: Sodium Chloride 0.9% 2.5 ML Syringe FLUSH PRN (06:24)
[2021-02-04] MEDS ORDERED: Sodium Chloride 0.9% 10 ML Syringe FLUSH PRN (06:24)
[2021-02-04] MEDS ORDERED: Ciprofloxacin in D5W 400 MG in Premix Bag 1 BAG IV STA ×2 (06:33)
--- NOTE | 2021-02-04 06:39 | EDM.PDOC ---
ED HPI GENERAL MEDICAL PROBLEM - General Chief Complaint: General Stated Complaint: NOT FEELING WELL Time Seen by Provider: 02/04/21 06:29 Source of Information: Reports: EMS, Care Home Records History Limitations: Reports: Altered Mental Status - History of Present Illness INITIAL COMMENTS - FREE TEXT/NARRATIVE: Patient is a 81-year-old male from care home with a history of hyperlipidemia hypertension CKD and dementia at baseline. Patient is nonverbal and difficult to obtain history from. The nurse from the states that the patient had a fever patient has history of recurrent UTIs as he has indwelling Gao and thinks that may be the source. He was also found to be tachycardic. Patient just moans on exam does not respond to any questioning does mom for painful stimuli but otherwise does not respond to any verbal stimuli. Per care home patient denies any vomiting or other complaints. - Related Data Allergies Allergy/AdvReac Type Severity Reaction Status Date / Time bupropion [From Wellbutrin] Allergy Other Verified 02/04/21 06:26 Penicillins Allergy Nausea Verified 02/04/21 06:26 sulfamethoxazole Allergy Other Verified 02/04/21 06:26 [From Bactrim] trimethoprim [From Bactrim] Allergy Other Verified 02/04/21 06:26 Home Meds: Home Meds Acetaminophen [Tylenol] 650 mg PO Q8H PRN 09/06/16 [History] Methyl Salicylate/Menthol [Icy Hot] 1 applic TOP Q8H PRN 09/06/16 [History] Cetirizine [ZyrTEC] 1 tab PO BID 09/01/18 [History] Carbamide Peroxide [Debrox] 3 applic OT ASDIRECTED 09/16/20 [History] Magnesium Hydroxide [Milk of Magnesia] 30 ml PO DAILY PRN 09/16/20 [History] Furosemide [Lasix] 80 mg PO DAILY #0 09/22/20 [Rx] Acetaminophen with Codeine [Acetaminophen-Cod #3] 1 each PO QID PRN 11/27/20 [History] Gabapentin [Neurontin] 100 mg PO BID 11/27/20 [History] Ciprofloxacin [Ciprofloxacin HCl] 500 mg PO BID #6 tab 12/01/20 [Rx] Past Medical History HEENT History: Reports: None Cardiovascular History: Reports: High Cholesterol, Hypertension, Other (See Below) Other Cardiovascular History: Edema Respiratory History: Reports: Pneumonia, Recurrent Gastrointestinal History: Reports: None Genitourinary History: Reports: Acute Renal Failure, Chronic Renal Insuffiency, Retention, Urinary Other Genitourinary History: CKD, urinary retention Musculoskeletal History: Reports: Gout, Other (See Below), Osteoarthritis Other Musculoskeletal History: Muscle weakness, traumatic ischemia of muscle, frequent falls, joint pain Neurological History: Reports: Other (See Below) Other Neuro History: altered mental status according to radha chart, syncope Psychiatric History: Reports: Dementia Endocrine/Metabolic History: Reports: Obesity/BMI 30+ Hematologic History: Reports: None Immunologic History: Reports: None Oncologic (Cancer) History: Reports: None Dermatologic History: Reports: Cellulitis - Infectious Disease History Infectious Disease History: Reports: None - Past Surgical History Head Surgeries/Procedures: Reports: None HEENT Surgical History: Reports: None Cardiovascular Surgical History: Reports: None Respiratory Surgical History: Reports: None GI Surgical History: Reports: Appendectomy Male Surgical History: Reports: None Endocrine Surgical History: Reports: None Neurological Surgical History: Reports: None Musculoskeletal Surgical History: Reports: None Oncologic Surgical History: Reports: None Social & Family History - Family History Family Medical History: Unobtainable Neurological: Reports: Dementia - Tobacco Use Tobacco Use Status *Q: Unknown Ever Used Tobacco - Caffeine Use Caffeine Use: Reports: Other Other Caffeine Use: UNKNOWN ED ROS GENERAL - Review of Systems Review Of Systems: Unable To Obtain Reason Not Obtained: Dementia at baseline GI/Abdominal: Reports: No Symptoms ED EXAM, GENERAL - Physical Exam Exam: See Below Exam Limited By: Altered Mental Status General Appearance: Other (Patient leaning her eyes closed as morn occasionally) Nose: Normal Inspection Throat/Mouth: Normal Inspection Head: Atraumatic, Normocephalic Neck: Normal Inspection, Supple, Non-Tender Respiratory/Chest: No Respiratory Distress, Lungs Clear, Normal Breath Sounds Cardiovascular: Normal Peripheral Pulses, Tachycardia GI/Abdominal: Normal Bowel Sounds, Soft, Non-Tender Back Exam: Normal Inspection Extremities: Normal Inspection, Normal Range of Motion, Non-Tender Neurological: No: Alert (Does make some moaning noise to painful stimuli but otherwise does not follow any commands verbally speak) #1 Interpretation EKG Date: 02/04/21 Time: 06:25 Rhythm: Other (sinus tachy) Rate (Beats/Min): 130 ST-T: Normal Course - Vital Signs Last Recorded V/S: Last Vital Signs Temp 99.1 F 02/04/21 07:20 Pulse 126 H 02/04/21 09:24 Resp 17 02/04/21 06:26 BP 137/81 02/04/21 09:24 Pulse Ox 94 L 02/04/21 09:31 - Orders/Labs/Meds Orders: Active Orders 24 hr Category Date Time Status Blood Pressure Mgt: Sepsis [RC] Q15MX2 Care 02/04/21 06:26 Active CULTURE BLOOD [BC] Stat Lab 02/04/21 06:25 Received CULTURE BLOOD [BC] Stat Lab 02/04/21 06:45 Received VANCOMYCIN TROUGH [CHEM] Stat Lab 02/05/21 19:30 Ordered Sodium Chloride 0.9% [Saline Flush] Med 02/04/21 06:24 Active 10 ml FLUSH ASDIRECTED PRN Sodium Chloride 0.9% [Saline Flush] Med 02/04/21 06:24 Active 2.5 ml FLUSH ASDIRECTED PRN VANCOmycin 1.5 GM/300 ML 1.5 gm Med 02/04/21 20:00 Active Premix Bag 1 bag IV Q12H Blood Culture x2 Reflex Set [OM.PC] Stat Oth 02/04/21 06:26 Ordered Saline Lock Insert [OM.PC] Stat Oth 02/04/21 06:26 Ordered Severe Sepsis Onset Time [OM.PC] Stat Oth 02/04/21 06:26 Ordered Medication Orders Vancomycin HCl 1.5 gm/ Premix 300 mls @ 200 mls/hr IV Q12H NIMO Sodium Chloride (Sodium Chloride 0.9% 10 Ml Syringe) 10 ml FLUSH ASDIRECTED PRN PRN Reason: Keep Vein Open Last Admin: 02/04/21 06:39 Dose: 10 ml Documented by: GUANACO Sodium Chloride (Sodium Chloride 0.9% 2.5 Ml Syringe) 2.5 ml FLUSH ASDIRECTED PRN PRN Reason: Keep Vein Open Last Admin: 02/04/21 06:39 Dose: 2.5 ml Documented by: GUANACO Labs: Laboratory Tests 02/04/21 02/04/21 02/04/21 Range/Units 06:25 06:25 06:25 WBC 13.89 H (4.0-11.0) K/uL RBC 4.53 (4.50-5.90) M/uL Hgb 13.0 (13.0-17.0) g/dL Hct 40.1 (38.0-50.0) % MCV 88.5 (80.0-98.0) fL MCH 28.7 (27.0-32.0) pg MCHC 32.4 (31.0-37.0) g/dL RDW Std Deviation 48.4 (28.0-62.0) fl RDW Coeff of Joseph 15 (11.0-15.0) % Plt Count 319 (150-400) K/uL MPV 9.40 (7.40-12.00) fL Neut % (Auto) 84.5 H (48.0-80.0) % Lymph % (Auto) 8.6 L (16.0-40.0) % [place] % (Auto) 6.4 (0.0-15.0) % Eos % (Auto) 0.4 (0.0-7.0) % Baso % (Auto) 0.1 (0.0-1.5) % Neut # (Auto) 11.7 H (1.4-5.7) K/uL Lymph # (Auto) 1.2 (0.6-2.4) K/uL [place] # (Auto) 0.9 H (0.0-0.8) K/uL Eos # (Auto) 0.1 (0.0-0.7) K/uL Baso # (Auto) 0.0 (0.0-0.1) K/uL Nucleated RBC % 0.0 /100WBC Nucleated RBCs # 0 K/uL Sodium 142 (136-148) mmol/L Potassium 3.7 (3.5-5.1) mmol/L Chloride 105 (98-107) mmol/L Carbon Dioxide 27.0 (21.0-32.0) mmol/L BUN 54 H (7.0-18.0) mg/dL Creatinine 1.4 H (0.8-1.3) mg/dL Est Cr Clr Drug Dosing TNP Estimated GFR (MDRD) 48.6 ml/min Glucose 139 H (74-106) mg/dL Lactic Acid 1.0 (0.4-2.0) mmol/L Calcium 9.4 (8.5-10.1) mg/dL Total Bilirubin 0.6 (0.2-1.0) mg/dL AST 20 (15-37) IU/L ALT 22 (14-63) IU/L Alkaline Phosphatase 69 (46-116) U/L Total Protein 8.5 H (6.4-8.2) g/dL Albumin 2.5 L (3.4-5.0) g/dL Globulin 6.0 H (2.6-4.0) g/dL Albumin/Globulin Ratio 0.4 L (0.9-1.6) Lipase 38 L (73-393) U/L Urine Color Urine Appearance Urine pH (5.0-8.0) Ur Specific [place] (1.001-1.035) Urine Protein (NEGATIVE) mg/dL Urine Glucose (UA) (NEGATIVE) mg/dL Urine Ketones (NEGATIVE) mg/dL Urine Occult Blood (NEGATIVE) Urine Nitrite (NEGATIVE) Urine Bilirubin (NEGATIVE) Urine Urobilinogen (<2.0) EU/dL Ur Leukocyte Esterase (NEGATIVE) Urine RBC (0-2/HPF) Urine WBC (0-5/HPF) Ur Epithelial Cells (NONE-FEW) Urine Bacteria (NEGATIVE) SARS-CoV-2 RNA (SALAS) (NEGATIVE) 02/04/21 02/04/21 Range/Units 07:19 07:34 WBC (4.0-11.0) K/uL RBC (4.50-5.90) M/uL Hgb (13.0-17.0) g/dL Hct (38.0-50.0) % MCV (80.0-98.0) fL MCH (27.0-32.0) pg MCHC (31.0-37.0) g/dL RDW Std Deviation (28.0-62.0) fl RDW Coeff of Joseph (11.0-15.0) % Plt Count (150-400) K/uL MPV (7.40-12.00) fL Neut % (Auto) (48.0-80.0) % Lymph % (Auto) (16.0-40.0) % [place] % (Auto) (0.0-15.0) % Eos % (Auto) (0.0-7.0) % Baso % (Auto) (0.0-1.5) % Neut # (Auto) (1.4-5.7) K/uL Lymph # (Auto) (0.6-2.4) K/uL [place] # (Auto) (0.0-0.8) K/uL Eos # (Auto) (0.0-0.7) K/uL Baso # (Auto) (0.0-0.1) K/uL Nucleated RBC % /100WBC Nucleated RBCs # K/uL Sodium (136-148) mmol/L Potassium (3.5-5.1) mmol/L Chloride (98-107) mmol/L Carbon Dioxide (21.0-32.0) mmol/L BUN (7.0-18.0) mg/dL Creatinine (0.8-1.3) mg/dL Est Cr Clr Drug Dosing Estimated GFR (MDRD) ml/min Glucose (74-106) mg/dL Lactic Acid (0.4-2.0) mmol/L Calcium (8.5-10.1) mg/dL Total Bilirubin (0.2-1.0) mg/dL AST (15-37) IU/L ALT (14-63) IU/L Alkaline Phosphatase (46-116) U/L Total Protein (6.4-8.2) g/dL Albumin (3.4-5.0) g/dL Globulin (2.6-4.0) g/dL Albumin/Globulin Ratio (0.9-1.6) Lipase (73-393) U/L Urine Color RED Urine Appearance CLEAR Urine pH 6.5 (5.0-8.0) Ur Specific [place] 1.015 (1.001-1.035) Urine Protein >=300 H (NEGATIVE) mg/dL Urine Glucose (UA) NEGATIVE (NEGATIVE) mg/dL Urine Ketones 15 H (NEGATIVE) mg/dL Urine Occult Blood LARGE H (NEGATIVE) Urine Nitrite POSITIVE H (NEGATIVE) Urine Bilirubin SMALL H (NEGATIVE) Urine Urobilinogen 2.0 H (<2.0) EU/dL Ur Leukocyte Esterase MODERATE H (NEGATIVE) Urine RBC TOO NUMEROUS TO CT (0-2/HPF) Urine WBC 20-30 (0-5/HPF) Ur Epithelial Cells OCCASIONAL (NONE-FEW) Urine Bacteria FEW (NEGATIVE) SARS-CoV-2 RNA (SALAS) NEGATIVE (NEGATIVE) Meds: Medications Generic Name Dose Route Start Last Admin Trade Name Leny PRN Reason Stop Dose Admin Vancomycin HCl 1.5 gm/ Premix 300 mls @ 200 mls/hr 02/04/21 20:00 IV Q12H NIMO Sodium Chloride 10 ml 02/04/21 06:24 02/04/21 06:39 Sodium Chloride 0.9% 10 Ml Syringe FLUSH 10 ml ASDIRECTED PRN Administration Keep Vein Open Sodium Chloride 2.5 ml 02/04/21 06:24 02/04/21 06:39 Sodium Chloride 0.9% 2.5 Ml Syringe FLUSH 2.5 ml ASDIRECTED PRN Administration Keep Vein Open Discontinued Medications Generic Name Dose Route Start Last Admin Trade Name Leny PRN Reason Stop Dose Admin Sodium Chloride 1,000 mls @ 1,000 mls/hr 02/04/21 06:24 02/04/21 06:39 Normal Saline IV 02/04/21 07:23 1,000 mls/hr BOLUS ONE Administration Ciprofloxacin/Dextrose 400 mg/ 200 mls @ 200 mls/hr 02/04/21 06:33 02/04/21 06:47 Premix IV 02/04/21 07:32 200 mls/hr NOW STA Administration Sodium Chloride 1,000 mls @ 1,000 mls/hr 02/04/21 06:39 02/04/21 06:43 Normal Saline IV 02/04/21 07:38 1,000 mls/hr .Bolus ONE Administration Vancomycin HCl 1.5 gm/ Premix 300 mls @ 200 mls/hr 02/04/21 06:45 02/04/21 07:28 IV 02/04/21 08:14 200 mls/hr NOW ONE Administration Ketorolac Tromethamine 30 mg 02/04/21 07:29 02/04/21 07:51 Ketorolac 30 Mg/Ml Sdv IVPUSH 02/04/21 07:30 Not Given ONETIME ONE Vancomycin HCl 1 dose 02/04/21 06:24 02/04/21 07:34 Pharmacy To Dose - Vancomycin .XX 02/04/21 06:25 Not Given ONETIME ONE - Re-Assessments/Exams Free Text/Narrative Re-Assessment/Exam: 02/04/21 10:04 Patient has a white count of 13,000 lactate is normal he has hypoxic with oxy gen is on 2 L right now 94% his x-ray is clear and is Covid negative. Patient does not seem to be overloaded. We will admit patient for possible UTI and his hypoxia. Departure - Departure Time of Disposition: 10:04 Disposition: Home, Self-Care 01 Condition: Good Clinical Impression: Hypoxia UTI (urinary tract infection) Qualifiers: Urinary tract infection type: acute cystitis Hematuria presence: with hematuria Qualified Code(s): N30.01 - Acute cystitis with hematuria - Discharge Information *PRESCRIPTION DRUG MONITORING PROGRAM REVIEWED*: Not Applicable *COPY OF PRESCRIPTION DRUG MONITORING REPORT IN PATIENT VINNY: Not Applicable Instructions: Hypoxia Forms: ED Department Discharge Critical Care Note - Critical Care Note Total Time (mins): 45 Comments: Critical Care Procedure Note Authorized and Performed by: Dr. Crow Total critical care time: Approximately Due to a high probability of clinically significant, life threatening deterioration, the patient required my highest level of preparedness to intervene emergently and I personally spent this critical care time directly and personally managing the patient. This critical care time included obtaining a history; examining the patient; pulse oximetry; ordering and review of studies; arranging urgent treatment with development of a management plan; evaluation of patient's response to treatment; frequent reassessment; and, discussions with other providers. This critical care time was performed to assess and manage the high probability of imminent, life-threatening deterioration that could result in multi-organ failure. It was exclusive of separately billable procedures and treating other patients and teaching time. Sepsis Event Note (ED) - Evaluation Sepsis Screening Result: Possible Sepsis Risk - Focused Exam Vital Signs: Vital Signs Temp Temp Pulse Resp BP Pulse Ox 02/04/21 09:31 94 L 02/04/21 09:24 126 H 137/81 02/04/21 08:24 123 H 140/76 92 L 02/04/21 07:54 123 H 144/69 H 94 L 02/04/21 07:24 127 H 138/78 93 L 02/04/21 07:20 99.1 F 02/04/21 06:41 130/80 02/04/21 06:26 100.9 F H 129 H 17 126/77 98 - My Orders Last 24 Hours: My Active Orders 02/04/21 06:24 Sodium Chloride 0.9% [Saline Flush] 10 ml FLUSH ASDIRECTED PRN Sodium Chloride 0.9% [Saline Flush] 2.5 ml FLUSH ASDIRECTED PRN 02/04/21 06:25 CULTURE BLOOD [BC] Stat 02/04/21 06:26 Blood Pressure Mgt: Sepsis [RC] Q15MX2 Blood Culture x2 Reflex Set [OM.PC] Stat Saline Lock Insert [OM.PC] Stat Severe Sepsis Onset Time [OM.PC] Stat 02/04/21 06:45 CULTURE BLOOD [BC] Stat 02/04/21 20:00 VANCOmycin 1.5 GM/300 ML 1.5 gm Premix Bag 1 bag IV Q12H 02/05/21 19:30 VANCOMYCIN TROUGH [CHEM] Stat - Assessment/Plan Last 24 Hours: My Active Orders 02/04/21 06:24 Sodium Chloride 0.9% [Saline Flush] 10 ml FLUSH ASDIRECTED PRN Sodium Chloride 0.9% [Saline Flush] 2.5 ml FLUSH ASDIRECTED PRN 02/04/21 06:25 CULTURE BLOOD [BC] Stat 02/04/21 06:26 Blood Pressure Mgt: Sepsis [RC] [id number] Blood Culture x2 Reflex Set [OM.PC] Stat Saline Lock Insert [OM.PC] Stat Severe Sepsis Onset Time [OM.PC] Stat 02/04/21 06:45 CULTURE BLOOD [BC] Stat 02/04/21 20:00 VANCOmycin 1.5 GM/300 ML 1.5 gm Premix Bag 1 bag IV Q12H 02/05/21 19:30 VANCOMYCIN TROUGH [CHEM] Stat Plan: Patient is a 81-year-old male from care home here for possible recurrent UTIs he has indwelling Gao. We will obtain blood cultures labs lactate give IV fluids and reassess patient.
[2021-02-04] MEDS ORDERED: VANCOmycin 1.5 GM/300 ML 1.5 GM in Premix Bag 1 BAG IV ONE (06:45)
--- NOTE | 2021-02-04 06:56 | CR ---
INDICATION: Dyspnea COMPARISON: November 26, 2020 TECHNIQUE: Single-view study February 04, 2021 at 6:35 a.m. FINDINGS: TUBES AND LINES: None. HEART AND MEDIASTINUM: The heart size is normal. The mediastinal contour appears normal for patient age. LUNGS AND PLEURAL SPACES: The lungs appear normal.The pleural spaces are unremarkable. OSSEOUS STRUCTURES: Age-appropriate appearance. No acute focal finding.Postoperative changes and degenerative changes about the shoulder joint IMPRESSION: No evidence of active pulmonary disease. Dictated by Ralph Bowden MD @ 02/04/2021 6:53:50 AM (Electronically Signed)
[2021-02-04 07:05] LABS: BLOOD UREA NITROGEN,BUN 54 mg/dL (7.0-18.0); CHLORIDE,CL 105 mmol/L (98-107); GLUCOSE RANDOM 139 mg/dL (74-106); LIPASE 38 U/L (73-393); POTASSIUM,K 3.7 mmol/L (3.5-5.1); SODIUM,NA 142 mmol/L (136-148)
[2021-02-04] MEDS ORDERED: Ketorolac 30 MG/ML SDV IVPUSH ONE (07:29)
--- NOTE | 2021-02-04 15:13 | PCM.HP.2 ---
H&P History of Present Illness - General Date of Service: 02/04/21 Admit Problem/Dx: Admission Diagnosis/Problem Admission Diagnosis/Problem Hypoxia - History of Present Illness Initial Comments - Free Text/Narative: 81 yo male with pmh HLD, HTN, urinary retention with chronic nunez placement, CKD and dementia who was brought to the ED due to concerns of [facility] nurses that he had fevers. During evaluation in ED he was found to have tachycardia, leukocytosis, and pyuria. In the ED he was given vancomycin and cipro for UTI and his nunez was replaced. - Related Data Allergies/Adverse Reactions: Allergies Allergy/AdvReac Type Severity Reaction Status Date / Time bupropion [From Wellbutrin] Allergy Other Verified 02/04/21 06:26 Penicillins Allergy Nausea Verified 02/04/21 06:26 sulfamethoxazole Allergy Other Verified 02/04/21 06:26 [From Bactrim] trimethoprim [From Bactrim] Allergy Other Verified 02/04/21 06:26 Home Medications: Home Meds Methyl Salicylate/Menthol [Icy Hot] 1 applic TOP Q8H PRN 09/06/16 [History] Cetirizine [ZyrTEC] 1 tab PO DAILY 09/01/18 [History] Carbamide Peroxide [Debrox] 3 drop EARBOTH BEDTIME PRN 09/16/20 [History] Magnesium Hydroxide [Milk of Magnesia] 30 ml PO DAILY PRN 09/16/20 [History] Furosemide [Lasix] 80 mg PO DAILY #0 09/22/20 [Rx] Acetaminophen with Codeine [Acetaminophen-Cod #3] 1 each PO QID PRN 11/27/20 [History] Gabapentin [Neurontin] 100 mg PO BID 11/27/20 [History] Acetaminophen [Mapap Arthritis Pain] 650 mg PO Q8H PRN 02/04/21 [History] Amino Ac/Protein Hydr/Whey Pro [Prosource Protein] 30 ml PO TID 02/04/21 [History] Nut.Sup,Spec.Frm,L-Fr,Iron/Fos [Twocal HN] 3 oz PO BID 02/04/21 [History] Past Medical History HEENT History: Reports: None Cardiovascular History: Reports: High Cholesterol, Hypertension, Other (See Below) Other Cardiovascular History: Edema Respiratory History: Reports: Pneumonia, Recurrent Gastrointestinal History: Reports: None Genitourinary History: Reports: Acute Renal Failure, Chronic Renal Insuffiency, Retention, Urinary Other Genitourinary History: CKD, urinary retention Musculoskeletal History: Reports: Gout, Other (See Below), Osteoarthritis Other Musculoskeletal History: Muscle weakness, traumatic ischemia of muscle, frequent falls, joint pain Neurological History: Reports: Other (See Below) Other Neuro History: altered mental status according to radha chart, syncope Psychiatric History: Reports: Dementia Endocrine/Metabolic History: Reports: Obesity/BMI 30+ Hematologic History: Reports: None Immunologic History: Reports: None Oncologic (Cancer) History: Reports: None Dermatologic History: Reports: Cellulitis - Infectious Disease History Infectious Disease History: Reports: None - Past Surgical History Head Surgeries/Procedures: Reports: None HEENT Surgical History: Reports: None Cardiovascular Surgical History: Reports: None Respiratory Surgical History: Reports: None GI Surgical History: Reports: Appendectomy Male Surgical History: Reports: None Endocrine Surgical History: Reports: None Neurological Surgical History: Reports: None Musculoskeletal Surgical History: Reports: None Oncologic Surgical History: Reports: None Social & Family History - Family History Family Medical History: Unobtainable Neurological: Reports: Dementia - Tobacco Use Tobacco Use Status *Q: Unknown Ever Used Tobacco Tobacco Use Comment: Pt is drowsy, not answering questions and keep moaning. - Caffeine Use Caffeine Use: Reports: Other Other Caffeine Use: UNKNOWN Caffeine Use Comment: Pt is drowsy, not answering questions and keep moaning. H&P Review of Systems - Review of Systems: Review Of Systems: Unable To Obtain Reason Not Obtained: dementia Exam - Exam Exam: See Below - Vital Signs Vital Signs: Last Vital Signs Temp 37.0 C 02/04/21 11:50 Pulse 127 H 02/04/21 11:50 Resp 18 02/04/21 11:50 BP 123/46 L 02/04/21 11:50 Pulse Ox 92 L 02/04/21 11:50 Weight: 101.5 kg - Exam Lungs: Clear to Auscultation, Normal Respiratory Effort Cardiovascular: Regular Rate, Regular Rhythm GI/Abdominal Exam: Soft, Non-Tender Extremities: Non-Tender, No Pedal Edema Skin: Warm, Dry, Intact Neurological: No: Focal Deficit - Patient Data Lab Results Last 24 hrs: Laboratory Results - last 24 hr 02/04/21 02/04/21 02/04/21 Range/Units 06:25 06:25 06:25 WBC 13.89 H (4.0-11.0) K/uL RBC 4.53 (4.50-5.90) M/uL Hgb 13.0 (13.0-17.0) g/dL Hct 40.1 (38.0-50.0) % MCV 88.5 (80.0-98.0) fL MCH 28.7 (27.0-32.0) pg MCHC 32.4 (31.0-37.0) g/dL RDW Std Deviation 48.4 (28.0-62.0) fl RDW Coeff of Joseph 15 (11.0-15.0) % Plt Count 319 (150-400) K/uL MPV 9.40 (7.40-12.00) fL Neut % (Auto) 84.5 H (48.0-80.0) % Lymph % (Auto) 8.6 L (16.0-40.0) % Mccreary % (Auto) 6.4 (0.0-15.0) % Eos % (Auto) 0.4 (0.0-7.0) % Baso % (Auto) 0.1 (0.0-1.5) % Neut # (Auto) 11.7 H (1.4-5.7) K/uL Lymph # (Auto) 1.2 (0.6-2.4) K/uL Mccreary # (Auto) 0.9 H (0.0-0.8) K/uL Eos # (Auto) 0.1 (0.0-0.7) K/uL Baso # (Auto) 0.0 (0.0-0.1) K/uL Nucleated RBC % 0.0 /100WBC Nucleated RBCs # 0 K/uL Sodium 142 (136-148) mmol/L Potassium 3.7 (3.5-5.1) mmol/L Chloride 105 (98-107) mmol/L Carbon Dioxide 27.0 (21.0-32.0) mmol/L BUN 54 H (7.0-18.0) mg/dL Creatinine 1.4 H (0.8-1.3) mg/dL Est Cr Clr Drug Dosing TNP Estimated GFR (MDRD) 48.6 ml/min Glucose 139 H (74-106) mg/dL Lactic Acid 1.0 (0.4-2.0) mmol/L Calcium 9.4 (8.5-10.1) mg/dL Total Bilirubin 0.6 (0.2-1.0) mg/dL AST 20 (15-37) IU/L ALT 22 (14-63) IU/L Alkaline Phosphatase 69 (46-116) U/L Total Protein 8.5 H (6.4-8.2) g/dL Albumin 2.5 L (3.4-5.0) g/dL Globulin 6.0 H (2.6-4.0) g/dL Albumin/Globulin Ratio 0.4 L (0.9-1.6) Lipase 38 L (73-393) U/L Urine Color Urine Appearance Urine pH (5.0-8.0) Ur Specific Ninole (1.001-1.035) Urine Protein (NEGATIVE) mg/dL Urine Glucose (UA) (NEGATIVE) mg/dL Urine Ketones (NEGATIVE) mg/dL Urine Occult Blood (NEGATIVE) Urine Nitrite (NEGATIVE) Urine Bilirubin (NEGATIVE) Urine Urobilinogen (<2.0) EU/dL Ur Leukocyte Esterase (NEGATIVE) Urine RBC (0-2/HPF) Urine WBC (0-5/HPF) Ur Epithelial Cells (NONE-FEW) Urine Bacteria (NEGATIVE) SARS-CoV-2 RNA (SALAS) (NEGATIVE) 02/04/21 02/04/21 Range/Units 07:19 07:34 WBC (4.0-11.0) K/uL RBC (4.50-5.90) M/uL Hgb (13.0-17.0) g/dL Hct (38.0-50.0) % MCV (80.0-98.0) fL MCH (27.0-32.0) pg MCHC (31.0-37.0) g/dL RDW Std Deviation (28.0-62.0) fl RDW Coeff of Joseph (11.0-15.0) % Plt Count (150-400) K/uL MPV (7.40-12.00) fL Neut % (Auto) (48.0-80.0) % Lymph % (Auto) (16.0-40.0) % Mccreary % (Auto) (0.0-15.0) % Eos % (Auto) (0.0-7.0) % Baso % (Auto) (0.0-1.5) % Neut # (Auto) (1.4-5.7) K/uL Lymph # (Auto) (0.6-2.4) K/uL Mccreary # (Auto) (0.0-0.8) K/uL Eos # (Auto) (0.0-0.7) K/uL Baso # (Auto) (0.0-0.1) K/uL Nucleated RBC % /100WBC Nucleated RBCs # K/uL Sodium (136-148) mmol/L Potassium (3.5-5.1) mmol/L Chloride (98-107) mmol/L Carbon Dioxide (21.0-32.0) mmol/L BUN (7.0-18.0) mg/dL Creatinine (0.8-1.3) mg/dL Est Cr Clr Drug Dosing Estimated GFR (MDRD) ml/min Glucose (74-106) mg/dL Lactic Acid (0.4-2.0) mmol/L Calcium (8.5-10.1) mg/dL Total Bilirubin (0.2-1.0) mg/dL AST (15-37) IU/L ALT (14-63) IU/L Alkaline Phosphatase (46-116) U/L Total Protein (6.4-8.2) g/dL Albumin (3.4-5.0) g/dL Globulin (2.6-4.0) g/dL Albumin/Globulin Ratio (0.9-1.6) Lipase (73-393) U/L Urine Color RED Urine Appearance CLEAR Urine pH 6.5 (5.0-8.0) Ur Specific Ninole 1.015 (1.001-1.035) Urine Protein >=300 H (NEGATIVE) mg/dL Urine Glucose (UA) NEGATIVE (NEGATIVE) mg/dL Urine Ketones 15 H (NEGATIVE) mg/dL Urine Occult Blood LARGE H (NEGATIVE) Urine Nitrite POSITIVE H (NEGATIVE) Urine Bilirubin SMALL H (NEGATIVE) Urine Urobilinogen 2.0 H (<2.0) EU/dL Ur Leukocyte Esterase MODERATE H (NEGATIVE) Urine RBC TOO NUMEROUS TO CT (0-2/HPF) Urine WBC 20-30 (0-5/HPF) Ur Epithelial Cells OCCASIONAL (NONE-FEW) Urine Bacteria FEW (NEGATIVE) SARS-CoV-2 RNA (SALAS) NEGATIVE (NEGATIVE) Result Diagrams: 02/04/21 06:25 02/04/21 06:25 Sepsis Event Note - Evaluation Sepsis Screening Result: Sepsis Risk - Focused Exam Vital Signs: Vital Signs Temp Temp Pulse Resp BP Pulse Ox 02/04/21 11:50 37.0 C 127 H 18 123/46 L 92 L 02/04/21 10:24 129 H 123/69 91 L 02/04/21 09:31 94 L 02/04/21 09:24 126 H 137/81 02/04/21 08:24 123 H 140/76 92 L 02/04/21 07:54 123 H 144/69 H 94 L 02/04/21 07:24 127 H 138/78 93 L 02/04/21 07:20 37.3 C 02/04/21 06:41 130/80 02/04/21 06:26 38.3 C H 129 H 17 126/77 98 - Problem List (1) Urinary tract infection SNOMED Code(s): 71871445 ICD Code: N39.0 - URINARY TRACT INFECTION, SITE NOT SPECIFIED Status: Acute Current Visit: Yes Qualifiers: Urinary tract infection type: acute cystitis Hematuria presence: with hematuria Qualified Code(s): N30.01 - Acute cystitis with hematuria (2) Acute kidney injury superimposed on CKD SNOMED Code(s): 34143311 ICD Code: N17.9 - ACUTE KIDNEY FAILURE, UNSPECIFIED; N18.9 - CHRONIC KIDNEY DISEASE, UNSPECIFIED Status: Acute Current Visit: No (3) Sepsis SNOMED Code(s): 18724819 ICD Code: A41.9 - SEPSIS, UNSPECIFIED ORGANISM Status: Acute Current Visit: No Problem List Initiated/Reviewed/Updated: Yes Orders Last 24hrs: Active Orders 24 hr Category Date Time Status Patient Status [ADT] Routine ADT 02/04/21 10:05 Active Antiembolic Devices [RC] PER UNIT ROUTINE Care 02/04/21 15:06 Ordered Blood Pressure Mgt: Sepsis [RC] Q15MX2 Care 02/04/21 06:26 Active Oxygen Therapy [RC] PRN Care 02/04/21 15:05 Ordered Up ad Jennifer [RC] ASDIRECTED Care 02/04/21 15:05 Ordered VTE/DVT Education [RC] PER UNIT ROUTINE Care 02/04/21 15:05 Ordered Vital Signs [RC] Q4H Care 02/04/21 15:05 Ordered Regular Diet [DIET] Diet 02/04/21 Breakfast Ordered Abdomen Pelvis wo Cont [CT] Routine Exams 02/04/21 15:03 Ordered Chest wo Cont [CT] Routine Exams 02/04/21 15:03 Ordered CBC WITH AUTO DIFF [HEME] AM Lab 02/05/21 05:11 Ordered CBC WITH AUTO DIFF [HEME] AM Lab 02/06/21 05:11 Ordered CBC WITH AUTO DIFF [HEME] AM Lab 02/07/21 05:11 Ordered CBC WITH AUTO DIFF [HEME] AM Lab 02/08/21 05:11 Ordered COMPREHENSIVE METABOLIC PN,CMP [CHEM] AM Lab 02/05/21 05:11 Ordered COMPREHENSIVE METABOLIC PN,CMP [CHEM] AM Lab 02/06/21 05:11 Ordered COMPREHENSIVE METABOLIC PN,CMP [CHEM] AM Lab 02/07/21 05:11 Ordered COMPREHENSIVE METABOLIC PN,CMP [CHEM] AM Lab 02/08/21 05:11 Ordered CULTURE BLOOD [BC] Stat Lab 02/04/21 06:25 Received CULTURE BLOOD [BC] Stat Lab 02/04/21 06:45 Received VANCOMYCIN TROUGH [CHEM] Stat Lab 02/05/21 19:30 Ordered Heparin Sodium Med 02/04/21 15:15 Ordered 5,000 units SUBCUT Q12H Levofloxacin/Dextrose 5%-Water [Levaquin in D5W 750 MG/ Med 02/04/21 19:00 Ordered 150 ML] 750 mg Premix Bag 1 bag IV Q24H Pharmacy to Dose - Vancomycin Med 02/04/21 15:15 Ordered 1 dose .XX ASDIRECTED Sodium Chloride 0.9% [Saline Flush] Med 02/04/21 06:24 Active 10 ml FLUSH ASDIRECTED PRN Sodium Chloride 0.9% [Saline Flush] Med 02/04/21 06:24 Active 2.5 ml FLUSH ASDIRECTED PRN VANCOmycin 1.5 GM/300 ML 1.5 gm Med 02/04/21 20:00 Active Premix Bag 1 bag IV Q12H [id number] [Rocephin in Dextrose,Iso-Osm 2 GM/50 ML] 2 Med 02/04/21 15:15 Ordered gm Premix Bag 1 bag IV Q24H Blood Culture x2 Reflex Set [OM.PC] Stat Oth 02/04/21 06:26 Ordered Saline Lock Insert [OM.PC] Stat Oth 02/04/21 06:26 Ordered Sequential Compression Device [OM.PC] Per Unit Routine Oth 02/04/21 15:06 Ordered Severe Sepsis Onset Time [OM.PC] Stat Oth 02/04/21 06:26 Ordered Resuscitation Status Routine Resus Stat 02/04/21 15:05 Ordered Medication Orders Vancomycin HCl 1.5 gm/ Premix 300 mls @ 200 mls/hr IV Q12H NIMO Ceftriaxone Sodium/Dextrose 2 (gm/ Premix) 50 mls @ 100 mls/hr IV Q24H NIMO Levofloxacin/Dextrose 750 mg/ (Premix) 150 mls @ 100 mls/hr IV Q24H NIMO Sodium Chloride (Sodium Chloride 0.9% 10 Ml Syringe) 10 ml FLUSH ASDIRECTED PRN PRN Reason: Keep Vein Open Last Admin: 02/04/21 06:39 Dose: 10 ml Documented by: GUANACO Sodium Chloride (Sodium Chloride 0.9% 2.5 Ml Syringe) 2.5 ml FLUSH ASDIRECTED PRN PRN Reason: Keep Vein Open Last Admin: 02/04/21 06:39 Dose: 2.5 ml Documented by: GUANACO Vancomycin HCl (Pharmacy To Dose - Vancomycin) 1 dose .XX ASDIRECTED [facility] Assessment/Plan Comment:: 81 yo male admitted for UTI with sepsis. UTI: due to prior cultures of pseudomonas and E.coli will treat with broad spectrum antibotics of vancomycin, Rocephin and Levaquin
[2021-02-04] MEDS ORDERED: cefTRIAXone 2 GM in Premix Bag 1 BAG IV SCH (15:15)
[2021-02-04] MEDS ORDERED: Heparin Sodium 5,000 Units/ML Vial SUBCUT SCH (15:15)
[2021-02-04] MEDS: cefTRIAXone 2 GM/50 ML BAG IV SCH (15:48)
[2021-02-04] MEDS: Levofloxacin/Dextrose 5%-Water 750 MG in Premix Bag 1 BAG IV SCH (18:25)
--- NOTE | 2021-02-04 19:22 | CT ---
INDICATION: Sepsis. Urinary tract infection. TECHNIQUE: CT abdomen and pelvis without contrast. COMPARISON: CT abdomen/pelvis dated 01/11/2021. FINDINGS: Lower chest: See separate report of same-day CT chest. Evaluation of solid organs is limited secondary to lack of IV contrast administration. Liver: No suspicious focal hepatic lesion. Gallbladder and bile ducts: Gallbladder is contracted around multiple gallstones, similar in appearance to prior study. No significant biliary duct dilation. Pancreas: Unremarkable. Spleen: Unremarkable. Splenule is noted. Adrenal glands: Unremarkable. Kidneys: There is mild left hydronephrosis and hydroureter. There is asymmetrically increased left perinephric stranding and left periureteral stranding, with scattered foci of air within the left ureter and several left renal calices. 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 Mild right perinephric stranding is present without hydronephrosis or hydroureter, which may reflect component of mild right pyelonephritis. Retroperitoneum: No lymphadenopathy. Bowel and mesentery: Bowel is nonobstructed. Normal appendix. Small hiatal hernia. Inflammatory tract extending from the region of the right anal verge to the posterior right gluteal cutaneous surface. Bladder: Gao catheter is present. Diffuse circumferential wall thickening of the urinary bladder. Reproductive organs: No significant prostatomegaly. Dystrophic prostatic calcifications. Pelvic lymph nodes: No lymphadenopathy. Vessels: Atherosclerotic calcifications. Abdominal wall: No acute abdominal wall abnormality. Bones: Multilevel degenerative changes of the spine. No suspicious/aggressive focal osseous lesion. IMPRESSION: 1. Mild left hydronephrosis and hydroureter, with left perinephric and periureteral inflammation. There are scattered foci of air within the left ureter and several left renal calices. 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 2. Mild right perinephric stranding, suspicious for mild right pyelonephritis. 3. Diffuse circumferential urinary bladder wall thickening is consistent with cystitis. 4. Inflammatory tract extending from the region of the right anal verge to the posterior right gluteal cutaneous surface, may reflect a perianal fistula. 5. Cholelithiasis. Please note that all CT scans at this facility use dose modulation, iterative reconstruction, and/or weight-based dosing when appropriate to reduce radiation dose to as low as reasonably achievable. Dictated by Criselda Hughes MD @ 02/04/2021 7:21:10 PM (Electronically Signed)
--- NOTE | 2021-02-04 19:30 | CT ---
INDICATION: Sepsis. TECHNIQUE: CT chest without IV contrast. COMPARISON: Chest radiograph dated 11/26/2020. FINDINGS: Lungs and pleura: Limited evaluation secondary to motion artifact. Peribronchial ground-glass attenuation in the lower lungs, with septal thickening in the bilateral lower lobes, worrisome for infectious process. Heart and vasculature: No significant cardiomegaly. Trace pericardial effusion. Atherosclerotic coronary artery calcifications. Thyroid and lower neck: Multiple thyroid nodules. Mediastinum/ju: Scattered prominent mediastinal lymph nodes, likely reactive. Chest wall: No axillary lymphadenopathy. Upper abdomen: See separate report of same day CT abdomen/pelvis. Bones: Multilevel degenerative changes of the spine. No suspicious/aggressive focal osseous lesion. IMPRESSION: 1. Peribronchial ground-glass attenuation in the lower lungs, with septal thickening in the bilateral lower lobes, worrisome for infectious process. Differential includes COVID pneumonia. 2. Multiple thyroid nodules. Recommend further evaluation with thyroid ultrasound on a nonemergent basis. Please note that all CT scans at this facility use dose modulation, iterative reconstruction, and/or weight-based dosing when appropriate to reduce radiation dose to as low as reasonably achievable. Dictated by Criselda Hughes MD @ 02/04/2021 7:29:30 PM (Electronically Signed)
[2021-02-04] MEDS: VANCOmycin 1.5 GM/300 ML 1.5 GM in Premix Bag 1 BAG IV SCH (20:30)
[2021-02-04] MEDS: Sodium Chloride 0.9% 1,000 ML IV SCH (23:15)
[2021-02-04] MEDS: Acetaminophen 325 MG Tab PO PRN (23:15)
[2021-02-05 07:00] LABS: BLOOD UREA NITROGEN,BUN 45 mg/dL (7.0-18.0); CARBON DIOXIDE,CO2 23.2 mmol/L (21.0-32.0); CHLORIDE,CL 113 mmol/L (98-107); GLUCOSE RANDOM 120 mg/dL (74-106); POTASSIUM,K 3.6 mmol/L (3.5-5.1); SODIUM,NA 149 mmol/L (136-148)
[2021-02-05] MEDS: VANCOmycin 1.5 GM/300 ML 1.5 GM in Premix Bag 1 BAG IV SCH ×2 (07:46→21:10)
[2021-02-05] MEDS: Sodium Chloride 0.9% 1,000 ML IV SCH (07:47)
[2021-02-05] MEDS ORDERED: Sodium Chloride 0.45% 1,000 ML IV SCH (10:00)
--- NOTE | 2021-02-05 11:35 | PCM.PN ---
- General Info Date of Service: 02/05/21 - Review of Systems Systems Review Comment:: denies any pain, much more alert today, able to carry on a conversation. - Patient Data Vitals - Most Recent: Last Vital Signs Temp 36.6 C 02/05/21 07:45 Pulse 85 02/05/21 07:45 Resp 17 02/05/21 07:45 BP 117/56 L 02/05/21 07:45 Pulse Ox 91 L 02/05/21 07:45 Weight - Most Recent: 101.5 kg I&O - Last 24 Hours: Intake & Output 02/04/21 02/05/21 02/05/21 22:59 06:59 14:59 Intake Total 50 1330 Output Total 1200 790 Balance -1150 540 Lab Results Last 24 Hours: Laboratory Results - last 24 hr 02/05/21 02/05/21 Range/Units 05:26 05:26 WBC 8.28 (4.0-11.0) K/uL RBC 4.23 L (4.50-5.90) M/uL Hgb 12.0 L (13.0-17.0) g/dL Hct 38.2 (38.0-50.0) % MCV 90.3 (80.0-98.0) fL MCH 28.4 (27.0-32.0) pg MCHC 31.4 (31.0-37.0) g/dL RDW Std Deviation 51.0 (28.0-62.0) fl RDW Coeff of Joseph 16 H (11.0-15.0) % Plt Count 288 (150-400) K/uL MPV 9.70 (7.40-12.00) fL Neut % (Auto) 72.5 (48.0-80.0) % Lymph % (Auto) 17.3 (16.0-40.0) % [place] % (Auto) 9.5 (0.0-15.0) % Eos % (Auto) 0.5 (0.0-7.0) % Baso % (Auto) 0.2 (0.0-1.5) % Neut # (Auto) 6.0 H (1.4-5.7) K/uL Lymph # (Auto) 1.4 (0.6-2.4) K/uL [place] # (Auto) 0.8 (0.0-0.8) K/uL Eos # (Auto) 0.0 (0.0-0.7) K/uL Baso # (Auto) 0.0 (0.0-0.1) K/uL Nucleated RBC % 0.0 /100WBC Nucleated RBCs # 0 K/uL Sodium 149 H (136-148) mmol/L Potassium 3.6 (3.5-5.1) mmol/L Chloride 113 H (98-107) mmol/L Carbon Dioxide 23.2 (21.0-32.0) mmol/L BUN 45 H (7.0-18.0) mg/dL Creatinine 1.7 H (0.8-1.3) mg/dL Est Cr Clr Drug Dosing TNP Estimated GFR (MDRD) 38.9 ml/min Glucose 120 H (74-106) mg/dL Calcium 8.3 L (8.5-10.1) mg/dL Total Bilirubin 0.4 (0.2-1.0) mg/dL AST 61 H (15-37) IU/L ALT 26 (14-63) IU/L Alkaline Phosphatase 60 (46-116) U/L Total Protein 6.6 (6.4-8.2) g/dL Albumin 2.2 L (3.4-5.0) g/dL Globulin 4.4 H (2.6-4.0) g/dL Albumin/Globulin Ratio 0.5 L (0.9-1.6) Eduardo Results Last 24 Hours: Microbiology 02/04/21 06:25 Aerobic Blood Culture - Preliminary Blood - Venous NO GROWTH AFTER 1 DAY Anaerobic Blood Culture - Final 02/04/21 06:45 Aerobic Blood Culture - Final Blood - Venous - Lab Draw Anaerobic Blood Culture - Final Med Orders - Current: Current Medications Acetaminophen (Acetaminophen 325 Mg Tab) 650 mg PO Q6H PRN PRN Reason: Temperature Last Admin: 02/04/21 23:15 Dose: 650 mg Documented by: Vancomycin HCl 1.5 gm/ Premix 300 mls @ 200 mls/hr IV Q12H [facility] Last Admin: 02/05/21 07:46 Dose: 200 mls/hr Documented by: Levofloxacin/Dextrose 750 mg/ (Premix) 150 mls @ 100 mls/hr IV Q24H [facility] Last Admin: 02/04/21 18:25 Dose: 100 mls/hr Documented by: Ceftriaxone Sodium/Dextrose (Rocephin In Dextrose,Iso-Osm 2 Gm/50 Ml) 2 gm in 50 mls @ 100 mls/hr IV Q24H [facility] Last Admin: 02/04/21 15:48 Dose: 100 mls/hr Documented by: Sodium Chloride (Sodium Chloride 0.45%) 1,000 mls @ 50 mls/hr IV ASDIRECTED [facility] Sodium Chloride (Sodium Chloride 0.9% 10 Ml Syringe) 10 ml FLUSH ASDIRECTED PRN PRN Reason: Keep Vein Open Last Admin: 02/04/21 06:39 Dose: 10 ml Documented by: Sodium Chloride (Sodium Chloride 0.9% 2.5 Ml Syringe) 2.5 ml FLUSH ASDIRECTED PRN PRN Reason: Keep Vein Open Last Admin: 02/04/21 06:39 Dose: 2.5 ml Documented by: Discontinued Medications Heparin Sodium (Porcine) (Heparin Sodium 5,000 Units/Ml Vial) 5,000 units SUBCUT Q12H [facility] Last Admin: 02/04/21 15:48 Dose: 5,000 units Documented by: Sodium Chloride (Normal Saline) 1,000 mls @ 1,000 mls/hr IV BOLUS ONE Stop: 02/04/21 07:23 Last Admin: 02/04/21 06:39 Dose: 1,000 mls/hr Documented by: Ciprofloxacin/Dextrose 400 mg/ (Premix) 200 mls @ 200 mls/hr IV NOW STA Stop: 02/04/21 07:32 Last Admin: 02/04/21 06:47 Dose: 200 mls/hr Documented by: Sodium Chloride (Normal Saline) 1,000 mls @ 1,000 mls/hr IV .Bolus ONE Stop: 02/04/21 07:38 Last Admin: 02/04/21 06:43 Dose: 1,000 mls/hr Documented by: Vancomycin HCl 1.5 gm/ Premix 300 mls @ 200 mls/hr IV NOW ONE Stop: 02/04/21 08:14 Last Admin: 02/04/21 07:28 Dose: 200 mls/hr Documented by: Sodium Chloride (Normal Saline) 1,000 mls @ 125 mls/hr IV ASDIRECTED [facility] Last Admin: 02/05/21 07:47 Dose: 125 mls/hr Documented by: Ketorolac Tromethamine (Ketorolac 30 Mg/Ml Sdv) 30 mg IVPUSH ONETIME ONE Stop: 02/04/21 07:30 Last Admin: 02/04/21 07:51 Dose: Not Given Documented by: Vancomycin HCl (Pharmacy To Dose - Vancomycin) 1 dose .XX ONETIME ONE Stop: 02/04/21 06:25 Last Admin: 02/04/21 07:34 Dose: Not Given Documented by: - Exam Urinary Catheter Total Time: 1Days 1Hours General: Alert, Cooperative Lungs: Clear to Auscultation, Normal Respiratory Effort Cardiovascular: Regular Rate, Regular Rhythm GI/Abdominal Exam: Normal Bowel Sounds, Soft, Non-Tender Extremities: Non-Tender, No Pedal Edema Skin: Warm, Dry, Intact Neurological: No New Focal Deficit - Patient Data Lab Results Last 24 hrs: Laboratory Results - last 24 hr 02/05/21 02/05/21 Range/Units 05:26 05:26 WBC 8.28 (4.0-11.0) K/uL RBC 4.23 L (4.50-5.90) M/uL Hgb 12.0 L (13.0-17.0) g/dL Hct 38.2 (38.0-50.0) % MCV 90.3 (80.0-98.0) fL MCH 28.4 (27.0-32.0) pg MCHC 31.4 (31.0-37.0) g/dL RDW Std Deviation 51.0 (28.0-62.0) fl RDW Coeff of Joseph 16 H (11.0-15.0) % Plt Count 288 (150-400) K/uL MPV 9.70 (7.40-12.00) fL Neut % (Auto) 72.5 (48.0-80.0) % Lymph % (Auto) 17.3 (16.0-40.0) % [place] % (Auto) 9.5 (0.0-15.0) % Eos % (Auto) 0.5 (0.0-7.0) % Baso % (Auto) 0.2 (0.0-1.5) % Neut # (Auto) 6.0 H (1.4-5.7) K/uL Lymph # (Auto) 1.4 (0.6-2.4) K/uL [place] # (Auto) 0.8 (0.0-0.8) K/uL Eos # (Auto) 0.0 (0.0-0.7) K/uL Baso # (Auto) 0.0 (0.0-0.1) K/uL Nucleated RBC % 0.0 /100WBC Nucleated RBCs # 0 K/uL Sodium 149 H (136-148) mmol/L Potassium 3.6 (3.5-5.1) mmol/L Chloride 113 H (98-107) mmol/L Carbon Dioxide 23.2 (21.0-32.0) mmol/L BUN 45 H (7.0-18.0) mg/dL Creatinine 1.7 H (0.8-1.3) mg/dL Est Cr Clr Drug Dosing TNP Estimated GFR (MDRD) 38.9 ml/min Glucose 120 H (74-106) mg/dL Calcium 8.3 L (8.5-10.1) mg/dL Total Bilirubin 0.4 (0.2-1.0) mg/dL AST 61 H (15-37) IU/L ALT 26 (14-63) IU/L Alkaline Phosphatase 60 (46-116) U/L Total Protein 6.6 (6.4-8.2) g/dL Albumin 2.2 L (3.4-5.0) g/dL Globulin 4.4 H (2.6-4.0) g/dL Albumin/Globulin Ratio 0.5 L (0.9-1.6) Result Diagrams: 02/05/21 05:26 02/05/21 05:26 Eduardo Results Last 24 hrs: Microbiology 02/04/21 06:25 Aerobic Blood Culture - Preliminary Blood - Venous NO GROWTH AFTER 1 DAY Anaerobic Blood Culture - Final 02/04/21 06:45 Aerobic Blood Culture - Final Blood - Venous - Lab Draw Anaerobic Blood Culture - Final Sepsis Event Note - Evaluation Sepsis Screening Result: No Definite Risk - Focused Exam Vital Signs: Vital Signs Temp Temp Pulse Resp BP Pulse Ox 02/05/21 07:45 36.6 C 85 17 117/56 L 91 L 02/05/21 04:00 36.0 C L 89 16 122/58 L 91 L 02/05/21 00:00 36.4 C 88 16 87/50 L 92 L 02/04/21 23:45 36.4 C - Problem List & Annotations (1) Urinary tract infection SNOMED Code(s): 84930892 Code(s): N39.0 - URINARY TRACT INFECTION, SITE NOT SPECIFIED Status: Acute Current Visit: Yes Qualifiers: Urinary tract infection type: acute cystitis Hematuria presence: with he maturia Qualified Code(s): N30.01 - Acute cystitis with hematuria (2) Acute kidney injury superimposed on CKD SNOMED Code(s): 85897654 Code(s): N17.9 - ACUTE KIDNEY FAILURE, UNSPECIFIED; N18.9 - CHRONIC KIDNEY DISEASE, UNSPECIFIED Status: Acute Current Visit: Yes (3) Sepsis SNOMED Code(s): 35090946 Code(s): A41.9 - SEPSIS, UNSPECIFIED ORGANISM Status: Acute Current Visit: Yes (4) Pyelonephritis, acute SNOMED Code(s): 21994871 Code(s): N10 - ACUTE PYELONEPHRITIS Status: Acute Current Visit: Yes - Problem List Review Problem List Initiated/Reviewed/Updated: Yes - My Orders Last 24 Hours: My Active Orders 02/04/21 15:05 Oxygen Therapy [RC] PRN Up ad Jennifer [RC] ASDIRECTED VTE/DVT Education [RC] PER UNIT ROUTINE Vital Signs [RC] Q4H Resuscitation Status Routine 02/04/21 15:06 Antiembolic Devices [RC] PER UNIT ROUTINE Sequential Compression Device [OM.PC] Per Unit Routine 02/04/21 15:30 cefTRIAXone [Rocephin in Dextrose,Iso-Osm 2 GM/50 ML] 2 gm in 50 ml IV Q24H 02/04/21 19:00 Levofloxacin/Dextrose 5%-Water [Levaquin in D5W 750 MG/150 ML] 750 mg Premix Bag 1 bag IV Q24H 02/04/21 22:29 Telemetry Monitoring [Cardiac Monitoring] [RC] . DIRECTED 02/04/21 22:43 Acetaminophen [TylenoL] 650 mg PO Q6H PRN 02/05/21 10:00 Sodium Chloride 0.45% 1,000 ml IV ASDIRECTED 02/06/21 05:11 CBC WITH AUTO DIFF [HEME] AM COMPREHENSIVE METABOLIC PN,CMP [CHEM] AM 02/07/21 05:11 CBC WITH AUTO DIFF [HEME] AM COMPREHENSIVE METABOLIC PN,CMP [CHEM] AM 02/08/21 05:11 CBC WITH AUTO DIFF [HEME] AM COMPREHENSIVE METABOLIC PN,CMP [CHEM] AM - Plan Plan:: 81 yo male admitted for UTI with sepsis. Appears to be improving. UTI: 3/4 blood cultures growing out gram positive cocci. Will continue vancomycin, Rocephin and levaquin. Acute kidney injury with hypernatremia: IV fluid bolus with 1/2 NS
[2021-02-05] MEDS: Heparin Sodium 5,000 Units/ML Vial SUBCUT SCH (14:53)
[2021-02-05] MEDS: cefTRIAXone 2 GM/50 ML BAG IV SCH (14:54)
[2021-02-05] MEDS: Levofloxacin/Dextrose 5%-Water 750 MG in Premix Bag 1 BAG IV SCH (18:08)
[2021-02-06] MEDS: VANCOmycin 1.5 GM/300 ML 1.5 GM in Premix Bag 1 BAG IV SCH ×2 (02:23→07:47)
[2021-02-06] MEDS: Heparin Sodium 5,000 Units/ML Vial SUBCUT SCH ×2 (03:03→14:41)
[2021-02-06 08:41] LABS: BLOOD UREA NITROGEN,BUN 37 mg/dL (7.0-18.0); CHLORIDE,CL 112 mmol/L (98-107); GLUCOSE RANDOM 91 mg/dL (74-106); POTASSIUM,K 3.5 mmol/L (3.5-5.1); SODIUM,NA 146 mmol/L (136-148)
--- NOTE | 2021-02-06 09:25 | PCM.PN ---
- General Info Date of Service: 02/06/21 Admission Dx/Problem (Free Text): Admission Diagnosis/Problem Admission Diagnosis/Problem Hypoxia Subjective Update: 81-year-old male admitted from [facility] for UTI and acute on chronic kidney disease. Patient has a history of CKD and chronic Gao catheter which was replaced in the ER. This morning the patient is alert and is able to tell me that he comes in from [facility]. He is not oriented to date or place. He denies pain. His kidney function has improved this morning. Patient did have some mild bleeding at the tip of the penis related to insertion of his Gao. Patient is currently not have any bleeding at this time. - Review of Systems General: Denies: Fever - Patient Data Vitals - Most Recent: Last Vital Signs Temp 96.9 F 02/06/21 07:48 Pulse 101 H 02/06/21 07:48 Resp 18 02/06/21 07:48 BP 141/71 H 02/06/21 07:48 Pulse Ox 98 02/06/21 07:48 Weight - Most Recent: 223 lb 12.307 oz I&O - Last 24 Hours: Intake & Output 02/05/21 02/06/21 02/06/21 22:59 06:59 14:59 Intake Total 2200 800 Output Total 1800 750 Balance 400 50 Lab Results Last 24 Hours: Laboratory Results - last 24 hr 02/05/21 02/06/21 02/06/21 Range/Units 19:35 06:42 06:42 WBC 7.57 (4.0-11.0) K/uL RBC 3.94 L (4.50-5.90) M/uL Hgb 11.1 L (13.0-17.0) g/dL Hct 35.3 L (38.0-50.0) % MCV 89.6 (80.0-98.0) fL MCH 28.2 (27.0-32.0) pg MCHC 31.4 (31.0-37.0) g/dL RDW Std Deviation 50.6 (28.0-62.0) fl RDW Coeff of Joseph 15 (11.0-15.0) % Plt Count 266 (150-400) K/uL MPV 9.90 (7.40-12.00) fL Neut % (Auto) 60.1 (48.0-80.0) % Lymph % (Auto) 25.0 (16.0-40.0) % [place] % (Auto) 9.9 (0.0-15.0) % Eos % (Auto) 4.6 (0.0-7.0) % Baso % (Auto) 0.4 (0.0-1.5) % Neut # (Auto) 4.6 (1.4-5.7) K/uL Lymph # (Auto) 1.9 (0.6-2.4) K/uL [place] # (Auto) 0.8 (0.0-0.8) K/uL Eos # (Auto) 0.4 (0.0-0.7) K/uL Baso # (Auto) 0.0 (0.0-0.1) K/uL Nucleated RBC % 0.0 /100WBC Nucleated RBCs # 0 K/uL Sodium 146 (136-148) mmol/L Potassium 3.5 (3.5-5.1) mmol/L Chloride 112 H (98-107) mmol/L Carbon Dioxide 22.0 (21.0-32.0) mmol/L BUN 37 H (7.0-18.0) mg/dL Creatinine 1.3 (0.8-1.3) mg/dL Est Cr Clr Drug Dosing TNP Estimated GFR (MDRD) 53.0 ml/min Glucose 91 (74-106) mg/dL Calcium 8.4 L (8.5-10.1) mg/dL Magnesium (1.8-2.4) mg/dL Total Bilirubin 0.2 (0.2-1.0) mg/dL AST 58 H (15-37) IU/L ALT 25 (14-63) IU/L Alkaline Phosphatase 57 (46-116) U/L Total Protein 6.2 L (6.4-8.2) g/dL Albumin 2.1 L (3.4-5.0) g/dL Globulin 4.1 H (2.6-4.0) g/dL Albumin/Globulin Ratio 0.5 L (0.9-1.6) Vancomycin Trough 28.4 H (5.0-10.0) ug/mL 02/06/21 Range/Units 06:42 WBC (4.0-11.0) K/uL RBC (4.50-5.90) M/uL Hgb (13.0-17.0) g/dL Hct (38.0-50.0) % MCV (80.0-98.0) fL MCH (27.0-32.0) pg MCHC (31.0-37.0) g/dL RDW Std Deviation (28.0-62.0) fl RDW Coeff of Joseph (11.0-15.0) % Plt Count (150-400) K/uL MPV (7.40-12.00) fL Neut % (Auto) (48.0-80.0) % Lymph % (Auto) (16.0-40.0) % [place] % (Auto) (0.0-15.0) % Eos % (Auto) (0.0-7.0) % Baso % (Auto) (0.0-1.5) % Neut # (Auto) (1.4-5.7) K/uL Lymph # (Auto) (0.6-2.4) K/uL [place] # (Auto) (0.0-0.8) K/uL Eos # (Auto) (0.0-0.7) K/uL Baso # (Auto) (0.0-0.1) K/uL Nucleated RBC % /100WBC Nucleated RBCs # K/uL Sodium (136-148) mmol/L Potassium (3.5-5.1) mmol/L Chloride (98-107) mmol/L Carbon Dioxide (21.0-32.0) mmol/L BUN (7.0-18.0) mg/dL Creatinine (0.8-1.3) mg/dL Est Cr Clr Drug Dosing Estimated GFR (MDRD) ml/min Glucose (74-106) mg/dL Calcium (8.5-10.1) mg/dL Magnesium 2.3 (1.8-2.4) mg/dL Total Bilirubin (0.2-1.0) mg/dL AST (15-37) IU/L ALT (14-63) IU/L Alkaline Phosphatase (46-116) U/L Total Protein (6.4-8.2) g/dL Albumin (3.4-5.0) g/dL Globulin (2.6-4.0) g/dL Albumin/Globulin Ratio (0.9-1.6) Vancomycin Trough (5.0-10.0) ug/mL Eduardo Results Last 24 Hours: Microbiology 02/04/21 06:25 Aerobic Blood Culture - Preliminary Blood - Venous NO GROWTH AFTER 2 DAYS Anaerobic Blood Culture - Final 02/04/21 06:45 Blood Culture Identification Panel - Preliminary Blood Staphylococcus Aureus 02/04/21 06:25 Bacteria Detection (PCR) - Final Blood 02/04/21 06:25 Blood Culture Identification Panel - Preliminary Blood Gram Positive Cocci Med Orders - Current: Current Medications Acetaminophen (Acetaminophen 325 Mg Tab) 650 mg PO Q6H PRN PRN Reason: Temperature Last Admin: 02/04/21 23:15 Dose: 650 mg Documented by: Heparin Sodium (Porcine) (Heparin Sodium 5,000 Units/Ml Vial) 5,000 units SUBCUT Q12H [facility] Last Admin: 02/06/21 03:03 Dose: 5,000 units Documented by: Levofloxacin/Dextrose 750 mg/ (Premix) 150 mls @ 100 mls/hr IV Q24H [facility] Last Admin: 02/05/21 18:08 Dose: 100 mls/hr Documented by: Ceftriaxone Sodium/Dextrose (Rocephin In Dextrose,Iso-Osm 2 Gm/50 Ml) 2 gm in 50 mls @ 100 mls/hr IV Q24H [facility] Last Admin: 02/05/21 14:54 Dose: 100 mls/hr Documented by: Vancomycin HCl 1.5 gm/ Premix 300 mls @ 200 mls/hr IV Q24H [facility] Last Admin: 02/06/21 07:47 Dose: 200 mls/hr Documented by: Sodium Chloride (Sodium Chloride 0.9% 10 Ml Syringe) 10 ml FLUSH ASDIRECTED PRN PRN Reason: Keep Vein Open Last Admin: 02/04/21 06:39 Dose: 10 ml Documented by: Sodium Chloride (Sodium Chloride 0.9% 2.5 Ml Syringe) 2.5 ml FLUSH ASDIRECTED PRN PRN Reason: Keep Vein Open Last Admin: 02/04/21 06:39 Dose: 2.5 ml Documented by: Discontinued Medications Heparin Sodium (Porcine) (Heparin Sodium 5,000 Units/Ml Vial) 5,000 units SUBCUT Q12H [facility] Last Admin: 02/04/21 15:48 Dose: 5,000 units Documented by: Sodium Chloride (Normal Saline) 1,000 mls @ 1,000 mls/hr IV BOLUS ONE Stop: 02/04/21 07:23 Last Admin: 02/04/21 06:39 Dose: 1,000 mls/hr Documented by: Ciprofloxacin/Dextrose 400 mg/ (Premix) 200 mls @ 200 mls/hr IV NOW STA Stop: 02/04/21 07:32 Last Admin: 02/04/21 06:47 Dose: 200 mls/hr Documented by: Sodium Chloride (Normal Saline) 1,000 mls @ 1,000 mls/hr IV .Bolus ONE Stop: 02/04/21 07:38 Last Admin: 02/04/21 06:43 Dose: 1,000 mls/hr Documented by: Vancomycin HCl 1.5 gm/ Premix 300 mls @ 200 mls/hr IV NOW ONE Stop: 02/04/21 08:14 Last Admin: 02/04/21 07:28 Dose: 200 mls/hr Documented by: Vancomycin HCl 1.5 gm/ Premix 300 mls @ 200 mls/hr IV Q12H [facility] Last Admin: 02/06/21 02:23 Dose: Not Given Documented by: Sodium Chloride (Normal Saline) 1,000 mls @ 125 mls/hr IV ASDIRECTED [facility] Last Admin: 02/05/21 07:47 Dose: 125 mls/hr Documented by: Sodium Chloride (Sodium Chloride 0.45%) 1,000 mls @ 50 mls/hr IV ASDIRECTED [facility] Stop: 02/05/21 17:00 Last Admin: 02/05/21 12:24 Dose: 50 mls/hr Documented by: Ketorolac Tromethamine (Ketorolac 30 Mg/Ml Sdv) 30 mg IVPUSH ONETIME ONE Stop: 02/04/21 07:30 Last Admin: 02/04/21 07:51 Dose: Not Given Documented by: Vancomycin HCl (Pharmacy To Dose - Vancomycin) 1 dose .XX ONETIME ONE Stop: 02/04/21 06:25 Last Admin: 02/04/21 07:34 Dose: Not Given Documented by: Vancomycin HCl (Pharmacy To Dose - Vancomycin) 1 dose .XX ASDIRECTED ONE Stop: 02/05/21 22:17 Last Admin: 02/06/21 07:07 Dose: Not Given Documented by: - Exam Urinary Catheter Total Time: 2Days 0Hours General: Alert, No Acute Distress. No: Oriented HEENT: Pupils Equal, Pupils Reactive Neck: Supple, Trachea Midline Lungs: Clear to Auscultation Cardiovascular: Regular Rate, Regular Rhythm GI/Abdominal Exam: Normal Bowel Sounds, Soft, Non-Tender Extremities: Normal Inspection Peripheral Pulses: 2+: Dorsalis Pedis (L), Dorsalis Pedis (R) Skin: Warm, Dry, Intact - Patient Data Lab Results Last 24 hrs: Laboratory Results - last 24 hr 02/05/21 02/06/21 02/06/21 Range/Units 19:35 06:42 06:42 WBC 7.57 (4.0-11.0) K/uL RBC 3.94 L (4.50-5.90) M/uL Hgb 11.1 L (13.0-17.0) g/dL Hct 35.3 L (38.0-50.0) % MCV 89.6 (80.0-98.0) fL MCH 28.2 (27.0-32.0) pg MCHC 31.4 (31.0-37.0) g/dL RDW Std Deviation 50.6 (28.0-62.0) fl RDW Coeff of Joseph 15 (11.0-15.0) % Plt Count 266 (150-400) K/uL MPV 9.90 (7.40-12.00) fL Neut % (Auto) 60.1 (48.0-80.0) % Lymph % (Auto) 25.0 (16.0-40.0) % [place] % (Auto) 9.9 (0.0-15.0) % Eos % (Auto) 4.6 (0.0-7.0) % Baso % (Auto) 0.4 (0.0-1.5) % Neut # (Auto) 4.6 (1.4-5.7) K/uL Lymph # (Auto) 1.9 (0.6-2.4) K/uL [place] # (Auto) 0.8 (0.0-0.8) K/uL Eos # (Auto) 0.4 (0.0-0.7) K/uL Baso # (Auto) 0.0 (0.0-0.1) K/uL Nucleated RBC % 0.0 /100WBC Nucleated RBCs # 0 K/uL Sodium 146 (136-148) mmol/L Potassium 3.5 (3.5-5.1) mmol/L Chloride 112 H (98-107) mmol/L Carbon Dioxide 22.0 (21.0-32.0) mmol/L BUN 37 H (7.0-18.0) mg/dL Creatinine 1.3 (0.8-1.3) mg/dL Est Cr Clr Drug Dosing TNP Estimated GFR (MDRD) 53.0 ml/min Glucose 91 (74-106) mg/dL Calcium 8.4 L (8.5-10.1) mg/dL Magnesium (1.8-2.4) mg/dL Total Bilirubin 0.2 (0.2-1.0) mg/dL AST 58 H (15-37) IU/L ALT 25 (14-63) IU/L Alkaline Phosphatase 57 (46-116) U/L Total Protein 6.2 L (6.4-8.2) g/dL Albumin 2.1 L (3.4-5.0) g/dL Globulin 4.1 H (2.6-4.0) g/dL Albumin/Globulin Ratio 0.5 L (0.9-1.6) Vancomycin Trough 28.4 H (5.0-10.0) ug/mL 02/06/21 Range/Units 06:42 WBC (4.0-11.0) K/uL RBC (4.50-5.90) M/uL Hgb (13.0-17.0) g/dL Hct (38.0-50.0) % MCV (80.0-98.0) fL MCH (27.0-32.0) pg MCHC (31.0-37.0) g/dL RDW Std Deviation (28.0-62.0) fl RDW Coeff of Joseph (11.0-15.0) % Plt Count (150-400) K/uL MPV (7.40-12.00) fL Neut % (Auto) (48.0-80.0) % Lymph % (Auto) (16.0-40.0) % [place] % (Auto) (0.0-15.0) % Eos % (Auto) (0.0-7.0) % Baso % (Auto) (0.0-1.5) % Neut # (Auto) (1.4-5.7) K/uL Lymph # (Auto) (0.6-2.4) K/uL [place] # (Auto) (0.0-0.8) K/uL Eos # (Auto) (0.0-0.7) K/uL Baso # (Auto) (0.0-0.1) K/uL Nucleated RBC % /100WBC Nucleated RBCs # K/uL Sodium (136-148) mmol/L Potassium (3.5-5.1) mmol/L Chloride (98-107) mmol/L Carbon Dioxide (21.0-32.0) mmol/L BUN (7.0-18.0) mg/dL Creatinine (0.8-1.3) mg/dL Est Cr Clr Drug Dosing Estimated GFR (MDRD) ml/min Glucose (74-106) mg/dL Calcium (8.5-10.1) mg/dL Magnesium 2.3 (1.8-2.4) mg/dL Total Bilirubin (0.2-1.0) mg/dL AST (15-37) IU/L ALT (14-63) IU/L Alkaline Phosphatase (46-116) U/L Total Protein (6.4-8.2) g/dL Albumin (3.4-5.0) g/dL Globulin (2.6-4.0) g/dL Albumin/Globulin Ratio (0.9-1.6) Vancomycin Trough (5.0-10.0) ug/mL Result Diagrams: 02/06/21 06:42 02/06/21 06:42 Eduardo Results Last 24 hrs: Microbiology 02/04/21 06:25 Aerobic Blood Culture - Preliminary Blood - Venous NO GROWTH AFTER 2 DAYS Anaerobic Blood Culture - Final 02/04/21 06:45 Blood Culture Identification Panel - Preliminary Blood Staphylococcus Aureus 02/04/21 06:25 Bacteria Detection (PCR) - Final Blood 02/04/21 06:25 Blood Culture Identification Panel - Preliminary Blood Gram Positive Cocci Sepsis Event Note - Evaluation Sepsis Screening Result: No Definite Risk - Focused Exam Vital Signs: Vital Signs Temp Pulse Resp BP Pulse Ox 02/06/21 07:48 96.9 F 101 H 18 141/71 H 98 02/06/21 06:33 87 127/64 02/06/21 04:00 98.3 F 86 18 131/71 94 L 02/06/21 00:00 98.5 F 81 18 112/62 93 L - Problem List & Annotations (1) New onset atrial fibrillation SNOMED Code(s): 56582384 Code(s): I48.91 - UNSPECIFIED ATRIAL FIBRILLATION Status: Acute Current Visit: Yes - Problem List Review Problem List Initiated/Reviewed/Updated: Yes - Plan Plan:: 81-year-old male admitted for UTI and sepsis. Patient has a history of positive cultures of Pseudomonas and E. coli and is currently receiving vancomycin, ceftriaxone and Levaquin. Patient's mental status is improved this morning. Patient is a rhythm showed atrial fibrillation. Patient is asymptomatic. EKG showed no ST changes. We will hold off on anticoagulation at this time considering his bleeding. Will reassess.
[2021-02-06] MEDS: cefTRIAXone 2 GM/50 ML BAG IV SCH (14:44)
[2021-02-06] MEDS: Levofloxacin/Dextrose 5%-Water 750 MG in Premix Bag 1 BAG IV SCH (18:40)
[2021-02-07] MEDS: Heparin Sodium 5,000 Units/ML Vial SUBCUT SCH ×2 (01:49→14:28)
[2021-02-07 07:42] LABS: BLOOD UREA NITROGEN,BUN 32 mg/dL (7.0-18.0); CARBON DIOXIDE,CO2 20.9 mmol/L (21.0-32.0); CHLORIDE,CL 109 mmol/L (98-107); GLUCOSE RANDOM 88 mg/dL (74-106); POTASSIUM,K 3.3 mmol/L (3.5-5.1); SODIUM,NA 142 mmol/L (136-148)
[2021-02-07] MEDS ORDERED: Potassium Chloride 20 MEQ Tab.ER PO ONE (07:49)
[2021-02-07] MEDS: VANCOmycin 1.5 GM/300 ML 1.5 GM in Premix Bag 1 BAG IV SCH (10:28)
--- NOTE | 2021-02-07 10:40 | PCM.PN ---
- General Info Date of Service: 02/07/21 Admission Dx/Problem (Free Text): Admission Diagnosis/Problem Admission Diagnosis/Problem Hypoxia Subjective Update: 81-year-old male admitted from [facility] for UTI and acute on chronic kidney disease. Patient has a history of CKD and chronic Gao catheter which was replaced in the ER. This morning the patient is alert and oriented x1. He is not oriented to place or time. He denies pain. No bleeding complaints. Patient's white count is downtrending. - Review of Systems General: Denies: Fever Pulmonary: Denies: Cough Gastrointestinal: Denies: Constipation, Diarrhea, Nausea, Vomiting - Patient Data Vitals - Most Recent: Last Vital Signs Temp 97.3 F 02/07/21 08:00 Pulse 77 02/07/21 08:00 Resp 18 02/07/21 08:00 BP 111/53 L 02/07/21 08:00 Pulse Ox 95 02/07/21 08:00 Weight - Most Recent: 223 lb 12.307 oz I&O - Last 24 Hours: Intake & Output 02/06/21 02/07/21 02/07/21 22:59 06:59 14:59 Intake Total 2009 840 Output Total 1200 700 Balance 810 140 Lab Results Last 24 Hours: Laboratory Results - last 24 hr 02/07/21 02/07/21 Range/Units 05:35 05:35 WBC 7.72 (4.0-11.0) K/uL RBC 4.25 L (4.50-5.90) M/uL Hgb 12.0 L (13.0-17.0) g/dL Hct 37.6 L (38.0-50.0) % MCV 88.5 (80.0-98.0) fL MCH 28.2 (27.0-32.0) pg MCHC 31.9 (31.0-37.0) g/dL RDW Std Deviation 49.5 (28.0-62.0) fl RDW Coeff of Joseph 15 (11.0-15.0) % Plt Count 260 (150-400) K/uL MPV 10.30 (7.40-12.00) fL Neut % (Auto) 63.8 (48.0-80.0) % Lymph % (Auto) 23.2 (16.0-40.0) % Monroe % (Auto) 8.3 (0.0-15.0) % Eos % (Auto) 4.4 (0.0-7.0) % Baso % (Auto) 0.3 (0.0-1.5) % Neut # (Auto) 4.9 (1.4-5.7) K/uL Lymph # (Auto) 1.8 (0.6-2.4) K/uL Monroe # (Auto) 0.6 (0.0-0.8) K/uL Eos # (Auto) 0.3 (0.0-0.7) K/uL Baso # (Auto) 0.0 (0.0-0.1) K/uL Nucleated RBC % 0.0 /100WBC Nucleated RBCs # 0 K/uL Sodium 142 (136-148) mmol/L Potassium 3.3 L (3.5-5.1) mmol/L Chloride 109 H (98-107) mmol/L Carbon Dioxide 20.9 L (21.0-32.0) mmol/L BUN 32 H (7.0-18.0) mg/dL Creatinine 1.2 (0.8-1.3) mg/dL Est Cr Clr Drug Dosing TNP Estimated GFR (MDRD) 58.1 ml/min Glucose 88 (74-106) mg/dL Calcium 8.9 (8.5-10.1) mg/dL Total Bilirubin 0.3 (0.2-1.0) mg/dL AST 47 H (15-37) IU/L ALT 20 (14-63) IU/L Alkaline Phosphatase 50 (46-116) U/L Total Protein 7.0 (6.4-8.2) g/dL Albumin 2.1 L (3.4-5.0) g/dL Globulin 4.9 H (2.6-4.0) g/dL Albumin/Globulin Ratio 0.4 L (0.9-1.6) Eduardo Results Last 24 Hours: Microbiology 02/04/21 06:45 Blood Culture Identification Panel - Final Blood Staphylococcus Aureus 02/04/21 06:25 Blood Culture Identification Panel - Final Blood Staphylococcus Aureus 02/04/21 06:25 Aerobic Blood Culture - Final Blood - Venous NO GROWTH AFTER 2 DAYS Anaerobic Blood Culture - Final Med Orders - Current: Current Medications Acetaminophen (Acetaminophen 325 Mg Tab) 650 mg PO Q6H PRN PRN Reason: Temperature Last Admin: 02/04/21 23:15 Dose: 650 mg Documented by: Heparin Sodium (Porcine) (Heparin Sodium 5,000 Units/Ml Vial) 5,000 units SUBCUT Q12H [facility] Last Admin: 02/07/21 01:49 Dose: 5,000 units Documented by: Levofloxacin/Dextrose 750 mg/ (Premix) 150 mls @ 100 mls/hr IV Q24H [facility] Last Admin: 02/06/21 18:40 Dose: 100 mls/hr Documented by: Ceftriaxone Sodium/Dextrose (Rocephin In Dextrose,Iso-Osm 2 Gm/50 Ml) 2 gm in 50 mls @ 100 mls/hr IV Q24H [facility] Last Admin: 02/06/21 14:44 Dose: 100 mls/hr Documented by: Vancomycin HCl 1.5 gm/ Premix 300 mls @ 200 mls/hr IV Q24H [facility] Last Admin: 02/07/21 10:28 Dose: Not Given Documented by: Sodium Chloride (Sodium Chloride 0.9% 10 Ml Syringe) 10 ml FLUSH ASDIRECTED PRN PRN Reason: Keep Vein Open Last Admin: 02/04/21 06:39 Dose: 10 ml Documented by: Sodium Chloride (Sodium Chloride 0.9% 2.5 Ml Syringe) 2.5 ml FLUSH ASDIRECTED PRN PRN Reason: Keep Vein Open Last Admin: 02/04/21 06:39 Dose: 2.5 ml Documented by: Discontinued Medications Heparin Sodium (Porcine) (Heparin Sodium 5,000 Units/Ml Vial) 5,000 units SUBCUT Q12H [facility] Last Admin: 02/04/21 15:48 Dose: 5,000 units Documented by: Sodium Chloride (Normal Saline) 1,000 mls @ 1,000 mls/hr IV BOLUS ONE Stop: 02/04/21 07:23 Last Admin: 02/04/21 06:39 Dose: 1,000 mls/hr Documented by: Ciprofloxacin/Dextrose 400 mg/ (Premix) 200 mls @ 200 mls/hr IV NOW STA Stop: 02/04/21 07:32 Last Admin: 02/04/21 06:47 Dose: 200 mls/hr Documented by: Sodium Chloride (Normal Saline) 1,000 mls @ 1,000 mls/hr IV .Bolus ONE Stop: 02/04/21 07:38 Last Admin: 02/04/21 06:43 Dose: 1,000 mls/hr Documented by: Vancomycin HCl 1.5 gm/ Premix 300 mls @ 200 mls/hr IV NOW ONE Stop: 02/04/21 08:14 Last Admin: 02/04/21 07:28 Dose: 200 mls/hr Documented by: Vancomycin HCl 1.5 gm/ Premix 300 mls @ 200 mls/hr IV Q12H [facility] Last Admin: 02/06/21 02:23 Dose: Not Given Documented by: Sodium Chloride (Normal Saline) 1,000 mls @ 125 mls/hr IV ASDIRECTED [facility] Last Admin: 02/05/21 07:47 Dose: 125 mls/hr Documented by: Sodium Chloride (Sodium Chloride 0.45%) 1,000 mls @ 50 mls/hr IV ASDIRECTED [facility] Stop: 02/05/21 17:00 Last Admin: 02/05/21 12:24 Dose: 50 mls/hr Documented by: Ketorolac Tromethamine (Ketorolac 30 Mg/Ml Sdv) 30 mg IVPUSH ONETIME ONE Stop: 02/04/21 07:30 Last Admin: 02/04/21 07:51 Dose: Not Given Documented by: Potassium Chloride (Potassium Chloride 20 Meq Tab.Er) 40 meq PO ONETIME ONE Stop: 02/07/21 07:50 Last Admin: 02/07/21 10:06 Dose: 40 meq Documented by: Vancomycin HCl (Pharmacy To Dose - Vancomycin) 1 dose .XX ONETIME ONE Stop: 02/04/21 06:25 Last Admin: 02/04/21 07:34 Dose: Not Given Documented by: Vancomycin HCl (Pharmacy To Dose - Vancomycin) 1 dose .XX ASDIRECTED ONE Stop: 02/05/21 22:17 Last Admin: 02/06/21 07:07 Dose: Not Given Documented by: - Exam Urinary Catheter Total Time: 2Days 22Hours General: Alert, No Acute Distress. No: Oriented HEENT: Pupils Equal, Pupils Reactive Neck: Supple, Trachea Midline Lungs: Clear to Auscultation, Normal Respiratory Effort Cardiovascular: Regular Rate, Irregular Rhythm GI/Abdominal Exam: Normal Bowel Sounds, Soft, Non-Tender Extremities: Normal Inspection, Non-Tender, No Pedal Edema. No: Sushil's Sign, Leg Pain Peripheral Pulses: 2+: Dorsalis Pedis (L), Dorsalis Pedis (R) Skin: Warm, Dry, Intact Neurological: No New Focal Deficit - Patient Data Lab Results Last 24 hrs: Laboratory Results - last 24 hr 02/07/21 02/07/21 Range/Units 05:35 05:35 WBC 7.72 (4.0-11.0) K/uL RBC 4.25 L (4.50-5.90) M/uL Hgb 12.0 L (13.0-17.0) g/dL Hct 37.6 L (38.0-50.0) % MCV 88.5 (80.0-98.0) fL MCH 28.2 (27.0-32.0) pg MCHC 31.9 (31.0-37.0) g/dL RDW Std Deviation 49.5 (28.0-62.0) fl RDW Coeff of Joseph 15 (11.0-15.0) % Plt Count 260 (150-400) K/uL MPV 10.30 (7.40-12.00) fL Neut % (Auto) 63.8 (48.0-80.0) % Lymph % (Auto) 23.2 (16.0-40.0) % Monroe % (Auto) 8.3 (0.0-15.0) % Eos % (Auto) 4.4 (0.0-7.0) % Baso % (Auto) 0.3 (0.0-1.5) % Neut # (Auto) 4.9 (1.4-5.7) K/uL Lymph # (Auto) 1.8 (0.6-2.4) K/uL Monroe # (Auto) 0.6 (0.0-0.8) K/uL Eos # (Auto) 0.3 (0.0-0.7) K/uL Baso # (Auto) 0.0 (0.0-0.1) K/uL Nucleated RBC % 0.0 /100WBC Nucleated RBCs # 0 K/uL Sodium 142 (136-148) mmol/L Potassium 3.3 L (3.5-5.1) mmol/L Chloride 109 H (98-107) mmol/L Carbon Dioxide 20.9 L (21.0-32.0) mmol/L BUN 32 H (7.0-18.0) mg/dL Creatinine 1.2 (0.8-1.3) mg/dL Est Cr Clr Drug Dosing TNP Estimated GFR (MDRD) 58.1 ml/min Glucose 88 (74-106) mg/dL Calcium 8.9 (8.5-10.1) mg/dL Total Bilirubin 0.3 (0.2-1.0) mg/dL AST 47 H (15-37) IU/L ALT 20 (14-63) IU/L Alkaline Phosphatase 50 (46-116) U/L Total Protein 7.0 (6.4-8.2) g/dL Albumin 2.1 L (3.4-5.0) g/dL Globulin 4.9 H (2.6-4.0) g/dL Albumin/Globulin Ratio 0.4 L (0.9-1.6) Result Diagrams: 02/07/21 05:35 02/07/21 05:35 Eduardo Results Last 24 hrs: Microbiology 02/04/21 06:45 Blood Culture Identification Panel - Final Blood Staphylococcus Aureus 02/04/21 06:25 Blood Culture Identification Panel - Final Blood Staphylococcus Aureus 02/04/21 06:25 Aerobic Blood Culture - Final Blood - Venous NO GROWTH AFTER 2 DAYS Anaerobic Blood Culture - Final Sepsis Event Note - Evaluation Sepsis Screening Result: No Definite Risk - Focused Exam Vital Signs: Vital Signs Temp Pulse Resp BP Pulse Ox 02/07/21 08:00 97.3 F 77 18 111/53 L 95 02/07/21 04:00 96.9 F 70 16 125/67 95 02/06/21 23:38 98.0 F 75 16 119/67 96 - Problem List & Annotations (1) New onset atrial fibrillation SNOMED Code(s): 21894882 Code(s): I48.91 - UNSPECIFIED ATRIAL FIBRILLATION Status: Acute Current Visit: Yes - Problem List Review Problem List Initiated/Reviewed/Updated: Yes - Plan Plan:: 81-year-old male admitted for UTI and sepsis. Patient has a history of positive cultures of Pseudomonas and E. coli and is currently receiving vancomycin, ceftriaxone and Levaquin. White count is downtrending. Current rhythm is normal sinus. Continue telemetry. We will continue to monitor for signs and symptoms of worsening infection. Blood culture returned positive for staph aureus.
[2021-02-07] MEDS: cefTRIAXone 2 GM/50 ML BAG IV SCH (15:57)
[2021-02-07] MEDS: Levofloxacin/Dextrose 5%-Water 750 MG in Premix Bag 1 BAG IV SCH (19:43)
[2021-02-07] MEDS: Acetaminophen 325 MG Tab PO PRN (22:58)
[2021-02-08] MEDS: Heparin Sodium 5,000 Units/ML Vial SUBCUT SCH ×2 (02:26→15:10)
--- NOTE | 2021-02-08 07:41 | PCM.PN ---
- General Info Date of Service: 02/08/21 Admission Dx/Problem (Free Text): Admission Diagnosis/Problem Admission Diagnosis/Problem Hypoxia Subjective Update: 81-year-old male admitted from [facility] for UTI and acute on chronic kidney disease. Patient has a history of CKD and chronic Gao catheter which was replaced in the ER. This morning the patient is alert and oriented x1. He is sitting up in bed eating grapes. He is not oriented to place or time. He denies pain. No bleeding complaints. Urine cultures showed no growth. - Review of Systems General: Denies: Fever Pulmonary: Denies: Cough Cardiovascular: Denies: Edema Gastrointestinal: Denies: Nausea, Vomiting Genitourinary: Denies: Hematuria Neurological: Reports: Confusion - Patient Data Vitals - Most Recent: Last Vital Signs Temp 96.3 F L 02/08/21 04:00 Pulse 95 02/08/21 04:00 Resp 18 02/08/21 04:00 BP 117/66 02/08/21 04:00 Pulse Ox 96 02/08/21 04:00 Weight - Most Recent: 223 lb 12.307 oz I&O - Last 24 Hours: Intake & Output 02/07/21 02/08/21 02/08/21 22:59 06:59 14:59 Intake Total 300 1050 Output Total 1250 Balance 300 -200 Lab Results Last 24 Hours: Laboratory Results - last 24 hr 02/07/21 Range/Units 05:35 Sodium 142 (136-148) mmol/L Potassium 3.3 L (3.5-5.1) mmol/L Chloride 109 H (98-107) mmol/L Carbon Dioxide 20.9 L (21.0-32.0) mmol/L BUN 32 H (7.0-18.0) mg/dL Creatinine 1.2 (0.8-1.3) mg/dL Est Cr Clr Drug Dosing TNP Estimated GFR (MDRD) 58.1 ml/min Glucose 88 (74-106) mg/dL Calcium 8.9 (8.5-10.1) mg/dL Total Bilirubin 0.3 (0.2-1.0) mg/dL AST 47 H (15-37) IU/L ALT 20 (14-63) IU/L Alkaline Phosphatase 50 (46-116) U/L Total Protein 7.0 (6.4-8.2) g/dL Albumin 2.1 L (3.4-5.0) g/dL Globulin 4.9 H (2.6-4.0) g/dL Albumin/Globulin Ratio 0.4 L (0.9-1.6) Eduardo Results Last 24 Hours: Microbiology 02/05/21 11:46 Urine Culture - Final Urine 02/04/21 06:45 Blood Culture Identification Panel - Final Blood Staphylococcus Aureus 02/04/21 06:25 Blood Culture Identification Panel - Final Blood Staphylococcus Aureus Med Orders - Current: Current Medications Acetaminophen (Acetaminophen 325 Mg Tab) 650 mg PO Q6H PRN PRN Reason: Temperature Last Admin: 02/07/21 22:58 Dose: 650 mg Documented by: Heparin Sodium (Porcine) (Heparin Sodium 5,000 Units/Ml Vial) 5,000 units SUBCUT Q12H [facility] Last Admin: 02/08/21 02:26 Dose: 5,000 units Documented by: Levofloxacin/Dextrose 750 mg/ (Premix) 150 mls @ 100 mls/hr IV Q24H [facility] Last Admin: 02/07/21 19:43 Dose: 100 mls/hr Documented by: Ceftriaxone Sodium/Dextrose (Rocephin In Dextrose,Iso-Osm 2 Gm/50 Ml) 2 gm in 50 mls @ 100 mls/hr IV Q24H [facility] Last Admin: 02/07/21 15:57 Dose: 100 mls/hr Documented by: Vancomycin HCl 1.5 gm/ Premix 300 mls @ 200 mls/hr IV Q24H [facility] Last Admin: 02/07/21 10:28 Dose: Not Given Documented by: Sodium Chloride (Sodium Chloride 0.9% 10 Ml Syringe) 10 ml FLUSH ASDIRECTED PRN PRN Reason: Keep Vein Open Last Admin: 02/04/21 06:39 Dose: 10 ml Documented by: Sodium Chloride (Sodium Chloride 0.9% 2.5 Ml Syringe) 2.5 ml FLUSH ASDIRECTED PRN PRN Reason: Keep Vein Open Last Admin: 02/04/21 06:39 Dose: 2.5 ml Documented by: Discontinued Medications Heparin Sodium (Porcine) (Heparin Sodium 5,000 Units/Ml Vial) 5,000 units SUBCUT Q12H [facility] Last Admin: 02/04/21 15:48 Dose: 5,000 units Documented by: Sodium Chloride (Normal Saline) 1,000 mls @ 1,000 mls/hr IV BOLUS ONE Stop: 02/04/21 07:23 Last Admin: 02/04/21 06:39 Dose: 1,000 mls/hr Documented by: Ciprofloxacin/Dextrose 400 mg/ (Premix) 200 mls @ 200 mls/hr IV NOW STA Stop: 02/04/21 07:32 Last Admin: 02/04/21 06:47 Dose: 200 mls/hr Documented by: Sodium Chloride (Normal Saline) 1,000 mls @ 1,000 mls/hr IV .Bolus ONE Stop: 02/04/21 07:38 Last Admin: 02/04/21 06:43 Dose: 1,000 mls/hr Documented by: Vancomycin HCl 1.5 gm/ Premix 300 mls @ 200 mls/hr IV NOW ONE Stop: 02/04/21 08:14 Last Admin: 02/04/21 07:28 Dose: 200 mls/hr Documented by: Vancomycin HCl 1.5 gm/ Premix 300 mls @ 200 mls/hr IV Q12H [facility] Last Admin: 02/06/21 02:23 Dose: Not Given Documented by: Sodium Chloride (Normal Saline) 1,000 mls @ 125 mls/hr IV ASDIRECTED [facility] Last Admin: 02/05/21 07:47 Dose: 125 mls/hr Documented by: Sodium Chloride (Sodium Chloride 0.45%) 1,000 mls @ 50 mls/hr IV ASDIRECTED [facility] Stop: 02/05/21 17:00 Last Admin: 02/05/21 12:24 Dose: 50 mls/hr Documented by: Ketorolac Tromethamine (Ketorolac 30 Mg/Ml Sdv) 30 mg IVPUSH ONETIME ONE Stop: 02/04/21 07:30 Last Admin: 02/04/21 07:51 Dose: Not Given Documented by: Potassium Chloride (Potassium Chloride 20 Meq Tab.Er) 40 meq PO ONETIME ONE Stop: 02/07/21 07:50 Last Admin: 02/07/21 10:06 Dose: 40 meq Documented by: Vancomycin HCl (Pharmacy To Dose - Vancomycin) 1 dose .XX ONETIME ONE Stop: 02/04/21 06:25 Last Admin: 02/04/21 07:34 Dose: Not Given Documented by: Vancomycin HCl (Pharmacy To Dose - Vancomycin) 1 dose .XX ASDIRECTED ONE Stop: 02/05/21 22:17 Last Admin: 02/06/21 07:07 Dose: Not Given Documented by: - Exam Urinary Catheter Total Time: 3Days 22Hours General: Alert. No: Oriented HEENT: Pupils Equal, Pupils Reactive Neck: Supple, Trachea Midline Lungs: Clear to Auscultation Cardiovascular: Regular Rate, Regular Rhythm GI/Abdominal Exam: Normal Bowel Sounds, Soft, Non-Tender (Male) Exam: No: Penile Lesions, Rash, Suprapubic Fullness, Urethral Dischar ge Extremities: Normal Inspection, Normal Range of Motion, Non-Tender, No Pedal Edema Peripheral Pulses: 2+: Dorsalis Pedis (L), Dorsalis Pedis (R) Skin: Warm, Dry, Intact Neurological: No New Focal Deficit - Patient Data Lab Results Last 24 hrs: Laboratory Results - last 24 hr 02/07/21 Range/Units 05:35 Sodium 142 (136-148) mmol/L Potassium 3.3 L (3.5-5.1) mmol/L Chloride 109 H (98-107) mmol/L Carbon Dioxide 20.9 L (21.0-32.0) mmol/L BUN 32 H (7.0-18.0) mg/dL Creatinine 1.2 (0.8-1.3) mg/dL Est Cr Clr Drug Dosing TNP Estimated GFR (MDRD) 58.1 ml/min Glucose 88 (74-106) mg/dL Calcium 8.9 (8.5-10.1) mg/dL Total Bilirubin 0.3 (0.2-1.0) mg/dL AST 47 H (15-37) IU/L ALT 20 (14-63) IU/L Alkaline Phosphatase 50 (46-116) U/L Total Protein 7.0 (6.4-8.2) g/dL Albumin 2.1 L (3.4-5.0) g/dL Globulin 4.9 H (2.6-4.0) g/dL Albumin/Globulin Ratio 0.4 L (0.9-1.6) Result Diagrams: 02/08/21 06:00 02/08/21 06:00 Eduardo Results Last 24 hrs: Microbiology 02/05/21 11:46 Urine Culture - Final Urine 02/04/21 06:45 Blood Culture Identification Panel - Final Blood Staphylococcus Aureus 02/04/21 06:25 Blood Culture Identification Panel - Final Blood Staphylococcus Aureus Sepsis Event Note - Evaluation Sepsis Screening Result: No Definite Risk - Focused Exam Vital Signs: Vital Signs Temp Pulse Resp BP Pulse Ox 02/08/21 04:00 96.3 F L 95 18 117/66 96 02/08/21 00:45 97.2 F 104 H 18 115/65 95 02/07/21 20:00 97.6 F 78 17 128/62 96 - Problem List & Annotations (1) New onset atrial fibrillation SNOMED Code(s): 72956532 Code(s): I48.91 - UNSPECIFIED ATRIAL FIBRILLATION Status: Acute Current Visit: Yes - Problem List Review Problem List Initiated/Reviewed/Updated: Yes - Plan Plan:: 81-year-old male admitted for UTI and sepsis. Patient has a history of positive cultures of Pseudomonas and E. coli and is currently receiving vancomycin, ceftriaxone and Levaquin. White count is 9. Continue telemetry. We will continue to monitor for signs and symptoms of worsening infection. Blood culture returned positive for staph aureus. Potassium 3.4. Repleted. Hemoglobin stable at 12. Kidney function is unremarkable. Heparin for DVT prophylaxis.
[2021-02-08 07:50] LABS: BLOOD UREA NITROGEN,BUN 25 mg/dL (7.0-18.0); CARBON DIOXIDE,CO2 20.1 mmol/L (21.0-32.0); CHLORIDE,CL 108 mmol/L (98-107); GLUCOSE RANDOM 88 mg/dL (74-106); POTASSIUM,K 3.4 mmol/L (3.5-5.1); SODIUM,NA 139 mmol/L (136-148)
[2021-02-08] MEDS: VANCOmycin 1.5 GM/300 ML 1.5 GM in Premix Bag 1 BAG IV SCH (08:01)
[2021-02-08] MEDS: Potassium Chloride 20 MEQ Tab.ER PO SCH ×2 (11:21→21:51)
[2021-02-08] MEDS: cefTRIAXone 2 GM/50 ML BAG IV SCH (15:11)
[2021-02-08] MEDS: Levofloxacin/Dextrose 5%-Water 750 MG in Premix Bag 1 BAG IV SCH (19:45)
[2021-02-09] MEDS: Heparin Sodium 5,000 Units/ML Vial SUBCUT SCH ×2 (08:06→14:53)
[2021-02-09] MEDS ORDERED: Clindamycin Phosphate in D5W 900 MG in Premix Bag 1 BAG IV SCH ×2 (08:30)
[2021-02-09] MEDS: Potassium Chloride 20 MEQ Tab.ER PO SCH ×2 (08:34→20:20)
[2021-02-09] MEDS: VANCOmycin 1.5 GM/300 ML 1.5 GM in Premix Bag 1 BAG IV SCH (10:34)
[2021-02-09 11:32] LABS: BLOOD UREA NITROGEN,BUN 22 mg/dL (7.0-18.0); CARBON DIOXIDE,CO2 17.6 mmol/L (21.0-32.0); CHLORIDE,CL 111 mmol/L (98-107); GLUCOSE RANDOM 93 mg/dL (74-106); POTASSIUM,K 4.7 mmol/L (3.5-5.1); SODIUM,NA 144 mmol/L (136-148)
--- NOTE | 2021-02-09 12:15 | PCM.PN ---
- General Info Date of Service: 02/09/21 Admission Dx/Problem (Free Text): Admission Diagnosis/Problem Admission Diagnosis/Problem Hypoxia Subjective Update: 81-year-old male admitted from [facility] for UTI and acute on chronic kidney disease. Patient has a history of CKD and chronic Gao catheter which was replaced in the ER. This morning the patient is alert and oriented x1. He denies pain. No bleeding complaints. Urine cultures showed no growth. Blood culture sensitivities for staph aureus have returned sensitive to clindamycin. Patient's white count gradually elevated, today is 9. - Review of Systems General: Denies: Fever, Chills Pulmonary: Denies: Cough - Patient Data Vitals - Most Recent: Last Vital Signs Temp 96.5 F L 02/09/21 08:00 Pulse 111 H 02/09/21 08:00 Resp 22 H 02/09/21 08:00 BP 116/70 02/09/21 08:00 Pulse Ox 95 02/09/21 08:00 Weight - Most Recent: 223 lb 12.307 oz I&O - Last 24 Hours: Intake & Output 02/08/21 02/09/21 02/09/21 22:59 06:59 14:59 Intake Total 600 Output Total 1000 Balance -400 Lab Results Last 24 Hours: Laboratory Results - last 24 hr 02/09/21 02/09/21 02/09/21 Range/Units 06:55 06:55 06:55 WBC 11.09 H (4.0-11.0) K/uL RBC 4.26 L (4.50-5.90) M/uL Hgb 12.3 L (13.0-17.0) g/dL Hct 37.3 L (38.0-50.0) % MCV 87.6 (80.0-98.0) fL MCH 28.9 (27.0-32.0) pg MCHC 33.0 (31.0-37.0) g/dL RDW Std Deviation 47.9 (28.0-62.0) fl RDW Coeff of Joseph 15 (11.0-15.0) % Plt Count 304 (150-400) K/uL MPV 10.10 (7.40-12.00) fL Neut % (Auto) 75.9 (48.0-80.0) % Lymph % (Auto) 15.4 L (16.0-40.0) % [place] % (Auto) 6.2 (0.0-15.0) % Eos % (Auto) 2.3 (0.0-7.0) % Baso % (Auto) 0.2 (0.0-1.5) % Neut # (Auto) 8.4 H (1.4-5.7) K/uL Lymph # (Auto) 1.7 (0.6-2.4) K/uL [place] # (Auto) 0.7 (0.0-0.8) K/uL Eos # (Auto) 0.3 (0.0-0.7) K/uL Baso # (Auto) 0.0 (0.0-0.1) K/uL Nucleated RBC % 0.0 /100WBC Nucleated RBCs # 0 K/uL Sodium 144 (136-148) mmol/L Potassium 4.7 (3.5-5.1) mmol/L Chloride 111 H (98-107) mmol/L Carbon Dioxide 17.6 L (21.0-32.0) mmol/L BUN 22 H (7.0-18.0) mg/dL Creatinine 1.2 (0.8-1.3) mg/dL Est Cr Clr Drug Dosing TNP Estimated GFR (MDRD) 58.1 ml/min Glucose 93 (74-106) mg/dL Calcium 9.2 (8.5-10.1) mg/dL Total Bilirubin 0.4 (0.2-1.0) mg/dL AST 43 H (15-37) IU/L ALT 14 (14-63) IU/L Alkaline Phosphatase 59 (46-116) U/L Total Protein 6.3 L (6.4-8.2) g/dL Albumin 2.3 L (3.4-5.0) g/dL Globulin 4.0 (2.6-4.0) g/dL Albumin/Globulin Ratio 0.6 L (0.9-1.6) Vancomycin Trough 20.4 H (5.0-10.0) ug/mL Eduardo Results Last 24 Hours: Microbiology 02/04/21 16:25 Blood Culture Identification Panel - Preliminary Blood Staphylococcus Aureus 02/08/21 15:25 Anaerobic Blood Culture - Final Blood - Venous - Lab Draw 02/08/21 15:17 Anaerobic Blood Culture - Final Blood - Venous Med Orders - Current: Current Medications Acetaminophen (Acetaminophen 325 Mg Tab) 650 mg PO Q6H PRN PRN Reason: Temperature Last Admin: 02/07/21 22:58 Dose: 650 mg Documented by: Heparin Sodium (Porcine) (Heparin Sodium 5,000 Units/Ml Vial) 5,000 units SUBCUT Q12H [facility] Last Admin: 02/09/21 08:06 Dose: Not Given Documented by: Ceftriaxone Sodium/Dextrose (Rocephin In Dextrose,Iso-Osm 2 Gm/50 Ml) 2 gm in 50 mls @ 100 mls/hr IV Q24H [facility] Last Admin: 02/08/21 15:11 Dose: 100 mls/hr Documented by: Vancomycin HCl 1.5 gm/ Premix 300 mls @ 200 mls/hr IV Q24H [facility] Last Admin: 02/09/21 10:34 Dose: 200 mls/hr Documented by: Clindamycin Phosphate 900 mg/ (Premix) 50 mls @ 100 mls/hr IV Q8H [facility] Potassium Chloride (Potassium Chloride 20 Meq Tab.Er) 40 meq PO BID [facility] Last Admin: 02/09/21 08:34 Dose: 40 meq Documented by: Sodium Chloride (Sodium Chloride 0.9% 10 Ml Syringe) 10 ml FLUSH ASDIRECTED PRN PRN Reason: Keep Vein Open Last Admin: 02/04/21 06:39 Dose: 10 ml Documented by: Sodium Chloride (Sodium Chloride 0.9% 2.5 Ml Syringe) 2.5 ml FLUSH ASDIRECTED PRN PRN Reason: Keep Vein Open Last Admin: 02/04/21 06:39 Dose: 2.5 ml Documented by: Discontinued Medications Heparin Sodium (Porcine) (Heparin Sodium 5,000 Units/Ml Vial) 5,000 units SUBCUT Q12H [facility] Last Admin: 02/04/21 15:48 Dose: 5,000 units Documented by: Sodium Chloride (Normal Saline) 1,000 mls @ 1,000 mls/hr IV BOLUS ONE Stop: 02/04/21 07:23 Last Admin: 02/04/21 06:39 Dose: 1,000 mls/hr Documented by: Ciprofloxacin/Dextrose 400 mg/ (Premix) 200 mls @ 200 mls/hr IV NOW STA Stop: 02/04/21 07:32 Last Admin: 02/04/21 06:47 Dose: 200 mls/hr Documented by: Sodium Chloride (Normal Saline) 1,000 mls @ 1,000 mls/hr IV .Bolus ONE Stop: 02/04/21 07:38 Last Admin: 02/04/21 06:43 Dose: 1,000 mls/hr Documented by: Vancomycin HCl 1.5 gm/ Premix 300 mls @ 200 mls/hr IV NOW ONE Stop: 02/04/21 08:14 Last Admin: 02/04/21 07:28 Dose: 200 mls/hr Documented by: Vancomycin HCl 1.5 gm/ Premix 300 mls @ 200 mls/hr IV Q12H [facility] Last Admin: 02/06/21 02:23 Dose: Not Given Documented by: Levofloxacin/Dextrose 750 mg/ (Premix) 150 mls @ 100 mls/hr IV Q24H [facility] Last Admin: 02/08/21 19:45 Dose: 100 mls/hr Documented by: Sodium Chloride (Normal Saline) 1,000 mls @ 125 mls/hr IV ASDIRECTED [facility] Last Admin: 02/05/21 07:47 Dose: 125 mls/hr Documented by: Sodium Chloride (Sodium Chloride 0.45%) 1,000 mls @ 50 mls/hr IV ASDIRECTED [facility]IMO Stop: 02/05/21 17:00 Last Admin: 02/05/21 12:24 Dose: 50 mls/hr Documented by: Ketorolac Tromethamine (Ketorolac 30 Mg/Ml Sdv) 30 mg IVPUSH ONETIME ONE Stop: 02/04/21 07:30 Last Admin: 02/04/21 07:51 Dose: Not Given Documented by: Potassium Chloride (Potassium Chloride 20 Meq Tab.Er) 40 meq PO ONETIME ONE Stop: 02/07/21 07:50 Last Admin: 02/07/21 10:06 Dose: 40 meq Documented by: Vancomycin HCl (Pharmacy To Dose - Vancomycin) 1 dose .XX ONETIME ONE Stop: 02/04/21 06:25 Last Admin: 02/04/21 07:34 Dose: Not Given Documented by: Vancomycin HCl (Pharmacy To Dose - Vancomycin) 1 dose .XX ASDIRECTED ONE Stop: 02/05/21 22:17 Last Admin: 02/06/21 07:07 Dose: Not Given Documented by: - Exam Quality Assessment: Supplemental Oxygen Urinary Catheter Total Time: 5Days 0Hours General: Alert, No Acute Distress. No: Oriented HEENT: Pupils Equal, Pupils Reactive Neck: Supple, Trachea Midline Lungs: Clear to Auscultation, Normal Respiratory Effort Cardiovascular: Regular Rate, Irregular Rhythm GI/Abdominal Exam: Normal Bowel Sounds, Soft, Non-Tender Back Exam: Normal Inspection Extremities: Normal Inspection, No Pedal Edema. No: Sushil's Sign Peripheral Pulses: 2+: Dorsalis Pedis (L), Dorsalis Pedis (R) Skin: Warm, Dry, Intact Neurological: No New Focal Deficit - Patient Data Lab Results Last 24 hrs: Laboratory Results - last 24 hr 02/09/21 02/09/21 02/09/21 Range/Units 06:55 06:55 06:55 WBC 11.09 H (4.0-11.0) K/uL RBC 4.26 L (4.50-5.90) M/uL Hgb 12.3 L (13.0-17.0) g/dL Hct 37.3 L (38.0-50.0) % MCV 87.6 (80.0-98.0) fL MCH 28.9 (27.0-32.0) pg MCHC 33.0 (31.0-37.0) g/dL RDW Std Deviation 47.9 (28.0-62.0) fl RDW Coeff of Joseph 15 (11.0-15.0) % Plt Count 304 (150-400) K/uL MPV 10.10 (7.40-12.00) fL Neut % (Auto) 75.9 (48.0-80.0) % Lymph % (Auto) 15.4 L (16.0-40.0) % [place] % (Auto) 6.2 (0.0-15.0) % Eos % (Auto) 2.3 (0.0-7.0) % Baso % (Auto) 0.2 (0.0-1.5) % Neut # (Auto) 8.4 H (1.4-5.7) K/uL Lymph # (Auto) 1.7 (0.6-2.4) K/uL [place] # (Auto) 0.7 (0.0-0.8) K/uL Eos # (Auto) 0.3 (0.0-0.7) K/uL Baso # (Auto) 0.0 (0.0-0.1) K/uL Nucleated RBC % 0.0 /100WBC Nucleated RBCs # 0 K/uL Sodium 144 (136-148) mmol/L Potassium 4.7 (3.5-5.1) mmol/L Chloride 111 H (98-107) mmol/L Carbon Dioxide 17.6 L (21.0-32.0) mmol/L BUN 22 H (7.0-18.0) mg/dL Creatinine 1.2 (0.8-1.3) mg/dL Est Cr Clr Drug Dosing TNP Estimated GFR (MDRD) 58.1 ml/min Glucose 93 (74-106) mg/dL Calcium 9.2 (8.5-10.1) mg/dL Total Bilirubin 0.4 (0.2-1.0) mg/dL AST 43 H (15-37) IU/L ALT 14 (14-63) IU/L Alkaline Phosphatase 59 (46-116) U/L Total Protein 6.3 L (6.4-8.2) g/dL Albumin 2.3 L (3.4-5.0) g/dL Globulin 4.0 (2.6-4.0) g/dL Albumin/Globulin Ratio 0.6 L (0.9-1.6) Vancomycin Trough 20.4 H (5.0-10.0) ug/mL Result Diagrams: 02/09/21 06:55 02/09/21 06:55 Eduardo Results Last 24 hrs: Microbiology 02/04/21 16:25 Blood Culture Identification Panel - Preliminary Blood Staphylococcus Aureus 02/08/21 15:25 Anaerobic Blood Culture - Final Blood - Venous - Lab Draw 02/08/21 15:17 Anaerobic Blood Culture - Final Blood - Venous Sepsis Event Note - Evaluation Sepsis Screening Result: No Definite Risk - Focused Exam Vital Signs: Vital Signs Temp Pulse Resp BP Pulse Ox 02/09/21 08:00 96.5 F L 111 H 22 H 116/70 95 - Problem List & Annotations (1) New onset atrial fibrillation SNOMED Code(s): 63486319 Code(s): I48.91 - UNSPECIFIED ATRIAL FIBRILLATION Status: Acute Current Visit: Yes - Problem List Review Problem List Initiated/Reviewed/Updated: Yes - My Orders Last 24 Hours: My Active Orders 02/09/21 08:30 Clindamycin Phosphate in D5W [Cleocin in D5W 900 MG/50 ML] 900 mg Premix Bag 1 bag IV Q8H 02/10/21 05:11 CBC WITH AUTO DIFF [HEME] DAILY COMPREHENSIVE METABOLIC PN,CMP [CHEM] DAILY 02/11/21 05:11 CBC WITH AUTO DIFF [HEME] DAILY COMPREHENSIVE METABOLIC PN,CMP [CHEM] DAILY 02/12/21 05:11 CBC WITH AUTO DIFF [HEME] DAILY COMPREHENSIVE METABOLIC PN,CMP [CHEM] DAILY 02/13/21 05:11 CBC WITH AUTO DIFF [HEME] DAILY COMPREHENSIVE METABOLIC PN,CMP [CHEM] DAILY 02/14/21 05:11 CBC WITH AUTO DIFF [HEME] DAILY COMPREHENSIVE METABOLIC PN,CMP [CHEM] DAILY 02/15/21 05:11 CBC WITH AUTO DIFF [HEME] DAILY COMPREHENSIVE METABOLIC PN,CMP [CHEM] DAILY - Plan Plan:: 81-year-old male admitted for UTI and sepsis. Patient has a history of positive cultures of Pseudomonas and E. coli and is currently receiving vancomycin, ceftriaxone. Discontinue Levaquin. We will start clindamycin based on sensitivities. White count is 11. Continue telemetry. We will continue to monitor for signs and symptoms of worsening infection. Blood culture returned positive for staph aureus. Will order echocardiogram. We will contact infectious disease for recommendations regarding staph aureus bacteremia. Kidney function is unremarkable. Heparin for DVT prophylaxis.
[2021-02-09] MEDS: cefTRIAXone 2 GM/50 ML BAG IV SCH (14:53)
[2021-02-09] MEDS: Clindamycin Phosphate in D5W 900 MG in Premix Bag 1 BAG IV SCH ×2 (20:20)
[2021-02-10] MEDS: Heparin Sodium 5,000 Units/ML Vial SUBCUT SCH ×2 (02:53→14:31)
[2021-02-10] MEDS: Clindamycin Phosphate in D5W 900 MG in Premix Bag 1 BAG IV SCH ×2 (04:29)
[2021-02-10 07:09] LABS: BLOOD UREA NITROGEN,BUN 20 mg/dL (7.0-18.0); CARBON DIOXIDE,CO2 20.4 mmol/L (21.0-32.0); CHLORIDE,CL 108 mmol/L (98-107); GLUCOSE RANDOM 92 mg/dL (74-106); SODIUM,NA 138 mmol/L (136-148)
[2021-02-10] MEDS: VANCOmycin 1.5 GM/300 ML 1.5 GM in Premix Bag 1 BAG IV SCH (07:47)
[2021-02-10] MEDS: Potassium Chloride 20 MEQ Tab.ER PO SCH ×2 (09:12→22:01)
[2021-02-10] MEDS: Acetaminophen/Codeine 300-30 MG Tab PO PRN (09:59)
--- NOTE | 2021-02-10 11:10 | PCM.PN ---
- General Info Date of Service: 02/10/21 Admission Dx/Problem (Free Text): Admission Diagnosis/Problem Admission Diagnosis/Problem Hypoxia Subjective Update: 81-year-old male admitted from [facility] for UTI and acute on chronic kidney disease. Patient has a history of CKD and chronic Gao catheter which was replaced in the ER. This morning the patient is alert and oriented x1. He denies pain. No bleeding complaints. Urine cultures showed no growth. Blood culture sensitivities for staph aureus have returned. Patient's white count has improved. Patient had echocardiogram done this morning, will follow up. - Review of Systems General: Denies: Fever Pulmonary: Denies: Shortness of Breath, Cough Gastrointestinal: Denies: Diarrhea, Vomiting Neurological: Reports: Confusion - Patient Data Vitals - Most Recent: Last Vital Signs Temp 96.3 F L 02/10/21 08:00 Pulse 96 02/10/21 08:00 Resp 18 02/10/21 08:00 BP 118/73 02/10/21 08:00 Pulse Ox 96 02/10/21 08:00 Weight - Most Recent: 223 lb 12.307 oz I&O - Last 24 Hours: Intake & Output 02/09/21 02/10/21 02/10/21 22:59 06:59 14:59 Intake Total 1200 1080 Output Total 1300 750 Balance -100 330 Lab Results Last 24 Hours: Laboratory Results - last 24 hr 02/09/21 02/10/21 02/10/21 Range/Units 06:55 05:21 05:21 WBC 10.58 (4.0-11.0) K/uL RBC 4.10 L (4.50-5.90) M/uL Hgb 11.4 L (13.0-17.0) g/dL Hct 36.0 L (38.0-50.0) % MCV 87.8 (80.0-98.0) fL MCH 27.8 (27.0-32.0) pg MCHC 31.7 (31.0-37.0) g/dL RDW Std Deviation 48.5 (28.0-62.0) fl RDW Coeff of Joseph 15 (11.0-15.0) % Plt Count 285 (150-400) K/uL MPV 10.00 (7.40-12.00) fL Neut % (Auto) 69.5 (48.0-80.0) % Lymph % (Auto) 21.1 (16.0-40.0) % [place] % (Auto) 6.7 (0.0-15.0) % Eos % (Auto) 2.5 (0.0-7.0) % Baso % (Auto) 0.2 (0.0-1.5) % Neut # (Auto) 7.4 H (1.4-5.7) K/uL Lymph # (Auto) 2.2 (0.6-2.4) K/uL [place] # (Auto) 0.7 (0.0-0.8) K/uL Eos # (Auto) 0.3 (0.0-0.7) K/uL Baso # (Auto) 0.0 (0.0-0.1) K/uL Nucleated RBC % 0.0 /100WBC Nucleated RBCs # 0 K/uL Sodium 144 138 (136-148) mmol/L Potassium 4.7 4.0 (3.5-5.1) mmol/L Chloride 111 H 108 H (98-107) mmol/L Carbon Dioxide 17.6 L 20.4 L (21.0-32.0) mmol/L BUN 22 H 20 H (7.0-18.0) mg/dL Creatinine 1.2 1.1 (0.8-1.3) mg/dL Est Cr Clr Drug Dosing TNP TNP Estimated GFR (MDRD) 58.1 > 60.0 ml/min Glucose 93 92 (74-106) mg/dL Calcium 9.2 8.9 (8.5-10.1) mg/dL Total Bilirubin 0.4 0.4 (0.2-1.0) mg/dL AST 43 H 55 H (15-37) IU/L ALT 14 42 (14-63) IU/L Alkaline Phosphatase 59 52 (46-116) U/L Total Protein 6.3 L 6.6 (6.4-8.2) g/dL Albumin 2.3 L 2.0 L (3.4-5.0) g/dL Globulin 4.0 4.6 H (2.6-4.0) g/dL Albumin/Globulin Ratio 0.6 L 0.4 L (0.9-1.6) Eduardo Results Last 24 Hours: Microbiology 02/04/21 16:25 Blood Culture Identification Panel - Final Blood Staphylococcus Aureus 02/08/21 15:25 Aerobic Blood Culture - Preliminary Blood - Venous - Lab Draw NO GROWTH AFTER 1 DAY Anaerobic Blood Culture - Final 02/08/21 15:17 Aerobic Blood Culture - Preliminary Blood - Venous NO GROWTH AFTER 1 DAY Anaerobic Blood Culture - Final Med Orders - Current: Current Medications Acetaminophen (Acetaminophen 325 Mg Tab) 650 mg PO Q6H PRN PRN Reason: Temperature Last Admin: 02/07/21 22:58 Dose: 650 mg Documented by: Acetaminophen/Codeine Phosphate (Acetaminophen/Codeine 300-30 Mg Tab) 1 tab PO QID PRN PRN Reason: Pain Last Admin: 02/10/21 09:59 Dose: 1 tab Documented by: Cefazolin Sodium/Dextrose (Cefazolin/Dextrose,Iso-Osmotic 2 Gm/50 Ml Duplex Bag (Premix)) 2 gm IV Q8H [facility]IMO; Protocol Gabapentin (Gabapentin 100 Mg Cap) 100 mg PO BID [facility] Heparin Sodium (Porcine) (Heparin Sodium 5,000 Units/Ml Vial) 5,000 units SUBCUT Q12H [facility] Last Admin: 02/10/21 02:53 Dose: 5,000 units Documented by: Potassium Chloride (Potassium Chloride 20 Meq Tab.Er) 40 meq PO BID [facility] Last Admin: 02/10/21 09:12 Dose: 40 meq Documented by: Sodium Chloride (Sodium Chloride 0.9% 10 Ml Syringe) 10 ml FLUSH ASDIRECTED PRN PRN Reason: Keep Vein Open Last Admin: 02/04/21 06:39 Dose: 10 ml Documented by: Sodium Chloride (Sodium Chloride 0.9% 2.5 Ml Syringe) 2.5 ml FLUSH ASDIRECTED PRN PRN Reason: Keep Vein Open Last Admin: 02/04/21 06:39 Dose: 2.5 ml Documented by: Discontinued Medications Heparin Sodium (Porcine) (Heparin Sodium 5,000 Units/Ml Vial) 5,000 units SUBCUT Q12H [facility] Last Admin: 02/04/21 15:48 Dose: 5,000 units Documented by: Sodium Chloride (Normal Saline) 1,000 mls @ 1,000 mls/hr IV BOLUS ONE Stop: 02/04/21 07:23 Last Admin: 02/04/21 06:39 Dose: 1,000 mls/hr Documented by: Ciprofloxacin/Dextrose 400 mg/ (Premix) 200 mls @ 200 mls/hr IV NOW STA Stop: 02/04/21 07:32 Last Admin: 02/04/21 06:47 Dose: 200 mls/hr Documented by: Sodium Chloride (Normal Saline) 1,000 mls @ 1,000 mls/hr IV .Bolus ONE Stop: 02/04/21 07:38 Last Admin: 02/04/21 06:43 Dose: 1,000 mls/hr Documented by: Vancomycin HCl 1.5 gm/ Premix 300 mls @ 200 mls/hr IV NOW ONE Stop: 02/04/21 08:14 Last Admin: 02/04/21 07:28 Dose: 200 mls/hr Documented by: Vancomycin HCl 1.5 gm/ Premix 300 mls @ 200 mls/hr IV Q12H [facility] Last Admin: 02/06/21 02:23 Dose: Not Given Documented by: Levofloxacin/Dextrose 750 mg/ (Premix) 150 mls @ 100 mls/hr IV Q24H [facility] Last Admin: 02/08/21 19:45 Dose: 100 mls/hr Documented by: Ceftriaxone Sodium/Dextrose (Rocephin In Dextrose,Iso-Osm 2 Gm/50 Ml) 2 gm in 50 mls @ 100 mls/hr IV Q24H [facility] Last Admin: 02/09/21 14:53 Dose: 100 mls/hr Documented by: Sodium Chloride (Normal Saline) 1,000 mls @ 125 mls/hr IV ASDIRECTED [facility] Last Admin: 02/05/21 07:47 Dose: 125 mls/hr Documented by: Sodium Chloride (Sodium Chloride 0.45%) 1,000 mls @ 50 mls/hr IV ASDIRECTED [facility] Stop: 02/05/21 17:00 Last Admin: 02/05/21 12:24 Dose: 50 mls/hr Documented by: Vancomycin HCl 1.5 gm/ Premix 300 mls @ 200 mls/hr IV Q24H [facility] Last Admin: 02/10/21 07:47 Dose: 200 mls/hr Documented by: Clindamycin Phosphate 900 mg/ (Premix) 50 mls @ 100 mls/hr IV Q8H [facility] Last Admin: 02/09/21 12:36 Dose: 100 mls/hr Documented by: Clindamycin Phosphate 900 mg/ (Premix) 50 mls @ 100 mls/hr IV Q8H [facility] Last Admin: 02/10/21 04:29 Dose: 100 mls/hr Documented by: Ketorolac Tromethamine (Ketorolac 30 Mg/Ml Sdv) 30 mg IVPUSH ONETIME ONE Stop: 02/04/21 07:30 Last Admin: 02/04/21 07:51 Dose: Not Given Documented by: Potassium Chloride (Potassium Chloride 20 Meq Tab.Er) 40 meq PO ONETIME ONE Stop: 02/07/21 07:50 Last Admin: 02/07/21 10:06 Dose: 40 meq Documented by: Vancomycin HCl (Pharmacy To Dose - Vancomycin) 1 dose .XX ONETIME ONE Stop: 02/04/21 06:25 Last Admin: 02/04/21 07:34 Dose: Not Given Documented by: Vancomycin HCl (Pharmacy To Dose - Vancomycin) 1 dose .XX ASDIRECTED ONE Stop: 02/05/21 22:17 Last Admin: 02/06/21 07:07 Dose: Not Given Documented by: - Exam Urinary Catheter Total Time: 6Days 2Hours General: Alert, Cooperative, Mild Distress. No: Oriented HEENT: Pupils Equal, Pupils Reactive Neck: Supple Lungs: Clear to Auscultation, Decreased Breath Sounds Cardiovascular: Regular Rate GI/Abdominal Exam: Normal Bowel Sounds, Soft, Non-Tender Back Exam: Normal Inspection Extremities: Normal Inspection, No Pedal Edema Peripheral Pulses: 2+: Dorsalis Pedis (L), Dorsalis Pedis (R) Skin: Warm, Dry, Intact Neurological: No New Focal Deficit - Patient Data Lab Results Last 24 hrs: Laboratory Results - last 24 hr 02/09/21 02/10/21 02/10/21 Range/Units 06:55 05:21 05:21 WBC 10.58 (4.0-11.0) K/uL RBC 4.10 L (4.50-5.90) M/uL Hgb 11.4 L (13.0-17.0) g/dL Hct 36.0 L (38.0-50.0) % MCV 87.8 (80.0-98.0) fL MCH 27.8 (27.0-32.0) pg MCHC 31.7 (31.0-37.0) g/dL RDW Std Deviation 48.5 (28.0-62.0) fl RDW Coeff of Joseph 15 (11.0-15.0) % Plt Count 285 (150-400) K/uL MPV 10.00 (7.40-12.00) fL Neut % (Auto) 69.5 (48.0-80.0) % Lymph % (Auto) 21.1 (16.0-40.0) % [place] % (Auto) 6.7 (0.0-15.0) % Eos % (Auto) 2.5 (0.0-7.0) % Baso % (Auto) 0.2 (0.0-1.5) % Neut # (Auto) 7.4 H (1.4-5.7) K/uL Lymph # (Auto) 2.2 (0.6-2.4) K/uL [place] # (Auto) 0.7 (0.0-0.8) K/uL Eos # (Auto) 0.3 (0.0-0.7) K/uL Baso # (Auto) 0.0 (0.0-0.1) K/uL Nucleated RBC % 0.0 /100WBC Nucleated RBCs # 0 K/uL Sodium 144 138 (136-148) mmol/L Potassium 4.7 4.0 (3.5-5.1) mmol/L Chloride 111 H 108 H (98-107) mmol/L Carbon Dioxide 17.6 L 20.4 L (21.0-32.0) mmol/L BUN 22 H 20 H (7.0-18.0) mg/dL Creatinine 1.2 1.1 (0.8-1.3) mg/dL Est Cr Clr Drug Dosing TNP TNP Estimated GFR (MDRD) 58.1 > 60.0 ml/min Glucose 93 92 (74-106) mg/dL Calcium 9.2 8.9 (8.5-10.1) mg/dL Total Bilirubin 0.4 0.4 (0.2-1.0) mg/dL AST 43 H 55 H (15-37) IU/L ALT 14 42 (14-63) IU/L Alkaline Phosphatase 59 52 (46-116) U/L Total Protein 6.3 L 6.6 (6.4-8.2) g/dL Albumin 2.3 L 2.0 L (3.4-5.0) g/dL Globulin 4.0 4.6 H (2.6-4.0) g/dL Albumin/Globulin Ratio 0.6 L 0.4 L (0.9-1.6) Result Diagrams: 02/10/21 05:21 02/10/21 05:21 Eduardo Results Last 24 hrs: Microbiology 02/04/21 16:25 Blood Culture Identification Panel - Final Blood Staphylococcus Aureus 02/08/21 15:25 Aerobic Blood Culture - Preliminary Blood - Venous - Lab Draw NO GROWTH AFTER 1 DAY Anaerobic Blood Culture - Final 02/08/21 15:17 Aerobic Blood Culture - Preliminary Blood - Venous NO GROWTH AFTER 1 DAY Anaerobic Blood Culture - Final Sepsis Event Note - Evaluation Sepsis Screening Result: No Definite Risk - Focused Exam Vital Signs: Vital Signs Temp Pulse Resp BP Pulse Ox 02/10/21 08:00 96.3 F L 96 18 118/73 96 02/10/21 04:00 96.8 F L 95 20 110/57 L 93 L 02/10/21 00:00 97.1 F 79 20 122/68 96 - Problem List & Annotations (1) New onset atrial fibrillation SNOMED Code(s): 42202097 Code(s): I48.91 - UNSPECIFIED ATRIAL FIBRILLATION Status: Acute Current Visit: Yes - Problem List Review Problem List Initiated/Reviewed/Updated: Yes - My Orders Last 24 Hours: My Active Orders 02/09/21 12:16 Echo Comp wo Cont [US] Urgent 02/10/21 09:15 Acetaminophen/Codeine [Tylenol with Codeine No.3 300MG/30MG] 1 tab PO QID PRN 02/10/21 11:00 Gabapentin [Neurontin] 100 mg PO BID 02/10/21 11:15 ceFAZolin [Ancef] 2 gm IV Q8H 02/11/21 05:11 CBC WITH AUTO DIFF [HEME] DAILY COMPREHENSIVE METABOLIC PN,CMP [CHEM] DAILY 02/12/21 05:11 CBC WITH AUTO DIFF [HEME] DAILY COMPREHENSIVE METABOLIC PN,CMP [CHEM] DAILY 02/13/21 05:11 CBC WITH AUTO DIFF [HEME] DAILY COMPREHENSIVE METABOLIC PN,CMP [CHEM] DAILY 02/14/21 05:11 CBC WITH AUTO DIFF [HEME] DAILY COMPREHENSIVE METABOLIC PN,CMP [CHEM] DAILY 02/15/21 05:11 CBC WITH AUTO DIFF [HEME] DAILY COMPREHENSIVE METABOLIC PN,CMP [CHEM] DAILY - Plan Plan:: 81-year-old male admitted for UTI and sepsis. Patient has a history of positive cultures of Pseudomonas and E. coli and is currently receiving vancomycin, ceftriaxone and clindamycin based on sensitivities. Blood cultures grew methicillin sensitive staph aureus. Urine culture negative. Infectious disease was consulted in [place] who advised discontinuing all 3 antibiotics and starting patient on IV cefazolin. Patient started on renally dosed cefazolin. Continue telemetry. Follow-up on echocardiogram. Kidney function is unremarkable. Heparin for DVT prophylaxis.
[2021-02-10] MEDS ORDERED: ceFAZolin/Dextrose,Iso-Osmotic 2 GM/50 ML Duplex Bag (Premix) IV SCH (11:15)
[2021-02-10] MEDS: ceFAZolin 2 GM in Premix Bag 1 BAG IV SCH ×2 (11:35→18:50)
[2021-02-10] MEDS: Gabapentin 100 MG Cap PO SCH ×2 (11:36→22:02)
[2021-02-11] MEDS: ceFAZolin 2 GM in Premix Bag 1 BAG IV SCH ×3 (03:02→19:27)
[2021-02-11] MEDS: Heparin Sodium 5,000 Units/ML Vial SUBCUT SCH ×2 (03:03→13:57)
[2021-02-11 09:04] LABS: BLOOD UREA NITROGEN,BUN 25 mg/dL (7.0-18.0); CARBON DIOXIDE,CO2 17.4 mmol/L (21.0-32.0); CHLORIDE,CL 107 mmol/L (98-107); GLUCOSE RANDOM 87 mg/dL (74-106); POTASSIUM,K 4.6 mmol/L (3.5-5.1); SODIUM,NA 139 mmol/L (136-148)
[2021-02-11] MEDS: Gabapentin 100 MG Cap PO SCH ×2 (09:06→22:35)
[2021-02-11] MEDS: Potassium Chloride 20 MEQ Tab.ER PO SCH ×2 (09:06→22:35)
--- NOTE | 2021-02-11 09:46 | PCM.PN ---
- General Info Date of Service: 02/11/21 Admission Dx/Problem (Free Text): Admission Diagnosis/Problem Admission Diagnosis/Problem Hypoxia Subjective Update: 81-year-old male admitted from [facility] for UTI and acute on chronic kidney disease. Patient has a history of CKD and chronic Gao catheter which was replaced in the ER. Patient is alert this morning and appears to be in a good spirit. As per infectious disease recommendations, patient was started on IV cefazolin yesterday. WBC is improving. Echocardiogram results are still pending. Patient does not have a history of prosthetic joints. No concerns this morning. Functional Status: Reports: Pain Controlled - Review of Systems General: Denies: Fever Pulmonary: Denies: Cough - Patient Data Vitals - Most Recent: Last Vital Signs Temp 97.6 F 02/11/21 08:00 Pulse 100 02/11/21 08:00 Resp 16 02/11/21 08:00 BP 146/67 H 02/11/21 08:00 Pulse Ox 100 02/11/21 08:00 Weight - Most Recent: 223 lb 12.307 oz I&O - Last 24 Hours: Intake & Output 02/10/21 02/11/21 02/11/21 22:59 06:59 14:59 Intake Total 800 700 Output Total 1000 850 Balance -200 -150 Lab Results Last 24 Hours: Laboratory Results - last 24 hr 02/11/21 02/11/21 Range/Units 07:53 07:53 Sodium 139 (136-148) mmol/L Potassium 4.6 (3.5-5.1) mmol/L Chloride 107 (98-107) mmol/L Carbon Dioxide 17.4 L (21.0-32.0) mmol/L BUN 25 H (7.0-18.0) mg/dL Creatinine 1.1 (0.8-1.3) mg/dL Est Cr Clr Drug Dosing TNP Estimated GFR (MDRD) > 60.0 ml/min Glucose 87 (74-106) mg/dL Calcium 9.3 (8.5-10.1) mg/dL Total Bilirubin 0.4 (0.2-1.0) mg/dL AST 57 H (15-37) IU/L ALT 46 (14-63) IU/L Alkaline Phosphatase 70 (46-116) U/L Total Protein 6.4 (6.4-8.2) g/dL Albumin 2.3 L (3.4-5.0) g/dL Globulin 4.1 H (2.6-4.0) g/dL Albumin/Globulin Ratio 0.6 L (0.9-1.6) Vancomycin Trough 23.8 H (5.0-10.0) ug/mL Eduardo Results Last 24 Hours: Microbiology 02/08/21 15:25 Aerobic Blood Culture - Preliminary Blood - Venous - Lab Draw NO GROWTH AFTER 2 DAYS Anaerobic Blood Culture - Final 02/08/21 15:17 Aerobic Blood Culture - Preliminary Blood - Venous NO GROWTH AFTER 2 DAYS Anaerobic Blood Culture - Final 02/04/21 16:25 Blood Culture Identification Panel - Final Blood Staphylococcus Aureus Med Orders - Current: Current Medications Acetaminophen (Acetaminophen 325 Mg Tab) 650 mg PO Q6H PRN PRN Reason: Temperature Last Admin: 02/07/21 22:58 Dose: 650 mg Documented by: Acetaminophen/Codeine Phosphate (Acetaminophen/Codeine 300-30 Mg Tab) 1 tab PO QID PRN PRN Reason: Pain Last Admin: 02/10/21 09:59 Dose: 1 tab Documented by: Gabapentin (Gabapentin 100 Mg Cap) 100 mg PO BID [facility] Last Admin: 02/11/21 09:06 Dose: 100 mg Documented by: Heparin Sodium (Porcine) (Heparin Sodium 5,000 Units/Ml Vial) 5,000 units SUBCUT Q12H [facility] Last Admin: 02/11/21 03:03 Dose: 5,000 units Documented by: Cefazolin Sodium/Dextrose 2 gm (/ Premix) 50 mls @ 100 mls/hr IV Q8H [facility] Last Admin: 02/11/21 03:02 Dose: 100 mls/hr Documented by: Potassium Chloride (Potassium Chloride 20 Meq Tab.Er) 40 meq PO BID [facility] Last Admin: 02/11/21 09:06 Dose: 40 meq Documented by: Sodium Chloride (Sodium Chloride 0.9% 10 Ml Syringe) 10 ml FLUSH ASDIRECTED PRN PRN Reason: Keep Vein Open Last Admin: 02/04/21 06:39 Dose: 10 ml Documented by: Sodium Chloride (Sodium Chloride 0.9% 2.5 Ml Syringe) 2.5 ml FLUSH ASDIRECTED PRN PRN Reason: Keep Vein Open Last Admin: 02/04/21 06:39 Dose: 2.5 ml Documented by: Discontinued Medications Heparin Sodium (Porcine) (Heparin Sodium 5,000 Units/Ml Vial) 5,000 units SUBCUT Q12H [facility] Last Admin: 02/04/21 15:48 Dose: 5,000 units Documented by: Sodium Chloride (Normal Saline) 1,000 mls @ 1,000 mls/hr IV BOLUS ONE Stop: 02/04/21 07:23 Last Admin: 02/04/21 06:39 Dose: 1,000 mls/hr Documented by: Ciprofloxacin/Dextrose 400 mg/ (Premix) 200 mls @ 200 mls/hr IV NOW STA Stop: 02/04/21 07:32 Last Admin: 02/04/21 06:47 Dose: 200 mls/hr Documented by: Sodium Chloride (Normal Saline) 1,000 mls @ 1,000 mls/hr IV .Bolus ONE Stop: 02/04/21 07:38 Last Admin: 02/04/21 06:43 Dose: 1,000 mls/hr Documented by: Vancomycin HCl 1.5 gm/ Premix 300 mls @ 200 mls/hr IV NOW ONE Stop: 02/04/21 08:14 Last Admin: 02/04/21 07:28 Dose: 200 mls/hr Documented by: Vancomycin HCl 1.5 gm/ Premix 300 mls @ 200 mls/hr IV Q12H [facility] Last Admin: 02/06/21 02:23 Dose: Not Given Documented by: Levofloxacin/Dextrose 750 mg/ (Premix) 150 mls @ 100 mls/hr IV Q24H [facility] Last Admin: 02/08/21 19:45 Dose: 100 mls/hr Documented by: Ceftriaxone Sodium/Dextrose (Rocephin In Dextrose,Iso-Osm 2 Gm/50 Ml) 2 gm in 50 mls @ 100 mls/hr IV Q24H [facility] Last Admin: 02/09/21 14:53 Dose: 100 mls/hr Documented by: Sodium Chloride (Normal Saline) 1,000 mls @ 125 mls/hr IV ASDIRECTED [facility] Last Admin: 02/05/21 07:47 Dose: 125 mls/hr Documented by: Sodium Chloride (Sodium Chloride 0.45%) 1,000 mls @ 50 mls/hr IV ASDIRECTED [facility] Stop: 02/05/21 17:00 Last Admin: 02/05/21 12:24 Dose: 50 mls/hr Documented by: Vancomycin HCl 1.5 gm/ Premix 300 mls @ 200 mls/hr IV Q24H [facility] Last Admin: 02/10/21 07:47 Dose: 200 mls/hr Documented by: Clindamycin Phosphate 900 mg/ (Premix) 50 mls @ 100 mls/hr IV Q8H [facility] Last Admin: 02/09/21 12:36 Dose: 100 mls/hr Documented by: Clindamycin Phosphate 900 mg/ (Premix) 50 mls @ 100 mls/hr IV Q8H [facility] Last Admin: 02/10/21 04:29 Dose: 100 mls/hr Documented by: Ketorolac Tromethamine (Ketorolac 30 Mg/Ml Sdv) 30 mg IVPUSH ONETIME ONE Stop: 02/04/21 07:30 Last Admin: 02/04/21 07:51 Dose: Not Given Documented by: Potassium Chloride (Potassium Chloride 20 Meq Tab.Er) 40 meq PO ONETIME ONE Stop: 02/07/21 07:50 Last Admin: 02/07/21 10:06 Dose: 40 meq Documented by: Vancomycin HCl (Pharmacy To Dose - Vancomycin) 1 dose .XX ONETIME ONE Stop: 02/04/21 06:25 Last Admin: 02/04/21 07:34 Dose: Not Given Documented by: Vancomycin HCl (Pharmacy To Dose - Vancomycin) 1 dose .XX ASDIRECTED ONE Stop: 02/05/21 22:17 Last Admin: 02/06/21 07:07 Dose: Not Given Documented by: - Exam Urinary Catheter Total Time: 7Days 1Hours General: Alert, No Acute Distress. No: Oriented HEENT: Pupils Equal, Pupils Reactive Neck: Supple Lungs: Clear to Auscultation, Normal Respiratory Effort Cardiovascular: Regular Rate GI/Abdominal Exam: Normal Bowel Sounds, Soft, Non-Tender Extremities: Normal Inspection, No Pedal Edema. No: Leg Pain Peripheral Pulses: 2+: Dorsalis Pedis (L), Dorsalis Pedis (R) Skin: Warm, Dry, Intact Neurological: No New Focal Deficit - Patient Data Lab Results Last 24 hrs: Laboratory Results - last 24 hr 02/11/21 02/11/21 Range/Units 07:53 07:53 Sodium 139 (136-148) mmol/L Potassium 4.6 (3.5-5.1) mmol/L Chloride 107 (98-107) mmol/L Carbon Dioxide 17.4 L (21.0-32.0) mmol/L BUN 25 H (7.0-18.0) mg/dL Creatinine 1.1 (0.8-1.3) mg/dL Est Cr Clr Drug Dosing TNP Estimated GFR (MDRD) > 60.0 ml/min Glucose 87 (74-106) mg/dL Calcium 9.3 (8.5-10.1) mg/dL Total Bilirubin 0.4 (0.2-1.0) mg/dL AST 57 H (15-37) IU/L ALT 46 (14-63) IU/L Alkaline Phosphatase 70 (46-116) U/L Total Protein 6.4 (6.4-8.2) g/dL Albumin 2.3 L (3.4-5.0) g/dL Globulin 4.1 H (2.6-4.0) g/dL Albumin/Globulin Ratio 0.6 L (0.9-1.6) Vancomycin Trough 23.8 H (5.0-10.0) ug/mL Result Diagrams: 02/10/21 05:21 02/11/21 07:53 Eduardo Results Last 24 hrs: Microbiology 02/08/21 15:25 Aerobic Blood Culture - Preliminary Blood - Venous - Lab Draw NO GROWTH AFTER 2 DAYS Anaerobic Blood Culture - Final 02/08/21 15:17 Aerobic Blood Culture - Preliminary Blood - Venous NO GROWTH AFTER 2 DAYS Anaerobic Blood Culture - Final 02/04/21 16:25 Blood Culture Identification Panel - Final Blood Staphylococcus Aureus Sepsis Event Note - Evaluation Sepsis Screening Result: No Definite Risk - Focused Exam Vital Signs: Vital Signs Temp Pulse Resp BP Pulse Ox 02/11/21 08:00 97.6 F 100 16 146/67 H 100 02/11/21 04:00 98.2 F 88 20 112/74 95 02/11/21 00:00 98.0 F 96 20 114/68 95 - Problem List & Annotations (1) New onset atrial fibrillation SNOMED Code(s): 89815887 Code(s): I48.91 - UNSPECIFIED ATRIAL FIBRILLATION Status: Acute Current Visit: Yes - Problem List Review Problem List Initiated/Reviewed/Updated: Yes - My Orders Last 24 Hours: My Active Orders 02/10/21 09:15 Acetaminophen/Codeine [Tylenol with Codeine No.3 300MG/30MG] 1 tab PO QID PRN 02/10/21 11:00 Gabapentin [Neurontin] 100 mg PO BID 02/10/21 11:30 ceFAZolin [Ancef] 2 gm Premix Bag 1 bag IV Q8H 02/11/21 07:53 CBC WITH AUTO DIFF [HEME] DAILY 02/12/21 05:11 CBC WITH AUTO DIFF [HEME] DAILY COMPREHENSIVE METABOLIC PN,CMP [CHEM] DAILY 02/13/21 05:11 CBC WITH AUTO DIFF [HEME] DAILY COMPREHENSIVE METABOLIC PN,CMP [CHEM] DAILY 02/14/21 05:11 CBC WITH AUTO DIFF [HEME] DAILY COMPREHENSIVE METABOLIC PN,CMP [CHEM] DAILY 02/15/21 05:11 CBC WITH AUTO DIFF [HEME] DAILY COMPREHENSIVE METABOLIC PN,CMP [CHEM] DAILY - Plan Plan:: 81-year-old male admitted for UTI and sepsis. Patient has a history of positive cultures of Pseudomonas and E. coli. Blood cultures positive for methicillin s ensitive staph aureus x4. Urine culture negative. As per infectious disease recommendations, continue IV cefazolin. No prosthetic joints. Echocardiogram results pending. Continue telemetry. Heparin for DVT prophylaxis.
[2021-02-11] MEDS: Acetaminophen/Codeine 300-30 MG Tab PO PRN ×2 (13:56→20:01)
[2021-02-12] MEDS: Heparin Sodium 5,000 Units/ML Vial SUBCUT SCH ×2 (03:20→14:07)
[2021-02-12] MEDS: ceFAZolin 2 GM in Premix Bag 1 BAG IV SCH ×3 (03:21→19:00)
[2021-02-12 06:53] LABS: BLOOD UREA NITROGEN,BUN 28 mg/dL (7.0-18.0); CARBON DIOXIDE,CO2 18.5 mmol/L (21.0-32.0); CHLORIDE,CL 107 mmol/L (98-107); GLUCOSE RANDOM 91 mg/dL (74-106); SODIUM,NA 138 mmol/L (136-148)
[2021-02-12] MEDS: Potassium Chloride 20 MEQ Tab.ER PO SCH ×2 (08:39→20:42)
[2021-02-12] MEDS: Acetaminophen/Codeine 300-30 MG Tab PO PRN ×2 (08:39→16:31)
[2021-02-12] MEDS: Gabapentin 100 MG Cap PO SCH ×2 (08:40→20:43)
--- NOTE | 2021-02-12 15:36 | PCM.PN ---
- General Info Date of Service: 02/12/21 - Review of Systems Systems Review Comment:: no complaints, feeling much better today - Patient Data Vitals - Most Recent: Last Vital Signs Temp 36.3 C 02/12/21 12:00 Pulse 101 H 02/12/21 12:00 Resp 16 02/12/21 12:00 BP 140/56 L 02/12/21 12:00 Pulse Ox 94 L 02/12/21 12:00 Weight - Most Recent: 101.5 kg I&O - Last 24 Hours: Intake & Output 02/12/21 02/12/21 02/12/21 06:59 14:59 22:59 Intake Total 650 50 Output Total 850 Balance -200 50 Lab Results Last 24 Hours: Laboratory Results - last 24 hr 02/12/21 02/12/21 Range/Units 06:03 06:03 WBC 9.27 (4.0-11.0) K/uL RBC 3.91 L (4.50-5.90) M/uL Hgb 10.9 L (13.0-17.0) g/dL Hct 33.7 L (38.0-50.0) % MCV 86.2 (80.0-98.0) fL MCH 27.9 (27.0-32.0) pg MCHC 32.3 (31.0-37.0) g/dL RDW Std Deviation 48.0 (28.0-62.0) fl RDW Coeff of Joseph 15 (11.0-15.0) % Plt Count 357 (150-400) K/uL MPV 9.30 (7.40-12.00) fL Neut % (Auto) 59.1 (48.0-80.0) % Lymph % (Auto) 27.9 (16.0-40.0) % [place] % (Auto) 9.1 (0.0-15.0) % Eos % (Auto) 3.5 (0.0-7.0) % Baso % (Auto) 0.4 (0.0-1.5) % Neut # (Auto) 5.5 (1.4-5.7) K/uL Lymph # (Auto) 2.6 H (0.6-2.4) K/uL [place] # (Auto) 0.8 (0.0-0.8) K/uL Eos # (Auto) 0.3 (0.0-0.7) K/uL Baso # (Auto) 0.0 (0.0-0.1) K/uL Nucleated RBC % 0.0 /100WBC Nucleated RBCs # 0 K/uL Sodium 138 (136-148) mmol/L Potassium 5.0 (3.5-5.1) mmol/L Chloride 107 (98-107) mmol/L Carbon Dioxide 18.5 L (21.0-32.0) mmol/L BUN 28 H (7.0-18.0) mg/dL Creatinine 1.2 (0.8-1.3) mg/dL Est Cr Clr Drug Dosing TNP Estimated GFR (MDRD) 58.1 ml/min Glucose 91 (74-106) mg/dL Calcium 8.5 (8.5-10.1) mg/dL Total Bilirubin 0.3 (0.2-1.0) mg/dL AST 51 H (15-37) IU/L ALT 39 (14-63) IU/L Alkaline Phosphatase 62 (46-116) U/L Total Protein 5.9 L (6.4-8.2) g/dL Albumin 2.1 L (3.4-5.0) g/dL Globulin 3.8 (2.6-4.0) g/dL Albumin/Globulin Ratio 0.6 L (0.9-1.6) Eduardo Results Last 24 Hours: Microbiology 02/08/21 15:25 Aerobic Blood Culture - Preliminary Blood - Venous - Lab Draw NO GROWTH AFTER 3 DAYS Anaerobic Blood Culture - Final 02/08/21 15:17 Aerobic Blood Culture - Preliminary Blood - Venous NO GROWTH AFTER 3 DAYS Anaerobic Blood Culture - Final Med Orders - Current: Current Medications Acetaminophen (Acetaminophen 325 Mg Tab) 650 mg PO Q6H PRN PRN Reason: Temperature Last Admin: 02/07/21 22:58 Dose: 650 mg Documented by: Acetaminophen/Codeine Phosphate (Acetaminophen/Codeine 300-30 Mg Tab) 1 tab PO QID PRN PRN Reason: Pain Last Admin: 02/12/21 08:39 Dose: 1 tab Documented by: Gabapentin (Gabapentin 100 Mg Cap) 100 mg PO BID [facility] Last Admin: 02/12/21 08:40 Dose: 100 mg Documented by: Heparin Sodium (Porcine) (Heparin Sodium 5,000 Units/Ml Vial) 5,000 units SUBCUT Q12H [facility] Last Admin: 02/12/21 14:07 Dose: 5,000 units Documented by: Cefazolin Sodium/Dextrose 2 gm (/ Premix) 50 mls @ 100 mls/hr IV Q8H [facility] Last Admin: 02/12/21 11:47 Dose: 100 mls/hr Documented by: Potassium Chloride (Potassium Chloride 20 Meq Tab.Er) 40 meq PO BID [facility] Last Admin: 02/12/21 08:39 Dose: 40 meq Documented by: Sodium Chloride (Sodium Chloride 0.9% 10 Ml Syringe) 10 ml FLUSH ASDIRECTED PRN PRN Reason: Keep Vein Open Last Admin: 02/04/21 06:39 Dose: 10 ml Documented by: Sodium Chloride (Sodium Chloride 0.9% 2.5 Ml Syringe) 2.5 ml FLUSH ASDIRECTED PRN PRN Reason: Keep Vein Open Last Admin: 02/04/21 06:39 Dose: 2.5 ml Documented by: Discontinued Medications Heparin Sodium (Porcine) (Heparin Sodium 5,000 Units/Ml Vial) 5,000 units SUBCUT Q12H [facility] Last Admin: 02/04/21 15:48 Dose: 5,000 units Documented by: Sodium Chloride (Normal Saline) 1,000 mls @ 1,000 mls/hr IV BOLUS ONE Stop: 02/04/21 07:23 Last Admin: 02/04/21 06:39 Dose: 1,000 mls/hr Documented by: Ciprofloxacin/Dextrose 400 mg/ (Premix) 200 mls @ 200 mls/hr IV NOW STA Stop: 02/04/21 07:32 Last Admin: 02/04/21 06:47 Dose: 200 mls/hr Documented by: Sodium Chloride (Normal Saline) 1,000 mls @ 1,000 mls/hr IV .Bolus ONE Stop: 02/04/21 07:38 Last Admin: 02/04/21 06:43 Dose: 1,000 mls/hr Documented by: Vancomycin HCl 1.5 gm/ Premix 300 mls @ 200 mls/hr IV NOW ONE Stop: 02/04/21 08:14 Last Admin: 02/04/21 07:28 Dose: 200 mls/hr Documented by: Vancomycin HCl 1.5 gm/ Premix 300 mls @ 200 mls/hr IV Q12H [facility] Last Admin: 02/06/21 02:23 Dose: Not Given Documented by: Levofloxacin/Dextrose 750 mg/ (Premix) 150 mls @ 100 mls/hr IV Q24H [facility] Last Admin: 02/08/21 19:45 Dose: 100 mls/hr Documented by: Ceftriaxone Sodium/Dextrose (Rocephin In Dextrose,Iso-Osm 2 Gm/50 Ml) 2 gm in 50 mls @ 100 mls/hr IV Q24H [facility] Last Admin: 02/09/21 14:53 Dose: 100 mls/hr Documented by: Sodium Chloride (Normal Saline) 1,000 mls @ 125 mls/hr IV ASDIRECTED [facility] Last Admin: 02/05/21 07:47 Dose: 125 mls/hr Documented by: Sodium Chloride (Sodium Chloride 0.45%) 1,000 mls @ 50 mls/hr IV ASDIRECTED [facility] Stop: 02/05/21 17:00 Last Admin: 02/05/21 12:24 Dose: 50 mls/hr Documented by: Vancomycin HCl 1.5 gm/ Premix 300 mls @ 200 mls/hr IV Q24H [facility] Last Admin: 02/10/21 07:47 Dose: 200 mls/hr Documented by: Clindamycin Phosphate 900 mg/ (Premix) 50 mls @ 100 mls/hr IV Q8H [facility] Last Admin: 02/09/21 12:36 Dose: 100 mls/hr Documented by: Clindamycin Phosphate 900 mg/ (Premix) 50 mls @ 100 mls/hr IV Q8H [facility] Last Admin: 02/10/21 04:29 Dose: 100 mls/hr Documented by: Ketorolac Tromethamine (Ketorolac 30 Mg/Ml Sdv) 30 mg IVPUSH ONETIME ONE Stop: 02/04/21 07:30 Last Admin: 02/04/21 07:51 Dose: Not Given Documented by: Potassium Chloride (Potassium Chloride 20 Meq Tab.Er) 40 meq PO ONETIME ONE Stop: 02/07/21 07:50 Last Admin: 02/07/21 10:06 Dose: 40 meq Documented by: Vancomycin HCl (Pharmacy To Dose - Vancomycin) 1 dose .XX ONETIME ONE Stop: 02/04/21 06:25 Last Admin: 02/04/21 07:34 Dose: Not Given Documented by: Vancomycin HCl (Pharmacy To Dose - Vancomycin) 1 dose .XX ASDIRECTED ONE Stop: 02/05/21 22:17 Last Admin: 02/06/21 07:07 Dose: Not Given Documented by: - Exam Urinary Catheter Total Time: 8Days 4Hours General: Alert, Oriented Neck: Supple Lungs: Clear to Auscultation, Normal Respiratory Effort Cardiovascular: Regular Rate, Regular Rhythm GI/Abdominal Exam: Soft, Non-Tender, No Distention Extremities: Non-Tender, No Pedal Edema Skin: Warm, Dry, Intact Neurological: No New Focal Deficit - Patient Data Lab Results Last 24 hrs: Laboratory Results - last 24 hr 02/12/21 02/12/21 Range/Units 06:03 06:03 WBC 9.27 (4.0-11.0) K/uL RBC 3.91 L (4.50-5.90) M/uL Hgb 10.9 L (13.0-17.0) g/dL Hct 33.7 L (38.0-50.0) % MCV 86.2 (80.0-98.0) fL MCH 27.9 (27.0-32.0) pg MCHC 32.3 (31.0-37.0) g/dL RDW Std Deviation 48.0 (28.0-62.0) fl RDW Coeff of Joseph 15 (11.0-15.0) % Plt Count 357 (150-400) K/uL MPV 9.30 (7.40-12.00) fL Neut % (Auto) 59.1 (48.0-80.0) % Lymph % (Auto) 27.9 (16.0-40.0) % [place] % (Auto) 9.1 (0.0-15.0) % Eos % (Auto) 3.5 (0.0-7.0) % Baso % (Auto) 0.4 (0.0-1.5) % Neut # (Auto) 5.5 (1.4-5.7) K/uL Lymph # (Auto) 2.6 H (0.6-2.4) K/uL [place] # (Auto) 0.8 (0.0-0.8) K/uL Eos # (Auto) 0.3 (0.0-0.7) K/uL Baso # (Auto) 0.0 (0.0-0.1) K/uL Nucleated RBC % 0.0 /100WBC Nucleated RBCs # 0 K/uL Sodium 138 (136-148) mmol/L Potassium 5.0 (3.5-5.1) mmol/L Chloride 107 (98-107) mmol/L Carbon Dioxide 18.5 L (21.0-32.0) mmol/L BUN 28 H (7.0-18.0) mg/dL Creatinine 1.2 (0.8-1.3) mg/dL Est Cr Clr Drug Dosing TNP Estimated GFR (MDRD) 58.1 ml/min Glucose 91 (74-106) mg/dL Calcium 8.5 (8.5-10.1) mg/dL Total Bilirubin 0.3 (0.2-1.0) mg/dL AST 51 H (15-37) IU/L ALT 39 (14-63) IU/L Alkaline Phosphatase 62 (46-116) U/L Total Protein 5.9 L (6.4-8.2) g/dL Albumin 2.1 L (3.4-5.0) g/dL Globulin 3.8 (2.6-4.0) g/dL Albumin/Globulin Ratio 0.6 L (0.9-1.6) Result Diagrams: 02/12/21 06:03 02/12/21 06:03 Eduardo Results Last 24 hrs: Microbiology 02/08/21 15:25 Aerobic Blood Culture - Preliminary Blood - Venous - Lab Draw NO GROWTH AFTER 3 DAYS Anaerobic Blood Culture - Final 02/08/21 15:17 Aerobic Blood Culture - Preliminary Blood - Venous NO GROWTH AFTER 3 DAYS Anaerobic Blood Culture - Final Sepsis Event Note - Evaluation Sepsis Screening Result: No Definite Risk - Focused Exam Vital Signs: Vital Signs Temp Pulse Resp BP Pulse Ox 02/12/21 12:00 36.3 C 101 H 16 140/56 L 94 L 02/12/21 08:00 36.3 C 99 18 143/83 H 96 02/12/21 04:00 36.8 C 103 H 16 110/58 L 94 L - Problem List & Annotations (1) Urinary tract infection SNOMED Code(s): 76885323 Code(s): N39.0 - URINARY TRACT INFECTION, SITE NOT SPECIFIED Status: Acute Current Visit: Yes Qualifiers: Urinary tract infection type: acute cystitis Hematuria presence: with hematuria Qualified Code(s): N30.01 - Acute cystitis with hematuria (2) Acute kidney injury superimposed on CKD SNOMED Code(s): 31518078 Code(s): N17.9 - ACUTE KIDNEY FAILURE, UNSPECIFIED; N18.9 - CHRONIC KIDNEY DISEASE, UNSPECIFIED Status: Acute Current Visit: Yes (3) Sepsis SNOMED Code(s): 86298104 Code(s): A41.9 - SEPSIS, UNSPECIFIED ORGANISM Status: Acute Current Visit: Yes - Problem List Review Problem List Initiated/Reviewed/Updated: Yes - Plan Plan:: 81-year-old male admitted for UTI and sepsis. MSSA bacteremia and UTI: will continue cefazolin Continue telemetry. Heparin for DVT prophylaxis.
[2021-02-13] MEDS: Acetaminophen/Codeine 300-30 MG Tab PO PRN ×3 (00:06→18:23)
[2021-02-13] MEDS: Heparin Sodium 5,000 Units/ML Vial SUBCUT SCH ×2 (02:54→14:34)
[2021-02-13] MEDS: ceFAZolin 2 GM in Premix Bag 1 BAG IV SCH ×3 (02:54→19:14)
[2021-02-13 06:33] LABS: BLOOD UREA NITROGEN,BUN 27 mg/dL (7.0-18.0); CARBON DIOXIDE,CO2 20.9 mmol/L (21.0-32.0); CHLORIDE,CL 107 mmol/L (98-107); GLUCOSE RANDOM 82 mg/dL (74-106); POTASSIUM,K 5.7 mmol/L (3.5-5.1)
[2021-02-13 06:52] LABS: SODIUM,NA 139 mmol/L (136-148)
--- NOTE | 2021-02-13 07:45 | PCM.PN ---
- General Info Date of Service: 02/13/21 Admission Dx/Problem (Free Text): Admission Diagnosis/Problem Admission Diagnosis/Problem Hypoxia Subjective Update: 81-year-old male admitted from [facility] for UTI and acute on chronic kidney disease. Patient has a history of CKD and chronic Gao catheter which was replaced in the ER. Gao catheter draining well. Patient seen at bedside. Patient is alert but not oriented. No complaints. Denies pain. Patient is on IV cefazolin for MSSA bacteremia. White count has down trended. - Review of Systems General: Denies: Fever Pulmonary: Denies: Cough Musculoskeletal: Reports: Joint Pain. Denies: Leg Pain - Patient Data Vitals - Most Recent: Last Vital Signs Temp 98.4 F 02/13/21 07:24 Pulse 103 H 02/13/21 07:24 Resp 18 02/13/21 07:24 BP 111/58 L 02/13/21 07:24 Pulse Ox 93 L 02/13/21 07:24 Weight - Most Recent: 223 lb 12.307 oz I&O - Last 24 Hours: Intake & Output 02/12/21 02/13/21 02/13/21 22:59 06:59 14:59 Intake Total 820 400 Output Total 1050 750 Balance -230 -350 Lab Results Last 24 Hours: Laboratory Results - last 24 hr 02/13/21 02/13/21 Range/Units 05:30 05:30 WBC 8.89 (4.0-11.0) K/uL RBC 3.75 L (4.50-5.90) M/uL Hgb 10.6 L (13.0-17.0) g/dL Hct 33.0 L (38.0-50.0) % MCV 88.0 (80.0-98.0) fL MCH 28.3 (27.0-32.0) pg MCHC 32.1 (31.0-37.0) g/dL RDW Std Deviation 50.6 (28.0-62.0) fl RDW Coeff of Joseph 16 H (11.0-15.0) % Plt Count 418 H (150-400) K/uL MPV 9.40 (7.40-12.00) fL Neut % (Auto) 59.4 (48.0-80.0) % Lymph % (Auto) 29.5 (16.0-40.0) % Cobb % (Auto) 8.4 (0.0-15.0) % Eos % (Auto) 2.5 (0.0-7.0) % Baso % (Auto) 0.2 (0.0-1.5) % Neut # (Auto) 5.3 (1.4-5.7) K/uL Lymph # (Auto) 2.6 H (0.6-2.4) K/uL Cobb # (Auto) 0.8 (0.0-0.8) K/uL Eos # (Auto) 0.2 (0.0-0.7) K/uL Baso # (Auto) 0.0 (0.0-0.1) K/uL Nucleated RBC % 0.0 /100WBC Nucleated RBCs # 0 K/uL Sodium 139 (136-148) mmol/L Potassium 5.7 H (3.5-5.1) mmol/L Chloride 107 (98-107) mmol/L Carbon Dioxide 20.9 L (21.0-32.0) mmol/L BUN 27 H (7.0-18.0) mg/dL Creatinine 1.1 (0.8-1.3) mg/dL Est Cr Clr Drug Dosing TNP Estimated GFR (MDRD) > 60.0 ml/min Glucose 82 (74-106) mg/dL Calcium 8.9 (8.5-10.1) mg/dL Total Bilirubin 0.3 (0.2-1.0) mg/dL AST 48 H (15-37) IU/L ALT 28 (14-63) IU/L Alkaline Phosphatase 72 (46-116) U/L Total Protein 6.1 L (6.4-8.2) g/dL Albumin 2.1 L (3.4-5.0) g/dL Globulin 4.0 (2.6-4.0) g/dL Albumin/Globulin Ratio 0.5 L (0.9-1.6) Eduardo Results Last 24 Hours: Microbiology 02/08/21 15:25 Aerobic Blood Culture - Preliminary Blood - Venous - Lab Draw NO GROWTH AFTER 4 DAYS Anaerobic Blood Culture - Final 02/08/21 15:17 Aerobic Blood Culture - Preliminary Blood - Venous NO GROWTH AFTER 4 DAYS Anaerobic Blood Culture - Final Med Orders - Current: Current Medications Acetaminophen (Acetaminophen 325 Mg Tab) 650 mg PO Q6H PRN PRN Reason: Temperature Last Admin: 02/07/21 22:58 Dose: 650 mg Documented by: Acetaminophen/Codeine Phosphate (Acetaminophen/Codeine 300-30 Mg Tab) 1 tab PO QID PRN PRN Reason: Pain Last Admin: 02/13/21 00:06 Dose: 1 tab Documented by: Gabapentin (Gabapentin 100 Mg Cap) 100 mg PO BID [facility] Last Admin: 02/12/21 20:43 Dose: 100 mg Documented by: Heparin Sodium (Porcine) (Heparin Sodium 5,000 Units/Ml Vial) 5,000 units SUBCUT Q12H [facility] Last Admin: 02/13/21 02:54 Dose: 5,000 units Documented by: Cefazolin Sodium/Dextrose 2 gm (/ Premix) 50 mls @ 100 mls/hr IV Q8H [facility] Last Admin: 02/13/21 02:54 Dose: 100 mls/hr Documented by: Sodium Chloride (Sodium Chloride 0.9% 10 Ml Syringe) 10 ml FLUSH ASDIRECTED PRN PRN Reason: Keep Vein Open Last Admin: 02/04/21 06:39 Dose: 10 ml Documented by: Sodium Chloride (Sodium Chloride 0.9% 2.5 Ml Syringe) 2.5 ml FLUSH ASDIRECTED PRN PRN Reason: Keep Vein Open Last Admin: 02/04/21 06:39 Dose: 2.5 ml Documented by: Discontinued Medications Heparin Sodium (Porcine) (Heparin Sodium 5,000 Units/Ml Vial) 5,000 units SUBCUT Q12H [facility] Last Admin: 02/04/21 15:48 Dose: 5,000 units Documented by: Sodium Chloride (Normal Saline) 1,000 mls @ 1,000 mls/hr IV BOLUS ONE Stop: 02/04/21 07:23 Last Admin: 02/04/21 06:39 Dose: 1,000 mls/hr Documented by: Ciprofloxacin/Dextrose 400 mg/ (Premix) 200 mls @ 200 mls/hr IV NOW STA Stop: 02/04/21 07:32 Last Admin: 02/04/21 06:47 Dose: 200 mls/hr Documented by: Sodium Chloride (Normal Saline) 1,000 mls @ 1,000 mls/hr IV .Bolus ONE Stop: 02/04/21 07:38 Last Admin: 02/04/21 06:43 Dose: 1,000 mls/hr Documented by: Vancomycin HCl 1.5 gm/ Premix 300 mls @ 200 mls/hr IV NOW ONE Stop: 02/04/21 08:14 Last Admin: 02/04/21 07:28 Dose: 200 mls/hr Documented by: Vancomycin HCl 1.5 gm/ Premix 300 mls @ 200 mls/hr IV Q12H [facility] Last Admin: 02/06/21 02:23 Dose: Not Given Documented by: Levofloxacin/Dextrose 750 mg/ (Premix) 150 mls @ 100 mls/hr IV Q24H [facility] Last Admin: 02/08/21 19:45 Dose: 100 mls/hr Documented by: Ceftriaxone Sodium/Dextrose (Rocephin In Dextrose,Iso-Osm 2 Gm/50 Ml) 2 gm in 50 mls @ 100 mls/hr IV Q24H [facility] Last Admin: 02/09/21 14:53 Dose: 100 mls/hr Documented by: Sodium Chloride (Normal Saline) 1,000 mls @ 125 mls/hr IV ASDIRECTED [facility] Last Admin: 02/05/21 07:47 Dose: 125 mls/hr Documented by: Sodium Chloride (Sodium Chloride 0.45%) 1,000 mls @ 50 mls/hr IV ASDIRECTED [facility] Stop: 02/05/21 17:00 Last Admin: 02/05/21 12:24 Dose: 50 mls/hr Documented by: Vancomycin HCl 1.5 gm/ Premix 300 mls @ 200 mls/hr IV Q24H [facility] Last Admin: 02/10/21 07:47 Dose: 200 mls/hr Documented by: Clindamycin Phosphate 900 mg/ (Premix) 50 mls @ 100 mls/hr IV Q8H [facility] Last Admin: 02/09/21 12:36 Dose: 100 mls/hr Documented by: Clindamycin Phosphate 900 mg/ (Premix) 50 mls @ 100 mls/hr IV Q8H [facility] Last Admin: 02/10/21 04:29 Dose: 100 mls/hr Documented by: Ketorolac Tromethamine (Ketorolac 30 Mg/Ml Sdv) 30 mg IVPUSH ONETIME ONE Stop: 02/04/21 07:30 Last Admin: 02/04/21 07:51 Dose: Not Given Documented by: Potassium Chloride (Potassium Chloride 20 Meq Tab.Er) 40 meq PO ONETIME ONE Stop: 02/07/21 07:50 Last Admin: 02/07/21 10:06 Dose: 40 meq Documented by: Potassium Chloride (Potassium Chloride 20 Meq Tab.Er) 40 meq PO BID [facility] Last Admin: 02/12/21 20:42 Dose: 40 meq Documented by: Vancomycin HCl (Pharmacy To Dose - Vancomycin) 1 dose .XX ONETIME ONE Stop: 02/04/21 06:25 Last Admin: 02/04/21 07:34 Dose: Not Given Documented by: Vancomycin HCl (Pharmacy To Dose - Vancomycin) 1 dose .XX ASDIRECTED ONE Stop: 02/05/21 22:17 Last Admin: 02/06/21 07:07 Dose: Not Given Documented by: - Exam Urinary Catheter Total Time: 8Days 23Hours General: Alert, No Acute Distress. No: Oriented HEENT: Pupils Equal, Pupils Reactive Neck: Supple Lungs: Clear to Auscultation Cardiovascular: Other (S1-S2 present.) GI/Abdominal Exam: Normal Bowel Sounds, Soft, Non-Tender Back Exam: Normal Inspection Extremities: Normal Inspection, Non-Tender, No Pedal Edema. No: Sushil's Sign Peripheral Pulses: 2+: Dorsalis Pedis (L), Dorsalis Pedis (R) Skin: Other (Coccyx dressing in place. No drainage.) Neurological: No New Focal Deficit - Patient Data Lab Results Last 24 hrs: Laboratory Results - last 24 hr 02/13/21 02/13/21 Range/Units 05:30 05:30 WBC 8.89 (4.0-11.0) K/uL RBC 3.75 L (4.50-5.90) M/uL Hgb 10.6 L (13.0-17.0) g/dL Hct 33.0 L (38.0-50.0) % MCV 88.0 (80.0-98.0) fL MCH 28.3 (27.0-32.0) pg MCHC 32.1 (31.0-37.0) g/dL RDW Std Deviation 50.6 (28.0-62.0) fl RDW Coeff of Joseph 16 H (11.0-15.0) % Plt Count 418 H (150-400) K/uL MPV 9.40 (7.40-12.00) fL Neut % (Auto) 59.4 (48.0-80.0) % Lymph % (Auto) 29.5 (16.0-40.0) % Cobb % (Auto) 8.4 (0.0-15.0) % Eos % (Auto) 2.5 (0.0-7.0) % Baso % (Auto) 0.2 (0.0-1.5) % Neut # (Auto) 5.3 (1.4-5.7) K/uL Lymph # (Auto) 2.6 H (0.6-2.4) K/uL Cobb # (Auto) 0.8 (0.0-0.8) K/uL Eos # (Auto) 0.2 (0.0-0.7) K/uL Baso # (Auto) 0.0 (0.0-0.1) K/uL Nucleated RBC % 0.0 /100WBC Nucleated RBCs # 0 K/uL Sodium 139 (136-148) mmol/L Potassium 5.7 H (3.5-5.1) mmol/L Chloride 107 (98-107) mmol/L Carbon Dioxide 20.9 L (21.0-32.0) mmol/L BUN 27 H (7.0-18.0) mg/dL Creatinine 1.1 (0.8-1.3) mg/dL Est Cr Clr Drug Dosing TNP Estimated GFR (MDRD) > 60.0 ml/min Glucose 82 (74-106) mg/dL Calcium 8.9 (8.5-10.1) mg/dL Total Bilirubin 0.3 (0.2-1.0) mg/dL AST 48 H (15-37) IU/L ALT 28 (14-63) IU/L Alkaline Phosphatase 72 (46-116) U/L Total Protein 6.1 L (6.4-8.2) g/dL Albumin 2.1 L (3.4-5.0) g/dL Globulin 4.0 (2.6-4.0) g/dL Albumin/Globulin Ratio 0.5 L (0.9-1.6) Result Diagrams: 02/13/21 05:30 02/13/21 05:30 Eduardo Results Last 24 hrs: Microbiology 12/14/21 15:25 Aerobic Blood Culture - Preliminary Blood - Venous - Lab Draw NO GROWTH AFTER 4 DAYS Anaerobic Blood Culture - Final 02/08/21 15:17 Aerobic Blood Culture - Preliminary Blood - Venous NO GROWTH AFTER 4 DAYS Anaerobic Blood Culture - Final Sepsis Event Note - Evaluation Sepsis Screening Result: No Definite Risk - Focused Exam Vital Signs: Vital Signs Temp Pulse Resp BP BP Pulse Ox 02/13/21 07:24 98.4 F 103 H 18 111/58 L 93 L 02/13/21 04:00 97.4 F 102 H 16 109/58 L 92 L 02/13/21 00:00 97.5 F 105 H 16 110/68 92 L 02/12/21 20:00 97.7 F 98 18 111/62 95 - Problem List & Annotations (1) New onset atrial fibrillation SNOMED Code(s): 06571779 Code(s): I48.91 - UNSPECIFIED ATRIAL FIBRILLATION Status: Acute Current Visit: Yes - Problem List Review Problem List Initiated/Reviewed/Updated: Yes - My Orders Last 24 Hours: My Active Orders 02/14/21 05:11 CBC WITH AUTO DIFF [HEME] DAILY COMPREHENSIVE METABOLIC PN,CMP [CHEM] DAILY 02/15/21 05:11 CBC WITH AUTO DIFF [HEME] DAILY COMPREHENSIVE METABOLIC PN,CMP [CHEM] DAILY - Plan Plan:: 81-year-old male admitted for UTI and sepsis. MSSA bacteremia and UTI: will continue cefazolin Continue telemetry. Heparin for DVT prophylaxis.
[2021-02-13] MEDS: Gabapentin 100 MG Cap PO SCH ×2 (08:32→21:08)
[2021-02-14] MEDS: Heparin Sodium 5,000 Units/ML Vial SUBCUT SCH (03:04)
[2021-02-14] MEDS: ceFAZolin 2 GM in Premix Bag 1 BAG IV SCH ×2 (03:05→11:31)
[2021-02-14 06:25] LABS: BLOOD UREA NITROGEN,BUN 28 mg/dL (7.0-18.0); CARBON DIOXIDE,CO2 22.4 mmol/L (21.0-32.0); CHLORIDE,CL 106 mmol/L (98-107); GLUCOSE RANDOM 97 mg/dL (74-106); POTASSIUM,K 4.7 mmol/L (3.5-5.1); SODIUM,NA 137 mmol/L (136-148)
[2021-02-14] MEDS: Gabapentin 100 MG Cap PO SCH (08:11)
--- NOTE | 2021-02-14 09:19 | PCM.DCSUM1 ---
Discharge Summary - Hospital Course Free Text/Narrative:: 81-year-old male with a history of dementia, HLD, HTN with chronic Gao and CKD was brought to the ER with concerns from [facility] for fevers. Patient was found to be tachycardic, leukocytosis and pyuria. He was started on vancomycin and ciprofloxacin for UTI and Gao catheter was replaced. CT abdomen showed pyelonephritis with pyelitis. Blood cultures grew MSSA. Infectious disease was consulted in [place] who advised starting the patient on IV cefazolin. Patient's white count improved. Patient received a total of 10 days of IV antibiotics. Echocardiogram was done which showed no signs of infective endocarditis, ejection fraction 55 to 60%. Repeat blood cultures are negative. Patient stable and will be transferred back to [facility]. 5 days of cephalexin on discharge. - Discharge Data Discharge Date: 02/14/21 Discharge Disposition: DC/Tfer to [facility] 03 Condition: Good - Referral to Home Health Primary Care Physician: PCP None - Discharge Diagnosis/Problem(s) (1) New onset atrial fibrillation SNOMED Code(s): 44120689 ICD Code: I48.91 - UNSPECIFIED ATRIAL FIBRILLATION Status: Acute Current Visit: Yes - Patient Instructions Diet: Regular Diet as Tolerated Notify Provider of: Fever Other/Special Instructions: Admitted for UTI found to have MSSA bacteremia. Treated appropriately. Sent prescription for 5 more days of oral antibiotics. Take 1 every 6 hours for 5 days. - Discharge Plan *PRESCRIPTION DRUG MONITORING PROGRAM REVIEWED*: Not Applicable *COPY OF PRESCRIPTION DRUG MONITORING REPORT IN PATIENT VINNY: Not Applicable Prescriptions/Med Rec: cephALEXin [Cephalexin] 500 mg PO QID 5 Days #20 capsule Home Medications: Home Meds Methyl Salicylate/Menthol [Icy Hot] 1 applic TOP Q8H PRN 09/06/16 [History] Cetirizine [ZyrTEC] 1 tab PO DAILY 09/01/18 [History] Carbamide Peroxide [Debrox] 3 drop EARBOTH BEDTIME PRN 09/16/20 [History] Magnesium Hydroxide [Milk of Magnesia] 30 ml PO DAILY PRN 09/16/20 [History] Furosemide [Lasix] 80 mg PO DAILY #0 09/22/20 [Rx] Acetaminophen with Codeine [Acetaminophen-Cod #3] 1 each PO QID PRN 11/27/20 [History] Gabapentin [Neurontin] 100 mg PO BID 11/27/20 [History] Acetaminophen [Mapap Arthritis Pain] 650 mg PO Q8H PRN 02/04/21 [History] Amino Ac/Protein Hydr/Whey Pro [Prosource Protein] 30 ml PO TID 02/04/21 [History] Nut.Sup,Spec.Frm,L-Fr,Iron/Fos [Twocal HN] 3 oz PO BID 02/04/21 [History] cephALEXin [Cephalexin] 500 mg PO QID 5 Days #20 capsule 02/14/21 [Rx] Oxygen Therapy Mode: Room Air Patient Handouts: Hypoxia, Urinary Tract Infection, Adult, [id number] Referrals: PCP,None [Primary Care Provider] - Awais Goss MD [Ordering Only Provider] - 02/28/21 (Next [facility] rounds.) - Discharge Summary/Plan Comment DC Time >30 min.: Yes Total # of Minutes for Discharge Time: 60 Discharge Summary/Plan Comment: 60 - General Info Admission Dx/Problem (Free Text: Admission Diagnosis/Problem Admission Diagnosis/Problem Hypoxia - Review of Systems General: Denies: Fever Pulmonary: Denies: Cough Musculoskeletal: Reports: Joint Pain. Denies: Neck Pain Neurological: Reports: Confusion - Patient Data Vitals - Most Recent: Last Vital Signs Temp 98.3 F 02/14/21 04:00 Pulse 102 H 02/14/21 04:00 Resp 18 02/14/21 04:00 BP 102/56 L 02/14/21 04:00 Pulse Ox 97 02/14/21 07:00 Weight - Most Recent: 223 lb 12.307 oz I&O - Last 24 hours: Intake & Output 02/13/21 02/14/21 02/14/21 22:59 06:59 14:59 Intake Total 780 Output Total 600 Balance 180 Lab Results - Last 24 hrs: Laboratory Results - last 24 hr 02/14/21 02/14/21 Range/Units 05:27 05:27 WBC 8.82 (4.0-11.0) K/uL RBC 3.87 L (4.50-5.90) M/uL Hgb 10.8 L (13.0-17.0) g/dL Hct 33.8 L (38.0-50.0) % MCV 87.3 (80.0-98.0) fL MCH 27.9 (27.0-32.0) pg MCHC 32.0 (31.0-37.0) g/dL RDW Std Deviation 49.0 (28.0-62.0) fl RDW Coeff of Joseph 15 (11.0-15.0) % Plt Count 421 H (150-400) K/uL MPV 9.10 (7.40-12.00) fL Neut % (Auto) 64.6 (48.0-80.0) % Lymph % (Auto) 24.6 (16.0-40.0) % [place] % (Auto) 8.3 (0.0-15.0) % Eos % (Auto) 2.0 (0.0-7.0) % Baso % (Auto) 0.5 (0.0-1.5) % Neut # (Auto) 5.7 (1.4-5.7) K/uL Lymph # (Auto) 2.2 (0.6-2.4) K/uL [place] # (Auto) 0.7 (0.0-0.8) K/uL Eos # (Auto) 0.2 (0.0-0.7) K/uL Baso # (Auto) 0.0 (0.0-0.1) K/uL Nucleated RBC % 0.0 /100WBC Nucleated RBCs # 0 K/uL Sodium 137 (136-148) mmol/L Potassium 4.7 (3.5-5.1) mmol/L Chloride 106 (98-107) mmol/L Carbon Dioxide 22.4 (21.0-32.0) mmol/L BUN 28 H (7.0-18.0) mg/dL Creatinine 1.2 (0.8-1.3) mg/dL Est Cr Clr Drug Dosing TNP Estimated GFR (MDRD) 58.1 ml/min Glucose 97 (74-106) mg/dL Calcium 9.1 (8.5-10.1) mg/dL Total Bilirubin 0.2 (0.2-1.0) mg/dL AST 31 (15-37) IU/L ALT 18 (14-63) IU/L Alkaline Phosphatase 69 (46-116) U/L Total Protein 6.9 (6.4-8.2) g/dL Albumin 2.1 L (3.4-5.0) g/dL Globulin 4.8 H (2.6-4.0) g/dL Albumin/Globulin Ratio 0.4 L (0.9-1.6) SANDRA Results - Last 24 hrs: Microbiology 02/08/21 15:25 Aerobic Blood Culture - Final Blood - Venous - Lab Draw NO GROWTH AFTER 5 DAYS Anaerobic Blood Culture - Final 02/08/21 15:17 Aerobic Blood Culture - Final Blood - Venous NO GROWTH AFTER 5 DAYS Anaerobic Blood Culture - Final Med Orders - Current: Current Medications Acetaminophen (Acetaminophen 325 Mg Tab) 650 mg PO Q6H PRN PRN Reason: Temperature Last Admin: 02/07/21 22:58 Dose: 650 mg Documented by: Acetaminophen/Codeine Phosphate (Acetaminophen/Codeine 300-30 Mg Tab) 1 tab PO QID PRN PRN Reason: Pain Last Admin: 02/13/21 18:23 Dose: 1 tab Documented by: Gabapentin (Gabapentin 100 Mg Cap) 100 mg PO BID [facility] Last Admin: 02/14/21 08:11 Dose: 100 mg Documented by: Heparin Sodium (Porcine) (Heparin Sodium 5,000 Units/Ml Vial) 5,000 units SUBCUT Q12H [facility] Last Admin: 02/14/21 03:04 Dose: 5,000 units Documented by: Cefazolin Sodium/Dextrose 2 gm (/ Premix) 50 mls @ 100 mls/hr IV Q8H [facility] Last Admin: 02/14/21 03:05 Dose: 100 mls/hr Documented by: Sodium Chloride (Sodium Chloride 0.9% 10 Ml Syringe) 10 ml FLUSH ASDIRECTED PRN PRN Reason: Keep Vein Open Last Admin: 02/04/21 06:39 Dose: 10 ml Documented by: Sodium Chloride (Sodium Chloride 0.9% 2.5 Ml Syringe) 2.5 ml FLUSH ASDIRECTED PRN PRN Reason: Keep Vein Open Last Admin: 02/04/21 06:39 Dose: 2.5 ml Documented by: Discontinued Medications Heparin Sodium (Porcine) (Heparin Sodium 5,000 Units/Ml Vial) 5,000 units SUBCUT Q12H [facility] Last Admin: 02/04/21 15:48 Dose: 5,000 units Documented by: Sodium Chloride (Normal Saline) 1,000 mls @ 1,000 mls/hr IV BOLUS ONE Stop: 02/04/21 07:23 Last Admin: 02/04/21 06:39 Dose: 1,000 mls/hr Documented by: Ciprofloxacin/Dextrose 400 mg/ (Premix) 200 mls @ 200 mls/hr IV NOW STA Stop: 02/04/21 07:32 Last Admin: 02/04/21 06:47 Dose: 200 mls/hr Documented by: Sodium Chloride (Normal Saline) 1,000 mls @ 1,000 mls/hr IV .Bolus ONE Stop: 02/04/21 07:38 Last Admin: 02/04/21 06:43 Dose: 1,000 mls/hr Documented by: Vancomycin HCl 1.5 gm/ Premix 300 mls @ 200 mls/hr IV NOW ONE Stop: 02/04/21 08:14 Last Admin: 02/04/21 07:28 Dose: 200 mls/hr Documented by: Vancomycin HCl 1.5 gm/ Premix 300 mls @ 200 mls/hr IV Q12H [facility] Last Admin: 02/06/21 02:23 Dose: Not Given Documented by: Levofloxacin/Dextrose 750 mg/ (Premix) 150 mls @ 100 mls/hr IV Q24H [facility] Last Admin: 02/08/21 19:45 Dose: 100 mls/hr Documented by: Ceftriaxone Sodium/Dextrose (Rocephin In Dextrose,Iso-Osm 2 Gm/50 Ml) 2 gm in 50 mls @ 100 mls/hr IV Q24H [facility] Last Admin: 02/09/21 14:53 Dose: 100 mls/hr Documented by: Sodium Chloride (Normal Saline) 1,000 mls @ 125 mls/hr IV ASDIRECTED [facility] Last Admin: 02/05/21 07:47 Dose: 125 mls/hr Documented by: Sodium Chloride (Sodium Chloride 0.45%) 1,000 mls @ 50 mls/hr IV ASDIRECTED [facility] Stop: 02/05/21 17:00 Last Admin: 02/05/21 12:24 Dose: 50 mls/hr Documented by: Vancomycin HCl 1.5 gm/ Premix 300 mls @ 200 mls/hr IV Q24H [facility] Last Admin: 02/10/21 07:47 Dose: 200 mls/hr Documented by: Clindamycin Phosphate 900 mg/ (Premix) 50 mls @ 100 mls/hr IV Q8H [facility] Last Admin: 02/09/21 12:36 Dose: 100 mls/hr Documented by: Clindamycin Phosphate 900 mg/ (Premix) 50 mls @ 100 mls/hr IV Q8H [facility] Last Admin: 02/10/21 04:29 Dose: 100 mls/hr Documented by: Ketorolac Tromethamine (Ketorolac 30 Mg/Ml Sdv) 30 mg IVPUSH ONETIME ONE Stop: 02/04/21 07:30 Last Admin: 02/04/21 07:51 Dose: Not Given Documented by: Potassium Chloride (Potassium Chloride 20 Meq Tab.Er) 40 meq PO ONETIME ONE Stop: 02/07/21 07:50 Last Admin: 02/07/21 10:06 Dose: 40 meq Documented by: Potassium Chloride (Potassium Chloride 20 Meq Tab.Er) 40 meq PO BID [facility] Last Admin: 02/12/21 20:42 Dose: 40 meq Documented by: Vancomycin HCl (Pharmacy To Dose - Vancomycin) 1 dose .XX ONETIME ONE Stop: 02/04/21 06:25 Last Admin: 02/04/21 07:34 Dose: Not Given Documented by: Vancomycin HCl (Pharmacy To Dose - Vancomycin) 1 dose .XX ASDIRECTED ONE Stop: 02/05/21 22:17 Last Admin: 02/06/21 07:07 Dose: Not Given Documented by: - Exam General: Reports: Alert, No Acute Distress HEENT: Reports: Pupils Equal, Pupils Reactive, Mucous Membr. Moist/[place]ck: Reports: Supple, Trachea Midline Lungs: Reports: Clear to Auscultation, Normal Respiratory Effort Cardiovascular: Reports: Regular Rate, No Murmurs GI/Abdominal Exam: Normal Bowel Sounds, Soft, Non-Tender (Male) Exam: Other (Indwelling catheter) Back Exam: Reports: Normal Inspection Extremities: Normal Inspection, No Pedal Edema. No: Sushil's Sign, Leg Pain Skin: Reports: Warm, Dry, Intact
--- NOTE | 2021-02-14 09:44 | ECHO ---
EXAM DATE: 02/04/21 PATIENT'S AGE: 81 The ECHO report has been scanned into [facility] and can be seen in this patient's EMR (Electronic Medical Record) under the REPORTS section. The report has also been scanned into PACS. IN[facility]
[2021-02-14 11:11] VITALS: BP 123/60; PULSE 100
== END 2021-02-14 12:35 | DRG 698 ==
LOC: MW.ED 06:21 → MW.MS 10:05
PROVIDERS: ADMIT Internal Medicine; ATTEND Internal Medicine
DX: T83.511A Infection and inflammatory reaction due to indwelling urethral catheter, initial encounter (principal); R09.02 Hypoxemia; A41.01 Sepsis due to Methicillin susceptible Staphylococcus aureus; N30.01 Acute cystitis with hematuria; N12 Tubulo-interstitial nephritis, not specified as acute or chronic; I48.91 Unspecified atrial fibrillation; E78.5 Hyperlipidemia, unspecified; Z96.0 Presence of urogenital implants; I12.9 Hypertensive chronic kidney disease with stage 1 through stage 4 chronic kidney disease, or unspecified chronic kidney disease; F03.90 Unspecified dementia, unspecified severity, without behavioral disturbance, psychotic disturbance, mood disturbance, and anxiety; N18.9 Chronic kidney disease, unspecified; Z88.0 Allergy status to penicillin; Z88.1 Allergy status to other antibiotic agents; R33.9 Retention of urine, unspecified; E78.00 Pure hypercholesterolemia, unspecified; M10.9 Gout, unspecified; Z93.6 Other artificial openings of urinary tract status; Z20.822 Contact with and (suspected) exposure to COVID-19; E66.9 Obesity, unspecified; R29.6 Repeated falls; Z87.01 Personal history of pneumonia (recurrent); Z79.899 Other long term (current) drug therapy; Z88.2 Allergy status to sulfonamides; Z88.8 Allergy status to other drugs, medicaments and biological substances
CPT/HCPCS: 36415; 71045; 80053; 81001; 83605; 83690; 85025; 87040 ×2; 87077; 87150; 87186; 96365; 96367; 99285; J0744; J3370; J7030 ×2; U0002; 71250; 71250-26; 74176; 74176-26; 80202; 83735; 84100; 87086; 93005; 93306; A9270-GY; J0690; J0696; J1644; J1956; J3490

== ENCOUNTER 2021-06-29 09:48 | Inpatient (IN) | payer MEDICARE, OTHER ==
[2021-06-29] MEDS ORDERED: Sodium Chloride 0.9% 2.5 ML Syringe FLUSH PRN ×2 (09:56→13:19)
[2021-06-29] MEDS ORDERED: Sodium Chloride 0.9% 10 ML Syringe FLUSH PRN ×2 (09:56→13:19)
[2021-06-29] MEDS ORDERED: Sodium Chloride 0.9% 1,000 ML IV ONE ×3 (09:57→11:13)
[2021-06-29] MEDS ORDERED: Levofloxacin/Dextrose 5%-Water 750 MG in Premix Bag 1 BAG IV STA (09:58)
[2021-06-29 11:54] LABS: BLOOD UREA NITROGEN,BUN 54 mg/dL (7.0-18.0); CARBON DIOXIDE,CO2 25.8 mmol/L (21.0-32.0); CHLORIDE,CL 103 mmol/L (98-107); GLUCOSE RANDOM 101 mg/dL (74-106); POTASSIUM,K 4.3 mmol/L (3.5-5.1); SODIUM,NA 139 mmol/L (136-148)
[2021-06-29] MEDS: Meropenem 2 GM in Sodium Chloride 0.9% 100 ML IV SCH (12:53)
[2021-06-29] MEDS ORDERED: Acetaminophen 325 MG Tab PO PRN (13:30)
[2021-06-29] MEDS ORDERED: Ondansetron 4 MG/2 ML SDV IVPUSH PRN (13:30)
[2021-06-29] MEDS ORDERED: Albuterol/Ipratropium 3.0-0.5 MG/3 ML Neb Soln NEB PRN (14:00)
[2021-06-29] MEDS: Lactated Ringers 1,000 ML IV SCH ×3 (14:00→23:53)
[2021-06-29] MEDS: Pantoprazole 40 MG in Sodium Chloride 0.9% 10 ML IVPUSH SCH (14:01)
[2021-06-29] MEDS ORDERED: Non-Formulary Medication 1 Each (Acetaminophen 650 MG Tablet.Er) PO PRN (14:23)
[2021-06-29] MEDS: VANCOmycin 1.5 GM/300 ML 1.5 GM in Premix Bag 1 BAG IV SCH (14:52)
[2021-06-29] MEDS: ALOE VERA TOP PRN ×2 (16:44→23:06)
[2021-06-29] MEDS: Heparin Sodium 5,000 Units/ML Vial SUBCUT SCH (16:44)
[2021-06-29] MEDS: TROLAMINE SALICYLATE TOP PRN ×2 (16:44→23:06)
[2021-06-29] MEDS: Morphine 2 MG/ML SYRINGE IVPUSH PRN (22:51)
[2021-06-30] MEDS: Meropenem 2 GM in Sodium Chloride 0.9% 100 ML IV SCH ×2 (00:26→12:40)
[2021-06-30] MEDS: Morphine 2 MG/ML SYRINGE IVPUSH PRN (02:14)
[2021-06-30] MEDS: Heparin Sodium 5,000 Units/ML Vial SUBCUT SCH ×2 (02:44→14:50)
[2021-06-30] MEDS ORDERED: Sodium Chloride 0.9% 500 ML IV ONE (03:27)
[2021-06-30 04:14] LABS: BLOOD UREA NITROGEN,BUN 41 mg/dL (7.0-18.0); CARBON DIOXIDE,CO2 22.7 mmol/L (21.0-32.0); CHLORIDE,CL 111 mmol/L (98-107); GLUCOSE RANDOM 119 mg/dL (74-106); POTASSIUM,K 3.9 mmol/L (3.5-5.1); SODIUM,NA 143 mmol/L (136-148)
[2021-06-30] MEDS: Lactated Ringers 1,000 ML IV SCH ×4 (05:51→21:02)
[2021-06-30] MEDS ORDERED: Acetaminophen/Codeine 300-30 MG Tab PO PRN (07:59)
[2021-06-30] MEDS: Cetirizine 10 MG Tab PO SCH (09:19)
[2021-06-30] MEDS: Gabapentin 100 MG Cap PO SCH ×2 (09:19→21:06)
[2021-06-30] MEDS: Pantoprazole 40 MG in Sodium Chloride 0.9% 10 ML IVPUSH SCH (12:40)
[2021-06-30] MEDS: VANCOmycin 1.5 GM/300 ML 1.5 GM in Premix Bag 1 BAG IV SCH (14:49)
[2021-07-01] MEDS: Meropenem 2 GM in Sodium Chloride 0.9% 100 ML IV SCH ×2 (01:05→12:41)
[2021-07-01] MEDS: Heparin Sodium 5,000 Units/ML Vial SUBCUT SCH ×2 (04:26→14:50)
[2021-07-01] MEDS: Lactated Ringers 1,000 ML IV SCH (06:15)
[2021-07-01 07:11] LABS: BLOOD UREA NITROGEN,BUN 36 mg/dL (7.0-18.0); CARBON DIOXIDE,CO2 25.3 mmol/L (21.0-32.0); CHLORIDE,CL 112 mmol/L (98-107); GLUCOSE RANDOM 92 mg/dL (74-106); POTASSIUM,K 3.8 mmol/L (3.5-5.1); SODIUM,NA 145 mmol/L (136-148)
[2021-07-01] MEDS: TROLAMINE SALICYLATE TOP PRN (08:13)
[2021-07-01] MEDS: ALOE VERA TOP PRN (08:13)
[2021-07-01] MEDS: Cetirizine 10 MG Tab PO SCH (08:23)
[2021-07-01] MEDS: Gabapentin 100 MG Cap PO SCH ×2 (08:23→20:08)
[2021-07-01] MEDS: Pantoprazole 40 MG in Sodium Chloride 0.9% 10 ML IVPUSH SCH (12:41)
[2021-07-01] MEDS: VANCOmycin 1.5 GM/300 ML 1.5 GM in Premix Bag 1 BAG IV SCH (14:49)
[2021-07-02] MEDS: Meropenem 2 GM in Sodium Chloride 0.9% 100 ML IV SCH ×3 (01:05→23:51)
[2021-07-02] MEDS: Heparin Sodium 5,000 Units/ML Vial SUBCUT SCH ×2 (03:37→14:48)
[2021-07-02 07:20] LABS: BLOOD UREA NITROGEN,BUN 30 mg/dL (7.0-18.0); CARBON DIOXIDE,CO2 23.4 mmol/L (21.0-32.0); CHLORIDE,CL 111 mmol/L (98-107); GLUCOSE RANDOM 88 mg/dL (74-106); POTASSIUM,K 3.6 mmol/L (3.5-5.1); SODIUM,NA 144 mmol/L (136-148)
[2021-07-02] MEDS: Cetirizine 10 MG Tab PO SCH (08:44)
[2021-07-02] MEDS: Gabapentin 100 MG Cap PO SCH ×2 (08:44→21:13)
[2021-07-02] MEDS: ALOE VERA TOP PRN (08:46)
[2021-07-02] MEDS: TROLAMINE SALICYLATE TOP PRN (08:46)
[2021-07-02] MEDS: Pantoprazole 40 MG in Sodium Chloride 0.9% 10 ML IVPUSH SCH (13:02)
[2021-07-02] MEDS: VANCOmycin 1.5 GM/300 ML 1.5 GM in Premix Bag 1 BAG IV SCH (14:49)
[2021-07-03] MEDS: Heparin Sodium 5,000 Units/ML Vial SUBCUT SCH ×2 (04:32→16:17)
[2021-07-03 06:51] LABS: BLOOD UREA NITROGEN,BUN 26 mg/dL (7.0-18.0); CARBON DIOXIDE,CO2 25.3 mmol/L (21.0-32.0); CHLORIDE,CL 112 mmol/L (98-107); GLUCOSE RANDOM 87 mg/dL (74-106); POTASSIUM,K 3.5 mmol/L (3.5-5.1); SODIUM,NA 146 mmol/L (136-148)
[2021-07-03] MEDS: Cetirizine 10 MG Tab PO SCH (09:36)
[2021-07-03] MEDS: Gabapentin 100 MG Cap PO SCH ×2 (09:36→21:21)
[2021-07-03] MEDS: Meropenem 2 GM in Sodium Chloride 0.9% 100 ML IV SCH (12:17)
[2021-07-03] MEDS: Pantoprazole 40 MG in Sodium Chloride 0.9% 10 ML IVPUSH SCH (13:50)
[2021-07-03] MEDS: VANCOmycin 1.5 GM/300 ML 1.5 GM in Premix Bag 1 BAG IV SCH (13:53)
[2021-07-03] MEDS ORDERED: cefTRIAXone 2 GM/50 ML BAG IV SCH (15:00)
[2021-07-03] MEDS: metroNIDAZOLE/Normal Saline 500 MG in Premix Bag 1 BAG IV SCH ×2 (17:25→23:28)
[2021-07-04] MEDS: Heparin Sodium 5,000 Units/ML Vial SUBCUT SCH (03:59)
[2021-07-04 07:09] LABS: BLOOD UREA NITROGEN,BUN 21 mg/dL (7.0-18.0); CARBON DIOXIDE,CO2 23.9 mmol/L (21.0-32.0); CHLORIDE,CL 108 mmol/L (98-107); GLUCOSE RANDOM 86 mg/dL (74-106); POTASSIUM,K 3.5 mmol/L (3.5-5.1); SODIUM,NA 141 mmol/L (136-148)
[2021-07-04] MEDS: metroNIDAZOLE/Normal Saline 500 MG in Premix Bag 1 BAG IV SCH (07:53)
[2021-07-04] MEDS: Gabapentin 100 MG Cap PO SCH (08:06)
[2021-07-04] MEDS: Cetirizine 10 MG Tab PO SCH (08:06)
[2021-07-04] MEDS ORDERED: Pantoprazole 40 MG Tab.CR PO SCH (09:00)
[2021-07-04 09:16] VITALS: BP 125/77; PULSE 84
== END 2021-07-04 12:00 | DRG 698 ==
LOC: MW.ED 09:48 → MW.ICU 12:15 → MW.MS 06-30 15:55
PROVIDERS: ADMIT Internal Medicine; ATTEND Internal Medicine
DX: T83.511A Infection and inflammatory reaction due to indwelling urethral catheter, initial encounter (principal); N30.01 Acute cystitis with hematuria; Z93.6 Other artificial openings of urinary tract status; A41.9 Sepsis, unspecified organism; N17.0 Acute kidney failure with tubular necrosis; N18.9 Chronic kidney disease, unspecified; R33.9 Retention of urine, unspecified; J69.0 Pneumonitis due to inhalation of food and vomit; F03.90 Unspecified dementia, unspecified severity, without behavioral disturbance, psychotic disturbance, mood disturbance, and anxiety; R65.20 Severe sepsis without septic shock; F03.91 Unspecified dementia, unspecified severity, with behavioral disturbance; Z66 Do not resuscitate; Z79.899 Other long term (current) drug therapy; N39.0 Urinary tract infection, site not specified; N18.32 Chronic kidney disease, stage 3b; I12.9 Hypertensive chronic kidney disease with stage 1 through stage 4 chronic kidney disease, or unspecified chronic kidney disease; Z20.822 Contact with and (suspected) exposure to COVID-19; B96.1 Klebsiella pneumoniae [K. pneumoniae] as the cause of diseases classified elsewhere; E78.5 Hyperlipidemia, unspecified; E78.00 Pure hypercholesterolemia, unspecified; E66.9 Obesity, unspecified; Y84.6 Urinary catheterization as the cause of abnormal reaction of the patient, or of later complication, without mention of misadventure at the time of the procedure; M19.90 Unspecified osteoarthritis, unspecified site; M10.9 Gout, unspecified; Y92.89 Other specified places as the place of occurrence of the external cause; Z90.49 Acquired absence of other specified parts of digestive tract; Z88.0 Allergy status to penicillin; Z88.2 Allergy status to sulfonamides; Z88.8 Allergy status to other drugs, medicaments and biological substances; E86.0 Dehydration
CPT/HCPCS: 36415; 71045; 80053; 81001; 83605; 84484; 85025; 85610; 86850; 86900; 86901; 87040 ×2; 87077; 87086; 87088 ×2; 87154; 87186 ×3; 93005; J1956; J3490; J7030 ×3; U0002; 80048; 80202; 83735; 84100; 87045; 87046; 87324; 87449; 87899; 93306; 97110-GP; 97163-GP; A9270-GY; C9113; J0696; J1644; J2185; J2270; J3370; J7120; J7620-GY

== ENCOUNTER 2021-12-28 21:34 | Inpatient (IN) | payer MEDICARE, OTHER ==
[2021-12-28] MEDS ORDERED: Sodium Chloride 0.9% 10 ML Syringe FLUSH PRN (22:00)
[2021-12-28] MEDS ORDERED: Acetaminophen 500 MG Tab PO ONE (22:00)
[2021-12-28] MEDS ORDERED: Sodium Chloride 0.9% 1,000 ML IV ONE ×3 (22:00→23:50)
[2021-12-28] MEDS ORDERED: Sodium Chloride 0.9% 2.5 ML Syringe FLUSH PRN (22:00)
[2021-12-28] MEDS ORDERED: cefTRIAXone 2 GM in Sodium Chloride 0.9% 50 ML IV ONE (22:03)
[2021-12-28 22:43] LABS: BLOOD UREA NITROGEN,BUN 93 mg/dL (7.0-18.0); CARBON DIOXIDE,CO2 25.4 mmol/L (21.0-32.0); CHLORIDE,CL 114 mmol/L (98-107); GLUCOSE RANDOM 117 mg/dL (74-106); SODIUM,NA 153 mmol/L (136-148)
[2021-12-28 22:46] LABS: ESTIMATED GFR 19 mL/min (>60)
[2021-12-28 22:46] LABS: CORONAVIRUS COVID-19 NAA NEGATIVE (NEGATIVE); INFLUENZA A NAA NEGATIVE (NEGATIVE); INFLUENZA B NAA NEGATIVE (NEGATIVE); RESPIRATORY SYNCYTIAL VIR NAA NEGATIVE (NEGATIVE)
[2021-12-29] MEDS ORDERED: Clindamycin Phosphate in D5W 600 MG in Premix Bag 1 BAG IV ONE ×2 (01:50)
[2021-12-29] MEDS ORDERED: Acetaminophen 500 MG Tab PO PRN (04:51)
[2021-12-29] MEDS ORDERED: Albuterol/Ipratropium 3.0-0.5 MG/3 ML Neb Soln NEB PRN (04:54)
[2021-12-29] MEDS ORDERED: Ondansetron 4 MG/2 ML SDV IVPUSH PRN (04:56)
[2021-12-29] MEDS ORDERED: Morphine 2 MG/ML SYRINGE IVPUSH ONE (04:57)
[2021-12-29] MEDS ORDERED: Lactated Ringers 1,000 ML IV SCH (05:00)
[2021-12-29] MEDS ORDERED: VANCOmycin 1.75 GM/350 ML 1.75 GM in Premix Bag 1 BAG IV ONE (06:00)
[2021-12-29] MEDS: Piperacillin/Tazobactam 2.25 GM in Sodium Chloride 0.9% 50 ML IV SCH ×3 (06:22→18:06)
[2021-12-29 06:29] LABS: CARBON DIOXIDE,CO2 26.9 mmol/L (21.0-32.0); POTASSIUM,K 3.8 mmol/L (3.5-5.1)
[2021-12-29] MEDS: Pantoprazole 40 MG in Sodium Chloride 0.9% 10 ML IVPUSH SCH (06:32)
[2021-12-29] MEDS: Heparin Sodium 5,000 Units/ML Vial SUBCUT SCH ×3 (09:41→21:42)
[2021-12-29] MEDS ORDERED: Piperacillin/Tazobactam 3.375 GM in Sodium Chloride 0.9% 50 ML IV SCH (10:00)
[2021-12-29] MEDS: Dextrose 5% in Water 1,000 ML IV SCH ×2 (10:07→20:00)
[2021-12-29] MEDS ORDERED: Non-Formulary Medication 1 Each (Acetaminophen 650 MG Tablet.Er) PO PRN (12:23)
[2021-12-29] MEDS ORDERED: Acetaminophen/Codeine 300-30 MG Tab PO PRN (12:23)
[2021-12-29] MEDS: Gabapentin 100 MG Cap PO SCH (21:42)
[2021-12-30] MEDS: Piperacillin/Tazobactam 2.25 GM in Sodium Chloride 0.9% 50 ML IV SCH ×5 (00:15→23:20)
[2021-12-30] MEDS: Dextrose 5% in Water 1,000 ML IV SCH ×3 (05:27→21:16)
[2021-12-30 07:46] LABS: CARBON DIOXIDE,CO2 23.3 mmol/L (21.0-32.0); POTASSIUM,K 3.5 mmol/L (3.5-5.1)
[2021-12-30] MEDS: Pantoprazole 40 MG in Sodium Chloride 0.9% 10 ML IVPUSH SCH (08:19)
[2021-12-30] MEDS: Heparin Sodium 5,000 Units/ML Vial SUBCUT SCH ×2 (08:25→21:16)
[2021-12-30] MEDS: Gabapentin 100 MG Cap PO SCH ×2 (08:36→21:16)
[2021-12-30] MEDS ORDERED: Cetirizine 10 MG Tab PO SCH (09:00)
[2021-12-31] MEDS: Piperacillin/Tazobactam 2.25 GM in Sodium Chloride 0.9% 50 ML IV SCH ×3 (06:16→17:31)
[2021-12-31] MEDS: Dextrose 5% in Water 1,000 ML IV SCH ×2 (06:17→17:08)
[2021-12-31 07:30] LABS: CARBON DIOXIDE,CO2 21.7 mmol/L (21.0-32.0); POTASSIUM,K 3.3 mmol/L (3.5-5.1)
[2021-12-31] MEDS: Pantoprazole 40 MG in Sodium Chloride 0.9% 10 ML IVPUSH SCH (08:34)
[2021-12-31] MEDS: Heparin Sodium 5,000 Units/ML Vial SUBCUT SCH ×2 (08:35→21:12)
[2021-12-31] MEDS: Gabapentin 100 MG Cap PO SCH ×2 (08:35→21:12)
[2021-12-31] MEDS ORDERED: Potassium Chloride 20 MEQ Tab.ER PO ONE (10:06)
[2022-01-01] MEDS: Piperacillin/Tazobactam 2.25 GM in Sodium Chloride 0.9% 50 ML IV SCH ×3 (00:18→18:13)
[2022-01-01] MEDS: Dextrose 5% in Water 1,000 ML IV SCH (01:20)
[2022-01-01] MEDS: Pantoprazole 40 MG in Sodium Chloride 0.9% 10 ML IVPUSH SCH (06:30)
[2022-01-01 07:07] LABS: CARBON DIOXIDE,CO2 21.3 mmol/L (21.0-32.0); POTASSIUM,K 3.5 mmol/L (3.5-5.1)
[2022-01-01] MEDS: Heparin Sodium 5,000 Units/ML Vial SUBCUT SCH ×2 (08:37→20:16)
[2022-01-01] MEDS: Acetaminophen/Codeine 300-30 MG Tab PO PRN ×2 (08:37→20:17)
[2022-01-01] MEDS: Gabapentin 100 MG Cap PO SCH ×2 (08:37→20:17)
[2022-01-01] MEDS ORDERED: Meropenem Premix 50 ML IV SCH (11:30)
[2022-01-02] MEDS: Piperacillin/Tazobactam 2.25 GM in Sodium Chloride 0.9% 50 ML IV SCH ×3 (00:33→13:24)
[2022-01-02] MEDS: Pantoprazole 40 MG in Sodium Chloride 0.9% 10 ML IVPUSH SCH (06:44)
[2022-01-02 06:45] LABS: CARBON DIOXIDE,CO2 21.2 mmol/L (21.0-32.0); POTASSIUM,K 3.5 mmol/L (3.5-5.1)
[2022-01-02] MEDS: Heparin Sodium 5,000 Units/ML Vial SUBCUT SCH ×2 (08:21→21:35)
[2022-01-02] MEDS: Gabapentin 100 MG Cap PO SCH ×2 (08:21→21:35)
[2022-01-02] MEDS: Acetaminophen/Codeine 300-30 MG Tab PO PRN (08:21)
[2022-01-02] MEDS ORDERED: Sodium Chloride 0.9% 10 ML Syringe FLUSH PRN (10:38)
[2022-01-02] MEDS ORDERED: Dextrose 5%-0.45% NaCl 1,000 ML IV ONE (10:38)
[2022-01-02] MEDS ORDERED: Sodium Chloride 0.9% 2.5 ML Syringe FLUSH PRN (10:38)
[2022-01-02] MEDS ORDERED: cefTRIAXone 1 GM in Sodium Chloride 0.9% 50 ML IV SCH (21:00)
[2022-01-03 06:28] LABS: CARBON DIOXIDE,CO2 21.1 mmol/L (21.0-32.0)
[2022-01-03] MEDS ORDERED: Pantoprazole 40 MG Tab.CR PO SCH (07:30)
[2022-01-03] MEDS: Heparin Sodium 5,000 Units/ML Vial SUBCUT SCH (09:11)
[2022-01-03] MEDS: Gabapentin 100 MG Cap PO SCH (09:11)
[2022-01-03] MEDS: Acetaminophen/Codeine 300-30 MG Tab PO PRN (09:12)
[2022-01-03 12:19] VITALS: BP 105/52; PULSE 60
== END 2022-01-03 12:50 | DRG 698 ==
LOC: MW.ED 21:34 → MW.ICU 12-29 01:47 → MW.MS 12-29 17:45
PROVIDERS: ADMIT Student in an Organized Health Care Education/Training Program; ATTEND Student in an Organized Health Care Education/Training Program
DX: A41.9 Sepsis, unspecified organism (principal); T83.511A Infection and inflammatory reaction due to indwelling urethral catheter, initial encounter; N17.9 Acute kidney failure, unspecified; A41.2 Sepsis due to unspecified staphylococcus; N17.0 Acute kidney failure with tubular necrosis; R65.20 Severe sepsis without septic shock; J18.9 Pneumonia, unspecified organism; N18.9 Chronic kidney disease, unspecified; F03.90 Unspecified dementia, unspecified severity, without behavioral disturbance, psychotic disturbance, mood disturbance, and anxiety; E87.0 Hyperosmolality and hypernatremia; Z66 Do not resuscitate; N39.0 Urinary tract infection, site not specified; N13.9 Obstructive and reflux uropathy, unspecified; N18.32 Chronic kidney disease, stage 3b; I12.9 Hypertensive chronic kidney disease with stage 1 through stage 4 chronic kidney disease, or unspecified chronic kidney disease; M25.562 Pain in left knee; E86.0 Dehydration; F03.B0 Unspecified dementia, moderate, without behavioral disturbance, psychotic disturbance, mood disturbance, and anxiety; E78.00 Pure hypercholesterolemia, unspecified; R33.9 Retention of urine, unspecified; M10.9 Gout, unspecified; M19.90 Unspecified osteoarthritis, unspecified site; Z20.822 Contact with and (suspected) exposure to COVID-19; E66.9 Obesity, unspecified; Z90.49 Acquired absence of other specified parts of digestive tract; Z79.899 Other long term (current) drug therapy; Z88.0 Allergy status to penicillin; Z88.2 Allergy status to sulfonamides; Z88.8 Allergy status to other drugs, medicaments and biological substances; Z87.01 Personal history of pneumonia (recurrent)
CPT/HCPCS: 0241U; 36415; 51702; 71045; 73560; 80048; 80053; 80202; 81001; 82947; 83605; 83735; 84100; 84295; 85025; 85610; 87040; 87077; 87086; 87088; 87154; 87186; 93005; 97162; 87147; 96361; 96365; 99285-25; A9270-GY; C9113; J0696; J1644; J2185; J2270; J2543; J3370; J3490; J7030; J7042; J7050; J7060; J7120; U0002

== ENCOUNTER 2022-02-12 22:09 | Inpatient (IN) | payer MEDICARE, OTHER ==
[2022-02-12] MEDS ORDERED: Sodium Chloride 0.9% 2.5 ML Syringe FLUSH PRN (22:18)
[2022-02-12] MEDS ORDERED: Sodium Chloride 0.9% 10 ML Syringe FLUSH PRN (22:18)
[2022-02-12] MEDS ORDERED: Piperacillin/Tazobactam 3.375 GM in Sodium Chloride 0.9% 50 ML IV ONE (22:20)
[2022-02-12] MEDS ORDERED: Sodium Chloride 0.9% 500 ML IV SCH ×2 (22:30→23:15)
[2022-02-12] MEDS ORDERED: VANCOmycin 1.25 GM/250 ML 250 ML IV ONE (22:45)
[2022-02-12] MEDS ORDERED: Sodium Chloride 0.9% 1,000 ML IV ONE (23:08)
[2022-02-12 23:09] LABS: BLOOD UREA NITROGEN,BUN 55 mg/dL (7.0-18.0); CARBON DIOXIDE,CO2 32.3 mmol/L (21.0-32.0); CHLORIDE,CL 104 mmol/L (98-107); GLUCOSE RANDOM 124 mg/dL (74-106); LIPASE 48 U/L (73-393); POTASSIUM,K 4.9 mmol/L (3.5-5.1); SODIUM,NA 142 mmol/L (136-148)
[2022-02-12 23:15] LABS: ESTIMATED GFR 37 mL/min (>60)
[2022-02-13 00:55] LABS: INFLUENZA A NAA NEGATIVE (NEGATIVE); INFLUENZA B NAA NEGATIVE (NEGATIVE)
[2022-02-13] MEDS ORDERED: Piperacillin/Tazobactam 4.5 GM in Sodium Chloride 0.9% 100 ML IV SCH (04:30)
[2022-02-13] MEDS ORDERED: Piperacillin/Tazobactam 3.375 GM in Sodium Chloride 0.9% 50 ML IV SCH (05:00)
[2022-02-13] MEDS: Sodium Chloride 0.9% 1,000 ML IV SCH ×2 (05:17→16:00)
[2022-02-13 07:19] LABS: CARBON DIOXIDE,CO2 26.4 mmol/L (21.0-32.0); POTASSIUM,K 4.2 mmol/L (3.5-5.1)
[2022-02-13] MEDS ORDERED: Docusate Sodium 100 MG Cap PO PRN (08:04)
[2022-02-13] MEDS ORDERED: Acetaminophen 325 MG Tab PO PRN (08:04)
[2022-02-13] MEDS ORDERED: Sodium Chloride 0.9% 10 ML Syringe FLUSH PRN (08:04)
[2022-02-13] MEDS ORDERED: Ondansetron 4 MG/2 ML SDV IVPUSH PRN (08:04)
[2022-02-13] MEDS ORDERED: Polyethylene Glycol 3350 Powder 17 GM Packet PO PRN (08:04)
[2022-02-13] MEDS ORDERED: Sodium Chloride 0.9% 2.5 ML Syringe FLUSH PRN (08:04)
[2022-02-13] MEDS: Heparin Sodium 5,000 Units/ML Vial SUBCUT SCH ×2 (09:41→17:08)
[2022-02-13] MEDS: Meropenem Premix 50 ML IV SCH ×2 (11:01→22:43)
[2022-02-13] MEDS: Gabapentin 100 MG Cap PO SCH (22:41)
[2022-02-14] MEDS: Sodium Chloride 0.9% 1,000 ML IV SCH ×2 (00:32→11:26)
[2022-02-14] MEDS: Heparin Sodium 5,000 Units/ML Vial SUBCUT SCH ×3 (00:42→17:08)
[2022-02-14 08:23] LABS: POTASSIUM,K 4.1 mmol/L (3.5-5.1)
[2022-02-14] MEDS: Gabapentin 100 MG Cap PO SCH ×2 (09:06→21:43)
[2022-02-14] MEDS: Meropenem Premix 50 ML IV SCH ×2 (11:26→23:07)
[2022-02-15] MEDS: Heparin Sodium 5,000 Units/ML Vial SUBCUT SCH ×2 (00:52→10:08)
[2022-02-15 08:52] VITALS: BP 126/61; PULSE 50
[2022-02-15 08:59] LABS: CARBON DIOXIDE,CO2 21.4 mmol/L (21.0-32.0); POTASSIUM,K 4.1 mmol/L (3.5-5.1)
[2022-02-15] MEDS ORDERED: Acetaminophen/Codeine 300-30 MG Tab PO SCH (10:00)
[2022-02-15] MEDS: Meropenem Premix 50 ML IV SCH (10:08)
[2022-02-15] MEDS: Gabapentin 100 MG Cap PO SCH (10:08)
== END 2022-02-15 13:25 | DRG 871 ==
LOC: MW.ED 22:09 → MW.MS 02-13 01:02
PROVIDERS: ADMIT Internal Medicine; ATTEND Internal Medicine
DX: A41.9 Sepsis, unspecified organism (principal); A41.59 Other Gram-negative sepsis; G93.41 Metabolic encephalopathy; J96.21 Acute and chronic respiratory failure with hypoxia; K85.10 Biliary acute pancreatitis without necrosis or infection; N17.9 Acute kidney failure, unspecified; M19.90 Unspecified osteoarthritis, unspecified site; F03.90 Unspecified dementia, unspecified severity, without behavioral disturbance, psychotic disturbance, mood disturbance, and anxiety; N39.0 Urinary tract infection, site not specified; Z88.1 Allergy status to other antibiotic agents; Z66 Do not resuscitate; R65.20 Severe sepsis without septic shock; E78.5 Hyperlipidemia, unspecified; R33.9 Retention of urine, unspecified; Z96.0 Presence of urogenital implants; N18.9 Chronic kidney disease, unspecified; Z20.822 Contact with and (suspected) exposure to COVID-19; E78.2 Mixed hyperlipidemia; N18.32 Chronic kidney disease, stage 3b; I12.9 Hypertensive chronic kidney disease with stage 1 through stage 4 chronic kidney disease, or unspecified chronic kidney disease; F03.B0 Unspecified dementia, moderate, without behavioral disturbance, psychotic disturbance, mood disturbance, and anxiety; E78.00 Pure hypercholesterolemia, unspecified; E66.9 Obesity, unspecified; M25.562 Pain in left knee; G89.29 Other chronic pain; N13.9 Obstructive and reflux uropathy, unspecified; I48.0 Paroxysmal atrial fibrillation; Z86.19 Personal history of other infectious and parasitic diseases; Z79.01 Long term (current) use of anticoagulants; Z97.8 Presence of other specified devices; Z87.440 Personal history of urinary (tract) infections; Z79.899 Other long term (current) drug therapy; Z88.8 Allergy status to other drugs, medicaments and biological substances; Z88.0 Allergy status to penicillin; Z88.2 Allergy status to sulfonamides; Z87.01 Personal history of pneumonia (recurrent); Z90.49 Acquired absence of other specified parts of digestive tract
CPT/HCPCS: 36415; 70450; 71045; 74176; 80053; 81001; 82550; 83605; 83690; 83735; 83880; 84484; 85025; 85610; 87040 ×2; 87086; 96361; 96365; 96367; 99285; J2543; J3370; J3490; J7030; J7040 ×2; U0002; 80048; 80202; 84100; 87088; 87186; 93005; 99222; 99232; 99238; A9270-GY; J1644; J2185; J7050

== ENCOUNTER 2022-09-25 20:03 | Inpatient (IN) | payer MEDICARE, OTHER, MEDICAID ==
[2022-09-25] MEDS ORDERED: Sodium Chloride 0.9% 1,000 ML IV ONE (20:37)
[2022-09-25 20:38] LABS: BASOPHILS PERCENT AUTO 0.3 % (0.0-1.5); EOSINOPHILS ABSOLUTE AUTO 0.3 K/uL (0.0-0.7); EOSINOPHILS PERCENT AUTO 4.3 % (0.0-7.0); HEMATOCRIT 40.7 % (38.0-50.0); HEMOGLOBIN 12.8 g/dL (13.0-17.0); LYMPHOCYTES ABSOLUTE AUTO 2.8 K/uL (0.6-2.4); MEAN CORPUSCULAR HEMOGLOBIN 29.4 pg (27.0-32.0); MEAN CORPUSCULAR HGB CONC 31.4 g/dL (31.0-37.0); MEAN CORPUSCULAR VOLUME 93.3 fL (80.0-98.0); MONOCYTES ABSOLUTE AUTO 0.6 K/uL (0.0-0.8); MONOCYTES PERCENT AUTO 7.6 % (0.0-15.0); NEUTROPHILS PERCENT AUTO 51.8 % (48.0-80.0); NRBC ABSOLUTE 0 K/uL; PLATELET COUNT,PLT 307 K/uL (150-400); RED BLOOD CELL COUNT 4.36 M/uL (4.50-5.90); WHITE BLOOD CELL COUNT,WBC 7.63 K/uL (4.0-11.0)
[2022-09-25 20:45] LABS: INR 1.08 (0.86-1.11)
[2022-09-25 20:59] LABS: A/G RATIO 0.7 (0.9-1.6); ALANINE AMINOTRANSFERASE,ALT 29 IU/L (14-63); ALBUMIN 2.9 g/dL (3.4-5.0); ALKALINE PHOSPHATASE 76 U/L (46-116); ASPARTATE AMNIOTRANSFERASE,AST 38 IU/L (15-37); BILIRUBIN TOTAL 0.2 mg/dL (0.2-1.0); BLOOD UREA NITROGEN,BUN 35 mg/dL (7.0-18.0); CALCIUM 9.1 mg/dL (8.5-10.1); CARBON DIOXIDE,CO2 27.7 mmol/L (21.0-32.0); CHLORIDE,CL 105 mmol/L (98-107); CREATININE 1.8 mg/dL (0.8-1.3); GLUCOSE RANDOM 104 mg/dL (74-106); POTASSIUM,K 4.9 mmol/L (3.5-5.1); PROTEIN TOTAL,TP 7.2 g/dL (6.4-8.2); SODIUM,NA 144 mmol/L (136-148)
[2022-09-25 21:02] LABS: LACTIC ACID 1.4 mmol/L (0.4-2.0)
[2022-09-25 21:07] LABS: ESTIMATED GFR 37 mL/min (>60)
[2022-09-25 21:29] LABS: BILIRUBIN,URINE NEGATIVE (NEGATIVE); COLOR,URINE RED; GLUCOSE,URINE 100 mg/dL (NEGATIVE); KETONES,URINE 15 mg/dL (NEGATIVE); LEUKOCYTE ESTERASE,URINE MODERATE (NEGATIVE); NITRITE,URINE POSITIVE (NEGATIVE); OCCULT BLOOD,URINE LARGE (NEGATIVE); PROTEIN,URINE >=300 mg/dL (NEGATIVE)
[2022-09-25 21:30] LABS: APPEARANCE,URINE CLOUDY; RBC,URINE TOO NUMEROUS TO CT (0-2/HPF)
[2022-09-25 21:31] LABS: BACTERIA,URINE 4+ (NEGATIVE); EPITHELIAL CELLS,URINE OCCASIONAL (NONE-FEW); WBC,URINE TO NUMEROUS TO COUNT (0-5/HPF)
[2022-09-25] MEDS ORDERED: cefTRIAXone 1 GM in Sodium Chloride 0.9% 50 ML IV ONE (21:33)
[2022-09-26] MEDS ORDERED: Acetaminophen 325 MG Tab PO PRN (02:08)
[2022-09-26] MEDS: Sodium Chloride 0.9% 1,000 ML IV SCH ×2 (05:36→19:09)
[2022-09-26 06:10] LABS: BASOPHILS PERCENT AUTO 0.4 % (0.0-1.5); EOSINOPHILS ABSOLUTE AUTO 0.3 K/uL (0.0-0.7); EOSINOPHILS PERCENT AUTO 4.3 % (0.0-7.0); HEMATOCRIT 37.9 % (38.0-50.0); HEMOGLOBIN 11.8 g/dL (13.0-17.0); LYMPHOCYTES ABSOLUTE AUTO 2.3 K/uL (0.6-2.4); LYMPHOCYTES PERCENT AUTO 30.5 % (16.0-40.0); MEAN CORPUSCULAR HEMOGLOBIN 29.1 pg (27.0-32.0); MEAN CORPUSCULAR HGB CONC 31.1 g/dL (31.0-37.0); MEAN CORPUSCULAR VOLUME 93.3 fL (80.0-98.0); MONOCYTES ABSOLUTE AUTO 0.7 K/uL (0.0-0.8); MONOCYTES PERCENT AUTO 9.2 % (0.0-15.0); NEUTROPHILS ABSOLUTE AUTO 4.1 K/uL (1.4-5.7); NEUTROPHILS PERCENT AUTO 55.6 % (48.0-80.0); NRBC ABSOLUTE 0 K/uL; PLATELET COUNT,PLT 273 K/uL (150-400); RED BLOOD CELL COUNT 4.06 M/uL (4.50-5.90); WHITE BLOOD CELL COUNT,WBC 7.42 K/uL (4.0-11.0)
[2022-09-26 06:27] LABS: BLOOD UREA NITROGEN,BUN 34 mg/dL (7.0-18.0); CARBON DIOXIDE,CO2 27.9 mmol/L (21.0-32.0); CHLORIDE,CL 108 mmol/L (98-107); CREATININE 1.7 mg/dL (0.8-1.3); GLUCOSE RANDOM 83 mg/dL (74-106); POTASSIUM,K 4.6 mmol/L (3.5-5.1); SODIUM,NA 145 mmol/L (136-148)
[2022-09-26 06:30] LABS: ESTIMATED GFR 40 mL/min (>60)
[2022-09-26] MEDS ORDERED: Sodium Chloride 0.9% 10 ML Syringe FLUSH PRN (08:14)
[2022-09-26] MEDS ORDERED: Sodium Chloride 0.9% 2.5 ML Syringe FLUSH PRN (08:14)
[2022-09-26] MEDS ORDERED: Bisacodyl 10 MG Supp RECTAL ONE (08:14)
[2022-09-26] MEDS ORDERED: Menthol/Methyl Salicylate 85 GM Tube TOP PRN (08:30)
[2022-09-26] MEDS ORDERED: Ondansetron 4 MG/2 ML SDV IVPUSH PRN (08:30)
[2022-09-26] MEDS: Cefepime 1 GM in Sodium Chloride 0.9% 50 ML IV SCH ×2 (08:57→20:09)
[2022-09-26] MEDS ORDERED: Bisacodyl 10 MG Supp RECTAL PRN (09:00)
[2022-09-26] MEDS ORDERED: VANCOmycin 2 GM/400 ML 2 GM in Premix Bag 1 BAG IV ONE (09:00)
[2022-09-26] MEDS: Cetirizine 10 MG Tab PO SCH ×2 (09:04→20:09)
[2022-09-26] MEDS: Apixaban 5 MG Tab PO SCH ×2 (09:04→20:09)
[2022-09-26] MEDS: ARIPiprazole 10 MG Tab PO SCH (09:07)
[2022-09-26] MEDS: Acetaminophen/Codeine 300-30 MG Tab PO SCH ×3 (09:07→20:09)
[2022-09-26] MEDS: Gabapentin 100 MG Cap PO SCH ×2 (09:09→20:09)
[2022-09-26] MEDS: Docusate Sodium 100 MG Cap PO SCH (15:49)
[2022-09-26] MEDS: Donepezil 5 MG Tab PO SCH (20:09)
[2022-09-26] MEDS: NUTRITIONAL SUPPLEMENT PO SCH (21:00)
[2022-09-26] MEDS: [UNRECOGNIZED DRUG - OTHER] PO SCH (21:00)
[2022-09-26] MEDS ORDERED: cefTRIAXone 1 GM in Sodium Chloride 0.9% 50 ML IV SCH (22:00)
[2022-09-27] MEDS: Acetaminophen/Codeine 300-30 MG Tab PO SCH ×4 (02:52→21:02)
[2022-09-27] MEDS: Docusate Sodium 100 MG Cap PO SCH ×2 (02:52→14:56)
[2022-09-27] MEDS: Pantoprazole 40 MG Tab.CR PO SCH ×2 (06:19→08:22)
[2022-09-27] MEDS: Sodium Chloride 0.9% 1,000 ML IV SCH (06:45)
[2022-09-27 07:16] LABS: BASOPHILS PERCENT AUTO 0.5 % (0.0-1.5); EOSINOPHILS ABSOLUTE AUTO 0.3 K/uL (0.0-0.7); EOSINOPHILS PERCENT AUTO 4.1 % (0.0-7.0); HEMATOCRIT 38.7 % (38.0-50.0); HEMOGLOBIN 11.8 g/dL (13.0-17.0); LYMPHOCYTES ABSOLUTE AUTO 1.5 K/uL (0.6-2.4); LYMPHOCYTES PERCENT AUTO 19.4 % (16.0-40.0); MEAN CORPUSCULAR HEMOGLOBIN 28.7 pg (27.0-32.0); MEAN CORPUSCULAR HGB CONC 30.5 g/dL (31.0-37.0); MEAN CORPUSCULAR VOLUME 94.2 fL (80.0-98.0); MONOCYTES ABSOLUTE AUTO 0.6 K/uL (0.0-0.8); MONOCYTES PERCENT AUTO 7.4 % (0.0-15.0); NEUTROPHILS ABSOLUTE AUTO 5.2 K/uL (1.4-5.7); NEUTROPHILS PERCENT AUTO 68.6 % (48.0-80.0); NRBC ABSOLUTE 0 K/uL; PLATELET COUNT,PLT 263 K/uL (150-400); RED BLOOD CELL COUNT 4.11 M/uL (4.50-5.90); WHITE BLOOD CELL COUNT,WBC 7.53 K/uL (4.0-11.0)
[2022-09-27 07:45] LABS: CALCIUM 8.3 mg/dL (8.5-10.1); CARBON DIOXIDE,CO2 26.7 mmol/L (21.0-32.0); CREATININE 1.4 mg/dL (0.8-1.3); EST CRCL DRUG DOSING (CG) 39.36 mL/min; MAGNESIUM 2.1 mg/dL (1.8-2.4); PHOSPHORUS 2.9 mg/dL (2.6-4.7); POTASSIUM,K 4.5 mmol/L (3.5-5.1)
[2022-09-27] MEDS: Cetirizine 10 MG Tab PO SCH ×2 (08:20→21:02)
[2022-09-27] MEDS: Gabapentin 100 MG Cap PO SCH ×2 (08:22→21:03)
[2022-09-27] MEDS: ARIPiprazole 10 MG Tab PO SCH (08:22)
[2022-09-27] MEDS: Cefepime 1 GM in Sodium Chloride 0.9% 50 ML IV SCH ×2 (08:24→17:56)
[2022-09-27] MEDS: [UNRECOGNIZED DRUG - OTHER] PO SCH ×3 (09:47→21:03)
[2022-09-27] MEDS: NUTRITIONAL SUPPLEMENT PO SCH ×3 (09:47→21:03)
[2022-09-27] MEDS: Apixaban 5 MG Tab PO SCH ×2 (09:48→21:03)
[2022-09-27] MEDS: Donepezil 5 MG Tab PO SCH (21:03)
[2022-09-28] MEDS: Docusate Sodium 100 MG Cap PO SCH ×2 (02:12→14:59)
[2022-09-28] MEDS: Acetaminophen/Codeine 300-30 MG Tab PO SCH ×4 (02:12→21:04)
[2022-09-28] MEDS: Cefepime 1 GM in Sodium Chloride 0.9% 50 ML IV SCH ×2 (05:29→18:14)
[2022-09-28] MEDS: Pantoprazole 40 MG Tab.CR PO SCH ×2 (06:23→06:31)
[2022-09-28 06:53] LABS: BASOPHILS PERCENT AUTO 0.5 % (0.0-1.5); EOSINOPHILS ABSOLUTE AUTO 0.3 K/uL (0.0-0.7); EOSINOPHILS PERCENT AUTO 5.3 % (0.0-7.0); HEMATOCRIT 38.7 % (38.0-50.0); LYMPHOCYTES ABSOLUTE AUTO 1.7 K/uL (0.6-2.4); LYMPHOCYTES PERCENT AUTO 26.5 % (16.0-40.0); MEAN CORPUSCULAR HEMOGLOBIN 28.9 pg (27.0-32.0); MEAN CORPUSCULAR VOLUME 93.3 fL (80.0-98.0); MONOCYTES ABSOLUTE AUTO 0.4 K/uL (0.0-0.8); MONOCYTES PERCENT AUTO 6.6 % (0.0-15.0); NEUTROPHILS ABSOLUTE AUTO 3.9 K/uL (1.4-5.7); NEUTROPHILS PERCENT AUTO 61.1 % (48.0-80.0); NRBC ABSOLUTE 0 K/uL; PLATELET COUNT,PLT 265 K/uL (150-400); RED BLOOD CELL COUNT 4.15 M/uL (4.50-5.90); WHITE BLOOD CELL COUNT,WBC 6.38 K/uL (4.0-11.0)
[2022-09-28 07:16] LABS: CARBON DIOXIDE,CO2 26.8 mmol/L (21.0-32.0); CREATININE 1.4 mg/dL (0.8-1.3); EST CRCL DRUG DOSING (CG) 39.36 mL/min; MAGNESIUM 2.2 mg/dL (1.8-2.4); PHOSPHORUS 2.7 mg/dL (2.6-4.7); POTASSIUM,K 4.2 mmol/L (3.5-5.1)
[2022-09-28] MEDS: Apixaban 5 MG Tab PO SCH ×2 (08:51→21:04)
[2022-09-28] MEDS: ARIPiprazole 10 MG Tab PO SCH (08:51)
[2022-09-28] MEDS: Cetirizine 10 MG Tab PO SCH ×2 (08:51→21:04)
[2022-09-28] MEDS: Gabapentin 100 MG Cap PO SCH ×2 (08:52→21:05)
[2022-09-28] MEDS: [UNRECOGNIZED DRUG - OTHER] PO SCH ×2 (09:00→21:09)
[2022-09-28] MEDS: NUTRITIONAL SUPPLEMENT PO SCH ×2 (09:00→21:09)
[2022-09-28 17:43] LABS: LACTIC ACID 2.4 mmol/L (0.4-2.0)
[2022-09-28] MEDS ORDERED: Sodium Chloride 0.9% 1,000 ML IV STA (18:09)
[2022-09-28] MEDS: Donepezil 5 MG Tab PO SCH (21:05)
[2022-09-29] MEDS: Acetaminophen/Codeine 300-30 MG Tab PO SCH ×2 (02:11→09:15)
[2022-09-29] MEDS: Docusate Sodium 100 MG Cap PO SCH (02:37)
[2022-09-29] MEDS: Cefepime 1 GM in Sodium Chloride 0.9% 50 ML IV SCH (05:56)
[2022-09-29] MEDS: Pantoprazole 40 MG Tab.CR PO SCH (06:38)
[2022-09-29 09:14] VITALS: BP 141/67; PULSE 91
[2022-09-29] MEDS: ARIPiprazole 10 MG Tab PO SCH (09:15)
[2022-09-29] MEDS: Apixaban 5 MG Tab PO SCH (09:15)
[2022-09-29] MEDS: Cetirizine 10 MG Tab PO SCH (09:15)
[2022-09-29] MEDS: Gabapentin 100 MG Cap PO SCH (09:15)
[2022-09-29] MEDS: NUTRITIONAL SUPPLEMENT PO SCH (09:38)
[2022-09-29] MEDS: [UNRECOGNIZED DRUG - OTHER] PO SCH (09:38)
== END 2022-09-29 11:20 | DRG 689 ==
LOC: MW.ED 20:03 → MW.MS 09-26 00:30
PROVIDERS: ADMIT Internal Medicine; ATTEND Internal Medicine
DX: N39.0 Urinary tract infection, site not specified (principal); J96.21 Acute and chronic respiratory failure with hypoxia; N12 Tubulo-interstitial nephritis, not specified as acute or chronic; R09.02 Hypoxemia; E86.0 Dehydration; R33.9 Retention of urine, unspecified; N13.4 Hydroureter; N32.89 Other specified disorders of bladder; I12.9 Hypertensive chronic kidney disease with stage 1 through stage 4 chronic kidney disease, or unspecified chronic kidney disease; I48.0 Paroxysmal atrial fibrillation; N18.30 Chronic kidney disease, stage 3 unspecified; E78.2 Mixed hyperlipidemia; F03.B0 Unspecified dementia, moderate, without behavioral disturbance, psychotic disturbance, mood disturbance, and anxiety; N18.9 Chronic kidney disease, unspecified; M25.562 Pain in left knee; G89.29 Other chronic pain; Z66 Do not resuscitate; Z68.34 Body mass index [BMI] 34.0-34.9, adult; Z97.8 Presence of other specified devices; Z90.49 Acquired absence of other specified parts of digestive tract; Z87.01 Personal history of pneumonia (recurrent); Z88.0 Allergy status to penicillin; Z88.2 Allergy status to sulfonamides; Z88.8 Allergy status to other drugs, medicaments and biological substances; E78.00 Pure hypercholesterolemia, unspecified; F03.90 Unspecified dementia, unspecified severity, without behavioral disturbance, psychotic disturbance, mood disturbance, and anxiety; M10.9 Gout, unspecified; E66.9 Obesity, unspecified; Z79.01 Long term (current) use of anticoagulants; Z79.899 Other long term (current) drug therapy
CPT/HCPCS: 36415; 51702; 71045; 74176; 80053; 81001; 83605; 83880; 84484; 85025; 85610; 87040 ×2; 87086; 93005; 96365; 99285; J0696; J3490; J7030; 80048; 80202; 82947; 83735; 84100; 93010; 97161-GP; 97162-GP; A9270-GY; J0692; J3370; J7050

== ENCOUNTER 2022-12-01 10:49 | Inpatient (IN) | payer MEDICARE, OTHER ==
[2022-12-01] MEDS ORDERED: Sodium Chloride 0.9% 10 ML Syringe FLUSH PRN (10:55)
[2022-12-01] MEDS ORDERED: Sodium Chloride 0.9% 2.5 ML Syringe FLUSH PRN (10:55)
[2022-12-01] MEDS ORDERED: Sodium Chloride 0.9% 1,000 ML IV ONE ×2 (11:17→16:32)
[2022-12-01] MEDS ORDERED: Ketorolac 30 MG/ML SDV IVPUSH ONE (11:21)
[2022-12-01 11:40] LABS: BASOPHILS ABSOLUTE AUTO 0.05 K/uL (0.00-0.20); BASOPHILS PERCENT AUTO 0.5 % (0.0-1.0); EOSINOPHILS ABSOLUTE AUTO 0.36 K/uL (0.00-0.45); EOSINOPHILS PERCENT AUTO 3.9 % (0.0-6.0); HEMATOCRIT 39.5 % (42.0-52.0); HEMOGLOBIN 12.3 g/dL (14.0-18.0); LYMPHOCYTES ABSOLUTE AUTO 1.92 K/uL (1.00-4.80); MEAN CORPUSCULAR HEMOGLOBIN 28.2 pg (28.0-32.0); MEAN CORPUSCULAR HGB CONC 31.1 g/dL (32.0-36.0); MEAN CORPUSCULAR VOLUME 90.6 fL (83.0-99.0); MEAN PLATELET VOLUME 9.4 fL (9.4-12.4); MONOCYTES ABSOLUTE AUTO 0.64 K/uL (0.00-0.80); NEUTROPHILS ABSOLUTE AUTO 6.1 K/uL (1.8-7.7); NEUTROPHILS PERCENT AUTO 67.3 % (41.0-71.0); PLATELET COUNT,PLT 383 K/uL (150-400); RED BLOOD CELL COUNT 4.36 M/uL (4.52-5.90); WHITE BLOOD CELL COUNT,WBC 9.13 K/uL (3.9-11.3)
[2022-12-01 12:01] LABS: A/G RATIO 0.4 (0.9-1.6); ALBUMIN 2.4 g/dL (3.4-5.0); BILIRUBIN TOTAL 0.3 mg/dL (0.2-1.0); CALCIUM 9.6 mg/dL (8.5-10.1); CARBON DIOXIDE,CO2 28.9 mmol/L (21.0-32.0); CREATININE 1.9 mg/dL (0.8-1.3); EST CRCL DRUG DOSING (CG) 27.05 mL/min; POTASSIUM,K 4.5 mmol/L (3.5-5.1); PROTEIN TOTAL,TP 8.5 g/dL (6.4-8.2)
[2022-12-01 12:06] LABS: LACTIC ACID 1.2 mmol/L (0.4-2.0)
[2022-12-01] MEDS ORDERED: Piperacillin/Tazobactam 3.375 GM in Sodium Chloride 0.9% 100 ML IV ONE (12:14)
[2022-12-01 12:16] LABS: CORONAVIRUS COVID-19 NAA NEGATIVE (NEGATIVE); INFLUENZA A NAA NEGATIVE (NEGATIVE); INFLUENZA B NAA NEGATIVE (NEGATIVE)
[2022-12-01] MEDS ORDERED: cefTRIAXone 1 GM in Sodium Chloride 0.9% 50 ML IV ONE (12:17)
[2022-12-01 12:18] LABS: APPEARANCE,URINE SLT CLOUDY; BILIRUBIN,URINE NEGATIVE (NEGATIVE); COLOR,URINE YELLOW; GLUCOSE,URINE NEGATIVE (NEGATIVE); KETONES,URINE NEGATIVE (NEGATIVE); LEUKOCYTE ESTERASE,URINE MODERATE (NEGATIVE); NITRITE,URINE POSITIVE (NEGATIVE); OCCULT BLOOD,URINE LARGE (NEGATIVE); PH,URINE 5.5 (5.0-8.0); PROTEIN,URINE TRACE mg/dL (NEGATIVE); UROBILINOGEN,URINE 0.2 EU/dL (<2.0)
[2022-12-01 12:51] LABS: EPITHELIAL CELLS,URINE OCCASIONAL (NONE-FEW); RBC,URINE 20-30 (0-2/HPF)
[2022-12-01 12:52] LABS: BACTERIA,URINE 1+ (NEGATIVE)
[2022-12-01] MEDS ORDERED: VANCOmycin 1.75 GM/350 ML 1.75 GM in Premix Bag 1 BAG IV ONE (16:15)
[2022-12-01] MEDS ORDERED: Ondansetron 4 MG/2 ML SDV IVPUSH PRN (18:11)
[2022-12-01] MEDS ORDERED: Bisacodyl 10 MG Supp RECTAL PRN (18:46)
[2022-12-01] MEDS: Sodium Chloride 0.9% 1,000 ML IV SCH (18:48)
[2022-12-01] MEDS ORDERED: Furosemide 40 MG Tab PO SCH (19:00)
[2022-12-01] MEDS: Gabapentin 100 MG Cap PO SCH (21:05)
[2022-12-01] MEDS: Donepezil 5 MG Tab PO SCH (21:05)
[2022-12-01] MEDS: Apixaban 5 MG Tab PO SCH (21:06)
[2022-12-02] MEDS ORDERED: Meropenem 1 GM in Sodium Chloride 0.9% 100 ML IV SCH (02:00)
[2022-12-02] MEDS ORDERED: Meropenem 500 MG in Sodium Chloride 0.9% 100 ML IV SCH ×2 (02:00→02:30)
[2022-12-02] MEDS: Acetaminophen/Codeine 300-30 MG Tab PO SCH ×4 (02:22→20:37)
[2022-12-02] MEDS: Sodium Chloride 0.9% 1,000 ML IV SCH ×2 (04:23→14:32)
[2022-12-02 08:00] LABS: BASOPHILS ABSOLUTE AUTO 0.04 K/uL (0.00-0.20); BASOPHILS PERCENT AUTO 0.5 % (0.0-1.0); EOSINOPHILS ABSOLUTE AUTO 0.43 K/uL (0.00-0.45); EOSINOPHILS PERCENT AUTO 5.2 % (0.0-6.0); HEMOGLOBIN 10.6 g/dL (14.0-18.0); LYMPHOCYTES ABSOLUTE AUTO 1.33 K/uL (1.00-4.80); LYMPHOCYTES PERCENT AUTO 16.1 % (24.0-44.0); MEAN CORPUSCULAR HEMOGLOBIN 28.5 pg (28.0-32.0); MEAN CORPUSCULAR HGB CONC 31.2 g/dL (32.0-36.0); MEAN CORPUSCULAR VOLUME 91.4 fL (83.0-99.0); MONOCYTES PERCENT AUTO 7.2 % (0.0-8.0); NEUTROPHILS ABSOLUTE AUTO 5.9 K/uL (1.8-7.7); NEUTROPHILS PERCENT AUTO 70.8 % (41.0-71.0); PLATELET COUNT,PLT 296 K/uL (150-400); RED BLOOD CELL COUNT 3.72 M/uL (4.52-5.90); WHITE BLOOD CELL COUNT,WBC 8.28 K/uL (3.9-11.3)
[2022-12-02 08:32] LABS: A/G RATIO 0.4 (0.9-1.6); ALBUMIN 2.1 g/dL (3.4-5.0); BILIRUBIN TOTAL 0.3 mg/dL (0.2-1.0); CALCIUM 8.7 mg/dL (8.5-10.1); CARBON DIOXIDE,CO2 27.6 mmol/L (21.0-32.0); CREATININE 1.7 mg/dL (0.8-1.3); EST CRCL DRUG DOSING (CG) 32.41 mL/min; POTASSIUM,K 4.2 mmol/L (3.5-5.1); PROTEIN TOTAL,TP 7.3 g/dL (6.4-8.2)
[2022-12-02] MEDS: Gabapentin 100 MG Cap PO SCH ×2 (09:52→20:36)
[2022-12-02] MEDS: ARIPiprazole 10 MG Tab PO SCH (09:53)
[2022-12-02] MEDS: Apixaban 5 MG Tab PO SCH ×2 (09:54→20:36)
[2022-12-02] MEDS ORDERED: cefTRIAXone 1 GM in Sodium Chloride 0.9% 50 ML IV SCH (12:00)
[2022-12-02] MEDS: Meropenem 1 GM in Sodium Chloride 0.9% 100 ML IV SCH (16:10)
[2022-12-02] MEDS: Donepezil 5 MG Tab PO SCH (20:35)
[2022-12-03] MEDS: Sodium Chloride 0.9% 1,000 ML IV SCH (01:56)
[2022-12-03] MEDS: Acetaminophen/Codeine 300-30 MG Tab PO SCH ×3 (03:24→08:14)
[2022-12-03] MEDS: Meropenem 1 GM in Sodium Chloride 0.9% 100 ML IV SCH (03:25)
[2022-12-03 06:32] LABS: BASOPHILS ABSOLUTE AUTO 0.04 K/uL (0.00-0.20); BASOPHILS PERCENT AUTO 0.5 % (0.0-1.0); EOSINOPHILS ABSOLUTE AUTO 0.43 K/uL (0.00-0.45); EOSINOPHILS PERCENT AUTO 5.7 % (0.0-6.0); HEMATOCRIT 33.8 % (42.0-52.0); HEMOGLOBIN 10.4 g/dL (14.0-18.0); IMMATURE GRAN ABSOLUTE AUTO 0.03 K/uL (0.00-0.05); IMMATURE GRAN PERCENT AUTO 0.4 % (0.0-0.4); LYMPHOCYTES ABSOLUTE AUTO 1.61 K/uL (1.00-4.80); LYMPHOCYTES PERCENT AUTO 21.5 % (24.0-44.0); MEAN CORPUSCULAR HEMOGLOBIN 28.3 pg (28.0-32.0); MEAN CORPUSCULAR HGB CONC 30.8 g/dL (32.0-36.0); MEAN CORPUSCULAR VOLUME 91.8 fL (83.0-99.0); MEAN PLATELET VOLUME 9.3 fL (9.4-12.4); MONOCYTES ABSOLUTE AUTO 0.65 K/uL (0.00-0.80); MONOCYTES PERCENT AUTO 8.7 % (0.0-8.0); NEUTROPHILS ABSOLUTE AUTO 4.7 K/uL (1.8-7.7); NEUTROPHILS PERCENT AUTO 63.2 % (41.0-71.0); PLATELET COUNT,PLT 302 K/uL (150-400); RED BLOOD CELL COUNT 3.68 M/uL (4.52-5.90); WHITE BLOOD CELL COUNT,WBC 7.48 K/uL (3.9-11.3)
[2022-12-03 07:28] LABS: A/G RATIO 0.4 (0.9-1.6); ALBUMIN 2.1 g/dL (3.4-5.0); BILIRUBIN TOTAL 0.3 mg/dL (0.2-1.0); CALCIUM 8.9 mg/dL (8.5-10.1); CARBON DIOXIDE,CO2 27.9 mmol/L (21.0-32.0); CREATININE 1.5 mg/dL (0.8-1.3); EST CRCL DRUG DOSING (CG) 36.73 mL/min; POTASSIUM,K 3.9 mmol/L (3.5-5.1); PROTEIN TOTAL,TP 7.1 g/dL (6.4-8.2)
[2022-12-03] MEDS: ARIPiprazole 10 MG Tab PO SCH (08:13)
[2022-12-03] MEDS: Gabapentin 100 MG Cap PO SCH (08:13)
[2022-12-03] MEDS: Apixaban 5 MG Tab PO SCH (08:13)
[2022-12-03 13:30] VITALS: BP 132/72; PULSE 64
== END 2022-12-03 13:05 | DRG 689 ==
LOC: MW.ED 10:49 → MW.MS 16:00
PROVIDERS: ADMIT Family Medicine; ATTEND Family Medicine
PROC: 0T2BX0Z Change Drainage Device in Bladder, External Approach (ICD-10-PCS; principal; 2022-12-01)
DX: N39.0 Urinary tract infection, site not specified (principal); J96.21 Acute and chronic respiratory failure with hypoxia; N17.9 Acute kidney failure, unspecified; E86.0 Dehydration; Z66 Do not resuscitate; G30.9 Alzheimer's disease, unspecified; F02.80 Dementia in other diseases classified elsewhere, unspecified severity, without behavioral disturbance, psychotic disturbance, mood disturbance, and anxiety; Z20.822 Contact with and (suspected) exposure to COVID-19; N13.30 Unspecified hydronephrosis; I12.9 Hypertensive chronic kidney disease with stage 1 through stage 4 chronic kidney disease, or unspecified chronic kidney disease; N18.32 Chronic kidney disease, stage 3b; E78.2 Mixed hyperlipidemia; I48.0 Paroxysmal atrial fibrillation; F02.B0 Dementia in other diseases classified elsewhere, moderate, without behavioral disturbance, psychotic disturbance, mood disturbance, and anxiety; R33.9 Retention of urine, unspecified; E78.00 Pure hypercholesterolemia, unspecified; Z88.2 Allergy status to sulfonamides; Z88.0 Allergy status to penicillin; Z88.8 Allergy status to other drugs, medicaments and biological substances; M10.9 Gout, unspecified; E66.9 Obesity, unspecified; Z79.2 Long term (current) use of antibiotics; Z68.32 Body mass index [BMI] 32.0-32.9, adult; Z90.89 Acquired absence of other organs; Z79.01 Long term (current) use of anticoagulants; Z79.899 Other long term (current) drug therapy
CPT/HCPCS: 0240U; 36415; 71045; 74176; 80053; 80202; 81001; 83605; 83880; 85025; 87040; 87086; 87088; 87186; 93005; 96361; 96365; 96375; 99285; 93010; 99222; 99232; 99239; A9270-GY; J0696; J1885; J2185; J3370; J3490; J7030; J7050

== ENCOUNTER 2023-02-04 13:13 | Inpatient (IN) | payer MEDICARE, OTHER ==
[2023-02-04] MEDS ORDERED: Sodium Chloride 0.9% 1,000 ML IV ONE (13:27)
[2023-02-04 13:34] LABS: BASOPHILS ABSOLUTE AUTO 0.04 K/uL (0.00-0.20); BASOPHILS PERCENT AUTO 0.4 % (0.0-1.0); EOSINOPHILS ABSOLUTE AUTO 0.36 K/uL (0.00-0.45); EOSINOPHILS PERCENT AUTO 3.3 % (0.0-6.0); HEMATOCRIT 42.6 % (42.0-52.0); HEMOGLOBIN 12.8 g/dL (14.0-18.0); IMMATURE GRAN ABSOLUTE AUTO 0.03 K/uL (0.00-0.05); IMMATURE GRAN PERCENT AUTO 0.3 % (0.0-0.4); LYMPHOCYTES ABSOLUTE AUTO 2.77 K/uL (1.00-4.80); MEAN CORPUSCULAR HEMOGLOBIN 28.4 pg (28.0-32.0); MEAN CORPUSCULAR VOLUME 94.5 fL (83.0-99.0); MEAN PLATELET VOLUME 9.4 fL (9.4-12.4); MONOCYTES ABSOLUTE AUTO 0.65 K/uL (0.00-0.80); MONOCYTES PERCENT AUTO 5.9 % (0.0-8.0); NEUTROPHILS ABSOLUTE AUTO 7.22 K/uL (1.80-7.70); NEUTROPHILS PERCENT AUTO 65.1 % (41.0-71.0); PLATELET COUNT,PLT 322 K/uL (150-400); RED BLOOD CELL COUNT 4.51 M/uL (4.52-5.90); WHITE BLOOD CELL COUNT,WBC 11.07 K/uL (3.9-11.3)
[2023-02-04 13:57] LABS: A/G RATIO 0.4 (0.9-1.6); ALBUMIN 2.6 g/dL (3.4-5.0); BILIRUBIN TOTAL 0.3 mg/dL (0.2-1.0); CALCIUM 9.7 mg/dL (8.5-10.1); CARBON DIOXIDE,CO2 33.3 mmol/L (21.0-32.0); CREATININE 2.5 mg/dL (0.8-1.3); EST CRCL DRUG DOSING (CG) 21.66 mL/min; POTASSIUM,K 4.1 mmol/L (3.5-5.1); PROTEIN TOTAL,TP 8.8 g/dL (6.4-8.2)
[2023-02-04 15:34] LABS: CORONAVIRUS COVID-19 NAA NEGATIVE (NEGATIVE); INFLUENZA A NAA NEGATIVE (NEGATIVE); INFLUENZA B NAA NEGATIVE (NEGATIVE)
[2023-02-04] MEDS ORDERED: Piperacillin/Tazobactam 4.5 GM in Sodium Chloride 0.9% 100 ML IV ONE (17:35)
[2023-02-04] MEDS ORDERED: Acetaminophen 325 MG Tab PO PRN (21:16)
[2023-02-04] MEDS ORDERED: Morphine 2 MG/ML SYRINGE IVPUSH PRN (21:16)
[2023-02-04] MEDS ORDERED: Sodium Chloride 0.9% 10 ML Syringe FLUSH PRN (21:16)
[2023-02-04] MEDS ORDERED: Sodium Chloride 0.9% 2.5 ML Syringe FLUSH PRN (21:16)
[2023-02-04] MEDS ORDERED: Sodium Chloride 0.9% 20 ML SDV IV PRN (21:16)
[2023-02-04] MEDS ORDERED: Lactated Ringers 1,000 ML IV ONE ×2 (21:16→23:44)
[2023-02-04] MEDS ORDERED: Naloxone 0.4 MG/ML SDV IVPUSH PRN (21:19)
[2023-02-04] MEDS ORDERED: Ondansetron 4 MG/2 ML SDV IVPUSH PRN (21:19)
[2023-02-04] MEDS ORDERED: Albuterol/Ipratropium 3.0-0.5 MG/3 ML Neb Soln NEB PRN (21:19)
[2023-02-04] MEDS ORDERED: Polyethylene Glycol 3350 Powder 17 GM Packet PO PRN (21:19)
[2023-02-04] MEDS ORDERED: Lactated Ringers 1,000 ML IV SCH ×2 (21:30→23:45)
[2023-02-04 22:20] LABS: LACTIC ACID 3.2 mmol/L (0.4-2.0)
[2023-02-04] MEDS ORDERED: Cefepime 2 GM in Sodium Chloride 0.9% 50 ML IV SCH (22:30)
[2023-02-04 22:40] LABS: INR 1.16 (0.86-1.11)
[2023-02-04 22:44] LABS: APPEARANCE,URINE CLEAR; BILIRUBIN,URINE NEGATIVE (NEGATIVE); COLOR,URINE YELLOW; GLUCOSE,URINE NEGATIVE (NEGATIVE); KETONES,URINE NEGATIVE (NEGATIVE); LEUKOCYTE ESTERASE,URINE MODERATE (NEGATIVE); NITRITE,URINE NEGATIVE (NEGATIVE); OCCULT BLOOD,URINE LARGE (NEGATIVE); PROTEIN,URINE 100 mg/dL (NEGATIVE); UROBILINOGEN,URINE 0.2 EU/dL (<2.0)
[2023-02-04] MEDS ORDERED: VANCOmycin 2 GM/400 ML 400 ML IV ONE (22:45)
[2023-02-04] MEDS: Apixaban 5 MG Tab PO SCH (22:50)
[2023-02-04] MEDS: Acetaminophen/Codeine 300-30 MG Tab PO SCH (22:50)
[2023-02-04] MEDS: Gabapentin 100 MG Cap PO SCH (22:50)
[2023-02-04 23:03] LABS: BACTERIA,URINE 1+ (NEGATIVE); EPITHELIAL CELLS,URINE RARE (NONE-FEW); RBC,URINE TOO NUMEROUS TO CT (0-2/HPF); WBC,URINE 85-90 (0-5/HPF); YEAST,URINE FEW
[2023-02-05] MEDS ORDERED: Norepinephrine Bit/D5W Premix 250 ML ONE ×2 (00:03→12:49)
[2023-02-05] MEDS: Norepinephrine Bit/D5W Premix 250 ML IV SCH ×3 (00:23→19:08)
[2023-02-05] MEDS: Acetaminophen/Codeine 300-30 MG Tab PO SCH (03:26)
[2023-02-05 05:37] LABS: BASOPHILS ABSOLUTE AUTO 0.06 K/uL (0.00-0.20); BASOPHILS PERCENT AUTO 0.3 % (0.0-1.0); EOSINOPHILS ABSOLUTE AUTO 0.22 K/uL (0.00-0.45); HEMATOCRIT 35.1 % (42.0-52.0); HEMOGLOBIN 10.7 g/dL (14.0-18.0); IMMATURE GRAN ABSOLUTE AUTO 0.14 K/uL (0.00-0.05); IMMATURE GRAN PERCENT AUTO 0.6 % (0.0-0.4); LYMPHOCYTES ABSOLUTE AUTO 2.45 K/uL (1.00-4.80); LYMPHOCYTES PERCENT AUTO 10.6 % (24.0-44.0); MEAN CORPUSCULAR HEMOGLOBIN 28.5 pg (28.0-32.0); MEAN CORPUSCULAR HGB CONC 30.5 g/dL (32.0-36.0); MEAN CORPUSCULAR VOLUME 93.6 fL (83.0-99.0); MEAN PLATELET VOLUME 9.7 fL (9.4-12.4); MONOCYTES ABSOLUTE AUTO 0.82 K/uL (0.00-0.80); MONOCYTES PERCENT AUTO 3.5 % (0.0-8.0); NEUTROPHILS ABSOLUTE AUTO 19.46 K/uL (1.80-7.70); PLATELET COUNT,PLT 303 K/uL (150-400); RED BLOOD CELL COUNT 3.75 M/uL (4.52-5.90); WHITE BLOOD CELL COUNT,WBC 23.15 K/uL (3.9-11.3)
[2023-02-05 06:01] LABS: A/G RATIO 0.4 (0.9-1.6); BILIRUBIN TOTAL 0.4 mg/dL (0.2-1.0); CALCIUM 8.9 mg/dL (8.5-10.1); CARBON DIOXIDE,CO2 28.1 mmol/L (21.0-32.0); CREATININE 2.3 mg/dL (0.8-1.3); EST CRCL DRUG DOSING (CG) 23.54 mL/min; MAGNESIUM 2.3 mg/dL (1.8-2.4); POTASSIUM,K 3.9 mmol/L (3.5-5.1); PROTEIN TOTAL,TP 7.1 g/dL (6.4-8.2)
[2023-02-05] MEDS ORDERED: Meropenem 2 GM in Sodium Chloride 0.9% 100 ML IV SCH (08:00)
[2023-02-05] MEDS ORDERED: Dextrose 5% in Water 1,000 ML IV SCH (08:15)
[2023-02-05] MEDS ORDERED: Cefepime 1 GM in Sodium Chloride 0.9% 50 ML IV SCH (09:00)
[2023-02-05] MEDS: Pantoprazole 40 MG in Sodium Chloride 0.9% 10 ML IVPUSH SCH (09:30)
[2023-02-05] MEDS: Meropenem 2 GM in Sodium Chloride 0.9% 100 ML IV SCH ×2 (10:00→20:27)
[2023-02-05] MEDS: Albuterol/Ipratropium 3.0-0.5 MG/3 ML Neb Soln NEB SCH ×4 (11:03→21:48)
[2023-02-05] MEDS: ARIPiprazole 10 MG Tab PO SCH (11:06)
[2023-02-05] MEDS: Apixaban 5 MG Tab PO SCH ×2 (11:07→20:25)
[2023-02-05] MEDS: Gabapentin 100 MG Cap PO SCH (11:07)
[2023-02-05] MEDS: Dextrose 5%-0.45% NaCl 1,000 ML IV SCH ×2 (12:50→19:28)
[2023-02-05 13:36] LABS: CALCIUM 8.8 mg/dL (8.5-10.1); CREATININE 2.3 mg/dL (0.8-1.3); EST CRCL DRUG DOSING (CG) 23.54 mL/min; POTASSIUM,K 3.6 mmol/L (3.5-5.1)
[2023-02-05] MEDS: Azithromycin 500 MG in Sodium Chloride 0.9% 250 ML IV SCH (16:17)
[2023-02-05 19:38] LABS: CALCIUM 8.6 mg/dL (8.5-10.1); CARBON DIOXIDE,CO2 27.8 mmol/L (21.0-32.0); CREATININE 2.2 mg/dL (0.8-1.3); EST CRCL DRUG DOSING (CG) 24.61 mL/min; POTASSIUM,K 3.4 mmol/L (3.5-5.1)
[2023-02-05] MEDS ORDERED: Glucagon,Human Recombinant 1 MG Vial IM PRN (20:24)
[2023-02-05] MEDS ORDERED: 50% Dextrose in Water 50 ML Syringe IVPUSH PRN (20:24)
[2023-02-05] MEDS: Insulin Aspart 100 Units/ML 3 ML Pen SUBCUT SCH (20:37)
[2023-02-06] MEDS: Norepinephrine Bit/D5W Premix 250 ML IV SCH ×3 (01:25→17:15)
[2023-02-06] MEDS: Dextrose 5%-0.45% NaCl 1,000 ML IV SCH ×4 (01:51→21:18)
[2023-02-06] MEDS: Albuterol/Ipratropium 3.0-0.5 MG/3 ML Neb Soln NEB SCH ×6 (01:56→21:18)
[2023-02-06] MEDS: Insulin Aspart 100 Units/ML 3 ML Pen SUBCUT SCH ×4 (02:12→20:39)
[2023-02-06 06:23] LABS: BASOPHILS ABSOLUTE AUTO 0.07 K/uL (0.00-0.20); BASOPHILS PERCENT AUTO 0.4 % (0.0-1.0); EOSINOPHILS PERCENT AUTO 1.5 % (0.0-6.0); HEMATOCRIT 32.8 % (42.0-52.0); HEMOGLOBIN 10.2 g/dL (14.0-18.0); IMMATURE GRAN ABSOLUTE AUTO 0.09 K/uL (0.00-0.05); IMMATURE GRAN PERCENT AUTO 0.5 % (0.0-0.4); LYMPHOCYTES ABSOLUTE AUTO 2.85 K/uL (1.00-4.80); LYMPHOCYTES PERCENT AUTO 14.4 % (24.0-44.0); MEAN CORPUSCULAR HEMOGLOBIN 28.6 pg (28.0-32.0); MEAN CORPUSCULAR HGB CONC 31.1 g/dL (32.0-36.0); MEAN CORPUSCULAR VOLUME 91.9 fL (83.0-99.0); MEAN PLATELET VOLUME 9.9 fL (9.4-12.4); MONOCYTES ABSOLUTE AUTO 1.09 K/uL (0.00-0.80); MONOCYTES PERCENT AUTO 5.5 % (0.0-8.0); NEUTROPHILS ABSOLUTE AUTO 15.45 K/uL (1.80-7.70); NEUTROPHILS PERCENT AUTO 77.7 % (41.0-71.0); PLATELET COUNT,PLT 295 K/uL (150-400); RED BLOOD CELL COUNT 3.57 M/uL (4.52-5.90); WHITE BLOOD CELL COUNT,WBC 19.85 K/uL (3.9-11.3)
[2023-02-06 06:49] LABS: A/G RATIO 0.3 (0.9-1.6); ALBUMIN 1.6 g/dL (3.4-5.0); BILIRUBIN TOTAL 0.3 mg/dL (0.2-1.0); CALCIUM 8.3 mg/dL (8.5-10.1); CARBON DIOXIDE,CO2 27.2 mmol/L (21.0-32.0); EST CRCL DRUG DOSING (CG) 27.08 mL/min; MAGNESIUM 1.8 mg/dL (1.8-2.4); PHOSPHORUS 2.1 mg/dL (2.6-4.7); POTASSIUM,K 3.1 mmol/L (3.5-5.1); PROTEIN TOTAL,TP 6.6 g/dL (6.4-8.2)
[2023-02-06] MEDS: Pantoprazole 40 MG in Sodium Chloride 0.9% 10 ML IVPUSH SCH (08:08)
[2023-02-06] MEDS: Meropenem 2 GM in Sodium Chloride 0.9% 100 ML IV SCH ×2 (08:08→21:21)
[2023-02-06] MEDS ORDERED: Potassium Phosphates 20 MMOLE in Sodium Chloride 0.9% 500 ML IV ONE (09:00)
[2023-02-06] MEDS: Apixaban 5 MG Tab PO SCH (09:38)
[2023-02-06] MEDS: ARIPiprazole 10 MG Tab PO SCH (09:38)
[2023-02-06] MEDS: Heparin Sodium 5,000 Units/ML Vial SUBCUT SCH ×2 (10:30→17:36)
[2023-02-06] MEDS: Azithromycin 500 MG in Sodium Chloride 0.9% 250 ML IV SCH (15:01)
[2023-02-06] MEDS: Sodium Chloride 0.9% 500 ML IV SCH (20:09)
[2023-02-07] MEDS: Heparin Sodium 5,000 Units/ML Vial SUBCUT SCH ×3 (01:44→16:59)
[2023-02-07] MEDS: Albuterol/Ipratropium 3.0-0.5 MG/3 ML Neb Soln NEB SCH ×5 (01:44→18:25)
[2023-02-07] MEDS: Insulin Aspart 100 Units/ML 3 ML Pen SUBCUT SCH ×4 (01:56→20:20)
[2023-02-07] MEDS: Norepinephrine Bit/D5W Premix 250 ML IV SCH ×2 (02:56→14:55)
[2023-02-07] MEDS: Dextrose 5%-0.45% NaCl 1,000 ML IV SCH ×3 (03:39→13:30)
[2023-02-07 06:06] LABS: BASOPHILS ABSOLUTE AUTO 0.05 K/uL (0.00-0.20); BASOPHILS PERCENT AUTO 0.3 % (0.0-1.0); EOSINOPHILS ABSOLUTE AUTO 0.38 K/uL (0.00-0.45); EOSINOPHILS PERCENT AUTO 2.3 % (0.0-6.0); HEMATOCRIT 31.5 % (42.0-52.0); IMMATURE GRAN ABSOLUTE AUTO 0.05 K/uL (0.00-0.05); IMMATURE GRAN PERCENT AUTO 0.3 % (0.0-0.4); LYMPHOCYTES ABSOLUTE AUTO 2.54 K/uL (1.00-4.80); LYMPHOCYTES PERCENT AUTO 15.5 % (24.0-44.0); MEAN CORPUSCULAR HEMOGLOBIN 28.7 pg (28.0-32.0); MEAN CORPUSCULAR HGB CONC 31.7 g/dL (32.0-36.0); MEAN CORPUSCULAR VOLUME 90.3 fL (83.0-99.0); MEAN PLATELET VOLUME 9.7 fL (9.4-12.4); MONOCYTES ABSOLUTE AUTO 0.92 K/uL (0.00-0.80); MONOCYTES PERCENT AUTO 5.6 % (0.0-8.0); NEUTROPHILS ABSOLUTE AUTO 12.46 K/uL (1.80-7.70); PLATELET COUNT,PLT 285 K/uL (150-400); RED BLOOD CELL COUNT 3.49 M/uL (4.52-5.90)
[2023-02-07 06:27] LABS: CALCIUM 7.9 mg/dL (8.5-10.1); CARBON DIOXIDE,CO2 25.4 mmol/L (21.0-32.0); CREATININE 1.9 mg/dL (0.8-1.3); EST CRCL DRUG DOSING (CG) 28.5 mL/min; MAGNESIUM 1.7 mg/dL (1.8-2.4); PHOSPHORUS 2.5 mg/dL (2.6-4.7); POTASSIUM,K 2.8 mmol/L (3.5-5.1)
[2023-02-07] MEDS ORDERED: Potassium Phosphates 3 mMole/ML 15 ML SDV IV ONE (06:44)
[2023-02-07] MEDS ORDERED: Magnesium Sulfate/Water 2 GM in Premix Bag 1 BAG IV ONE (06:45)
[2023-02-07] MEDS ORDERED: D5 1/2 NS w/ 40 mEq/L KCl 1,000 ML IV SCH (07:45)
[2023-02-07] MEDS ORDERED: Potassium Phosphates 20 MMOLE in Sodium Chloride 0.9% 500 ML IV ONE (08:15)
[2023-02-07 08:34] LABS: A/G RATIO 0.4 (0.9-1.6); ALBUMIN 1.5 g/dL (3.4-5.0); BILIRUBIN DIRECT 0.1 mg/dL (0.0-0.5); BILIRUBIN INDIRECT 0.2; BILIRUBIN TOTAL 0.3 mg/dL (0.2-1.0); PROTEIN TOTAL,TP 5.3 g/dL (6.4-8.2)
[2023-02-07] MEDS: Pantoprazole 40 MG in Sodium Chloride 0.9% 10 ML IVPUSH SCH (10:00)
[2023-02-07] MEDS: Meropenem 2 GM in Sodium Chloride 0.9% 100 ML IV SCH ×2 (10:00→20:21)
[2023-02-07] MEDS: ARIPiprazole 10 MG Tab PO SCH (10:19)
[2023-02-07] MEDS: Azithromycin 500 MG in Sodium Chloride 0.9% 250 ML IV SCH (16:58)
[2023-02-07] MEDS: Potassium Chloride 20 MEQ in Premix Bag 1 BAG IV SCH ×2 (16:58→19:05)
[2023-02-07] MEDS: Sodium Chloride 0.9% 500 ML IV SCH (20:16)
[2023-02-07] MEDS ORDERED: Albuterol/Ipratropium 3.0-0.5 MG/3 ML Neb Soln NEB PRN (22:31)
[2023-02-08] MEDS: Albuterol/Ipratropium 3.0-0.5 MG/3 ML Neb Soln NEB SCH ×4 (00:42→17:45)
[2023-02-08] MEDS: Heparin Sodium 5,000 Units/ML Vial SUBCUT SCH ×3 (01:34→17:45)
[2023-02-08] MEDS: Insulin Aspart 100 Units/ML 3 ML Pen SUBCUT SCH ×4 (02:41→20:45)
[2023-02-08] MEDS: Dextrose 5%-0.45% NaCl 1,000 ML IV SCH ×2 (02:42→10:45)
[2023-02-08] MEDS: Norepinephrine Bit/D5W Premix 250 ML IV SCH (05:03)
[2023-02-08 06:53] LABS: BASOPHILS ABSOLUTE AUTO 0.03 K/uL (0.00-0.20); BASOPHILS PERCENT AUTO 0.3 % (0.0-1.0); EOSINOPHILS ABSOLUTE AUTO 0.37 K/uL (0.00-0.45); EOSINOPHILS PERCENT AUTO 3.4 % (0.0-6.0); HEMATOCRIT 29.3 % (42.0-52.0); HEMOGLOBIN 9.4 g/dL (14.0-18.0); IMMATURE GRAN ABSOLUTE AUTO 0.03 K/uL (0.00-0.05); IMMATURE GRAN PERCENT AUTO 0.3 % (0.0-0.4); LYMPHOCYTES ABSOLUTE AUTO 1.74 K/uL (1.00-4.80); LYMPHOCYTES PERCENT AUTO 16.1 % (24.0-44.0); MEAN CORPUSCULAR HEMOGLOBIN 28.6 pg (28.0-32.0); MEAN CORPUSCULAR HGB CONC 32.1 g/dL (32.0-36.0); MEAN CORPUSCULAR VOLUME 89.1 fL (83.0-99.0); MEAN PLATELET VOLUME 10.1 fL (9.4-12.4); MONOCYTES ABSOLUTE AUTO 0.72 K/uL (0.00-0.80); MONOCYTES PERCENT AUTO 6.7 % (0.0-8.0); NEUTROPHILS PERCENT AUTO 73.2 % (41.0-71.0); PLATELET COUNT,PLT 239 K/uL (150-400); RED BLOOD CELL COUNT 3.29 M/uL (4.52-5.90); WHITE BLOOD CELL COUNT,WBC 10.79 K/uL (3.9-11.3)
[2023-02-08 07:14] LABS: CALCIUM 8.1 mg/dL (8.5-10.1); CARBON DIOXIDE,CO2 23.2 mmol/L (21.0-32.0); CREATININE 1.7 mg/dL (0.8-1.3); EST CRCL DRUG DOSING (CG) 31.85 mL/min; PHOSPHORUS 2.6 mg/dL (2.6-4.7); POTASSIUM,K 3.2 mmol/L (3.5-5.1)
[2023-02-08] MEDS: Potassium Chloride 20 MEQ in Premix Bag 1 BAG IV SCH ×3 (09:27→13:53)
[2023-02-08] MEDS: ARIPiprazole 10 MG Tab PO SCH (09:29)
[2023-02-08] MEDS: Pantoprazole 40 MG in Sodium Chloride 0.9% 10 ML IVPUSH SCH (09:31)
[2023-02-08] MEDS: Meropenem 2 GM in Sodium Chloride 0.9% 100 ML IV SCH ×2 (10:13→21:11)
[2023-02-08] MEDS: Azithromycin 500 MG in Sodium Chloride 0.9% 250 ML IV SCH (15:06)
[2023-02-08] MEDS: Midodrine 5 MG Tab PO SCH ×2 (15:45→22:21)
[2023-02-08] MEDS: Sodium Chloride 0.9% 500 ML IV SCH (20:50)
[2023-02-09] MEDS: Albuterol/Ipratropium 3.0-0.5 MG/3 ML Neb Soln NEB SCH ×4 (00:36→17:05)
[2023-02-09] MEDS: Dextrose 5%-0.45% NaCl 1,000 ML IV SCH ×2 (00:37→05:11)
[2023-02-09] MEDS: Heparin Sodium 5,000 Units/ML Vial SUBCUT SCH ×2 (02:24→09:34)
[2023-02-09] MEDS: Insulin Aspart 100 Units/ML 3 ML Pen SUBCUT SCH ×4 (03:17→21:45)
[2023-02-09] MEDS: Norepinephrine Bit/D5W Premix 250 ML IV SCH (05:23)
[2023-02-09 06:04] LABS: BASOPHILS ABSOLUTE AUTO 0.04 K/uL (0.00-0.20); BASOPHILS PERCENT AUTO 0.5 % (0.0-1.0); EOSINOPHILS ABSOLUTE AUTO 0.33 K/uL (0.00-0.45); EOSINOPHILS PERCENT AUTO 3.8 % (0.0-6.0); HEMATOCRIT 28.5 % (42.0-52.0); HEMOGLOBIN 9.1 g/dL (14.0-18.0); IMMATURE GRAN ABSOLUTE AUTO 0.03 K/uL (0.00-0.05); IMMATURE GRAN PERCENT AUTO 0.3 % (0.0-0.4); LYMPHOCYTES ABSOLUTE AUTO 1.68 K/uL (1.00-4.80); LYMPHOCYTES PERCENT AUTO 19.3 % (24.0-44.0); MEAN CORPUSCULAR HEMOGLOBIN 28.4 pg (28.0-32.0); MEAN CORPUSCULAR HGB CONC 31.9 g/dL (32.0-36.0); MEAN CORPUSCULAR VOLUME 89.1 fL (83.0-99.0); MEAN PLATELET VOLUME 9.8 fL (9.4-12.4); MONOCYTES ABSOLUTE AUTO 0.63 K/uL (0.00-0.80); MONOCYTES PERCENT AUTO 7.2 % (0.0-8.0); NEUTROPHILS ABSOLUTE AUTO 5.99 K/uL (1.80-7.70); NEUTROPHILS PERCENT AUTO 68.9 % (41.0-71.0); PLATELET COUNT,PLT 235 K/uL (150-400)
[2023-02-09] MEDS: Midodrine 5 MG Tab PO SCH ×3 (06:35→21:18)
[2023-02-09 06:55] LABS: CALCIUM 8.2 mg/dL (8.5-10.1); CARBON DIOXIDE,CO2 24.8 mmol/L (21.0-32.0); CREATININE 1.7 mg/dL (0.8-1.3); EST CRCL DRUG DOSING (CG) 31.85 mL/min; MAGNESIUM 1.9 mg/dL (1.8-2.4); PHOSPHORUS 2.5 mg/dL (2.6-4.7); POTASSIUM,K 3.4 mmol/L (3.5-5.1)
[2023-02-09] MEDS: ARIPiprazole 10 MG Tab PO SCH (09:33)
[2023-02-09] MEDS: Pantoprazole 40 MG in Sodium Chloride 0.9% 10 ML IVPUSH SCH (09:34)
[2023-02-09] MEDS ORDERED: Potassium Chloride 20 MEQ in Premix Bag 1 BAG IV ONE (09:40)
[2023-02-09] MEDS: Meropenem 2 GM in Sodium Chloride 0.9% 100 ML IV SCH ×2 (09:43→21:17)
[2023-02-09] MEDS: Phosphorus #1 250 MG Tab PO SCH ×2 (11:10→17:05)
[2023-02-09] MEDS: Vancomycin 125 MG Cap PO SCH ×2 (14:32→17:06)
[2023-02-09] MEDS: Azithromycin 500 MG in Sodium Chloride 0.9% 250 ML IV SCH (14:46)
[2023-02-09] MEDS: Sodium Chloride 0.9% 500 ML IV SCH (21:08)
[2023-02-09] MEDS: Apixaban 2.5 MG Tab PO SCH (21:18)
[2023-02-10] MEDS: Phosphorus #1 250 MG Tab PO SCH ×2 (00:43→06:15)
[2023-02-10] MEDS: Vancomycin 125 MG Cap PO SCH ×4 (00:43→19:27)
[2023-02-10] MEDS: Albuterol/Ipratropium 3.0-0.5 MG/3 ML Neb Soln NEB SCH ×4 (00:43→18:08)
[2023-02-10] MEDS: Insulin Aspart 100 Units/ML 3 ML Pen SUBCUT SCH ×4 (03:30→21:07)
[2023-02-10 05:47] LABS: BASOPHILS ABSOLUTE AUTO 0.05 K/uL (0.00-0.20); BASOPHILS PERCENT AUTO 0.5 % (0.0-1.0); EOSINOPHILS ABSOLUTE AUTO 0.28 K/uL (0.00-0.45); EOSINOPHILS PERCENT AUTO 3.1 % (0.0-6.0); HEMATOCRIT 30.1 % (42.0-52.0); HEMOGLOBIN 9.5 g/dL (14.0-18.0); IMMATURE GRAN ABSOLUTE AUTO 0.03 K/uL (0.00-0.05); IMMATURE GRAN PERCENT AUTO 0.3 % (0.0-0.4); LYMPHOCYTES ABSOLUTE AUTO 1.26 K/uL (1.00-4.80); LYMPHOCYTES PERCENT AUTO 13.8 % (24.0-44.0); MEAN CORPUSCULAR HEMOGLOBIN 28.1 pg (28.0-32.0); MEAN CORPUSCULAR HGB CONC 31.6 g/dL (32.0-36.0); MEAN CORPUSCULAR VOLUME 89.1 fL (83.0-99.0); MEAN PLATELET VOLUME 9.9 fL (9.4-12.4); MONOCYTES PERCENT AUTO 6.6 % (0.0-8.0); NEUTROPHILS PERCENT AUTO 75.7 % (41.0-71.0); PLATELET COUNT,PLT 235 K/uL (150-400); RED BLOOD CELL COUNT 3.38 M/uL (4.52-5.90); WHITE BLOOD CELL COUNT,WBC 9.12 K/uL (3.9-11.3)
[2023-02-10 06:13] LABS: CALCIUM 8.4 mg/dL (8.5-10.1); CARBON DIOXIDE,CO2 25.3 mmol/L (21.0-32.0); CREATININE 1.6 mg/dL (0.8-1.3); EST CRCL DRUG DOSING (CG) 33.84 mL/min; MAGNESIUM 2.1 mg/dL (1.8-2.4); PHOSPHORUS 2.8 mg/dL (2.6-4.7); POTASSIUM,K 3.6 mmol/L (3.5-5.1)
[2023-02-10] MEDS: Midodrine 5 MG Tab PO SCH ×3 (06:15→21:06)
[2023-02-10] MEDS: Pantoprazole 40 MG in Sodium Chloride 0.9% 10 ML IVPUSH SCH (08:38)
[2023-02-10] MEDS: Apixaban 2.5 MG Tab PO SCH ×2 (08:38→21:06)
[2023-02-10] MEDS: ARIPiprazole 10 MG Tab PO SCH (08:38)
[2023-02-10] MEDS: Meropenem 2 GM in Sodium Chloride 0.9% 100 ML IV SCH ×2 (08:45→21:44)
[2023-02-10] MEDS ORDERED: D5 1/2 NS w/ 20 mEq/L KCl 1,000 ML IV SCH (09:30)
[2023-02-11] MEDS: Albuterol/Ipratropium 3.0-0.5 MG/3 ML Neb Soln NEB SCH ×4 (00:03→18:02)
[2023-02-11] MEDS: Vancomycin 125 MG Cap PO SCH ×4 (00:03→18:24)
[2023-02-11] MEDS: Insulin Aspart 100 Units/ML 3 ML Pen SUBCUT SCH ×4 (03:29→20:52)
[2023-02-11] MEDS: Midodrine 5 MG Tab PO SCH ×3 (04:59→21:04)
[2023-02-11 05:55] LABS: BASOPHILS ABSOLUTE AUTO 0.04 K/uL (0.00-0.20); BASOPHILS PERCENT AUTO 0.5 % (0.0-1.0); EOSINOPHILS ABSOLUTE AUTO 0.45 K/uL (0.00-0.45); EOSINOPHILS PERCENT AUTO 5.6 % (0.0-6.0); HEMATOCRIT 28.7 % (42.0-52.0); HEMOGLOBIN 9.4 g/dL (14.0-18.0); IMMATURE GRAN ABSOLUTE AUTO 0.04 K/uL (0.00-0.05); IMMATURE GRAN PERCENT AUTO 0.5 % (0.0-0.4); LYMPHOCYTES ABSOLUTE AUTO 1.46 K/uL (1.00-4.80); LYMPHOCYTES PERCENT AUTO 18.2 % (24.0-44.0); MEAN CORPUSCULAR HEMOGLOBIN 29.3 pg (28.0-32.0); MEAN CORPUSCULAR HGB CONC 32.8 g/dL (32.0-36.0); MEAN CORPUSCULAR VOLUME 89.4 fL (83.0-99.0); MEAN PLATELET VOLUME 9.8 fL (9.4-12.4); MONOCYTES ABSOLUTE AUTO 0.57 K/uL (0.00-0.80); MONOCYTES PERCENT AUTO 7.1 % (0.0-8.0); NEUTROPHILS ABSOLUTE AUTO 5.45 K/uL (1.80-7.70); NEUTROPHILS PERCENT AUTO 68.1 % (41.0-71.0); PLATELET COUNT,PLT 242 K/uL (150-400); RED BLOOD CELL COUNT 3.21 M/uL (4.52-5.90); WHITE BLOOD CELL COUNT,WBC 8.01 K/uL (3.9-11.3)
[2023-02-11 06:15] LABS: CALCIUM 8.3 mg/dL (8.5-10.1); CREATININE 1.5 mg/dL (0.8-1.3); EST CRCL DRUG DOSING (CG) 36.1 mL/min; POTASSIUM,K 3.7 mmol/L (3.5-5.1)
[2023-02-11] MEDS: Apixaban 2.5 MG Tab PO SCH ×2 (10:17→21:04)
[2023-02-11] MEDS: ARIPiprazole 10 MG Tab PO SCH (10:17)
[2023-02-11] MEDS: Pantoprazole 40 MG in Sodium Chloride 0.9% 10 ML IVPUSH SCH (10:22)
[2023-02-11] MEDS: Meropenem 2 GM in Sodium Chloride 0.9% 100 ML IV SCH ×2 (10:32→21:04)
[2023-02-11] MEDS ORDERED: Hyoscyamine 0.125 MG Tab.SL SL ONE (10:48)
[2023-02-11] MEDS: Acetaminophen/Codeine 300-30 MG Tab PO SCH ×3 (11:35→22:23)
[2023-02-11] MEDS: Budesonide 0.5 MG/2 ML Neb Susp NEB SCH ×2 (12:05→21:08)
[2023-02-11] MEDS: guaiFENesin 600 MG Tab.ER PO SCH ×2 (16:55→21:04)
[2023-02-12] MEDS: Albuterol/Ipratropium 3.0-0.5 MG/3 ML Neb Soln NEB SCH ×5 (00:29→23:44)
[2023-02-12] MEDS: Vancomycin 125 MG Cap PO SCH ×6 (00:30→23:41)
[2023-02-12] MEDS: Insulin Aspart 100 Units/ML 3 ML Pen SUBCUT SCH ×2 (02:29→07:33)
[2023-02-12] MEDS: Midodrine 5 MG Tab PO SCH ×4 (05:28→21:27)
[2023-02-12] MEDS: Acetaminophen/Codeine 300-30 MG Tab PO SCH ×5 (05:28→23:40)
[2023-02-12] MEDS: Budesonide 0.5 MG/2 ML Neb Susp NEB SCH (05:29)
[2023-02-12 06:03] LABS: BASOPHILS ABSOLUTE AUTO 0.04 K/uL (0.00-0.20); BASOPHILS PERCENT AUTO 0.5 % (0.0-1.0); EOSINOPHILS PERCENT AUTO 5.9 % (0.0-6.0); HEMATOCRIT 30.2 % (42.0-52.0); HEMOGLOBIN 9.5 g/dL (14.0-18.0); IMMATURE GRAN ABSOLUTE AUTO 0.03 K/uL (0.00-0.05); IMMATURE GRAN PERCENT AUTO 0.4 % (0.0-0.4); LYMPHOCYTES ABSOLUTE AUTO 1.93 K/uL (1.00-4.80); LYMPHOCYTES PERCENT AUTO 22.9 % (24.0-44.0); MEAN CORPUSCULAR HEMOGLOBIN 28.5 pg (28.0-32.0); MEAN CORPUSCULAR HGB CONC 31.5 g/dL (32.0-36.0); MEAN CORPUSCULAR VOLUME 90.7 fL (83.0-99.0); MEAN PLATELET VOLUME 9.8 fL (9.4-12.4); MONOCYTES ABSOLUTE AUTO 0.63 K/uL (0.00-0.80); MONOCYTES PERCENT AUTO 7.5 % (0.0-8.0); NEUTROPHILS ABSOLUTE AUTO 5.31 K/uL (1.80-7.70); NEUTROPHILS PERCENT AUTO 62.8 % (41.0-71.0); PLATELET COUNT,PLT 291 K/uL (150-400); RED BLOOD CELL COUNT 3.33 M/uL (4.52-5.90); WHITE BLOOD CELL COUNT,WBC 8.44 K/uL (3.9-11.3)
[2023-02-12 06:34] LABS: CALCIUM 8.2 mg/dL (8.5-10.1); CARBON DIOXIDE,CO2 26.4 mmol/L (21.0-32.0); CREATININE 1.5 mg/dL (0.8-1.3); EST CRCL DRUG DOSING (CG) 36.1 mL/min; POTASSIUM,K 3.7 mmol/L (3.5-5.1)
[2023-02-12] MEDS: ARIPiprazole 10 MG Tab PO SCH (08:51)
[2023-02-12] MEDS: Apixaban 2.5 MG Tab PO SCH ×2 (08:52→20:39)
[2023-02-12] MEDS: guaiFENesin 600 MG Tab.ER PO SCH ×2 (08:52→20:38)
[2023-02-12] MEDS: Meropenem 2 GM in Sodium Chloride 0.9% 100 ML IV SCH (08:59)
[2023-02-12] MEDS ORDERED: Heparin Sodium 100 Units/ML 3 ML Syringe ONE ×2 (18:48→19:27)
[2023-02-13] MEDS: Vancomycin 125 MG Cap PO SCH ×3 (05:24→18:22)
[2023-02-13] MEDS: Acetaminophen/Codeine 300-30 MG Tab PO SCH ×3 (05:24→18:22)
[2023-02-13] MEDS: Midodrine 5 MG Tab PO SCH ×3 (05:25→21:51)
[2023-02-13] MEDS: Albuterol/Ipratropium 3.0-0.5 MG/3 ML Neb Soln NEB SCH (05:26)
[2023-02-13 06:10] LABS: BASOPHILS ABSOLUTE AUTO 0.06 K/uL (0.00-0.20); BASOPHILS PERCENT AUTO 0.8 % (0.0-1.0); EOSINOPHILS ABSOLUTE AUTO 0.48 K/uL (0.00-0.45); EOSINOPHILS PERCENT AUTO 6.2 % (0.0-6.0); HEMATOCRIT 29.5 % (42.0-52.0); HEMOGLOBIN 9.4 g/dL (14.0-18.0); IMMATURE GRAN ABSOLUTE AUTO 0.02 K/uL (0.00-0.05); IMMATURE GRAN PERCENT AUTO 0.3 % (0.0-0.4); LYMPHOCYTES PERCENT AUTO 29.5 % (24.0-44.0); MEAN CORPUSCULAR HGB CONC 31.9 g/dL (32.0-36.0); MEAN PLATELET VOLUME 9.7 fL (9.4-12.4); MONOCYTES PERCENT AUTO 7.7 % (0.0-8.0); NEUTROPHILS ABSOLUTE AUTO 4.33 K/uL (1.80-7.70); NEUTROPHILS PERCENT AUTO 55.5 % (41.0-71.0); PLATELET COUNT,PLT 290 K/uL (150-400); RED BLOOD CELL COUNT 3.24 M/uL (4.52-5.90); WHITE BLOOD CELL COUNT,WBC 7.79 K/uL (3.9-11.3)
[2023-02-13 06:40] LABS: CALCIUM 8.4 mg/dL (8.5-10.1); CARBON DIOXIDE,CO2 24.7 mmol/L (21.0-32.0); CREATININE 1.5 mg/dL (0.8-1.3); EST CRCL DRUG DOSING (CG) 36.1 mL/min; MAGNESIUM 1.9 mg/dL (1.8-2.4); PHOSPHORUS 3.1 mg/dL (2.6-4.7); POTASSIUM,K 3.7 mmol/L (3.5-5.1)
[2023-02-13] MEDS: guaiFENesin 600 MG Tab.ER PO SCH ×2 (09:53→20:13)
[2023-02-13] MEDS: Apixaban 2.5 MG Tab PO SCH ×2 (09:53→20:13)
[2023-02-13] MEDS: ARIPiprazole 10 MG Tab PO SCH (09:53)
[2023-02-13] MEDS: Gabapentin 100 MG Cap PO SCH ×2 (10:01→20:13)
[2023-02-14] MEDS: Acetaminophen/Codeine 300-30 MG Tab PO SCH ×3 (00:15→11:53)
[2023-02-14] MEDS: Vancomycin 125 MG Cap PO SCH ×3 (01:30→11:48)
[2023-02-14] MEDS: Midodrine 5 MG Tab PO SCH (05:55)
[2023-02-14 06:14] LABS: BASOPHILS ABSOLUTE AUTO 0.05 K/uL (0.00-0.20); BASOPHILS PERCENT AUTO 0.7 % (0.0-1.0); EOSINOPHILS ABSOLUTE AUTO 0.47 K/uL (0.00-0.45); EOSINOPHILS PERCENT AUTO 6.9 % (0.0-6.0); HEMATOCRIT 29.4 % (42.0-52.0); HEMOGLOBIN 9.2 g/dL (14.0-18.0); IMMATURE GRAN ABSOLUTE AUTO 0.02 K/uL (0.00-0.05); IMMATURE GRAN PERCENT AUTO 0.3 % (0.0-0.4); LYMPHOCYTES ABSOLUTE AUTO 1.94 K/uL (1.00-4.80); LYMPHOCYTES PERCENT AUTO 28.5 % (24.0-44.0); MEAN CORPUSCULAR HEMOGLOBIN 28.3 pg (28.0-32.0); MEAN CORPUSCULAR HGB CONC 31.3 g/dL (32.0-36.0); MEAN CORPUSCULAR VOLUME 90.5 fL (83.0-99.0); MEAN PLATELET VOLUME 9.4 fL (9.4-12.4); MONOCYTES ABSOLUTE AUTO 0.59 K/uL (0.00-0.80); MONOCYTES PERCENT AUTO 8.7 % (0.0-8.0); NEUTROPHILS ABSOLUTE AUTO 3.73 K/uL (1.80-7.70); NEUTROPHILS PERCENT AUTO 54.9 % (41.0-71.0); PLATELET COUNT,PLT 271 K/uL (150-400); RED BLOOD CELL COUNT 3.25 M/uL (4.52-5.90)
[2023-02-14 06:47] LABS: CALCIUM 8.4 mg/dL (8.5-10.1); CARBON DIOXIDE,CO2 26.4 mmol/L (21.0-32.0); CREATININE 1.4 mg/dL (0.8-1.3); EST CRCL DRUG DOSING (CG) 38.68 mL/min; MAGNESIUM 1.8 mg/dL (1.8-2.4); PHOSPHORUS 3.2 mg/dL (2.6-4.7); POTASSIUM,K 3.7 mmol/L (3.5-5.1)
[2023-02-14 09:11] VITALS: BP 109/56; PULSE 69
[2023-02-14] MEDS: Apixaban 2.5 MG Tab PO SCH (09:13)
[2023-02-14] MEDS: ARIPiprazole 10 MG Tab PO SCH (09:13)
[2023-02-14] MEDS: guaiFENesin 600 MG Tab.ER PO SCH (09:13)
[2023-02-14] MEDS: Gabapentin 100 MG Cap PO SCH (09:13)
== END 2023-02-14 12:30 | DRG 871 ==
LOC: MW.ED 13:13 → MW.MS 17:36 → EEVIPCON 17:36 → MW.ICU 02-05 → MW.MS 02-10 13:00
PROVIDERS: ADMIT Family Medicine; ATTEND Internal Medicine
PROC: 3E03329 Introduction of Other Anti-infective into Peripheral Vein, Percutaneous Approach (ICD-10-PCS; 2023-02-04)
PROC: 05H533Z Insertion of Infusion Device into Right Subclavian Vein, Percutaneous Approach (ICD-10-PCS; principal; 2023-02-05)
PROC: 3E033XZ Introduction of Vasopressor into Peripheral Vein, Percutaneous Approach (ICD-10-PCS; 2023-02-05)
DX: A41.9 Sepsis, unspecified organism (principal); I11.9 Hypertensive heart disease without heart failure; N18.9 Chronic kidney disease, unspecified; J18.9 Pneumonia, unspecified organism; J69.0 Pneumonitis due to inhalation of food and vomit; J96.01 Acute respiratory failure with hypoxia; R65.21 Severe sepsis with septic shock; Z16.39 Resistance to other specified antimicrobial drug; N17.9 Acute kidney failure, unspecified; E87.0 Hyperosmolality and hypernatremia; Z20.822 Contact with and (suspected) exposure to COVID-19; Z68.32 Body mass index [BMI] 32.0-32.9, adult; N10 Acute pyelonephritis; A04.72 Enterocolitis due to Clostridium difficile, not specified as recurrent; I13.0 Hypertensive heart and chronic kidney disease with heart failure and stage 1 through stage 4 chronic kidney disease, or unspecified chronic kidney disease; Z66 Do not resuscitate; G30.9 Alzheimer's disease, unspecified; F02.80 Dementia in other diseases classified elsewhere, unspecified severity, without behavioral disturbance, psychotic disturbance, mood disturbance, and anxiety; E87.6 Hypokalemia; I48.91 Unspecified atrial fibrillation; I48.0 Paroxysmal atrial fibrillation; E78.2 Mixed hyperlipidemia; N13.9 Obstructive and reflux uropathy, unspecified; L89.619 Pressure ulcer of right heel, unspecified stage; B95.62 Methicillin resistant Staphylococcus aureus infection as the cause of diseases classified elsewhere; L89.322 Pressure ulcer of left buttock, stage 2; L89.312 Pressure ulcer of right buttock, stage 2; E78.00 Pure hypercholesterolemia, unspecified; M10.9 Gout, unspecified; M19.90 Unspecified osteoarthritis, unspecified site; E66.9 Obesity, unspecified; N18.32 Chronic kidney disease, stage 3b; Z88.8 Allergy status to other drugs, medicaments and biological substances; Z88.2 Allergy status to sulfonamides; Z88.0 Allergy status to penicillin; Z90.49 Acquired absence of other specified parts of digestive tract; Z98.890 Other specified postprocedural states; Z11.52 Encounter for screening for COVID-19; Z97.8 Presence of other specified devices; Z79.01 Long term (current) use of anticoagulants; Z79.899 Other long term (current) drug therapy; Z68.35 Body mass index [BMI] 35.0-35.9, adult
CPT/HCPCS: 0240U; 36415; 71045; 71250; 74176; 80048; 80053; 80076; 80202; 81001; 82550; 82947; 83605; 83735; 84100; 84132; 85025; 85610; 87040; 87070; 87086; 87088; 87147; 87186; 87205; 87324; 87493; 87899; 94640; 94667; 94668; 96360; 97162; 99291; 36556; 36620; 87077; 99223; 99232; 99233; 99238; 99284; A9270-GY; C9113; J0456; J0692; J1642; J1644; J1815-GY; J2185; J2543; J3370; J3475; J3480; J3490; J3535-GY; J7030; J7040; J7042; J7050; J7060; J7120; J7620-GY

== ENCOUNTER 2023-02-19 01:11 | Inpatient (IN) | payer MEDICARE, OTHER ==
[2023-02-19] MEDS ORDERED: Sodium Chloride 0.9% 1,000 ML IV ONE ×2 (01:23→02:22)
[2023-02-19] MEDS ORDERED: Acetaminophen 650 MG Supp RECTAL ONE (01:27)
[2023-02-19] MEDS ORDERED: Piperacillin/Tazobactam 4.5 GM in Sodium Chloride 0.9% 100 ML IV ONE (01:31)
[2023-02-19 01:33] LABS: BASOPHILS ABSOLUTE AUTO 0.09 K/uL (0.00-0.20); BASOPHILS PERCENT AUTO 0.6 % (0.0-1.0); EOSINOPHILS ABSOLUTE AUTO 0.18 K/uL (0.00-0.45); EOSINOPHILS PERCENT AUTO 1.1 % (0.0-6.0); HEMATOCRIT 35.2 % (42.0-52.0); IMMATURE GRAN ABSOLUTE AUTO 0.05 K/uL (0.00-0.05); IMMATURE GRAN PERCENT AUTO 0.3 % (0.0-0.4); LYMPHOCYTES ABSOLUTE AUTO 1.41 K/uL (1.00-4.80); LYMPHOCYTES PERCENT AUTO 8.8 % (24.0-44.0); MEAN CORPUSCULAR HEMOGLOBIN 28.5 pg (28.0-32.0); MEAN CORPUSCULAR HGB CONC 31.3 g/dL (32.0-36.0); MEAN CORPUSCULAR VOLUME 91.2 fL (83.0-99.0); MEAN PLATELET VOLUME 9.3 fL (9.4-12.4); MONOCYTES ABSOLUTE AUTO 0.76 K/uL (0.00-0.80); MONOCYTES PERCENT AUTO 4.7 % (0.0-8.0); NEUTROPHILS PERCENT AUTO 84.5 % (41.0-71.0); PLATELET COUNT,PLT 305 K/uL (150-400); RED BLOOD CELL COUNT 3.86 M/uL (4.52-5.90); WHITE BLOOD CELL COUNT,WBC 16.09 K/uL (3.9-11.3)
[2023-02-19] MEDS: Sodium Chloride 0.9% 1,000 ML IV ONE ×2 (01:34→01:47)
[2023-02-19 01:56] LABS: ALANINE AMINOTRANSFERASE,ALT 15 IU/L (14-63); ALBUMIN 1.7 g/dL (3.4-5.0); ALKALINE PHOSPHATASE 69 U/L (46-116); ASPARTATE AMNIOTRANSFERASE,AST 24 IU/L (15-37); BILIRUBIN TOTAL 0.2 mg/dL (0.2-1.0); BLOOD UREA NITROGEN,BUN 25 mg/dL (7.0-18.0); CALCIUM 8.6 mg/dL (8.5-10.1); CARBON DIOXIDE,CO2 31.3 mmol/L (21.0-32.0); CHLORIDE,CL 113 mmol/L (98-107); CREATININE 2.8 mg/dL (0.8-1.3); GLUCOSE RANDOM 104 mg/dL (74-106); POTASSIUM,K 4.6 mmol/L (3.5-5.1); PROTEIN TOTAL,TP 6.6 g/dL (6.4-8.2); SODIUM,NA 150 mmol/L (136-148)
[2023-02-19 01:58] LABS: A/G RATIO 0.4 (0.9-1.6); ESTIMATED GFR 22 mL/min (>60)
[2023-02-19] MEDS ORDERED: VANCOmycin 2 GM/400 ML 400 ML IV ONE (02:15)
[2023-02-19 02:41] LABS: BASE EXCESS ARTERIAL -1.2 (-2.0-3.0); BICARBONATE,ARTERIAL 26 mEq/L (22-26); PCO2 ARTERIAL 53 mmHG (35-45); PO2 ARTERIAL 94 mmHG (80-105)
[2023-02-19 03:34] LABS: APPEARANCE,URINE CLOUDY; COLOR,URINE BROWN; GLUCOSE,URINE NEGATIVE (NEGATIVE); KETONES,URINE NEGATIVE (NEGATIVE); LEUKOCYTE ESTERASE,URINE MODERATE (NEGATIVE); NITRITE,URINE POSITIVE (NEGATIVE); OCCULT BLOOD,URINE LARGE (NEGATIVE); PROTEIN,URINE 100 mg/dL (NEGATIVE); UROBILINOGEN,URINE 0.2 EU/dL (<2.0)
[2023-02-19 03:37] LABS: BACTERIA,URINE 3+ (NEGATIVE); BILIRUBIN,URINE SMALL (NEGATIVE); EPITHELIAL CELLS,URINE NOT SEEN (NONE-FEW); MUCUS,URINE LIGHT (NONE-MOD); RBC,URINE 80-100 (0-2/HPF); WBC,URINE 40-50 (0-5/HPF)
[2023-02-19] MEDS: Norepinephrine Bit/D5W Premix 250 ML IV SCH ×2 (03:40→15:08)
[2023-02-19] MEDS ORDERED: Azithromycin 500 MG in Sodium Chloride 0.9% 250 ML IV ONE (04:51)
[2023-02-19] MEDS ORDERED: Sodium Chloride 0.9% 500 ML IV ONE (06:09)
[2023-02-19] MEDS ORDERED: Piperacillin/Tazobactam 2.25 GM in Sodium Chloride 0.9% 50 ML IV SCH (06:30)
[2023-02-19] MEDS ORDERED: Piperacillin/Tazobactam 3.375 GM in Sodium Chloride 0.9% 100 ML IV SCH (06:30)
[2023-02-19] MEDS: metroNIDAZOLE/Normal Saline 500 MG in Premix Bag 1 BAG IV SCH ×3 (06:52→17:31)
[2023-02-19] MEDS: Sodium Chloride 0.9% 1,000 ML IV SCH ×2 (08:03→19:30)
[2023-02-19] MEDS: Apixaban 5 MG Tab PO SCH ×2 (08:34→21:36)
[2023-02-19] MEDS: Piperacillin/Tazobactam 2.25 GM in Sodium Chloride 0.9% 50 ML IV SCH ×3 (10:06→22:37)
[2023-02-19] MEDS: Pantoprazole 40 MG in Sodium Chloride 0.9% 10 ML IVPUSH SCH (10:31)
[2023-02-19] MEDS: Vancomycin 125 MG Cap PO SCH (11:31)
[2023-02-19 23:10] LABS: CALCIUM 7.7 mg/dL (8.5-10.1); CARBON DIOXIDE,CO2 26.5 mmol/L (21.0-32.0); CREATININE 2.9 mg/dL (0.8-1.3); EST CRCL DRUG DOSING (CG) 21.18 mL/min; POTASSIUM,K 3.9 mmol/L (3.5-5.1)
[2023-02-20] MEDS: metroNIDAZOLE/Normal Saline 500 MG in Premix Bag 1 BAG IV SCH ×4 (00:12→21:06)
[2023-02-20] MEDS: Heparin Sodium/0.45% NaCl 500 ML IV SCH ×2 (00:27→15:57)
[2023-02-20] MEDS: Vancomycin 125 MG Cap PO SCH ×5 (01:00→23:30)
[2023-02-20] MEDS ORDERED: Acetaminophen 650 MG Supp RECTAL PRN (01:10)
[2023-02-20] MEDS: Norepinephrine Bit/D5W Premix 250 ML IV SCH ×2 (03:26→12:45)
[2023-02-20] MEDS: Sodium Chloride 0.9% 1,000 ML IV SCH ×3 (03:33→21:11)
[2023-02-20] MEDS: Piperacillin/Tazobactam 2.25 GM in Sodium Chloride 0.9% 50 ML IV SCH (05:09)
[2023-02-20 05:52] LABS: BASOPHILS ABSOLUTE AUTO 0.09 K/uL (0.00-0.20); BASOPHILS PERCENT AUTO 0.8 % (0.0-1.0); EOSINOPHILS ABSOLUTE AUTO 0.04 K/uL (0.00-0.45); EOSINOPHILS PERCENT AUTO 0.4 % (0.0-6.0); HEMATOCRIT 29.1 % (42.0-52.0); HEMOGLOBIN 8.6 g/dL (14.0-18.0); IMMATURE GRAN ABSOLUTE AUTO 0.04 K/uL (0.00-0.05); IMMATURE GRAN PERCENT AUTO 0.4 % (0.0-0.4); LYMPHOCYTES ABSOLUTE AUTO 2.69 K/uL (1.00-4.80); LYMPHOCYTES PERCENT AUTO 24.9 % (24.0-44.0); MEAN CORPUSCULAR HEMOGLOBIN 28.2 pg (28.0-32.0); MEAN CORPUSCULAR HGB CONC 29.6 g/dL (32.0-36.0); MEAN CORPUSCULAR VOLUME 95.4 fL (83.0-99.0); MEAN PLATELET VOLUME 9.4 fL (9.4-12.4); MONOCYTES ABSOLUTE AUTO 0.52 K/uL (0.00-0.80); MONOCYTES PERCENT AUTO 4.8 % (0.0-8.0); NEUTROPHILS ABSOLUTE AUTO 7.43 K/uL (1.80-7.70); NEUTROPHILS PERCENT AUTO 68.7 % (41.0-71.0); PLATELET COUNT,PLT 230 K/uL (150-400); RED BLOOD CELL COUNT 3.05 M/uL (4.52-5.90); WHITE BLOOD CELL COUNT,WBC 10.81 K/uL (3.9-11.3)
[2023-02-20 06:20] LABS: A/G RATIO 0.3 (0.9-1.6); ALBUMIN 1.3 g/dL (3.4-5.0); BILIRUBIN TOTAL 0.3 mg/dL (0.2-1.0); CALCIUM 7.5 mg/dL (8.5-10.1); CARBON DIOXIDE,CO2 23.5 mmol/L (21.0-32.0); EST CRCL DRUG DOSING (CG) 20.48 mL/min; MAGNESIUM 1.5 mg/dL (1.8-2.4); PHOSPHORUS 4.5 mg/dL (2.6-4.7); POTASSIUM,K 3.6 mmol/L (3.5-5.1); PROTEIN TOTAL,TP 5.4 g/dL (6.4-8.2)
[2023-02-20] MEDS ORDERED: Piperacillin/Tazobactam 4.5 GM in Sodium Chloride 0.9% 100 ML IV SCH (06:45)
[2023-02-20] MEDS: Pantoprazole 40 MG in Sodium Chloride 0.9% 10 ML IVPUSH SCH (06:50)
[2023-02-20] MEDS: Azithromycin 500 MG in Sodium Chloride 0.9% 250 ML IV SCH (06:56)
[2023-02-20] MEDS ORDERED: Albuterol/Ipratropium 3.0-0.5 MG/3 ML Neb Soln NEB PRN (07:56)
[2023-02-20] MEDS ORDERED: Sodium Chloride 0.9% 2.5 ML Syringe FLUSH PRN (07:56)
[2023-02-20] MEDS ORDERED: Ondansetron 4 MG/2 ML SDV IVPUSH PRN (07:56)
[2023-02-20] MEDS ORDERED: Sodium Chloride 0.9% 10 ML Syringe FLUSH PRN (07:56)
[2023-02-20] MEDS: Piperacillin/Tazobactam 4.5 GM in Sodium Chloride 0.9% 100 ML IV SCH ×2 (12:10→23:01)
[2023-02-21] MEDS: Norepinephrine Bit/D5W Premix 250 ML IV SCH ×2 (00:23→12:52)
[2023-02-21] MEDS ORDERED: NORMAL SALINE IV SCH ×2 (03:30→04:30)
[2023-02-21] MEDS ORDERED: FLUCONAZOLE IV SCH ×2 (03:30→04:30)
[2023-02-21] MEDS: Vancomycin 125 MG Cap PO SCH ×4 (06:01→23:20)
[2023-02-21] MEDS: metroNIDAZOLE/Normal Saline 500 MG in Premix Bag 1 BAG IV SCH ×3 (06:05→20:29)
[2023-02-21 06:22] LABS: BASOPHILS ABSOLUTE AUTO 0.07 K/uL (0.00-0.20); BASOPHILS PERCENT AUTO 0.8 % (0.0-1.0); EOSINOPHILS ABSOLUTE AUTO 0.41 K/uL (0.00-0.45); EOSINOPHILS PERCENT AUTO 4.4 % (0.0-6.0); HEMOGLOBIN 8.4 g/dL (14.0-18.0); IMMATURE GRAN ABSOLUTE AUTO 0.05 K/uL (0.00-0.05); IMMATURE GRAN PERCENT AUTO 0.5 % (0.0-0.4); LYMPHOCYTES ABSOLUTE AUTO 2.11 K/uL (1.00-4.80); LYMPHOCYTES PERCENT AUTO 22.7 % (24.0-44.0); MEAN CORPUSCULAR HEMOGLOBIN 28.5 pg (28.0-32.0); MEAN CORPUSCULAR HGB CONC 31.1 g/dL (32.0-36.0); MEAN CORPUSCULAR VOLUME 91.5 fL (83.0-99.0); MEAN PLATELET VOLUME 9.6 fL (9.4-12.4); MONOCYTES ABSOLUTE AUTO 0.61 K/uL (0.00-0.80); MONOCYTES PERCENT AUTO 6.6 % (0.0-8.0); NEUTROPHILS ABSOLUTE AUTO 6.03 K/uL (1.80-7.70); PLATELET COUNT,PLT 201 K/uL (150-400); RED BLOOD CELL COUNT 2.95 M/uL (4.52-5.90); WHITE BLOOD CELL COUNT,WBC 9.28 K/uL (3.9-11.3)
[2023-02-21 06:38] LABS: CALCIUM 7.8 mg/dL (8.5-10.1); CREATININE 3.2 mg/dL (0.8-1.3); EST CRCL DRUG DOSING (CG) 19.2 mL/min; POTASSIUM,K 3.5 mmol/L (3.5-5.1)
[2023-02-21] MEDS: Pantoprazole 40 MG in Sodium Chloride 0.9% 10 ML IVPUSH SCH (07:04)
[2023-02-21] MEDS: Azithromycin 500 MG in Sodium Chloride 0.9% 250 ML IV SCH (07:11)
[2023-02-21] MEDS ORDERED: Micafungin 100 MG in Sodium Chloride 0.9% 100 ML IV SCH (09:00)
[2023-02-21] MEDS: Micafungin 100 MG in Sodium Chloride 0.9% 100 ML IV SCH (09:08)
[2023-02-21] MEDS: Sodium Chloride 0.9% 1,000 ML IV SCH ×2 (10:26→22:15)
[2023-02-21] MEDS: Cefepime 1 GM in Sodium Chloride 0.9% 50 ML IV SCH ×2 (11:29→23:09)
[2023-02-21 13:57] LABS: CORONAVIRUS COVID-19 NAA NEGATIVE (NEGATIVE); INFLUENZA A NAA NEGATIVE (NEGATIVE); INFLUENZA B NAA NEGATIVE (NEGATIVE); RESPIRATORY SYNCYTIAL VIR NAA NEGATIVE (NEGATIVE)
[2023-02-21] MEDS: Heparin Sodium/0.45% NaCl 500 ML IV SCH (19:29)
[2023-02-22] MEDS: Norepinephrine Bit/D5W Premix 250 ML IV SCH (03:27)
[2023-02-22] MEDS: metroNIDAZOLE/Normal Saline 500 MG in Premix Bag 1 BAG IV SCH ×3 (04:02→21:48)
[2023-02-22] MEDS: Azithromycin 500 MG in Sodium Chloride 0.9% 250 ML IV SCH (05:45)
[2023-02-22] MEDS: Vancomycin 125 MG Cap PO SCH ×3 (05:47→17:51)
[2023-02-22] MEDS: Pantoprazole 40 MG in Sodium Chloride 0.9% 10 ML IVPUSH SCH (06:35)
[2023-02-22 06:59] LABS: BASOPHILS ABSOLUTE AUTO 0.06 K/uL (0.00-0.20); BASOPHILS PERCENT AUTO 0.9 % (0.0-1.0); EOSINOPHILS ABSOLUTE AUTO 0.41 K/uL (0.00-0.45); EOSINOPHILS PERCENT AUTO 5.9 % (0.0-6.0); HEMATOCRIT 26.9 % (42.0-52.0); IMMATURE GRAN ABSOLUTE AUTO 0.06 K/uL (0.00-0.05); IMMATURE GRAN PERCENT AUTO 0.9 % (0.0-0.4); LYMPHOCYTES ABSOLUTE AUTO 1.83 K/uL (1.00-4.80); LYMPHOCYTES PERCENT AUTO 26.4 % (24.0-44.0); MEAN CORPUSCULAR HEMOGLOBIN 28.5 pg (28.0-32.0); MEAN CORPUSCULAR HGB CONC 29.7 g/dL (32.0-36.0); MEAN CORPUSCULAR VOLUME 95.7 fL (83.0-99.0); MEAN PLATELET VOLUME 9.6 fL (9.4-12.4); MONOCYTES ABSOLUTE AUTO 0.57 K/uL (0.00-0.80); MONOCYTES PERCENT AUTO 8.2 % (0.0-8.0); NEUTROPHILS ABSOLUTE AUTO 4.01 K/uL (1.80-7.70); NEUTROPHILS PERCENT AUTO 57.7 % (41.0-71.0); PLATELET COUNT,PLT 168 K/uL (150-400); RED BLOOD CELL COUNT 2.81 M/uL (4.52-5.90); WHITE BLOOD CELL COUNT,WBC 6.94 K/uL (3.9-11.3)
[2023-02-22 07:15] LABS: CALCIUM 7.7 mg/dL (8.5-10.1); CARBON DIOXIDE,CO2 22.5 mmol/L (21.0-32.0); CREATININE 3.5 mg/dL (0.8-1.3); EST CRCL DRUG DOSING (CG) 17.55 mL/min; POTASSIUM,K 3.3 mmol/L (3.5-5.1)
[2023-02-22] MEDS: Sodium Chloride 0.9% 1,000 ML IV SCH ×2 (08:15→19:35)
[2023-02-22] MEDS: Micafungin 100 MG in Sodium Chloride 0.9% 100 ML IV SCH (08:28)
[2023-02-22] MEDS: Apixaban 2.5 MG Tab PO SCH ×3 (08:46→21:54)
[2023-02-22] MEDS: Cefepime 1 GM in Sodium Chloride 0.9% 50 ML IV SCH ×3 (11:36→23:12)
[2023-02-23] MEDS: Vancomycin 125 MG Cap PO SCH ×2 (00:29→05:37)
[2023-02-23] MEDS: Sodium Chloride 0.9% 1,000 ML IV SCH (05:26)
[2023-02-23] MEDS: metroNIDAZOLE/Normal Saline 500 MG in Premix Bag 1 BAG IV SCH (05:27)
[2023-02-23] MEDS: Pantoprazole 40 MG in Sodium Chloride 0.9% 10 ML IVPUSH SCH (06:31)
[2023-02-23] MEDS: Apixaban 2.5 MG Tab PO SCH (10:05)
[2023-02-23 13:50] VITALS: BP 113/53; PULSE 73
[2023-02-23] MEDS: Micafungin 100 MG in Sodium Chloride 0.9% 100 ML IV SCH (13:57)
== END 2023-02-23 10:42 | DRG 871 ==
LOC: MW.ED 01:11 → MW.ICU 04:57 → MW.MS 02-22 11:06
PROVIDERS: ADMIT Internal Medicine; ATTEND Internal Medicine
PROC: 02HV33Z Insertion of Infusion Device into Superior Vena Cava, Percutaneous Approach (ICD-10-PCS; principal; 2023-02-19)
PROC: 4A033R1 Measurement of Arterial Saturation, Peripheral, Percutaneous Approach (ICD-10-PCS; 2023-02-19)
DX: A41.9 Sepsis, unspecified organism (principal); J69.0 Pneumonitis due to inhalation of food and vomit; R65.20 Severe sepsis without septic shock; R65.21 Severe sepsis with septic shock; Z66 Do not resuscitate; B49 Unspecified mycosis; N17.9 Acute kidney failure, unspecified; A04.72 Enterocolitis due to Clostridium difficile, not specified as recurrent; N39.0 Urinary tract infection, site not specified; E87.0 Hyperosmolality and hypernatremia; N12 Tubulo-interstitial nephritis, not specified as acute or chronic; Z51.5 Encounter for palliative care; J96.01 Acute respiratory failure with hypoxia; R33.9 Retention of urine, unspecified; I13.0 Hypertensive heart and chronic kidney disease with heart failure and stage 1 through stage 4 chronic kidney disease, or unspecified chronic kidney disease; E87.8 Other disorders of electrolyte and fluid balance, not elsewhere classified; N18.9 Chronic kidney disease, unspecified; G30.9 Alzheimer's disease, unspecified; F02.B0 Dementia in other diseases classified elsewhere, moderate, without behavioral disturbance, psychotic disturbance, mood disturbance, and anxiety; I48.0 Paroxysmal atrial fibrillation; I50.9 Heart failure, unspecified; I95.9 Hypotension, unspecified; N18.32 Chronic kidney disease, stage 3b; F03.B0 Unspecified dementia, moderate, without behavioral disturbance, psychotic disturbance, mood disturbance, and anxiety; E78.2 Mixed hyperlipidemia; I48.91 Unspecified atrial fibrillation; N13.9 Obstructive and reflux uropathy, unspecified; Z97.8 Presence of other specified devices; M10.9 Gout, unspecified; E66.9 Obesity, unspecified; Z88.8 Allergy status to other drugs, medicaments and biological substances; Z88.0 Allergy status to penicillin; Z90.49 Acquired absence of other specified parts of digestive tract; Z68.33 Body mass index [BMI] 33.0-33.9, adult; Z11.52 Encounter for screening for COVID-19; Z88.2 Allergy status to sulfonamides; Z79.01 Long term (current) use of anticoagulants; Z79.899 Other long term (current) drug therapy
CPT/HCPCS: 0241U; 36415; 36556; 36600; 51702; 70450; 71045; 71250; 74176; 80048; 80053; 80202; 81001; 82803; 83605; 83735; 84100; 84484; 85025; 85730; 87040; 87086; 87154; 87641; 92610; 93005; 96365; 96366; 96367; 96368; 99291; 93010; 99292; A9270-GY; C9113; J0456; J0692; J1450; J1644; J2248; J2543; J3370; J3490; J7030; J7050; J7620-GY